=== PATIENT | female | born 2000 | race Caucasian/White ===

== ENCOUNTER 2024-09-15 07:53 | Inpatient (IN) | payer OTHER, SELFPAY ==
[2024-09-15] VITALS (39 sets, daily range): BP systolic 97–139; BP diastolic 52–82; PULSE 62–104; RESP 16–18; TEMP 36.1–37.4; O2SAT 94–99; BMI 26.5
--- OUTSIDE RECORDS SUMMARY | 2024-09-15 07:01 | XMS RPT_ITS | CCD ---
Author Organization [facility] Care Team Providers Care Pipe Fitter Marine Name Role Phone Amparo Carter Unavailable Unavailable Unavailable Amparo Carter MD Primary Care Provider [phone] AMPARO CARTER Attending Unavailable AMPARO CARTER Primary Care Unavailable Amparo Carter MD Primary Care Provider [phone] Renee Escalera Admitting Unavailable Renee Escalera Attending Unavailable Renee Escalera Referring Unavailable Amparo Carter Primary Care Unavailable WILLIAM CHEN Referring Unavailable AMPARO CARTER M Primary Care Unavailable REBEKAH MOON Attending Unavail able RAULAMPARO SALEEM M Primary Care Unavailable ASHLEY KHAN Attending Unavailable AMPARO CARTER M Primary Care Unavailable ASHLEY KHAN Attending Unavailable TERRENCE, HELENA Referring Unavailable RAULAMPARO SALEEM M Primary Care Unavailable ASHLEY KHAN Attending Unavailable AMPARO CARTER M Primary Care Unavailable REBEKAH MOON Referring Unavail able AMPARO CARTER M Primary Care Unavailable RENEE ESCALERA Attending Unavailable AMPARO CARTER Primary Care Unavailable RAULAMPARO SALEEM M Primary Care Unavailable TERRENCE, HELENA Referring Unavailable TERRENCE, HELENA Attending Unavailable RAUL, AMPARO M Primary Care Unavailable WILLIAM CHEN Attending Unavailable AMPARO CARTER M Primary Care Unavailable RENEE ESCALERA Attending Unavailable RAUL, AMPARO M Primary Care Unavailable ASHLEY KHAN Attending Unavailable RAUL, AMPARO M Primary Care Unavailable WILLIAM CHEN Attending Unavailable RAUL, AMPARO M Primary Care Unavailable TERRENCE, HELENA Referring Unavailable RAUL, AMPARO M Primary Care Unavailable RAULAMPARO SALEEM M Primary Care Unavailable WILLIAM CHEN Attending Unavailable JOYA HASSAN Attending Unavailable WILLIAM CHEN Referring Unavailable AMPARO CARTER Primary Care Unavailable REBEKAH MOON Attending Unavail able AMPARO CARTER Primary Care Unavailable Allergies Allergy Classification Reported Allergen(s) Allergy Type Date of Onset Reaction(s) Facility (2 sources) Pollen; Translations: [POLLEN EXTRACTS] Propensity to adverse reactions 3 Itching [facility] Work Phone: (20 sources) beta-Blocking agent; Translations: [BETA-BLOCKERS (BETA-ADRENERGI C BLOCKING AGTS)] Propensity to adverse reactions to drug 5 Other: See Comments [facility] (20 sources) Seasonal allergy; Translations: [SEASONAL ALLERGIES] Allergy to substance 3 Hives [facility] Medications Current Medications Medication Drug Class(es) Dates Sig (Normalized) Sig (Original) aspirin 81 mg delayed release oral tablet (20 sources) Platelet Aggregation Inhibitor, Nonsteroidal Anti-inflammatory Drug Start: 01-21-2024 take 1 tablet by mouth once daily aspirin, enteric coated (ECOTRIN LOW STRENGTH) 81 mg EC tablet Take 1 tablet by mouth once daily. 90 tablet 3 01/21/2024 Active [id number] 0.3 ml EPINEPHrine 1 mg/ml auto-injector (20 sources) alpha-Adrenergic Agonist, beta-Adrenergic Agonist, Catecholamine Start: 03-03-2016 EPINEPHrine 0.3 mg/0.3 mL auto-injector Inject 0.3 mL intramuscularly as needed. 1 Each 3 03/03/2016 Active Ethinyl Estradiol / norgestimate (1 source) Progestin, Estrogen Start: 10-24-2022 take 1 tablet by mouth once daily Eba-Rp-Cccddx 0.18/0.215/0.25 mg-25 mcg tablet Indications: Acne, unspecified acne type TAKE 1 TABLET BY MOUTH EVERY DAY 28 tablet 0 10/24/2022 Active ketotifen 0.25 mg/ml ophthalmic solution (20 sources) Histamine-1 Receptor Inhibitor ketotifen fumarate (ALAWAY) 0.025 % (0.035 %) ophthalmic solution Use 1 Drop in both eyes once daily as needed (Due to seasonal allergies). Active levocetirizine dihydrochloride 5 mg oral tablet (9 sources) Histamine-1 Receptor Antagonist Start: 10-25-2022 take 1 tablet by mouth once daily in the evening levocetirizine (Xyzal) 5 mg tablet Indications: Allergy, subsequent encounter Take 1 tablet (5 mg) by mouth once daily in the evening. 90 tablet 1 10/25/2022 Active Start: 06-26-2012 End: 01-21-2024 take 1 tablet by mouth once daily as needed Levocetirizine 5 mg tablet Indications: Seasonal allergic rhinitis due to pollen Take 1 tablet by mouth once daily as needed. 30 tablet 11 07/14/2016 01/21/2024 Discontinued PNV Combo No.47-Iron-FA #1-DHA (PNV-DHA) 27 mg iron-1 mg -300 mg (4 sources) Start: 08-27-2024 End: 08-27-2025 take 1 capsule by mouth once daily PNV Combo No.47-Iron-FA #1-DHA (PNV-DHA) 27 mg iron-1 mg -300 mg Take 1 capsule by mouth once daily. 30 capsule 11 08/27/2024 08/27/2025 Active Completed/Discontinued Medications Medication Drug Class(es) Dates Sig (Normalized) Sig (Original) [id number] 200 actuat albuterol 0.09 mg/actuat metered dose inhaler (6 sources) beta2-Adrenergic Agonist Start: 10-06-2019 take 2 puff(s) by inhalation every four hours as needed for cough Albuterol Sulfate HFA 108 (90 Base) MCG/ACT Inhalation Aerosol Solution INHALE 2 PUFFS EVERY 4 HOURS NEEDED FOR COUGH AND WHEEZE. Quantity: 1 Refills: 1 Ordered: 08-Oct-2020 Amparo Carter MD Start : 06-Oct-2019 Active Start: 10-06-2019 take 2 puff(s) by in halation every four hours as needed for cough Albuterol Sulfate HFA 108 (90 Base) MCG/ACT Inhalation Aerosol Solution INHALE 2 PUFFS EVERY 4 HOURS NEEDED FOR COUGH AND WHEEZE. Quantity: 1 Refills: 1 Ordered: 08-Oct-2020 Amparo Carter MD Start : 06-Oct-2019 Active mometasone furoate 1 mg/ml topical cream (5 sources) Corticosteroid Start: 11-10-2013 Mometasone Fur oate 0.1 % External Cream APPLY SPARINGLY TO AFFECTED AREAS TWICE DAILY.(AM AND PM). Quantity: 1 Refills: 0 Ordered: 12-Oct-2021 Amparo Carter MD Start : 10-Nov-2013 Active Start: 11-10-2013 Mometasone Fur oate 0.1 % External Cream APPLY SPARINGLY TO AFFECTED AREAS TWICE DAILY.(AM AND PM). Quantity: 1 Refills: 0 Ordered: 08-Oct-2020 Amparo Carter MD Start : 10-Nov-2013 Active montelukast 10 mg oral tablet (7 sources) Leukotriene Receptor Antagonist Start: 08-09-2018 End: 01-21-2024 take 1 tablet by mouth at bedtime Montelukast Sodium 10 MG Oral Tablet TAKE 1 TABLET AT BEDTIME. Quantity: 1 Refills: 3 Ordered: 12-Oct-2021 Amparo Carter MD Start : 09-Aug-2018 Active Norgestim-Eth Estrad Triphasic 0.18/0.215/0.25 MG-25 MCG Oral Tablet (6 sources) Start: 08-24-2015 take 1 tablet by mouth once daily Norgestim-Eth Estrad Triphasic 0.18/0.215/0.25 MG-25 MCG Oral Tablet TAKE 1 TABLET DAILY. Quantity: 3 Refills: 1 Ordered: 12-Oct-2021 Amparo Carter MD Start : 24-Aug-2015 Active Start: 08-24-2015 take 1 tablet by natalie th once daily Norgestim-Eth Estrad Triphasic 0.18/0.215/0.25 MG-25 MCG Oral Tablet TAKE 1 TABLET DAILY. Quantity: 2 Refills: 0 Ordered: 17-Aug-2021 Amparo Carter MD Start : 24-Aug-2015 Active Start: 08-24-2015 take 1 tablet by natalie th once daily Norgestim-Eth Estrad Triphasic 0.18/0.215/0.25 MG-25 MCG Oral Tablet TAKE 1 TABLET DAILY. Quantity: 3 Refills: 0 Ordered: 09-Jun-2021 Amparo Carter MD Start : 24-Aug-2015 Active Start: 08-24-2015 take 1 tablet by natalie th once daily Norgestim-Eth Estrad Triphasic 0.18/0.215/0.25 MG-25 MCG Oral Tablet TAKE 1 TABLET DAILY. Quantity: 3 Refills: 1 Ordered: 08-Oct-2020 Amparo Carter MD Start : 24-Aug-2015 Active Start: 08-24-2015 take 1 tablet by natalie th once daily Norgestim-Eth Estrad Triphasic 0.18/0.215/0.25 MG-25 MCG Oral Tablet TAKE 1 TABLET DAILY. Quantity: 3 Refills: 0 Ordered: 29-Sep-2020 Amparo Carter MD Start : 24-Aug-2015 Active olopatadine 2 mg/ml ophthalmic solution (7 sources) Histamine-1 Receptor Inhibitor Start: 01-08-2017 take 1 drop(s) into the eye(s) once daily Pataday 0.2 % Ophthalmic Solution INSTILL 1 DROP INTO AFFECTED EYE(S) ONCE DAILY DIRECTED. Quantity: 1 Refills: 1 Ordered: 08-Jan-2017 Amparo Carter MD Start : 08-Jan-2017 Active End: 01-21-2024 Olopatadine (PATADAY) 0.2 % drop Indications: Allergic rhinitis due to pollen Use 1 Drop in both eyes as needed. 01/21/2024 Discontinued PNV no.95/ferrous fum/folic ac ( ORAL) (11 sources) End: 08-27-2024 PNV no.95/ferrous fum/folic ac ( ORAL) Take by mouth. 08/27/2024 Discontinued PNV no.95/ferrou s fum/folic ac ( ORAL) Take by mouth. Active predniSONE 20 mg oral tablet (1 source) End: 01-21-2024 predniSONE (DELTASONE) 20 mg tablet Take 20 mg by mouth as needed. 01/21/2024 Discontinued spironolactone 50 mg oral tablet (7 sources) Aldosterone Antagonist Start: 07-17-2019 Spironolactone 50 MG Oral Tablet Quantity: 30 Refills: 0 Ordered: 08-Aug-2019 DO Start : 17-Jul-2019 Active take 1 tablet by mouth once jaison y spironolactone (Aldactone) 100 mg tablet Take 1 tablet (100 mg) by mouth once daily. 0 Active tretinoin 0.25 mg/ml topical cream (4 sources) Retinoid Start: 04-17-2019 Tretinoin 0.025 % External Cream Quantity: 45 Refills: 0 Ordered: 17-Apr-2019 DO Start : 17-Apr-2019 Active triamcinolone acetonide 0.055 mg/actuat metered dose nasal spray (11 sources) Corticosteroid Start: 12-31-2014 End: 06-23-2024 take 2 spray(s) by inhalation once daily triamcinolone acetonide (NASACORT AQ) 55 mcg nasal inhaler Use 2 Sprays in the nose once daily. 1 Inhaler 11 12/31/2014 06/23/2024 Discontinued Problems Active Problems Problem Classification Problem Date Documented Date Episodic/Chronic Allergic reactions (20 sources) Eczema; Translations: [Contact dermatitis and other eczema, unspecified cause] Episodic Asthma (7 sources) Reactive airway disease; Translations: [Asthma, unspecified type, unspecified] Onset: 10-25-2022 10-25-2022 Chronic Immunizations and screening for infectious disease (14 sources) Requires vaccination; Translations: [Need for prophylactic vaccination and inoculation against other viral diseases] 01-21-2024 Episodic Inflammation; infection of eye (except that caused by tuberculosis or sexually transmitteddisease) (7 sources) Allergic conjunctivitis; Translations: [Other chronic allergic conjunctivitis] Onset: 10-25-2022 10-25-2022 Episodic Other complications of (1 source) Variable heart decelerations; Translations: [Maternal care for abnormalities of the heart rate or rhythm, unspecified trimester, not applicable or unspecified] 07-09-2024 Episodic Other connective tissue disease (6 sources) Pain in thumb ; Translations: [Pain in limb] Episodic Other injuries and conditions due to external causes (1 source) Allergic condition; Translations: [Allergy, unspecified, subsequent encounter] 10-25-2022 Episodic Other nutritional; endocrine; and metabolic disorders (6 sources) Delayed milestones; Translations: [Gross Motor Skills Were Delayed] Episodic Other and delivery including normal (20 sources) Normal ; Translations: [Encounter for supervision of normal first , first trimester] Onset: 01-21-2024 01-21-2024 Episodic Other screening for suspected conditions (not mental disorders or infectious disease) (6 sources) Cancer cervix screening status; Translations: [Encounter for screening for malignant neoplasm of cervix] Onset: 06-23-2024 01-21-2024 Episodic Other skin disorders (6 sources) Acne; Translations: [Other acne] Episodic Other upper respiratory disease (20 sources) Allergic rhinitis; Translations: [Allergic rhinitis, cause unspecified] Onset: 02-17-2015 10-25-2022 Chronic Other upper respiratory disease (6 sources) Allergy to dust; Translations: [Allergic rhinitis due to other allergen] Chronic Other upper respiratory disease (6 sources) Allergy to substance; Translations: [Allergic rhinitis due to pollen] Chronic Other upper respiratory disease (6 sources) Allergic rhinitis due to pollen; Translations: [Allergic rhinitis due to pollen] Chronic Other upper respiratory infections (12 sources) Acute pharyngitis; Translations: [Acute pharyngitis] Episodic Residual codes; unclassified (1 source) Gestation period, 6 weeks; Translations: [Less than 8 weeks gestation of ] 01-21-2024 Episodic Residual codes; unclassified (2 sources) Gestation period, 13 weeks; Translations: [13 weeks gestation of ] 03-10-2024 Episodic Residual codes; unclassified (1 source) Gestation period, 17 weeks; Translations: [17 weeks gestation of ] 04-07-2024 Episodic Residual codes; unclassified (2 sources) Gestation period, 21 weeks; Translations: [21 weeks gestation of ] 05-05-2024 Episodic Residual codes; unclassified (1 source) Gestation period, 28 weeks; Translations: [28 weeks gestation of ] 06-23-2024 Episodic Residual codes; unclassified (1 source) Gestation period, 30 weeks; Translations: [30 weeks gestation of ] 07-09-2024 Episodic Residual codes; unclassified (1 source) Gestation period, 32 weeks; Translations: [32 weeks gestation of ] 07-21-2024 Episodic Residual codes; unclassified (1 source) Gestation period, 34 weeks; Translations: [34 weeks gestation of ] 08-04-2024 Episodic Residual codes; unclassified (1 source) Gestation period, 36 weeks; Translations: [36 weeks gestation of ] 08-20-2024 Episodic Residual codes; unclassified (1 source) Gestation period, 37 weeks; Translations: [37 weeks gestation of ] 08-27-2024 Episodic Residual codes; unclassified (1 source) Gestation period, 38 weeks; Translations: [38 weeks gestation of ] 09-03-2024 Episodic Residual codes; unclassified (1 source) Gestation period, 39 weeks; Translations: [39 weeks gestation of ] 09-10-2024 Episodic Residual codes; unclassified (1 source) 39 weeks gestation of ; Translations: [39 weeks gestation of (HCC)] Onset: 09-10-2024 Episodic Residual codes; unclassified (1 source) 38 weeks gestation of ; Translations: [38 weeks gestation of (HCC)] Onset: 09-03-2024 Episodic Residual codes; unclassified (1 source) 37 weeks gestation of ; Translations: [37 weeks gestation of (HCC)] Onset: 08-27-2024 Episodic Residual codes; unclassified (1 source) 36 weeks gestation of ; Translations: [36 weeks gestation of (HCC)] Onset: 08-20-2024 Episodic Residual codes; unclassified (1 source) 34 weeks gestation of ; Translations: [34 weeks gestation of (HCC)] Onset: 08-04-2024 Episodic Residual codes; unclassified (1 source) 32 weeks gestation of ; Translations: [32 weeks gestation of (HCC)] Onset: 07-21-2024 Episodic Residual codes; unclassified (1 source) 30 weeks gestation of ; Translations: [30 weeks gestation of (HCC)] Onset: 07-09-2024 Episodic Unclassified (20 sources) [facility] Education - COMMON Onset: 01-21-2024 01-21-2024 Unclassified (20 sources) Education - [place] Onset: 01-21-2024 01-21-2024 Past or Other Problems Problem Classification Problem Date Documented Da te Episodic/Chronic Other complications of (16 sources) Rubella non-immune; Translations: [Supervision of other high risk pregnancies, unspecified trimester] Onset: 03-11-2024 03-11-2024 Episodic Other injuries and conditions due to external causes (2 sources) Allergy, unspecified, subsequent encounter; Translations: [Allergy, unspecified, subsequent encounter] Onset: 10-25-2022 Episodic Residual codes; unclassified (1 source) 17 weeks gestation of ; Translations: [17 weeks gestation of ] Onset: 05-05-2024 Episodic Residual codes; unclassified (2 sources) Less than 8 weeks gestation of ; Translations: [6 weeks gestation of ] Onset: 01-21-2024 Episodic Unclassified (1 source) Onset: 10-25-2022 10-25-2022 Results Test Name Value Interpretation Reference Range Facil ity URINE OB DIP B/Oon 5 Glucose Ql (U) Negative Neg mg/dL [facility] Protein.monoclonal (U) [Mass/Vol] Negative Neg mg/dL [facility] URINE OB DIP B/Oon 5 Glucose Ql (U) Negative Neg mg/dL [facility] Interpretation and review of laboratory results Normal [facility] Protein.monoclonal (U) [Mass/Vol] Negative Neg mg/dL [facility] URINE OB DIP B/Oon 5 Glucose Ql (U) Negative Neg mg/dL [facility] Interpretation and review of laboratory results Normal [facility] Protein.monoclonal (U) [Mass/Vol] Negative Neg mg/dL [facility] ROUTINE, GROUP B ST REPTOCOCCUS BY PCRon 08-20-2024 ROUTINE, GROUP B STREPTOCOCCUS BY PCR Not detected Normal [facility] Comment on above: Performed By: #### R [id number] #### [facility] CLIA [id number] [address] [place] [address] [place] URINE OB DIP B/Oon 5 Glucose Ql (U) 100 mg/dL Neg [facility] Interpretation and review of laboratory results Normal [facility] Protein.monoclonal (U) [Mass/Vol] Negative Neg mg/dL [facility] 08-05-2024 JOYCE Telephone (OBGYWM) JESÚS CUEVAS ([id number]) 2000 F Date Time Provider Department 08/05/24 WILLIAM CHEN OBBERNARD During your visit today, we recorded the following information about you: Mary Ann Benitez RN 08/05/2024 8:28 AM Signed Breast pump order received from [employer]. To to sign. STEVEN Humphries Tara, RN 08/14/2024 3:16 PM Signed Faxed. Marsha Pugh RN Allergies As of Date: 08/05/2024 Noted Allergy Reaction BETA BLOCKERS (BETA-BLOCKERS (BET*02/03/2015 14 - Other: See Comments Comments: Please avoid beta blockers while patient is on allergy injections SEASONAL ALLERGIES 05/11/2022 4 - Hives Date Reviewed: 08/04/2024 Reviewed by: Antonette Perry MA - Fully Assessed Reason for Visit: Breast Pump [Other] Prescriptions as of 08/14/2024 - PNV no.95/ferrous fum/folic ac ( ORAL) Take by mouth. - aspirin, enteric coated (ECOTRIN LOW STRENGTH) 81 mg EC tablet Take 1 tablet by mouth once daily. - ketotifen fumarate (ALAWAY) 0.025 % (0.035 %) ophthalmic solution Use 1 Drop in both eyes once daily as needed (Due to seasonal allergies). - EPINEPHrine 0.3 mg/0.3 mL auto-injector Inject 0.3 mL intramuscularly as needed. Problem List As Of Date 08/05/2024 Noted Resolved Allergic rhinitis [J30.9] 02/17/2015 Encounter for supervision of normal first pregn*01/21/2024 Rubella non-immune status, antepartum [O09.899,*03/11/2024 Encounter Status:Closed by MARSHA PUGH on 08/14/24 Normal [facility] URINE OB DIP B/Oon Glucose Ql (U) 250 mg/dL Neg [facility] Interpretation and review of laboratory results Normal [facility] Protein.monoclonal (U) [Mass/Vol] Negative Neg mg/dL [facility] CBC W Auto Differential pane l (Bld)on 06-23-2024 Basophils (Bld) [#/Vol] 0.05 10*3/uL Normal <0.11 [facility] Comment on above: Order Comment: Speci men Type: FLUID SPECIMEN Ordering Facility: [facility] Address: [address] [place] [address] Performed By: #### L [id number] #### [facility] CLIA [id number] [address] [place] [address] [place] Basophils/100 WBC (Bld) 0.4 % Normal [facility] Comment on above: Order Comment: Speci men Type: FLUID SPECIMEN Ordering Facility: [facility] Address: [address] [place] [address] Performed By: #### L [id number] #### [facility] CLIA [id number] [address] [place] [address] [place] Differential cell count method Nom (Bld) Auto Normal [facility] Comment on above: Order Comment: Speci men Type: FLUID SPECIMEN Ordering Facility: [facility] Address: [address] [place] [address] Performed By: #### L [id number] #### [facility] CLIA [id number] [address] [place] [address] [place] Eosinophils (Bld) [#/Vol] 0.13 10*3/uL Normal <0.46 [facility] Comment on above: Order Comment: Speci men Type: FLUID SPECIMEN Ordering Facility: [facility] Address: [address] [place] [address] Performed By: #### L [id number] #### [facility] CLIA [id number] [address] [place] [address] [place] Eosinophils/100 WBC (Bld) 1.1 % Normal [facility] Comment on above: Order Comment: Speci men Type: FLUID SPECIMEN Ordering Facility: [facility] Address: [address] [place] [address] Performed By: #### L [id number] #### [facility] CLIA [id number] [address] [place] [address] [place] Erythrocyte distribution width (RBC) [Ratio] 12.3 % Normal 11.5-15.0 [facility] Comment on above: Order Comment: Speci men Type: FLUID SPECIMEN Ordering Facility: [facility] Address: [address] [place] [address] Performed By: #### L [id number] #### [facility] CLIA [id number] [address] [place] [address] [place] Hematocrit (Bld) [Volume fraction] 37.4 % Normal 36.0-46.0 [facility] Comment on above: Order Comment: Speci men Type: FLUID SPECIMEN Ordering Facility: [facility] Address: [address] [place] [address] Performed By: #### L [id number] #### [facility] CLIA [id number] [address] [place] [address] [place] Hemoglobin (Bld) [Mass/Vol] 12.6 g/dL Normal 11.5-15.5 [facility] Comment on above: Order Comment: Speci men Type: FLUID SPECIMEN Ordering Facility: [facility] Address: [address] [place] [address] Performed By: #### L [id number] #### [facility] CLIA [id number] [address] [place] [address] [place] Immature granulocytes (Bld) [#/Vol] 0.14 10*3/uL High <0.10 [facility] Comment on above: Order Comment: Speci men Type: FLUID SPECIMEN Ordering Facility: [facility] Address: [address] [place] [address] Performed By: #### L [id number] #### [facility] CLIA [id number] [address] [place] [address] [place] Immature granulocytes/100 WBC (Bld) 1.2 % Normal [facility] Comment on above: Order Comment: Speci men Type: FLUID SPECIMEN Ordering Facility: [facility] Address: [address] [place] [address] Performed By: #### L [id number] #### [facility] CLIA [id number] [address] [place] [address] [place] Lymphocytes (Bld) [#/Vol] 1.98 10*3/uL Normal 1.00-4.00 [facility] Comment on above: Order Comment: Speci men Type: FLUID SPECIMEN Ordering Facility: [facility] Address: [address] [place] [address] Performed By: #### L [id number] #### [facility] CLIA [id number] [address] [place] [address] [place] Lymphocytes/100 WBC (Bld) 17.0 % Normal [facility] Comment on above: Order Comment: Speci men Type: FLUID SPECIMEN Ordering Facility: [facility] Address: [address] [place] [address] Performed By: #### L [id number] #### [facility] CLIA [id number] [address] [place] [address] [place] MCH (RBC) [Entitic mass] 30.1 pg Normal 26.0-34.0 [facility] Comment on above: Order Comment: Speci men Type: FLUID SPECIMEN Ordering Facility: [facility] Address: [address] [place] [address] Performed By: #### L [id number] #### [facility] CLIA [id number] [address] [place] [address] [place] MCHC (RBC) [Mass/Vol] 33.7 g/dL Normal 30.5-36.0 [facility] Comment on above: Order Comment: Speci men Type: FLUID SPECIMEN Ordering Facility: [facility] Address: [address] [place] [address] Performed By: #### L [id number] #### [facility] CLIA [id number] [address] [place] [address] [place] MCV (RBC) [Entitic vol] 89.5 fL Normal 80.0-100.0 [facility] Comment on above: Order Comment: Speci men Type: FLUID SPECIMEN Ordering Facility: [facility] Address: [address] [place] [address] Performed By: #### L [id number] #### [facility] CLIA [id number] [address] [place] [address] [place] Monocytes (Bld) [#/Vol] 1.42 10*3/uL High <0.87 [facility] Comment on above: Order Comment: Speci men Type: FLUID SPECIMEN Ordering Facility: [facility] Address: [address] [place] [address] Performed By: #### L [id number] #### [facility] CLIA [id number] [address] [place] [address] [place] Monocytes/100 WBC (Bld) 12.2 % Normal [facility] Comment on above: Order Comment: Speci men Type: FLUID SPECIMEN Ordering Facility: [facility] Address: [address] [place] [address] Performed By: #### L [id number] #### [facility] CLIA [id number] [address] [place] [address] [place] Neutrophils (Bld) [#/Vol] 7.96 10*3/uL High 1.45-7.50 [facility] Comment on above: Order Comment: Speci men Type: FLUID SPECIMEN Ordering Facility: [facility] Address: [address] [place] [address] Performed By: #### L [id number] #### [facility] CLIA [id number] [address] [place] [address] [place] Neutrophils/100 WBC (Bld) 68.1 % Normal [facility] Comment on above: Order Comment: Speci men Type: FLUID SPECIMEN Ordering Facility: [facility] Address: [address] [place] [address] Performed By: #### L [id number] #### [facility] CLIA [id number] [address] [place] [address] [place] Nucleated RBC (Bld) [#/Vol] 10*3/uL Normal <0.01 [facility] Comment on above: Order Comment: Speci men Type: FLUID SPECIMEN Ordering Facility: [facility] Address: [address] [place] [address] Performed By: #### L [id number] #### [facility] CLIA [id number] [address] [place] [address] [place] Nucleated RBC/100 WBC (Bld) [Ratio] 0.0 /100 WBC Normal [facility] Comment on above: Order Comment: Speci men Type: FLUID SPECIMEN Ordering Facility: [facility] Address: [address] [place] [address] Performed By: #### L [id number] #### [facility] CLIA [id number] [address] [place] [address] [place] Platelet mean volume (Bld) [Entitic vol] 8.4 fL Low 9.0-12.7 [facility] Comment on above: Order Comment: Speci men Type: FLUID SPECIMEN Ordering Facility: [facility] Address: [address] [place] [address] Performed By: #### L [id number] #### [facility] CLIA [id number] [address] [place] [address] [place] Platelets (Bld) [#/Vol] 308 10*3/uL Normal 150-400 [facility] Comment on above: Order Comment: Speci men Type: FLUID SPECIMEN Ordering Facility: [facility] Address: [address] [place] [address] Performed By: #### L [id number] #### [facility] CLIA [id number] [address] [place] [address] [place] RBC (Bld) [#/Vol] 4.18 10*6/uL Normal 3.90-5.20 [facility] Comment on above: Order Comment: Speci men Type: FLUID SPECIMEN Ordering Facility: [facility] Address: [address] [place] [address] Performed By: #### L [id number] #### [facility] CLIA [id number] [address] [place] [address] [place] WBC (Bld) [#/Vol] 11.68 10*3/uL High 3.70-11.00 [facility] Comment on above: Order Comment: Speci men Type: FLUID SPECIMEN Ordering Facility: [facility] Address: [address] [place] [address] Performed By: #### L [id number] #### [facility] CLIA [id number] [address] [place] [address] [place] GESTATIONAL GLUCOSE SCREEN, 1-HOUR, 50 GRAM, NON-FASTINGon 06-23-2024 Glucose [Mass/Vol] 123 mg/dL Normal 74-134 [facility] Comment on above: Order Comment: Speci men Type: BLOOD SPECIMEN Ordering Facility: [facility] Address: [address] [place] [address] Result Comment: [facility] Congress of Obstetricians and Gynecologists ([place]) guidelines state a gestational diabetes mellitus positive screen is made, in women not previously diagnosed with overt diabetes, when the 1 hr plasma glucose level is equal to or above 140 mg/dL. The [facility] Corporate Director and [facility] [place] recommends a 135 mg/dL cutoff. Performed By: #### R UBIGG #### [facility] CLIA [id number] [address] [place] [address] [place] Reagin and Treponema pallidu m IgG and IgM [Interp]on 06-23-2024 T. pallidum IgG+IgM IA Ql (S) Non-Reactive Normal Nonreactive [facility] Comment on above: Order Comment: Speci men Type: BLOOD SPECIMEN Ordering Facility: [facility] Address: [address] [place] [address] Performed By: #### R UBIGG #### [facility] CLIA [id number] [address] [place] [address] [place] Reagin+T pallidum IgG+IgM Se rPl-Impon 06-23-2024 Reagin and Treponema pallidum IgG and IgM [Interp] Cannot exclude recent Treponemal infection if specimen collected within 7-10 days after appearance of suspect lesions or 2-3 weeks after an exposure. Clinical correlation is required. Normal [facility] Comment on above: Order Comment: Speci men Type: BLOOD SPECIMEN Ordering Facility: [facility] Address: [address] [place] [address] Performed By: #### R UBIGG #### [facility] CLIA [id number] [address] [place] [address] [place] CNPLedy 06-04-2024 JYOCE Telephone (OBGYWM) JESÚS CUEVAS ([id number]) 2000 F Date Time Provider Department 06/04/24 REBEKAH MOON During your visit today, we recorded the following information about you: Desmond Michael MA 06/04/2024 2:49 PM Signed [facility] paperwork completed and placed on providers desk for signature. JOVAN Lara Morgan, MA 06/06/2024 11:06 AM Signed [facility] paperwork completed and faxed back to employer. Patient would like original back, placed in SW chart prep folder for upcoming appointment. Patient notified. Desmond Michael MA Allergies As of Date: 06/04/2024 Noted Allergy Reaction BETA BLOCKERS (BETA-BLOCKERS (BET*02/03/2015 14 - Other: See Comments Comments: Please avoid beta blockers while patient is on allergy injections SEASONAL ALLERGIES 05/11/2022 4 - Hives Date Reviewed: 06/02/2024 Reviewed by: Becki Lara MA - Fully Assessed Reason for Visit: [place] Paperwork [5275] Prescriptions as of 06/06/2024 - PNV no.95/ferrous fum/folic ac ( ORAL) Take by mouth. - aspirin, enteric coated (ECOTRIN LOW STRENGTH) 81 mg EC tablet Take 1 tablet by mouth once daily. - ketotifen fumarate (ALAWAY) 0.025 % (0.035 %) ophthalmic solution Use 1 Drop in both eyes once daily as needed (Due to seasonal allergies). - EPINEPHrine 0.3 mg/0.3 mL auto-injector Inject 0.3 mL intramuscularly as needed. - triamcinolone acetonide (NASACORT AQ) 55 mcg nasal inhaler Use 2 Sprays in the nose once daily. Problem List As Of Date 06/04/2024 Noted Resolved Allergic rhinitis [J30.9] 02/17/2015 Encounter for supervision of normal first pregn*01/21/2024 Rubella non-immune status, antepartum [O09.899,*03/11/2024 Encounter Status:Closed by DESMOND MICHAEL on 06/06/24 Normal [facility] Examination level ultrasound on 05-05-2024 Indication Standard anatomic survey Impression REMOTE READ The patient is referred for a standard anatomic survey. - Single, live, intrauterine . - biometry is consistent with the established gestational age. - No malformations were visualized on a complete standard anatomic survey. - The amniotic fluid volume is normal amount. - The placenta is posterior, fundal. - The Transabdominal cervical length measures 42.3 mm with no evidence of funneling or other dynamic changes. - Not all structural malformations can be detected by ultrasound examination. Recommendations Additional follow-up as clinically indicated. Maternal Assessment Height 168 cm Height (ft) 5 ft Height (in) 6 in Physical Exam Initial weight (lb) 130 lb Initial BMI 20.98 kg/m Maternal assessment other: 1 Para 0 Method Transabdominal ultrasound examination. View: Adequate visualization Henley . Number of fetuses: 1 Dating LMP on: 12/01/2023 GA by LMP 22 w + 2 d [place] by LMP: 09/06/2024 GA by prior assessment 21 w + 1 d [place] by prior assessment: 09/14/2024 Ultrasound examination on: 05/05/2024 GA by U/S based upon: AC, BPD, Femur, HC GA by U/S 21 w + 4 d [place] by U/S: 09/11/2024 Assigned: based on stated [place], selected on 03/10/2024 Assigned GA 21 w + 1 d Assigned [place]: 09/14/2024 General Evaluation Cardiac activity present. FHR 143 bpm. movements: present. Presentation: cephalic Placenta: Placental site: posterior, fundal Umbilical cord: Cord vessels: 3 vessel cord Amniotic fluid: Amount of AF: normal amount. MVP 4.4 cm Growth Overview Exam date GA BPD (mm) HC (mm) AC (mm) FL (mm) HL (mm) EFW (g) 05/05/2024 21w 1d 50.1 50% 193.2 62% 171.1 73% 35.8 73% 34.2 65% 445 74% Biometry Standard BPD 50.1 mm 21w 1d 50% Hadlock OFD 70.2 mm 21w 6d 93% Nicolaides HC 193.2 mm 21w 4d 62% Keysha Cerebellum tr 22.6 mm 21w 0d 62% Hill Nuchal fold 5.0 mm AC 171.1 mm 22w 1d 73% Hadlock Femur 35.8 mm 21w 4d 73% Keysha Humerus 34.2 mm 21w 5d 65% Keysha EFW 445 g 21w 4d 74% Hadlock EFW (lb) 1 lb EFW (oz) 0 oz EFW by: Hadlock (HC-AC-FL) Extended Mechanical Field Engineer 5.4 mm CM 5.4 mm 54% Nicolaides Extremities / Bony Struc FL / HC 0.19 Other Structures FHR 143 bpm Anatomy Cranium: normal Lateral ventricles: normal Choroid plexus: normal Midline falx: normal Cavum septi pellucidi: normal Cerebellum: normal Cisterna magna: normal Head / Neck Vermis: Normal but not required for a standard anatomy exam Neck: Normal but not required for a standard anatomy exam Nuchal fold: Normal but not required for a standard anatomy exam Lips: normal Profile: Normal but not required for a standard anatomy exam Nose: Normal but not required for a standard anatomy exam Face Maxilla: Normal but not required for a standard anatomy exam Mandible: Normal but not required for a standard anatomy exam Orbits: Normal but not required for a standard anatomy exam Lens: Normal but not required for a standard anatomy exam 4-chamber view: normal RVOT view: normal LVOT view: normal 3-vessel view: normal 2-mzpooh-rattmla view: normal Heart / Thorax Situs: situs solitus (normal) Aortic arch view: Normal but not required for a standard anatomy exam SVC: Normal but not required for a standard anatomy exam IVC: Normal but not required for a standard anatomy exam Cardiac axis: normal Rt lung: Normal but not required for a standard anatomy exam Lt lung: Normal but not required for a standard anatomy exam Diaphragm: Normal but not required for a standard anatomy exam Cord insertion: normal Stomach: normal Kidneys: normal Bladder: normal Genitals: normal Abdomen Abdom. wall: normal Cervical spine: normal Thoracic spine: normal Lumbar spine: normal Sacral spine: normal Arms: normal Legs: normal Rt upper arm: normal Rt forearm: normal Rt hand: normal Rt fingers: normal Lt upper arm: normal Lt forearm: normal Lt hand: normal Lt fingers: normal Rt upper leg: normal Rt lower leg: normal Rt foot: normal Lt upper leg: normal Lt lower leg: normal Lt foot: normal sex: male Wants to know sex: yes Maternal Structures Uterus / Cervix Uterus: Visualized Cervix: Visualized Approach: Transabdominal Cervical length 42.3 mm Other: Patient declined transvaginal ultrasound for cervical length. Ovaries / Tubes / Adnexa Rt ovary: Visualized Lt ovary: Visualized Performed By: Jaqueline Angela RDMS, RVT Read By: Candida Davidson M.D. MATERNAL MEDICINE [facility] Radiology Study observation (narrative) [facility] CBC W Auto Differential pane l (Bld)on 03-10-2024 Basophils (Bld) [#/Vol] 0.04 10*3/uL Normal <0.11 [facility] Comment on above: Order Comment: Speci men Type: BLOOD SPECIMEN Ordering Facility: [facility] Address: [address] [place] [address] Performed By: #### R UBIGG #### [facility] CLIA [id number] [address] [place] [address] [place] [address] [place] Basophils/100 WBC (Bld) 0.3 % Normal [facility] Comment on above: Order Comment: Speci men Type: BLOOD SPECIMEN Ordering Facility: [facility] Address: [address] [place] [address] Performed By: #### R UBIGG #### [facility] CLIA [id number] [address] [place] [address] [place] Differential cell count method Nom (Bld) Auto Normal [facility] Comment on above: Order Comment: Speci men Type: BLOOD SPECIMEN Ordering Facility: [facility] Address: [address] [place] [address] Performed By: #### R UBIGG #### [facility] CLIA [id number] [address] [place] [address] [place] Eosinophils (Bld) [#/Vol] 0.11 10*3/uL Normal <0.46 [facility] Comment on above: Order Comment: Speci men Type: BLOOD SPECIMEN Ordering Facility: [facility] Address: [address] [place] [address] Performed By: #### R UBIGG #### [facility] CLIA [id number] [address] [place] [address] [place] Eosinophils/100 WBC (Bld) 0.9 % Normal [facility] Comment on above: Order Comment: Speci men Type: BLOOD SPECIMEN Ordering Facility: [facility] Address: [address] [place] [address] Performed By: #### R UBIGG #### [facility] CLIA [id number] [address] [place] [address] [place] Erythrocyte distribution width (RBC) [Ratio] 12.5 % Normal 11.5-15.0 [facility] Comment on above: Order Comment: Speci men Type: BLOOD SPECIMEN Ordering Facility: [facility] Address: [address] [place] [address] Performed By: #### R UBIGG #### [facility] CLIA [id number] [address] [place] [address] [place] Hematocrit (Bld) [Volume fraction] 39.8 % Normal 36.0-46.0 [facility] Comment on above: Order Comment: Speci men Type: BLOOD SPECIMEN Ordering Facility: [facility] Address: [address] [place] [address] Performed By: #### R UBIGG #### [facility] CLIA [id number] [address] [place] [address] [place] Hemoglobin (Bld) [Mass/Vol] 13.5 g/dL Normal 11.5-15.5 [facility] Comment on above: Order Comment: Speci men Type: BLOOD SPECIMEN Ordering Facility: [facility] Address: [address] [place] [address] Performed By: #### R UBIGG #### [facility] CLIA [id number] [address] [place] [address] [place] Immature granulocytes (Bld) [#/Vol] 0.08 10*3/uL Normal <0.10 [facility] Comment on above: Order Comment: Speci men Type: BLOOD SPECIMEN Ordering Facility: [facility] Address: [address] [place] [address] Performed By: #### R UBIGG #### [facility] CLIA [id number] [address] [place] [address] [place] Immature granulocytes/100 WBC (Bld) 0.6 % Normal [facility] Comment on above: Order Comment: Speci men Type: BLOOD SPECIMEN Ordering Facility: [facility] Address: [address] [place] [address] Performed By: #### R UBIGG #### [facility] CLIA [id number] [address] [place] [address] [place] Lymphocytes (Bld) [#/Vol] 1.14 10*3/uL Normal 1.00-4.00 [facility] Comment on above: Order Comment: Speci men Type: BLOOD SPECIMEN Ordering Facility: [facility] Address: [address] [place] [address] Performed By: #### R UBIGG #### [facility] CLIA [id number] [address] [place] [address] [place] Lymphocytes/100 WBC (Bld) 9.1 % Normal [facility] Comment on above: Order Comment: Speci men Type: BLOOD SPECIMEN Ordering Facility: [facility] Address: [address] [place] [address] Performed By: #### R UBIGG #### [facility] CLIA [id number] [address] [place] [address] [place] MCH (RBC) [Entitic mass] 30.5 pg Normal 26.0-34.0 [facility] Comment on above: Order Comment: Speci men Type: BLOOD SPECIMEN Ordering Facility: [facility] Address: [address] [place] [address] Performed By: #### R UBIGG #### [facility] CLIA [id number] [address] [place] [address] [place] MCHC (RBC) [Mass/Vol] 33.9 g/dL Normal 30.5-36.0 [facility] Comment on above: Order Comment: Speci men Type: BLOOD SPECIMEN Ordering Facility: [facility] Address: [address] [place] [address] Performed By: #### R UBIGG #### [facility] CLIA [id number] [address] [place] [address] [place] MCV (RBC) [Entitic vol] 89.8 fL Normal 80.0-100.0 [facility] Comment on above: Order Comment: Speci men Type: BLOOD SPECIMEN Ordering Facility: [facility] Address: [address] [place] [address] Performed By: #### R UBIGG #### [facility] CLIA [id number] [address] [place] [address] [place] Monocytes (Bld) [#/Vol] 1.62 10*3/uL High <0.87 [facility] Comment on above: Order Comment: Speci men Type: BLOOD SPECIMEN Ordering Facility: [facility] Address: [address] [place] [address] Performed By: #### R UBIGG #### [facility] CLIA [id number] [address] [place] [address] [place] Monocytes/100 WBC (Bld) 12.9 % Normal [facility] Comment on above: Order Comment: Speci men Type: BLOOD SPECIMEN Ordering Facility: [facility] Address: [address] [place] [address] Performed By: #### R UBIGG #### [facility] CLIA [id number] [address] [place] [address] [place] Neutrophils (Bld) [#/Vol] 9.57 10*3/uL High 1.45-7.50 [facility] Comment on above: Order Comment: Speci men Type: BLOOD SPECIMEN Ordering Facility: [facility] Address: [address] [place] [address] Performed By: #### R UBIGG #### [facility] CLIA [id number] [address] [place] [address] [place] Neutrophils/100 WBC (Bld) 76.2 % Normal [facility] Comment on above: Order Comment: Speci men Type: BLOOD SPECIMEN Ordering Facility: [facility] Address: [address] [place] [address] Performed By: #### R UBIGG #### [facility] CLIA [id number] [address] [place] [address] [place] Nucleated RBC (Bld) [#/Vol] 10*3/uL Normal <0.01 [facility] Comment on above: Order Comment: Speci men Type: BLOOD SPECIMEN Ordering Facility: [facility] Address: [address] [place] [address] Performed By: #### R UBIGG #### [facility] CLIA [id number] [address] [place] [address] [place] Nucleated RBC/100 WBC (Bld) [Ratio] 0.0 /100 WBC Normal [facility] Comment on above: Order Comment: Speci men Type: BLOOD SPECIMEN Ordering Facility: [facility] Address: [address] [place] [address] Performed By: #### R UBIGG #### [facility] CLIA [id number] [address] [place] [address] [place] Platelet mean volume (Bld) [Entitic vol] 8.4 fL Low 9.0-12.7 [facility] Comment on above: Order Comment: Speci men Type: BLOOD SPECIMEN Ordering Facility: [facility] Address: [address] [place] [address] Performed By: #### R UBIGG #### [facility] CLIA [id number] [address] [place] [address] [place] Platelets (Bld) [#/Vol] 267 10*3/uL Normal 150-400 [facility] Comment on above: Order Comment: Speci men Type: BLOOD SPECIMEN Ordering Facility: [facility] Address: [address] [place] [address] Performed By: #### R UBIGG #### [facility] CLIA [id number] [address] [place] [address] [place] RBC (Bld) [#/Vol] 4.43 10*6/uL Normal 3.90-5.20 [facility] Comment on above: Order Comment: Speci men Type: BLOOD SPECIMEN Ordering Facility: [facility] Address: [address] [place] [address] Performed By: #### R UBIGG #### [facility] CLIA [id number] [address] [place] [address] [place] WBC (Bld) [#/Vol] 12.56 10*3/uL High 3.70-11.00 [facility] Comment on above: Order Comment: Speci men Type: BLOOD SPECIMEN Ordering Facility: [facility] Address: [address] [place] [address] Performed By: #### R UBIGG #### [facility] CLIA [id number] [address] [place] [address] [place] nuchal translucency me asured by USon 03-10-2024 Indication First trimester anatomic survey Impression REMOTE READ The patient is referred for a first trimester anatomy scan including nuchal translucency measurement as clinically indicated. - Single, live, intrauterine . - Nicodemus rump length measurement is consistent with the established gestational age. - A qualitative screen of the nuchal translucency and other anatomic structures was unremarkable on a complete first trimester anatomic assessment. - Not all structural malformations can be detected by ultrasound examination. Maternal Structures: Right Ovary: Size 30 mm x 21 mm x 19 mm Left Ovary: Size 12 mm x 13 mm x 15 mm Recommendations Return for anatomy ultrasound Maternal Assessment Height 168 cm Height (ft) 5 ft Height (in) 6 in Physical Exam Initial weight (lb) 130 lb Initial BMI 20.98 kg/m Maternal assessment other: 1 Para 0 Method Transabdominal ultrasound examination Henley . Number of fetuses: 1 Dating LMP on: 12/01/2023 GA by LMP 12 w + 2 d LAKSHMI by LMP: 09/06/2024 GA by prior assessment 11 w + 1 d LAKSHMI by prior assessment: 09/14/2024 Ultrasound examination on: 03/10/2024 GA by U/S based upon: CRL GA by U/S 13 w + 4 d LAKSHMI by U/S: 09/11/2024 Assigned: based on stated LAKSHMI, selected on 03/10/2024 Assigned GA 13 w + 1 d Assigned LAKSHMI: 09/14/2024 General Evaluation Cardiac activity present Placenta: posterior Cord vessels: 3 vessel cord Amniotic fluid: normal amount Biometry Standard FHR 142 bpm CRL 75.3 mm 13w 4d 77% [facility] First Trimester Anatomy Calvarium: normal Falx cerebri: normal Choroid plexus: normal Profile: normal Nasal bone: normal Retronasal triangle: normal Maxilla: normal Mandible: normal Nuchal translucency: Unremarkable Situs: normal Cardiac position: normal Cardiac axis: normal 4-chamber view: visualized 4-chamber view with color: normal 5-[id number]-hibwnhv view: normal Abdominal cord insertion: normal Stomach: normal Kidneys: normal Bladder: normal Color doppler of perivesical umbilical arteries: normal Vertebral alignment: normal Arms: normal Hands: normal Legs: normal Feet: normal Maternal Structures Uterus / Cervix Uterus: Visualized Uterus length 118 mm Uterus width 114 mm Uterus height 94 mm Uterus Vol 663.2 cm Ovaries / Tubes / Adnexa Rt ovary: Visualized Rt ovary D1 30 mm Rt ovary D2 21 mm Rt ovary D3 19 mm Rt ovary Vol 6.3 cm Lt ovary: Visualized Lt ovary D1 12 mm Lt ovary D2 13 mm Lt ovary D3 15 mm Lt ovary Vol 1.2 cm Performed By: Jaqueline Angela RDMS, RVT Read By: Candida Davidson M.D. MATERNAL MEDICINE [facility] Radiology Study observation (narrative) [facility] HBV surface Ag Ser Qlon 02-17 HBV surface Ag Ql (S) Negative Normal Negative [facility] Comment on above: Order Comment: Speci men Type: FLUID SPECIMEN Ordering Facility: [facility] Address: [address] [place] [address] Performed By: #### L [id number] #### [facility] CLIA [id number] [address] [place] [address] [place] HCV Ab Ser Qlon 03-10-2024 HCV Ab Ql (S) Negative Normal Negative [facility] Comment on above: Order Comment: Speci men Type: BLOOD SPECIMEN Ordering Facility: [facility] Address: [address] [place] [address] Result Comment: The result suggests no evidence of active infection with Hepatitis C virus. Should recent infection be suspected, repeat testing may be considered 4-6 weeks after this draw. Performed By: #### R UBIGG #### [facility] CLIA [id number] [address] [place] [address] [place] HIV 1+2 Ab IA Qlon 4 HIV 1 and 2 Ab IA.rapid Nom (S/P/Bld) Normal [facility] Comment on above: Order Comment: Speci men Type: FLUID SPECIMEN Ordering Facility: [facility] Address: [address] [place] [address] Result Comment: Test not indicated. Performed By: #### L [id number] #### [facility] CLIA [id number] [address] [place] [address] [place] HIV 1+2 Ab+HIV1 p24 Ag IA Ql Non-Reactive Normal Nonreactive [facility] Comment on above: Order Comment: Speci men Type: FLUID SPECIMEN Ordering Facility: [facility] Address: [address] [place] [address] Performed By: #### L [id number] #### [facility] CLIA [id number] [address] [place] [address] [place] HIV immunoassay testing algorithm interpretation (S/P/Bld) [Interp] Normal [facility] Comment on above: Order Comment: Speci men Type: FLUID SPECIMEN Ordering Facility: [facility] Address: [address] [place] [address] Result Comment: No e vidence of HIV-1 or HIV-2 infection. Should recent infection be suspected, repeat testing may be considered 2-3 weeks after this draw. [place] Rev. Code 3701.243(E): This information has been disclosed to you from confidential records protected from disclosure by state law. ???You shall make no further disclosure of this information without the specific, written, and informed release of the individual to whom it pertains or as otherwise permitted by state law. A general authorization for the release of medical or other information is not sufficient for the purpose of the release of HIV test results or diagnoses. Performed By: #### L [id number] #### [facility] CLIA [id number] [address] [place] [address] [place] HbA1c (Bld)on 03-10-2024 Average glucose Estimated from glycated hemoglobin (Bld) [Mass/Vol] 85 mg/dL Normal [facility] Comment on above: Order Comment: Speci men Type: BLOOD SPECIMEN Ordering Facility: [facility] Address: [address] [place] [address] Result Comment: eAG: (Estimated average glucose) is a calculated value from HgbA1c and is training representative of the average blood glucose level in the last 2-3 month period. Performed By: #### R UBIGG #### [facility] CLIA [id number] [address] [place] [address] [place] HbA1c (Bld) [Mass fraction] 4.6 % Normal 4.3-5.6 [facility] Comment on above: Order Comment: Speci men Type: BLOOD SPECIMEN Ordering Facility: [facility] Address: [address] [place] [address] Result Comment: Amer [place] Diabetes Association guidelines indicate that patients with HgbA1c in the range 5.7-6.4% are at increased risk for development of diabetes, and intervention by lifestyle modification may be beneficial. HgbA1c greater or equal to 6.5% is considered diagnostic of diabetes. Performed By: #### R UBIGG #### [facility] CLIA [id number] [address] [place] [address] [place] [id number] PLUSon 03-10-2024 Cell-free DNA./Cell-free DNA.total Dosage of chromosome-specific cfDNA (cfDNA) [Molar fraction] 20% Normal [facility] Comment on above: Order Comment: Speci men Type: BLOOD SPECIMEN Ordering Facility: [facility] Address: [address] [place] [address] Performed By: #### M [id number] #### [facility] CLIA [id number] [address] [place] [address] Chr 13+18+21+X+Y aneuploidy Dosage of chromosome-specific cfDNA Ql (cfDNA) Negative Normal [facility] Comment on above: Order Comment: Speci men Type: BLOOD SPECIMEN Ordering Facility: [facility] Address: [address] [place] [address] Performed By: #### M AT21 #### [facility] CLIA [id number] [address] [place] [address] Chr 21 trisomy Dosage of chromosome-specific cfDNA Ql (cfDNA) Negative Normal [facility] Comment on above: Order Comment: Speci men Type: BLOOD SPECIMEN Ordering Facility: [facility] Address: [address] [place] [address] Performed By: #### M AT21 #### [facility] CLIA [id number] [address] [place] [address] Chr X and Y aneuploidy risk Sequencing Ql (cfDNA) [Interp] Not detected Normal [facility] Comment on above: Order Comment: Speci rashida Type: BLOOD SPECIMEN Ordering Facility: [facility] Address: [address] [place] [address] Result Comment: Not Detected Not Detected Performed By: #### M AT21 #### [facility] CLIA [id number] [address] [place] [address] Citation Rigo (Reference lab test) Comment Normal [facility] Comment on above: Order Comment: Jay field Type: BLOOD SPECIMEN Ordering Facility: [facility] Address: [address] [place] [address] Result Comment: 1. P catalino BAZAN, et al. Filomena Med. 2012;14(3):296-305. 2. Rossi GRULLON et al. Prenat Diag. 2013;33(6):591-597. 3. Parmjit C, et al. Clin Chem. 2015 Apr;61(4):608-616. 4. Clayton BAZAN, et al. Filomena Med. 2011;13(11):913-920. 5. ACOG/SMFM Practice Bulletin No. 226, Dec 2019. Performed By: #### M AT21 #### [facility] CLIA [id number] [address] [place] [address] Gestational age Estimated from conception date Henley Normal [facility] Comment on above: Order Comment: Speci men Type: BLOOD SPECIMEN Ordering Facility: [facility] Address: [address] [place] [address] Performed By: #### M AT21 #### [facility] CLIA [id number] [address] [place] [address] GESTATIONALAGE AGE > OR = 9W Yes Normal [facility] Comment on above: Order Comment: Speci men Type: BLOOD SPECIMEN Ordering Facility: [facility] Address: [address] [place] [address] Performed By: #### M AT21 #### [facility] CLIA [id number] [address] [place] [address] Laboratory comment Rigo (Report) Comment Normal [facility] Comment on above: Order Comment: Pioi rashida Type: BLOOD SPECIMEN Ordering Facility: [facility] Address: [address] [place] [address] Result Comment: The MaterniT(R) 21 PLUS laboratory-developed test (LDT) analyzes circulating cell-free DNA from a maternal blood sample. This test is used for screening purposes and not diagnostic. Clinical correlation is recommended. Validation data on twin pregnancies is limited and the ability of this test to detect aneuploidy in higher multiple gestations has not yet been validated. Performed By: #### M AT21 #### [facility] CLIA [id number] [address] [place] [address] [employer] division director name Nom (Provider) Comment Normal [facility] Comment on above: Order Comment: Speci men Type: BLOOD SPECIMEN Ordering Facility: [facility] Address: [address] [place] [address] Result Comment: This specimen showed an expected representation of chromosome 21, 18 and 13 material. Clinical correlation is suggested. Comment José Miguel Card MD, PhD, Director, [employer] Performed By: #### M AT21 #### [facility] CLIA [id number] [address] [place] [address] LIMITATIONS OF THE TEST Comment Normal [facility] Comment on above: Order Comment: Speci men Type: BLOOD SPECIMEN Ordering Facility: [facility] Address: [address], [place] [address] Result Comment: Leslie chester the results of these tests are highly reliable, discordant results, including inaccurate sex prediction, may occur due to placental, maternal, or mosaicism or neoplasm; vanishing twin; prior maternal organ transplant; or other causes. These tests are screening tests and not diagnostic; they do not replace the accuracy and precision of diagnosis with CVS or amniocentesis. A patient with a positive test result should be referred for genetic counseling and offered invasive diagnosis for confirmation of test results.[5] The results of this testing, including the benefits and limitations, should be discussed with a qualified healthcare provider. management decisions, including termination of the , should not be based on the results of these tests alone. The healthcare provider is responsible for the use of this information in the management of their patient. Sex chromosomal aneuploidies are not reportable for known multiple gestations. A negative result does not ensure an unaffected nor does it exclude the possibility of other chromosomal abnormalities or defects which are not a part of these tests. An uninformative result may be reported, the causes of which may include, but are not limited to, insufficient sequencing coverage, noise or artifacts in the region, amplification or sequencing bias, or insufficient fraction. These tests are not intended to identify pregnancies at risk for neural tube defects or ventral wall defects. Testing for whole chromosome abnormalities (including sex chromosomes) and for subchromosomal abnormalities could lead to the potential discovery of both and maternal genomic abnormalities that could have major, minor, or no, clinical significance. Evaluating the significance of a positive or a non-reportable result may involve both invasive testing and additional studies on the mother. Such investigations may lead to a diagnosis of maternal chromosomal or subchromosomal abnormalities, which on occasion may be associated with benign or malignant maternal neoplasms. These tests may not accurately identify triploidy, balanced rearrangements, or the precise location of subchromosomal duplications or deletions; these may be detected by diagnosis with CVS or amniocentesis. The ability to report results may be impacted by maternal BMI, maternal weight, maternal systemic lupus erythematosus (SLE) and/or by certain pharmaceutical agents such as low molecular weight heparin (for example: Lovenox(R), Xaparin(R), Clexane(R) and Fragmin(R)). Performed By: #### M [id number] #### [facility] CLIA [id number] [address] [place] [address] Monosomy X risk Dosage of chromosome-specific cfDNA Ql (Plasma cell-free+WBC DNA) [Interp] Not detected Normal [facility] Comment on above: Order Comment: Speci [facility] Type: BLOOD SPECIMEN Ordering Facility: [facility] Address: [address] [place] [address] Performed By: #### M AT21 #### [facility] CLIA [id number] [address] [place] [address] NEGATIVE PREDICTIVE VALUE Note Normal [facility] Comment on above: Order Comment: Speci men Type: BLOOD SPECIMEN Ordering Facility: [facility] Address: [address] [place] [address] Result Comment: The Negative Predictive Value (NPV) for trisomy 21, 18, and 13 is greater than 99%. The NPV for SCA and ESS cannot be calculated as SCA and ESS are only reported when an abnormality is detected. Performed By: #### M AT21 #### [facility] CLIA [id number] [address] [place] [id number] NOTE Comment Normal [facility] Comment on above: Order Comment: Speci [facility] Type: BLOOD SPECIMEN Ordering Facility: [facility] Address: [address] [place] [address] Result Comment: See Notes [employer] is a subsidiary of [employer], using the brand [employer]. This test was developed and its performance characteristics determined by [employer]. It has not been cleared or approved by the Food and Drug Administration. This laboratory is certified under the Clinical Laboratory Improvement Amendments (CLIA) as qualified to perform high complexity clinical laboratory testing and accredited by the [employer] (CAP). If there is future clinical need for adding MaterniT GENOME testing, this specimen will be available until term. [facility] samples will not be retained beyond 60 days. [facility] patients will have to send a new sample for re-sequencing ([facility] Test Code: [id number]). Performed By: #### M AT21 #### [facility] CLIA [id number] [address] [place] [address] PERFORMANCE CHARACTERISTICS Note Normal [facility] Comment on above: Order Comment: Jay field Type: BLOOD SPECIMEN Ordering Facility: [facility] Address: [address], [place] [address] Result Comment: ! Sex ! Accuracy: 99.4% ! ! ! ! Region (associated syndrome) ! Est. Sens# ! Est. Spec ! ! ! ! Trisomy 21 (Down Syndrome) ! 99.1% ! 99.9% ! ! ! ! Trisomy 18 (Miller Syndrome) ! >99.9% ! 99.6% ! ! ! ! Trisomy 13 (Patau Syndrome) ! 91.7% ! 99.7% ! ! ! ! Sex Chromosome Aneuploidies## ! 96.2% ! 99.7% ! ! ! * As reported in ISCA database nstd37 [https://www.ncbi.nlm.nih.gov/dbvar/studies/nstd37/ ] # Estimated Sensitivity. Sensitivity estimated across the observed size distribution of each syndrome [per ISCA database nstd37] and across the range of fractions observed in routine clinical NIPT. Actual sensitivity can also be influenced by other factors such as the size of the event, total sequence counts, amplification bias, or sequence bias. ## Henley gestation only. Performed By: #### M AT21 #### [facility] CLIA [id number] [address] [place] [address] POSITIVE PREDICTIVE VALUE N/A Normal [facility] Comment on above: Order Comment: Jay field Type: BLOOD SPECIMEN Ordering Facility: [facility] Address: [address] [place] [address] Performed By: #### M AT21 #### [facility] CLIA [id number] [address] [place] [address] Reference Lab Test Method Comment Normal [facility] Comment on above: Order Comment: Jay field Type: BLOOD SPECIMEN Ordering Facility: [facility] Address: [address] [place] [address] Result Comment: See Notes Circulating cell-free DNA was purified from the plasma component of maternal blood. The extracted DNA was then converted into a genomic DNA library for aneuploidy analysis of chromosomes 21, 18, and 13 via next generation sequencing.[1] Optional findings based on the test order include sex chromosome aneuploidy (SCA)[2], and enhanced sequencing series (ESS)[3], which will only be reported on as an additional finding when an abnormality is detected. SCA testing includes information on X and Y representation, while ESS testing includes deletions in selected regions (22q, 15q, 11q, 8q, 5p, 4p, 1p) and trisomy of chromosomes 16 and 22. Performed By: #### M AT21 #### [facility] CLIA [id number] [address] [place] [address] Sex Dosage of chromosome-specific cfDNA Nom (cfDNA) Comment Normal [facility] Comment on above: Order Comment: Speci men Type: BLOOD SPECIMEN Ordering Facility: [facility] Address: [address] [place] [address] Result Comment: Cons istent with Male Performed By: #### M AT21 #### [facility] CLIA [id number] [address] [place] [address] Test performance information Rigo (Unsp spec) Comment Normal [facility] Comment on above: Order Comment: Speci men Type: BLOOD SPECIMEN Ordering Facility: [facility] Address: [address] [place] [address] Result Comment: The performance characteristics of the MaterniT(R) 21 PLUS laboratory-developed test (LDT) have been determined in a clinical validation study with women at increased risk for chromosomal aneuploidy.[1-4] Performed By: #### M AT21 #### [facility] CLIA [id number] [address] [place] [address] Trisomy 13 risk Dosage of chromosome-specific cfDNA Ql (cfDNA) [Interp] Negative Normal [facility] Comment on above: Order Comment: Speci men Type: BLOOD SPECIMEN Ordering Facility: [facility] Address: [address] [place] [address] Performed By: #### M AT21 #### [facility] CLIA [id number] [address] [place] [address] Trisomy 18 risk Dosage of chromosome-specific cfDNA Ql (Plasma cell-free+WBC DNA) [Interp] Negative Normal [facility] Comment on above: Order Comment: Speci men Type: BLOOD SPECIMEN Ordering Facility: [facility] Address: [address] [place] [address] Performed By: #### M AT21 #### [facility] CLIA [id number] [address] [place] [address] RUBELLA IGG ANTIBODYon 03-10 RUBELLA IGG AB, QUAL Negative Abnormal Positive [facility] Comment on above: Order Comment: Jay field Type: BLOOD SPECIMEN Ordering Facility: [facility] Address: [address] [place] [address] Result Comment: The result suggests no history of Rubella vaccination or exposure to Rubella virus, however, some individuals with past history of Rubella vaccination may test negative using this test as immunity to Rubella virus wanes over time after vaccination. Please correlate with vaccination history if applicable. Performed By: #### R UBIGG #### [facility] CLIA [id number] [address] [place] [address] [place] Reagin and Treponema pallidu m IgG and IgM [Interp]on 03-10-2024 T. pallidum IgG+IgM IA Ql (S) Non-Reactive Normal Nonreactive [facility] Comment on above: Order Comment: Jay field Type: FLUID SPECIMEN Ordering Facility: [facility] Address: [address] [place] [address] Performed By: #### L [id number] #### [facility] CLIA [id number] [address] [place] [address] [place] Reagin+T pallidum IgG+IgM Se rPl-Impon 03-10-2024 Reagin and Treponema pallidum IgG and IgM [Interp] Cannot exclude recent Treponemal infection if specimen collected within 7-10 days after appearance of suspect lesions or 2-3 weeks after an exposure. Clinical correlation is required. Normal [facility] Comment on above: Order Comment: Jay field Type: FLUID SPECIMEN Ordering Facility: [facility] Address: [address] [place] [address] Performed By: #### L [id number] #### [facility] CLIA [id number] [address] [place] [address] [place] TYPE + SCREEN PRENATALon ABO O Normal [facility] Comment on above: Order Comment: Speci men Type: BLOOD SPECIMEN Ordering Facility: [facility] Address: [address] [place] [address] Performed By: #### T SPN #### [facility] CLIA [id number] [address] [place] [address] [place] Rh Nom (Bld) Positive Normal [facility] Comment on above: Order Comment: Speci men Type: BLOOD SPECIMEN Ordering Facility: [facility] Address: [address] [place] [address] Performed By: #### T SPN #### [facility] CLIA [id number] [address] [place] [address] [place] TYPE AND SCREEN EXPIRATION 03/13/2024 23:59 Normal [facility] Comment on above: Order Comment: Speci men Type: BLOOD SPECIMEN Ordering Facility: [facility] Address: [address] [place] [address] Performed By: #### T SPN #### [facility] CLIA [id number] [address] [place] [address] [place] Bacteria Ur Culton Bacteria identified Cx Nom (U) ORGANISM ID: 1 <10,000 CFU/ml Normal urogenital brisa Normal [facility] Comment on above: Performed By: #### R UBIGG #### [facility] CLIA [id number] [address] [place] [address] [place] C. trachomatis+N. gonorrhoea e DNA HOSSEIN+probe Ql (Unsp spec)on 01-21-2024 C. trachomatis rRNA HOSSEIN+probe Ql (Unsp spec) Negative Normal Negative for Chlamydia trachomatis by amplificaton [facility] Comment on above: Order Comment: Speci men Type: BLOOD SPECIMEN Ordering Facility: [facility] Address: [address] [place] [address] Performed By: #### R UBIGG #### [facility] CLIA [id number] [address] [place] [address] [place] N. gonorrhoeae rRNA HOSSEIN+probe Ql (Unsp spec) Negative Normal Negative for Neisseria gonorrhoeae by amplification [facility] Comment on above: Order Comment: Speci men Type: BLOOD SPECIMEN Ordering Facility: [facility] Address: [address] [place] [address] Performed By: #### R UBIGG #### [facility] CLIA [id number] [address] [place] [address] [place] PAP TESTon 01-21-2024 ADEQUACY Normal [facility] Comment on above: Order Comment: Speci men Type: FLUID SPECIMEN Ordering Facility: [facility] Address: [address] [place] [address] Result Comment: Sati sfactory for interpretation. No endocervical component Performed By: #### L [id number] #### [facility] CLIA [id number] [address] [place] [address] [place] CASE REPORT Normal [facility] Comment on above: Order Comment: Speci men Type: FLUID SPECIMEN Ordering Facility: [facility] Address: [address] [place] [address] Result Comment: Gyne cologic Cytology Report Case: [id number] Authorizing Provider: Helena Ocampo APRN.PIPE FITTER MAINTENANCE Collected: 01/21/2024 03:55 PM Ordering Location: OB/Gynecology Received: 01/21/2024 04:29 PM First Screen: Valeriy, Christina, CT, ASCP Specimen: Pap Test, ThinPrep, Cervix Performed By: #### L [id number] #### [facility] CLIA [id number] [address] [place] [address] [place] CLINICAL HISTORY, CYTOLOGY, PAINTER HELPER SPRAY Routine Exam Normal [facility] Comment on above: Order Comment: Speci men Type: FLUID SPECIMEN Ordering Facility: [facility] Address: [address] [place] [address] Performed By: #### L [id number] #### [facility] CLIA [id number] [address] [place] [address] [place] FINAL PERFORMING LAB Normal [facility] Comment on above: Order Comment: Speci men Type: FLUID SPECIMEN Ordering Facility: [facility] Address: [address] [place] [address] Result Comment: Tech nical component, general freight agent screening performed at [facility], [address] [place], [place] [id number] CLIA# [id number] Diagnostic interpretation performed at [facility], [address] [place], [place] [id number] CLIA# [id number] Plastering Supervisor: Kobi Piña M.D. Performed By: #### L [id number] #### [facility] CLIA [id number] [address] [place] [address] [place] INTERPRETATION, CYTOLOGY, PAINTER HELPER SPRAY Normal [facility] Comment on above: Order Comment: Speci men Type: FLUID SPECIMEN Ordering Facility: [facility] Address: [address] [place] [address] Result Comment: Nega tive for intraepithelial lesion or malignancy. Performed By: #### L [id number] #### [facility] CLIA [id number] [address] [place] [address] [place] LMP 12/01/2023 Normal [facility] Comment on above: Order Comment: Speci men Type: FLUID SPECIMEN Ordering Facility: [facility] Address: [address] [place] [address] Performed By: #### L [id number] #### [facility] CLIA [id number] [address] [place] [address] [place] PAP DISCLAIMER COMMENT The Pap Smear is a screening test for cervical cancer. False negative results occur with all screening tests, emphasizing the need for rescreening at recommended intervals, and clinical correlation. Normal [facility] Comment on above: Order Comment: Speci men Type: FLUID SPECIMEN Ordering Facility: [facility] Address: [address] [place] [address] Performed By: #### L [id number] #### [facility] CLIA [id number] [address] [place] [address] [place] PAP INFORMATION SYSTEMS SECURITY ANALYST COMMENT This specimen has been analyzed by the ThinPrep Imaging System, an automated imaging and review system, which assists the laboratory in evaluating cells on ThinPrep Pap tests. Following automated imaging, selected byers from every slide are reviewed by a general freight agent. Normal [facility] Comment on above: Order Comment: Speci men Type: FLUID SPECIMEN Ordering Facility: [facility] Address: [address] [place] [address] Performed By: #### L [id number] #### [facility] CLIA [id number] [address] [place] [address] [place] POC LABORER P[employer]LET [employer]ARM ULTRASOUNDon 01-21-20 24 Indication Confirmation of intrauterine . Confirmation of cardiac activity Impression CRL indicates discrepancy from clinical dates, LAKSHMI 09/14/24 based on today's ultrasound, cardiac activity is visualized Recommendations Follow up for NT scan if desired Method Transabdominal and transvaginal ultrasound examination. View: Adequate visualization Henley . Number of embryos: 1 Dating LMP on: 12/01/2023 GA by LMP 7 w + 2 d L[place]SHMI by LMP: 09/06/2024 Ultrasound examination on: 01/21/2024 GA by U/S based upon: CRL GA by U/S 6 w + 1 d LAKSHMI by U/S: 09/14/2024 Assigned: based on ultrasound (CRL), selected on 01/21/2024 Assigned GA 6 w + 1 d Assigned LAKSHMI: 09/14/2024 Biometry Standard FHR 122 bpm CRL 4.3 mm 6w 1d 8% Hadlock Assessment Gestational sac: visualized Location: intrauterine Yolk sac: visualized Embryo: visualized CRL 4.3 mm 6w 1d 8% Hadlock Cardiac activity: present FHR 122 bpm General Evaluation Cardiac activity present. FHR 122 bpm Performed By: Helena Ocampo CNP Read By: Helena Ocampo CNP MATERNAL MEDICINE [facility] Radiology Study observation (narrative) [facility] Monet 01-16-2024 CNPN Telephone (OBGYWM) NUSRATJESÚS Jia ([id number]) 2000 F Date Time Provider Department 01/16/24 HELENA OCAMPOWRommel During your visit today, we recorded the following information about you: Julee Barry RN 01/16/2024 10:56 AM Signed Left message for patient to return phone call to complete nurse intake questions for her upcoming appointment. Patient has an appointment with Helena Ocampo for NOB appointment. I can call patient at 2:30 or 3:30 today if she is available or you can try to transfer to Lynn Hightower MA 01/16/2024 3:45 PM Signed Attempted to call patient back immediately back after receiving notification from RN of patient returning our call to go over new ob intake. Had to leave a voicemail message. Lynn Trinidad MA Allergies As of Date: 01/16/2024 Noted Allergy Reaction BETA BLOCKERS (BETA-BLOCKERS (BET*02/03/2015 14 - Other: See Comments Comments: Please avoid beta blockers while patient is on allergy injections Date Reviewed: 01/16/2024 Reviewed by: Theodora Vazquez LPN - Fully Assessed Reason for Visit: Appointment [186] Prescriptions as of 01/21/2024 - ketotifen fumarate (ALAWAY) 0.025 % (0.035 %) ophthalmic solution Use 1 Drop in both eyes once daily as needed (Due to seasonal allergies). - EPINEPHrine 0.3 mg/0.3 mL auto-injector Inject 0.3 mL intramuscularly as needed. - triamcinolone acetonide (NASACORT AQ) 55 mcg nasal inhaler Use 2 Sprays in the nose once daily. Problem List As Of Date 01/16/2024 Noted Resolved Allergic rhinitis [J30.9] 02/17/2015 Encounter Status:Closed by ASHLEY CLARK on 01/21/24 [facility] 19-49 Yearson 10-12-2021 19-49 Years Diagnoses/Problems Health Maintenance/Risks Encounter for preventive health examination (V70.0) (Z00.00) Assessed Allergic rhinitis (477.9) (J30.9) Acne (706.1) (L70.9) Orders Acne Renew: Norgestim-Eth Estrad Triphasic 0.18/0.215/0.25 MG-25 MCG Oral Tablet (Ortho Tri-Cyclen Lo); TAKE 1 TABLET DAILY Rx By: Amparo Carter; Dispense: 84 Days ; #:3 X 28 Tablet Pack; Refill: 1;For: Acne; MIKI = N; Verified Transmission to [facility]33[facility]; Last Updated By: MemberPlanet; 10/12/2021 11:14:26 AM last appt-10/08/20 next appt-10/12/21 last BW-03/23/20 sm 08/17/21 last appt-10/08/20 next appt-10/12/21 last BW-03/23/20 sm 06/09/21 last appt-11/07/2019 next appt-10/08/20 last BW-03/23/2020 [facility] 07/14/20 Allergic rhinitis Renew: Montelukast Sodium 10 MG Oral Tablet; TAKE 1 TABLET AT BEDTIME Rx By: Amparo Carter; Dispense: 90 Days ; #:1 X 90 Tablet Bottle; Refill: 3;For: Allergic rhinitis; MIKI = N; Verified Transmission to [facility]33[facility]; Last Updated By: MemberPlanet; 10/12/2021 11:14:27 AM Eczema Renew: Mometasone Furoate 0.1 % External Cream; APPLY SPARINGLY TO AFFECTED AREAS TWICE DAILY.(AM AND PM) Rx By: Amparo Carter; Dispense: 0 Days ; #:1 X 45 GM Tube; Refill: 0;For: Eczema; MIKI = N; Verified Transmission to [facility]; Last Updated By: MemberPlanet; 10/12/2021 11:14:25 AM Unlinked Stop: Tretinoin 0.025 % External Cream Rx By: YANELY; Dispense: 30 Days ; #:45; Refill: 0; MIKI = N; Record; Last Updated By: Amparo Carter; 10/12/2021 11:07:22 AM Patient Discussion/Summary By signing my name below, I, Jatinder Banuelos, attest that this documentation has been prepared under the direction and in the presence of Dr. Amparo Carter. All medical record entries made by the Scribe were at my direction and personally dictated by me. I have reviewed the chart and agree that the record accurately reflects my personal performance of the history, physical exam, discussion and plan. Provider Impressions Allergy prevention strategies discussed. Flonase recommended for allergies. Refills as noted. Will continue montelukast. Discussed doing antihistamines all year round. Alternate Ursula and levocetirizine. Will schedule PAP with OBGYN. Follow up with me in 6 months. Chief Complaint EP. Here for CPE. History of Present IllnessThe last health maintenance visit was 1 year(s) ago. there are no concerns today. The patient's health since the last visit is described as good. There are no interval changes in the patient's PMH, PSH, and current medications. There are no interval changes in the patient's social and family history. She has regular dental visits. She denies vision problems. She denies hearing loss. Immunizations status: up to date. Lifestyle: She consumes a diverse and healthy diet. She does not have any weight concerns. She exercises regularly. She does not use tobacco. She denies alcohol use. Reproductive health: the patient is premenopausal. she reports normal menses. History: 0. Screening interval recommendation: recommended has notdone yet. Breast cancer screening: cancer screening reviewed and current. 21 year old female presenting for yearly physical. Blood work reviewed and discussed from 10/11/21 CBC, TSH, CMP, lipid panel. Labs unremarkable. Medication list reviewed and updated. On daily antihistamine. She notes her allergies are bothering her a lot. Was previously on montelukast. She thinks this is not really helping. allergies are year round and frustrating allergy shots did not help Sees dermatology. On spironolactone. Has referral for OBGYN. Has not done PAP. No chest pain, SOB, leg edema, no headaches or dizziness. Exercise tolerance good. No fever, chills. No cough or cold symptoms. No GI problems. No genitourinary issues. No skin problems. Review of Systems Constitutional: no chills, no fever and no night sweats. Eyes: itching of the eyes and red eyes, but as noted in HPI, no blurred vision and no eyesight problems. ENT: nasal congestion and rhinorrhea , but as noted in HPI, no earache, no discharge from the ear(s), the ears do not feel full, no hearing loss, no tinnitus, no vertigo, no nasal discharge, no sinus pressure, no hoarseness and no sore throat. Cardiovascular: no chest pain, no intermittent leg claudication, no lower extremity edema, no palpitations and no syncope. Respiratory: no cough, no shortness of breath during exertion, no shortness of breath at rest and no wheezing. Gastrointestinal: no abdominal pain, no blood in stools, no constipation, no diarrhea, no melena, no nausea, no rectal pain and no vomiting. Genitourinary: no dysuria, no change in urinary frequency, no urinary hesitancy, no feelings of urinary urgency and no vaginal discharge. Musculoskeletal: no arthralgias, no back pain and no myalgias. Integumentary: no new skin lesions and no rashes. Neurological: no difficulty walking, (more content not included)... Normal [employer] Tobacco Screening.on 022 Fall risk assessment a) No falls within the last year [facility] Work Phone: Tobacco use status CPHS b) No [facility] Work Phone: CBC AND DIFFERENTIALon 10-11 % AUTOMATED IMMATURE GRAN 0.6 % Normal 0.0 - 0.9 [facility] Comment on above: Result Comment: Radha ture Granulocyte Count (IG) includes promyelocytes, myelocytes and metamyelocytes but does not include bands. Percent differential counts (%) should be interpreted in the context of the absolute cell counts (cells/L). Performed By: #### C BCDF #### [facility] [address] [place] [address] Basophils (Bld) [#/Vol] 0.06 10*3/uL Normal 0.00 - 0.10 [facility] Comment on above: Performed By: #### C BCDF #### [facility] [address] [place] [address] Basophils/100 WBC (Bld) 0.7 % Normal 0.0 - 2.0 [facility] Comment on above: Performed By: #### C BCDF #### [facility] [address] [place] [address] Eosinophils (Bld) [#/Vol] 0.20 10*3/uL Normal 0.00 - 0.70 [facility] Comment on above: Performed By: #### C BCDF #### [facility] [address] [place] [address] Eosinophils/100 WBC (Bld) 2.4 % Normal 0.0 - 6.0 [facility] Comment on above: Performed By: #### C BCDF #### [facility] [address] [place] [address] Erythrocyte distribution width (RBC) [Ratio] 11.7 % Normal 11.5 - 14.5 [facility] Comment on above: Performed By: #### C BCDF #### [facility] [address] [place] [address] Hematocrit (Bld) [Volume fraction] 43.3 % Normal 36.0 - 46.0 [facility] Comment on above: Performed By: #### C BCDF #### [facility] [address] [place] [address] Hemoglobin (Bld) [Mass/Vol] 14.1 g/dL Normal 12.0 - 16.0 [facility] Comment on above: Performed By: #### C BCDF #### [facility] [address] [place] [address] Lymphocytes (Bld) [#/Vol] 2.56 10*3/uL Normal 1.20 - 4.80 [facility] Comment on above: Performed By: #### C BCDF #### [facility] [address] [place] [address] Lymphocytes/100 WBC (Bld) 31.2 % Normal 13.0 - 44.0 [facility] Comment on above: Performed By: #### C BCDF #### [facility] [address] [place] [address] MCHC (RBC) [Mass/Vol] 32.6 g/dL Normal 32.0 - 36.0 [facility] Comment on above: Performed By: #### C BCDF #### [facility] [address] [place] [address] MCV (RBC) [Entitic vol] 93 fL Normal 80 - 100 [facility] Comment on above: Performed By: #### C BCDF #### [facility] [address] [place] [address] Monocytes (Bld) [#/Vol] 0.84 10*3/uL Normal 0.10 - 1.00 [facility] Comment on above: Performed By: #### C BCDF #### [facility] [address] [place] [address] Monocytes/100 WBC (Bld) 10.2 % Normal 2.0 - 10.0 [facility] Comment on above: Performed By: #### C BCDF #### [facility] [address] [place] [address] Neutrophils (Bld) [#/Vol] 4.50 10*3/uL Normal 1.20 - 7.70 [facility] Comment on above: Performed By: #### C BCDF #### [facility] [address] [place] [address] Neutrophils/100 WBC (Bld) 54.9 % Normal 40.0 - 80.0 [facility] Comment on above: Performed By: #### C BCDF #### [facility] [address] [place] [address] NUCLEATED RBC 0.0 /100 WBC Normal 0.0-0.0 [facility] Comment on above: Performed By: #### C BCDF #### [facility] [address] [place] [address] Platelets (Bld) [#/Vol] 348 10*3/uL Normal 150 - 450 [facility] Comment on above: Performed By: #### C BCDF #### [facility] [address] [place] [address] RBC 4.64 x10E12/L Normal 4.00 - 5.20 [facility] Comment on above: Performed By: #### C BCDF #### [facility] [address] [place] [address] WBC (Bld) [#/Vol] 8.2 10*3/uL Normal 4.4 - 11.3 [facility] Comment on above: Performed By: #### C BCDF #### [facility] [address] [place] [address] COMPREHENSIVE PANELon 2021 Albumin [Mass/Vol] 3.9 g/dL Normal 3.4 - 5.0 [facility] Comment on above: Performed By: #### C MP #### [facility] [address] [place] [address] ALP [Catalytic activity/Vol] 48 U/L Normal 33 - 110 [facility] Comment on above: Performed By: #### C MP #### [facility] [address] [place] [address] ALT [Catalytic activity/Vol] 15 U/L Normal 7 - 45 [facility] Comment on above: Result Comment: Mildred ents treated with Sulfasalazine may generate falsely decreased results for ALT. Performed By: #### C MP #### [facility] [address] [place] [address] Anion gap [Moles/Vol] 13 mmol/L Normal 10 - 20 [facility] Comment on above: Performed By: #### C MP #### [facility] [address] [place] [address] AST [Catalytic activity/Vol] 22 U/L Normal 9 - 39 [facility] Comment on above: Performed By: #### C MP #### [facility] [address] [place] [address] Bilirubin [Mass/Vol] 0.3 mg/dL Normal 0.0 - 1.2 [facility] Comment on above: Performed By: #### C MP #### [facility] [address] [place] [address] Calcium [Mass/Vol] 9.4 mg/dL Normal 8.6 - 10.6 [facility] Comment on above: Performed By: #### C MP #### [place] [address] [place] [address] Chloride [Moles/Vol] 106 mmol/L Normal 98 - 107 [facility] Comment on above: Performed By: #### C MP #### [facility] [address] [place] [address] Creatinine [Mass/Vol] 0.78 mg/dL Normal 0.50 - 1.05 [facility] Comment on above: Performed By: #### C MP #### [facility] [address] [place] [address] eGFR FEMALE >90 Normal >90 [facility] Comment on above: Result Comment: CALC ULATIONS OF ESTIMATED GFR ARE PERFORMED USING THE 2020 CKD-EPI STUDY REFIT EQUATION WITHOUT THE RACE VARIABLE FOR THE IDMS-TRACEABLE CREATININE METHODS. https://jasn.asnjournals.org/content//ASN.02166714 88 Performed By: #### C MP #### [facility] [address] [place] [address] Glucose [Mass/Vol] 92 mg/dL Normal 74 - 99 [facility] Comment on above: Performed By: #### C MP #### [facility] [address] [place] [address] HCO3 (Bld) [Moles/Vol] 24 mmol/L Normal 21 - 32 [facility] Comment on above: Performed By: #### C MP #### [facility] [address] [place] [address] Potassium [Moles/Vol] 4.7 mmol/L Normal 3.5 - 5.3 [facility] Comment on above: Performed By: #### C MP #### [facility] [address] [place] [address] Protein [Mass/Vol] 6.9 g/dL Normal 6.4 - 8.2 [facility] Comment on above: Performed By: #### C MP #### [facility] [address] [place] [address] Sodium [Moles/Vol] 138 mmol/L Normal 136 - 145 [facility] Comment on above: Performed By: #### C MP #### [facility] [address] [place] [address] Urea nitrogen [Mass/Vol] 12 mg/dL Normal 6 - 23 [facility] Comment on above: Performed By: #### C MP #### [facility] [address] [place] [address] Complete Blood Count + Diffe eduardo 10-11-2021 Basophils/100 WBC (Bld) 0.7 % 0.0 - 2.0 [facility] Work Phone: Erythrocyte distribution width (RBC) [Ratio] 11.7 % See Below [facility] Work Phone: Comment on above: Reference Range: 11. 5 - 14.5 Hematocrit (Bld) [Volume fraction] 43.3 % See Below [facility] Work Phone: Comment on above: Reference Range: 36. 0 - 46.0 Hemoglobin (Bld) [Mass/Vol] 14.1 g/dL See Below [facility] Work Phone: Comment on above: Reference Range: 12. 0 - 16.0 Lymphocytes/100 WBC (Bld) 31.2 % See Below [facility] Work Phone: Comment on above: Reference Range: 13. 0 - 44.0 MCHC (RBC) [Mass/Vol] 32.6 g/dL See Below [facility] Work Phone: Comment on above: Reference Range: 32. 0 - 36.0 MCV (RBC) [Entitic vol] 93 fL 80 - 100 [facility] Work Phone: Monocytes/100 WBC (Bld) 10.2 % 2.0 - 10.0 [facility] Work Phone: Neutrophils/100 WBC (Bld) 54.9 % See Below [facility] Work Phone: Comment on above: Reference Range: 40. 0 - 80.0 Platelets (Bld) [#/Vol] 348 10*3/uL 150 - 450 [facility] Work Phone: RBC (Bld) [#/Vol] 4.64 {x10E12/L} See Below [facility] Work Phone: Comment on above: Reference Range: 4.0 0 - 5.20 WBC (Bld) [#/Vol] 8.2 10*3/uL 4.4 - 11.3 [facility] Work Phone: Complete Blood Count + Differential 0.06 {x10E9/L} See Below [facility] Work Phone: Comment on above: Reference Range: 0.0 0 - 0.10 Complete Blood Count + Differential 0.20 {x10E9/L} See Below [facility] Work Phone: Comment on above: Reference Range: 0.0 0 - 0.70 Complete Blood Count + Differential 0.84 {x10E9/L} See Below [facility] Work Phone: Comment on above: Reference Range: 0.1 0 - 1.00 Complete Blood Count + Differential 2.56 {x10E9/L} See Below [facility] Work Phone: Comment on above: Reference Range: 1.2 0 - 4.80 Complete Blood Count + Differential 4.50 {x10E9/L} See Below [facility] Work Phone: Comment on above: Reference Range: 1.2 0 - 7.70 Complete Blood Count + Differential 2.4 % 0.0 - 6.0 [facility] Work Phone: Complete Blood Count + Differential 0.6 % 0.0 - 0.9 [facility] Work Phone: Comment on above: Immature Granulocyte Count (IG) includes promyelocytes, myelocytes and metamyelocytes but does not include bands. Percent differential counts (%) should be interpreted in the context of the absolute cell counts (cells/L). Complete Blood Count + Differential 0.0 {/100_WBC} 0.0-0.0 [facility] Work Phone: LIPID PANEL (CORONARY RISK 2 )on 10-11-2021 Cholesterol [Mass/Vol] 144 mg/dL Normal 0 - 199 [facility] Comment on above: Result Comment: . AGE DESIRABLE BORDERLINE HIGH HIGH 0-19 Y 0 - 169 170 - 199 >/= 200 20-24 Y 0 - 189 190 - 224 >/= 225 >24 Y 0 - 199 200 - 239 >/= 240 All ranges are based on fasting samples. Specific therapeutic targets will vary based on patient-specific cardiac risk. . Pediatric guidelines reference:Pediatrics 2011, 128(S5). Adult guidelines reference: NCEP ATPIII Guidelines, SARA 2001, 258:2486-97 . Venipuncture immediately after or during the administration of Metamizole may lead to falsely low results. Testing should be performed immediately prior to Metamizole dosing. Performed By: #### L IPID #### [facility] [id number] [place] [address] Cholesterol in HDL [Mass/Vol] 60.2 mg/dL Normal [facility] Comment on above: Result Comment: . AGE VERY LOW LOW NORMAL HIGH 0-19 Y < 35 < 40 40-45 ---- 20-24 Y ---- < 40 >45 ---- >24 Y ---- < 40 40-60 >60 . Performed By: #### L IPID #### [facility] [id number] [place] [address] Cholesterol in LDL [Mass/Vol] 61 mg/dL Normal 0 - 119 [facility] Comment on above: Result Comment: . NEAR BORD AGE DESIRABLE OPTIMAL HIGH HIGH VERY HIGH 0-19 Y 0 - 109 --- 110-129 >/= 130 ---- 20-24 Y 0 - 119 --- 120-159 >/= 160 ---- >24 Y 0 - 99 100-129 130-159 160-189 >/=190 . Performed By: #### L IPID #### [facility] [id number] [place] [address] Cholesterol in VLDL [Mass/Vol] 22 mg/dL Normal 0 - 40 [facility] Comment on above: Performed By: #### L IPID #### [facility] [id number] [place] [address] Cholesterol.total/C holesterol in HDL [Mass ratio] 2.4 {ratio} Normal [facility] Comment on above: Result Comment: REF VALUES DESIRABLE < 3.4 HIGH RISK > 5.0 Performed By: #### L IPID #### [facility] [id number] [place] [address] NON-HDL CHOLESTEROL 84 mg/dL Normal 0 - 149 [facility] Comment on above: Result Comment: AGE DESIRABLE BORDERLINE HIGH HIGH VERY HIGH 0-19 Y 0 - 119 120 - 144 >/= 145 >/= 160 20-24 Y 0 - 149 150 - 189 >/= 190 ---- >24 Y 30 MG/DL ABOVE LDL CHOLESTEROL GOAL . Performed By: #### L IPID #### [facility] [id number] [place] [address] Triglyceride [Mass/Vol] 112 mg/dL Normal 0 - 149 [facility] Comment on above: Result Comment: . AGE DESIRABLE BORDERLINE HIGH HIGH VERY HIGH 0 D-90 D 19 - 174 ---- ---- ---- 91 D- 9 Y 0 - 74 75 - 99 >/= 100 ---- 10-19 Y 0 - 89 90 - 129 >/= 130 ---- 20-24 Y 0 - 114 115 - 149 >/= 150 ---- >24 Y 0 - 149 150 - 199 200- 499 >/= 500 . Venipuncture immediately after or during the administration of Metamizole may lead to falsely low results. Testing should be performed immediately prior to Metamizole dosing. Performed By: #### L IPID #### [facility] [id number] [place] [address] Laboratory - Chemistry and C hemistry - challengeon 10-11-2021 Albumin BCP dye [Mass/Vol] 3.9 g/dL 3.4 - 5.0 [facility] Work Phone: ALP [Catalytic activity/Vol] 48 U/L 33 - 110 [facility] Work Phone: ALT With P-5'-P [Catalytic activity/Vol] 15 U/L 7 - 45 [facility] Work Phone: Comment on above: Patients treated wit h Sulfasalazine may generate falsely decreased results for ALT. Anion gap [Moles/Vol] 13 mmol/L 10 - 20 [facility] Work Phone: AST With P-5'-P [Catalytic activity/Vol] 22 U/L 9 - 39 [facility] Work Phone: Bilirubin [Mass/Vol] 0.3 mg/dL 0.0 - 1.2 [facility] Work Phone: Calcium [Mass/Vol] 9.4 mg/dL 8.6 - 10.6 [facility] Work Phone: Chloride [Moles/Vol] 106 mmol/L 98 - 107 [facility] Work Phone: CO2 [Moles/Vol] 24 mmol/L 21 - 32 [facility] Work Phone: Creatinine [Mass/Vol] 0.78 mg/dL See Below [facility] Work Phone: Comment on above: Reference Range: 0.5 0 - 1.05 Glucose [Mass/Vol] 92 mg/dL 74 - 99 [facility] Work Phone: Potassium [Moles/Vol] 4.7 mmol/L 3.5 - 5.3 [facility] Work Phone: Protein [Mass/Vol] 6.9 g/dL 6.4 - 8.2 [facility] Work Phone: Sodium [Moles/Vol] 138 mmol/L 136 - 145 [facility] Work Phone: TSH Qn 2.03 m[IU]/L See Below [facility] Work Phone: Comment on above: Reference Range: 0.4 4 - 3.98 TSH testing is performed using different testing methodology at [facility] than at other [facility]. Direct result comparisons should only be made within the same method. Urea nitrogen [Mass/Vol] 12 mg/dL 6 - 23 [facility] Work Phone: Lipid Panelon 10-11-2021 Cholesterol [Mass/Vol] 144 mg/dL 0 - 199 [facility] Work Phone: Comment on above: . AGE DESIRABLE BORD RENATA HIGH HIGH 0-19 Y 0 - 169 170 - 199 >/= 200 20-24 Y 0 - 189 190 - 224 >/= 225 >24 Y 0 - 199 200 - 239 >/= 240 All ranges are based on fasting samples. Specific therapeutic targets will vary based on patient-specific cardiac risk.. Pediatric guidelines reference:Pediatrics 2011, 128(S5). Adult guidelines reference: NCEP ATPIII Guidelines, SARA 2001, 258:2486-97. Venipuncture immediately after or during the administration of Metamizole may lead to falsely low results. Testing should be performed immediately prior to Metamizole dosing. Cholesterol in HDL [Mass/Vol] 60.2 mg/dL [facility] Work Phone: Comment on above: . AGE VERY LOW LOW N ORMAL HIGH 0-19 Y < 35 < 40 40-45 ---- 20- 24 Y ---- < 40 >45 ---- >24 Y ---- < 40 40-60 >60. Cholesterol in LDL [Mass/Vol] 61 mg/dL 0 - 119 [facility] Work Phone: Comment on above: . NEAR BORD AGE BOLA RABLE OPTIMAL HIGH HIGH VERY HIGH 0-19 Y 0 - 109 --- 110-129 >/= 130 ---- 20-24 Y 0 - 119 --- 120-159 >/= 160 ---- >24 Y 0 - 99 100-129 130-159 160-189 >/=190. Cholesterol non HDL [Mass/Vol] 84 mg/dL 0 - 149 [facility] Work Phone: Comment on above: AGE DESIRABLE BORDER LINE HIGH HIGH VERY HIGH 0-19 Y 0 - 119 120 - 144 >/= 145 >/= 160 20-24 Y 0 - 149 150 - 189 >/= 190 ---- >24 Y 30 MG/DL ABOVE LDL CHOLESTEROL GOAL. Cholesterol.total/C holesterol in HDL [Mass ratio] 2.4 {ratio} [facility] Work Phone: Comment on above: REF VALUESDESIRABLE < 3.4HIGH RISK > 5.0 Triglyceride [Mass/Vol] 112 mg/dL 0 - 149 [facility] Work Phone: Comment on above: . AGE DESIRABLE BORD RENATA HIGH HIGH VERY HIGH 0 D-90 D 19 - 174 ---- ---- ----91 D- 9 Y 0 - 74 75 - 99 >/= 100 ---- 10-19 Y 0 - 89 90 - 129 >/= 130 ---- 20-24 Y 0 - 114 115 - 149 >/= 150 ---- >24 Y 0 - 149 150 - 199 200- 499 >/= 500. Venipuncture immediately after or during the administration of Metamizole may lead to falsely low results. Testing should be performed immediately prior to Metamizole dosing. Lipid Panel 22 mg/dL 0 - 40 [facility] Work Phone: No Panel Informationon 10-11 >90 >90 [facility] Work Phone: Comment on above: CALCULATIONS OF ESTELLE MATED GFR ARE PERFORMED USING THE 2020 CKD-EPI STUDY REFIT EQUATION WITHOUT THE RACE VARIABLE FOR THE IDMS-TRACEABLE CREATININE METHODS.https://jasn.asnjournals.org/content//ASN. 2909601454 TSH WITH REFLEX TO FREE T4 I F ABNORMALon 10-11-2021 TSH Qn 2.03 m[IU]/L Normal 0.44 - 3.98 [facility] Comment on above: Result Comment: TSH testing is performed using different testing methodology at [facility] than at other [facility]. Direct result comparisons should only be made within the same method. Performed By: #### T HYDS #### [facility] [id number] [place] [address] Vital Signs Date Time Vital Sign Value Performing Clinician Facility 09-10-2024 09:46-0400 Body mass index (BMI) [Ratio] 26.31 kg/m2 Ashley Khan MD Work Phone: [facility] 09-10-2024 09:46-0400 Body weight 73.94 kg Ashley Khan MD Work Phone: [facility] 09-10-2024 09:46-0400 Diastolic blood pressure 62 mm[Hg] Ashley Khan MD Work Phone: [facility] 09-10-2024 09:46-0400 Systolic blood pressure 118 mm[Hg] Ashley Khan MD Work Phone: [facility] 09-03-2024 10:01-0400 Body mass index (BMI) [Ratio] 26.31 kg/m2 Renee Escalera MD Work Phone: [facility] 09-03-2024 10:01-0400 Body weight 73.94 kg Renee Escalera MD Work Phone: [facility] 09-03-2024 10:01-0400 Diastolic blood pressure 70 mm[Hg] Renee Escalera MD Work Phone: [facility] 09-03-2024 10:01-0400 Systolic blood pressure 112 mm[Hg] Renee Escalera MD Work Phone: [facility] 08-27-2024 10:01-0400 Body mass index (BMI) [Ratio] 26.15 kg/m2 Ashley Khan MD Work Phone: [facility] 08-27-2024 10:01-0400 Body weight 73.48 kg Ashley Khan MD Work Phone: [facility] 08-27-2024 10:01-0400 Diastolic blood pressure 78 mm[Hg] Ashley Khan MD Work Phone: [facility] 08-27-2024 10:01-0400 Systolic blood pressure 114 mm[Hg] Ashley Khan MD Work Phone: [facility] 08-20-2024 10:16-0400 Body mass index (BMI) [Ratio] 25.5 kg/m2 Renee Escalera MD Work Phone: [facility] 08-20-2024 10:16-0400 Body weight 71.67 kg Renee Escalera MD Work Phone: [facility] 08-20-2024 10:16-0400 Diastolic blood pressure 62 mm[Hg] Renee Escalera MD Work Phone: [facility] 08-20-2024 10:16-0400 Systolic blood pressure 100 mm[Hg] Renee Escalera MD Work Phone: [facility] 08-04-2024 15:47-0400 Body mass index (BMI) [Ratio] 25.53 kg/m2 William Chen MD Work Phone: [facility] 08-04-2024 15:47-0400 Body weight 71.76 kg William Chen MD Work Phone: [facility] 08-04-2024 15:47-0400 Diastolic blood pressure 68 mm[Hg] William Chen MD Work Phone: [facility] 08-04-2024 15:47-0400 Systolic blood pressure 102 mm[Hg] William Chen MD Work Phone: [facility] 07-21-2024 15:53-0400 Body mass index (BMI) [Ratio] 24.53 kg/m2 Ashley Khan MD Work Phone: [facility] 07-21-2024 15:53-0400 Body weight 68.95 kg Ashley Khan MD Work Phone: [facility] 07-21-2024 15:53-0400 Diastolic blood pressure 70 mm[Hg] Ashley Khan MD Work Phone: [facility] 07-21-2024 15:53-0400 Systolic blood pressure 108 mm[Hg] Ashley Khan MD Work Phone: [facility] 07-09-2024 09:55-0400 Body mass index (BMI) [Ratio] 24.05 kg/m2 eRbekah Garcia MD Work Phone: [facility] 07-09-2024 09:55-0400 Body weight 67.59 kg Rebekah Garcia MD Work Phone: [facility] 07-09-2024 09:55-0400 Diastolic blood pressure 60 mm[Hg] Rebekah Garcia MD Work Phone: [facility] 07-09-2024 09:55-0400 Systolic blood pressure 94 mm[Hg] Rebekah Garcia MD Work Phone: [facility] 06-23-2024 14:00-0400 Body mass index (BMI) [Ratio] 24.05 kg/m2 William Chen MD Work Phone: [facility] 06-23-2024 14:00-0400 Body weight 67.59 kg William Chen MD Work Phone: [facility] 06-23-2024 14:00-0400 Diastolic blood pressure 60 mm[Hg] William Chen MD Work Phone: [facility] 06-23-2024 14:00-0400 Systolic blood pressure 98 mm[Hg] William Chen MD Work Phone: [facility] 06-02-2024 16:12-0400 Body mass index (BMI) [Ratio] 23.73 kg/m2 Rebekah Garcia MD Work Phone: [facility] 06-02-2024 16:12-0400 Body weight 66.68 kg Rebekah Garcia MD Work Phone: [facility] 06-02-2024 16:12-0400 Diastolic blood pressure 70 mm[Hg] Rebekah Garcia MD Work Phone: [facility] 06-02-2024 16:12-0400 Systolic blood pressure 116 mm[Hg] Rebekah Garcia MD Work Phone: [facility] 05-05-2024 09:39-0500 Body mass index (BMI) [Ratio] 22.92 kg/m2 Joya Plotts BOTTLE GAUGER.CNM Work Phone: [facility] 05-05-2024 09:39-0500 Body weight 64.41 kg Joya Plotts BOTTLE GAUGER.CNM Work Phone: [facility] 05-05-2024 09:39-0500 Diastolic blood pressure 70 mm[Hg] Joya Plotts BOTTLE GAUGER.CNM Work Phone: [facility] 05-05-2024 09:39-0500 Systolic blood pressure 122 mm[Hg] Joya Plotts BOTTLE GAUGER.CNM Work Phone: [facility] 04-07-2024 09:31-0500 Body mass index (BMI) [Ratio] 21.76 kg/m2 William Chen MD Work Phone: [facility] 04-07-2024 09:31-0500 Body weight 61.15 kg William Chen MD Work Phone: [facility] 04-07-2024 09:31-0500 Diastolic blood pressure 60 mm[Hg] William Chen MD Work Phone: [facility] 04-07-2024 09:31-0500 Systolic blood pressure 106 mm[Hg] William Chen MD Work Phone: [facility] 03-10-2024 10:06-0500 Body mass index (BMI) [Ratio] 21.69 kg/m2 Ashley Khan MD Work Phone: [facility] 03-10-2024 10:06-0500 Body weight 60.96 kg Ashley Khan MD Work Phone: [facility] 03-10-2024 10:06-0500 Diastolic blood pressure 70 mm[Hg] Ashley Khan MD Work Phone: [facility] 03-10-2024 10:06-0500 Systolic blood pressure 110 mm[Hg] Ashley Khan MD Work Phone: [facility] 01-21-2024 14:43-0500 Body height 167.6 cm Helena Sunbright BOTTLE GAUGER.[employer]TENA[employer] Work Phone: [facility] 01-21-2024 14:43-0500 Body mass index (BMI) [Ratio] 21.11 kg/m2 Helena Terrence BOTTLE GAUGER.[employer]TER MAINTENANCE Work Phone: [facility] 01-21-2024 14:43-0500 Body weight 59.33 kg Helena Terrence BOTTLE GAUGER.[employer]TER MAINTENANCE Work Phone: [facility] Comment on above: 130.8 lb 01-21-2024 14:43-0500 Diastolic blood pressure 62 mm[Hg] Helena Sunbright BOTTLE GAUGER.[employer]TER MAINTENANCE Work Phone: [facility] 01-21-2024 14:43-0500 Systolic blood pressure 108 mm[Hg] Helena Sunbright BOTTLE GAUGER.[employer]TER MAINTENANCE Work Phone: [facility] 10-25-2022 [id number] Body height 166.4 cm Amparo Carter MD Work Phone: [facility] 10-25-2022 10:18-040 Body mass index (BMI) [Ratio] 21.02 kg/m2 Amparo Carter MD Work Phone: [facility] 10-25-2022 10:18-040 Body temperature 98.29 [degF] Amparo Carter MD Work Phone: [facility] 10-25-2022 10:18-0400 Body weight 58.17 kg Amparo Carter MD Work Phone: [facility] 10-25-2022 10:18-0400 Diastolic blood pressure 72 mm[Hg] Amparo Carter MD Work Phone: [facility] 10-25-2022 10:18-0400 Heart rate 68 /min Amparo Carter MD Work Phone: [facility] 10-25-2022 10:18-0400 Respiratory rate 16 /min Amparo Carter MD Work Phone: [facility] 10-25-2022 10:18-0400 Systolic blood pressure 106 mm[Hg] Amparo Carter MD Work Phone: [facility] 10-12-2021 10:36-0400 Body temperature 98.3 [degF] Amparo Carter Work Phone: [facility] Work Phone: 10-12-2021 10:36-0400 Body weight 58.97 kg Amparo Carter Work Phone: [facility] Work Phone: 10-12-2021 10:36-0400 Diastolic blood pressure 68 mm[Hg] Amparo Carter Work Phone: [facility] Work Phone: 10-12-2021 10:36-0400 Systolic blood pressure 110 mm[Hg] Amparo Carter Work Phone: [facility] Work Phone: 10-08-2020 10:41-0400 Body height 165.1 cm Amparo Carter Work Phone: [facility] Work Phone: 10-08-2020 10:41-0400 Body mass index (BMI) [Ratio] 20.97 kg/m2 Amparo Carter Work Phone: [facility] Work Phone: 10-08-2020 10:41-0400 Body surface area Derived from formula 1.63 m2 Amparo Carter Work Phone: [facility] Work Phone: 10-08-2020 10:41-0400 Body temperature 98.5 [degF] Amparo Carter Work Phone: [facility] Work Phone: 10-08-2020 10:41-0400 Body weight 57.15 kg Amparo Carter Work Phone: [facility] Work Phone: 10-08-2020 10:41-0400 Diastolic blood pressure 60 mm[Hg] Amparo Carter Work Phone: [facility] Work Phone: 10-08-2020 10:41-0400 Heart rate 80 /min Amparo Carter Work Phone: [facility] Work Phone: 10-08-2020 10:41-0400 Respiratory rate 16 /min Amparo Carter Work Phone: [facility] Work Phone: 10-08-2020 10:41-0400 Systolic blood pressure 105 mm[Hg] Amparo Carter Work Phone: [facility] Work Phone: Encounters Encounter Date Encounter Type Care Provider Facility Start: 09-14-2024 ambulatory Renee Galicia y:[facility] Start: 09-10-2024 End: 09-10-2024 Patient encounter procedure Ashley Khan MD Work Phone: OB/Gynecology Comment on above: Encounter for superv ision of normal first in third trimester (HCC) (Primary Dx); 39 weeks gestation of (HCC) Start: 09-10-2024 End: 09-10-2024 ambulatory ASHLEY KHAN Facility:[facility] Start: 09-03-2024 End: 09-03-2024 Patient encounter procedure Renee Escalera MD Work Phone: OB/Gynecology Comment on above: Encounter for superv ision of normal first in third trimester (HCC) (Primary Dx); 38 weeks gestation of (HCC) Start: 09-03-2024 End: 09-03-2024 ambulatory RENEE ESCALERA Facility:[facility] Start: 09-02-2024 End: 09-02-2024 ambulatory Antonetteteodoro Dorantes MA [facility] [address] [place] Start: 09-02-2024 End: 09-02-2024 Patient encounter procedure Antonette Dorantes [facility] Comment on above: Population Health Na vigation Outreach (Ob/peds) Start: 08-27-2024 End: 08-27-2024 ambulatory ASHLEY KHAN Facility:[facility] Start: 08-27-2024 End: 08-27-2024 Patient encounter procedure Ashley Khan MD Work Phone: OB/Gynecology Comment on above: Encounter for superv ision of normal first in third trimester (HCC) (Primary Dx); 37 weeks gestation of (HCC) Start: 08-20-2024 End: 08-20-2024 Patient encounter procedure Renee Escalera MD Work Phone: OB/Gynecology Comment on above: 36 weeks gestation o f (HCC) (Primary Dx); Encounter for supervision of normal first in third trimester (HCC) Start: 08-20-2024 End: 08-20-2024 ambulatory RENEE ESCALERA Facility:[facility] Start: 08-05-2024 End: 08-14-2024 Telephone encounter William Chen MD Work Phone: OB/Gynecology Comment on above: Breast Pump Start: 08-04-2024 End: 08-04-2024 Patient encounter procedure William Chen MD Work Phone: OB/Gynecology Comment on above: Encounter for superv ision of normal first in third trimester (HCC) (Primary Dx); 34 weeks gestation of (HCC) Start: 08-04-2024 End: 08-04-2024 ambulatory WILLIAM CHEN Facility:[facility] Start: 07-21-2024 End: 07-21-2024 Patient encounter procedure Ashley Khan MD Work Phone: OB/Gynecology Comment on above: Encounter for superv ision of normal first in third trimester (HCC) (Primary Dx); 32 weeks gestation of (HCC) Start: 07-21-2024 End: 07-21-2024 ambulatory ASHLEY KHAN Facility:[facility] Start: 07-09-2024 End: 07-09-2024 Patient encounter procedure Rebekah Garcia MD Work Phone: OB/Gynecology Comment on above: Encounter for superv ision of normal first in third trimester (HCC) (Primary Dx); Variable heart rate decelerations, antepartum (HCC); 30 weeks gestation of ([facility]) Start: 07-09-2024 End: 07-09-2024 ambulatory REBEKAH GARCIA Facility:[facility] Start: 06-23-2024 End: 06-23-2024 Patient encounter procedure William Chen MD Work Phone: OB/Gynecology Comment on above: Supervision of other normal , antepartum (HCC) (Primary Dx); Need for vaccination; 28 weeks gestation of ([facility]) Start: 06-23-2024 End: 06-23-2024 ambulatory REBEKAH GARCIA Facility:[facility] Start: 06-04-2024 End: 06-06-2024 Telephone encounter Rebekah Garcia MD Work Phone: OB/Gynecology Comment on above: FMLA Paperwork Start: 06-02-2024 End: 06-02-2024 ambulatory REBEKAH GARCIA Facility:[facility] Start: 06-02-2024 End: 06-02-2024 Patient encounter procedure Rebekah Garcia MD Work Phone: OB/Gynecology Comment on above: Encounter for superv ision of normal first in second trimester (Primary Dx); Screening for diabetes mellitus; Encounter for supervision of normal first in third trimester; Visit for screening Start: 05-06-2024 End: 07-06-2024 Follow-up encounter Renee Escalera MD Work Phone: OB/Gynecology Start: 05-05-2024 End: 05-05-2024 ambulatory JOYA PLOTABHINAV Facility:[facility] Start: 05-05-2024 End: 05-05-2024 Patient encounter procedure Joya Hassan BOTTLE GAUGER.CNM Work Phone: OB/Gynecology Comment on above: Encounter for superv ision of normal first in second trimester (Primary Dx); 21 weeks gestation of ; Encounter for supervision of normal first in first trimester Start: 05-05-2024 End: 05-05-2024 ambulatory WILLIAM CHEN Facility:[facility] Start: 05-05-2024 End: 05-05-2024 Patient encounter procedure [employer] [facility] [employer] [facility] Comment on above: Encounter for anatomic survey (Primary Dx); 21 weeks gestation of Start: 04-07-2024 End: 04-07-2024 ambulatory [facility] Facility:[facility] Start: 04-07-2024 End: 04-07-2024 Patient encounter procedure William Chen MD Work Phone: OB/Gynecology Comment on above: Encounter for superv ision of normal first in second trimester (Primary Dx); 17 weeks gestation of Start: 03-10-2024 End: 03-10-2024 ambulatory [facility] Facility:[facility] Start: 03-10-2024 End: 03-10-2024 Patient encounter procedure Ashley Khan MD Work Phone: OB/Gynecology Comment on above: 13 weeks gestation o f (Primary Dx); Encounter for supervision of normal first in second trimester Encounter for bin tristan screening for malformation using ultrasound (Primary Dx); 13 weeks gestation of Start: 01-21-2024 End: 01-21-2024 Patient encounter procedure Helena Ocampo BOTTLE GAUGER.P[employer]TER MAINTENANCE Work Phone: OB/Gynecology Comment on above: Screening for malign ant neoplasm of cervix (Primary Dx); Encounter for screening for human papillomavirus (HPV); 6 weeks gestation of ; Encounter for supervision of normal first in first trimester Start: 01-21-2024 End: 01-21-2024 ambulatory [facility] OB/Gynecology Comment on above: Care Alvin vizcaino Enrollment Start: 01-21-2024 End: 01-21-2024 E-mail encounter from caregiver [facility] OB/Gynecology Start: 01-16-2024 End: 01-21-2024 Telephone encounter Helena Lopezshola CAMPBELL Work Phone: OB/Gynecology Comment on above: Appointment Start: 10-25-2022 End: 10-25-2022 ambulatory [facility] Start: 10-25-2022 End: 10-25-2022 Encounter for general adult medical examination without abnormal findings [facility] Start: 10-25-2022 End: 10-25-2022 Patient encounter status Amparo Carter MD Work Phone: [facility] Work Phone: Start: 10-25-2022 End: 10-25-2022 Periodic preventive med est patient 18-39 yrs Amparo Carter MD Work Phone: [facility]Peds Comment on above: Routine general medi govind examination at a health care facility (Primary Dx); Allergy, subsequent encounter Start: 10-12-2021 Patient encounter procedure Amparo Carter Work Phone: [facility] Work Phone: Start: 10-12-2021 Periodic preventive med est patient 18-39 yrs Amparo Carter Work Phone: [facility] Work Phone: Start: 08-17-2021 AUDIT Amparo Carter Work Phone: [facility] Work Phone: Start: 06-09-2021 AUDIT Amparo Carter Work Phone: [facility] Work Phone: Start: 10-08-2020 Periodic preventive med est patient 18-39 yrs Amparo Carter Work Phone: [facility] Work Phone: Start: 09-30-2020 AUDIT Amparo Carney Raul Work Phone: [facility] Work Phone: Procedures Date Procedure Procedure Detail Performing Clinician Start: 09-10-2024 Urnls dip stick/tabl et rgnt non-auto w/o micrscp Ashley Khan MD Work Phone: Start: 09-03-2024 Urnls dip stick/tabl et rgnt non-auto w/o micrscp Renee Escalera MD Work Phone: Start: 08-27-2024 Urnls dip stick/tabl et rgnt non-auto w/o micrscp Ashley Khan MD Work Phone: Start: 08-20-2024 Urnls dip stick/tabl et rgnt non-auto w/o micrscp Renee Escalera MD Work Phone: Start: 08-04-2024 Urnls dip stick/tabl et rgnt non-auto w/o micrscp William Chen MD Work Phone: Start: 05-05-2024 Us preg uterus after 1st trimest 03/19 gestation William Chen MD Work Phone: Start: 03-10-2024 Antibody screen WILLIAM BOSS Comment on above: Order Comment: Speci men Type: BLOOD SPECIMEN Ordering Facility: [facility] Address: [address] [place], [place] [address] Performed By: #### T SPN #### [facility] CLIA [id number] [address] [place] [address] [place] Start: 03-10-2024 Us nuchal translucency 1st gestation Helena Ocampo BOTTLE GAUGER.PIPE FITTER MAINTENANCE Work Phone: Start: 01-21-2024 Us uterus l imited 1/> fetuses Helena Ocampo APRN.PIPE FITTER MAINTENANCE Work Phone: Start: 10-11-2021 Lipid 1996 panel - S bijan or Plasma Amparo Carter MD Work Phone: Plan of Treatment Date Care Activity Detail Author Start: 2073 RSV Vaccine (1 - 1-d ose 75+ series) RSV Vaccine (1 - 1-dose 75+ series) [facility] Start: 2048 Zoster Vaccines (1 o f 2) Zoster Vaccines (1 of 2) [facility] Start: 06-23-2034 Urine microalbumin profile DTaP,Tdap,Td Vaccine (9 - Td or Tdap) [facility] Start: 01-20-2027 Screening for malign ant neoplasm of cervix Cervical Cancer Screening [facility] Start: 10-11-2026 Lipid panel Lipid Panel [facility] Start: 11-17-2024 Influenza vaccination Influenz a Vaccine (Season Ended) [facility] Start: 09-17-2024 End: 09-17-2024 Patient encounter procedure 09/17/2024 2:20 PM EDT Routine Office Visit OB/Gynecology [address] [place] [id number] Renee Escalera MD [address] [place] [id number] OB OB/Gynecology Comment on above: OB Start: 09-10-2024 End: 09-10-2024 Patient encounter procedure 09/10/2024 9:50 AM EDT Routine Office Visit OB/Gynecology [address] [place] [id number] Ashley Khan MD [address] [place] [id number] OB OB/Gynecology Comment on above: OB Start: 09-03-2024 End: 09-03-2024 Patient encounter procedure 09/03/2024 10:10 AM EDT Routine Office Visit OB/Gynecology [address] [place] [address] Renee Escalera MD [address] [place] [address] OB OB/Gynecology Comment on above: OB Start: 08-27-2024 End: 08-27-2024 Patient encounter procedure 08/27/2024 9:50 AM EDT Routine Office Visit OB/Gynecology [address] [place] [address] Ashley Khan MD [address] [place] [address] OB OB/Gynecology Comment on above: OB Start: 08-20-2024 End: 08-20-2024 Patient encounter procedure 08/20/2024 10:10 AM EDT Routine Office Visit OB/Gynecology [address] [place] [address] Renee Escalera MD [address] [place] [address] OB OB/Gynecology Comment on above: OB Start: 08-04-2024 End: 08-04-2024 Patient encounter procedure 08/04/2024 3:40 PM EDT Routine Office Visit OB/Gynecology [address] [place] [address] William Chen MD [address] [place] [address] OB OB/Gynecology Comment on above: OB Start: 07-21-2024 End: 07-21-2024 Patient encounter procedure 07/21/2024 3:50 PM EDT Routine Office Visit OB/Gynecology [address] [place] [address] Ashley Khan MD [address] [place] [address] OB OB/Gynecology Comment on above: OB Start: 07-09-2024 End: 07-09-2024 Patient encounter procedure 07/09/2024 9:50 AM EDT Routine Office Visit OB/Gynecology [address] [place] [address] Rebekah Moon MD [address] [place] [address] OB OB/Gynecology Comment on above: OB Start: 06-23-2024 End: 06-23-2024 Patient encounter procedure OB/Gynecology Comment on above: OB OB FMLA paperwork in chart prep folder Start: 06-23-2024 End: 06-23-2024 ambulatory 06/23/2024 1:45 PM EDT Results Only [place] [facility] [address] [place] [address] ONE HOUR [place] [facility] Comment on above: ONE HOUR Start: 06-16-2024 End: 09-15-2024 ANEMIA REFLEX PANEL ANEMIA REFLEX PANEL Lab Routine Encounter for supervision of normal first in third trimester Expected: 06/16/2024, Expires: 09/15/2024 [facility] Comment on above: Expected: 06/16/2024 , Expires: 09/15/2024 Start: 06-16-2024 End: 06-02-2025 GESTATIONAL GLUCOSE SCREEN, 1-HOUR, 50 GRAM, NON-FASTING GESTATIONAL GLUCOSE SCREEN, 1-HOUR, 50 GRAM, NON-FASTING Lab Routine Screening for diabetes mellitus Expected: 06/16/2024, Expires: 06/02/2025 [facility] Work Phone: Comment on above: Expected: 06/16/2024 , Expires: 06/02/2025 Start: 06-16-2024 End: 06-02-2025 SYPHILIS TREPONEMAL W/REFLEX SYPHILIS TREPONEMAL W/REFLEX Lab Routine Encounter for supervision of normal first in third trimester Expected: 06/16/2024, Expires: 06/02/2025 [facility] Comment on above: Expected: 06/16/2024 , Expires: 06/02/2025 Start: 06-02-2024 End: 06-02-2024 Patient encounter procedure 06/02/2024 4:20 PM EDT Routine Office Visit OB/Gynecology [address] [place] [address] Rebekah Moon MD [address] [place] [address] OB Routine OB/Gynecology Comment on above: OB Routine Start: 05-05-2024 End: 05-05-2024 Patient encounter procedure 05/05/2024 9:45 AM EST Routine Office Visit OB/Gynecology [address] [place] [address] Joya Hassan APRN.CN [address] [place] [address] OB OB/Gynecology Comment on above: OB Start: 05-05-2024 End: 05-05-2024 Patient encounter procedure 05/05/2024 8:30 AM EST Routine Office Visit Maternal Medicine [address] [place] [address] ANATOMY / OB Maternal Medicine Comment on above: ANATOMY / OB Start: 04-07-2024 End: 04-07-2025 OBSTETRIC ULTRASOUND WHI OBSTETRIC ULTRASOUND WHI Anc Imaging Routine 17 weeks gestation of Encounter for supervision of normal first in second trimester Expected: 04/07/2024, Expires: 04/07/2025 [facility] Work Phone: Comment on above: Expected: 04/07/2024 , Expires: 04/07/2025 Start: 04-07-2024 End: 04-07-2024 Patient encounter procedure 04/07/2024 9:40 AM EST Routine Office Visit OB/Gynecology [address] [place], [place] [id number] William Chen MD [address] [place] [address] OB OB/Gynecology Comment on above: OB Start: 03-10-2024 End: 03-10-2024 Patient encounter procedure Maternal Medicine Comment on above: Nuchal 2nd OB Start: 02-29-2024 End: 02-29-2024 Patient encounter procedure 02/29/2024 2:20 PM EST Routine Office Visit OB/Gynecology [address] [place] [address] Patricia Hinds MD [address] [place] [address] 2nd OB OB/Gynecology Comment on above: 2nd OB Start: 01-21-2024 End: 04-21-2024 ANEMIA REFLEX PANEL ANEMIA REFLEX PANEL Lab Routine Expected: 01/21/2024, Expires: 04/21/2024 [facility] Work Phone: Comment on above: Expected: 01/21/2024 , Expires: 04/21/2024 Start: 01-21-2024 End: 04-21-2024 Chromosome 21 trisomy [Presence] in Blood or Tissue by Cytogenetics [id number] PLUS Lab Routine 6 weeks gestation of Expected: 01/21/2024, Expires: 04/21/2024 [facility] Comment on above: Expected: 01/21/2024 , Expires: 04/21/2024 Start: 01-21-2024 End: 04-21-2024 Hemoglobin A1c in Blood HEMOGLOBIN A1C Lab Routine Expected: 01/21/2024, Expires: 04/21/2024 [facility] Comment on above: Expected: 01/21/2024 , Expires: 04/21/2024 Start: 01-21-2024 End: 04-21-2024 Hepatitis B virus surface Ag [Presence] in Serum HEPATITIS B SURFACE ANTIGEN Lab Routine Expected: 01/21/2024, Expires: 04/21/2024 [facility] Comment on above: Expected: 01/21/2024 , Expires: 04/21/2024 Start: 01-21-2024 End: 04-21-2024 Hepatitis C virus Ab [Presence] in Serum HEPATITIS C ANTIBODY IA WITH CONFIRMATION Lab Routine Expected: 01/21/2024, Expires: 04/21/2024 [facility] Comment on above: Expected: 01/21/2024 , Expires: 04/21/2024 Start: 01-21-2024 End: 04-21-2024 HIV 1+2 Ab [Presence] in Serum or Plasma by Immunoassay HIV 1/2 COMBO WITH REFLEX TO DIFFERENTIATION Lab Routine Expected: 01/21/2024, Expires: 04/21/2024 [facility] Comment on above: Expected: 01/21/2024 , Expires: 04/21/2024 Start: 01-21-2024 End: 01-20-2025 NUCHAL TRANSLUCENCY WHI NUCHAL TRANSLUCENCY WHI Anc Imaging Routine 6 weeks gestation of Expected: 01/21/2024, Expires: 01/20/2025 [facility] Comment on above: Expected: 01/21/2024 , Expires: 01/20/2025 Start: 01-21-2024 End: 04-21-2024 RUBELLA IGG ANTIBODY RUBELLA IGG ANTIBODY Lab Routine Expected: 01/21/2024, Expires: 04/21/2024 [facility] Comment on above: Expected: 01/21/2024 , Expires: 04/21/2024 Start: 01-21-2024 End: 04-21-2024 SYPHILIS TREPONEMAL W/REFLEX SYPHILIS TREPONEMAL W/REFLEX Lab Routine Expected: 01/21/2024, Expires: 04/21/2024 [facility] Comment on above: Expected: 01/21/2024 , Expires: 04/21/2024 Start: 01-21-2024 End: 04-21-2024 TYPE + SCREEN TYPE + SCREEN Blood Bank Routine Expected: 01/21/2024, Expires: 04/21/2024 [facility] Comment on above: Expected: 01/21/2024 , Expires: 04/21/2024 Start: 11-18-2023 Covid-19 Vaccine () Covid-19 Vaccine () [facility] Start: 11-18-2023 Influenza vaccination Influenza Vacc ine (#1) [facility] Start: 11-17-2022 Influenza vaccination Influenza Vacc ine (#1) [facility] Start: 10-12-2021 PHYSICAL, Provider: Amparo Carter, Status: Pen, Time: 10:30 AM PHYSICAL, Provider: Amparo Carter, Status: Pen, Time: 10:30 AM [facility] Work Phone: Start: 10-08-2020 PHYSICAL, Provider: Amparo Carter, Status: Pen, Time: 10:30 AM PHYSICAL, Provider: Amparo Carter, Status: Pen, Time: 10:30 AM -[facility] Work Phone: Start: 02-10-2020 DTaP/Tdap/Td Vaccine s (2 - Td or Tdap) DTaP/Tdap/Td Vaccines (2 - Td or Tdap) [facility] Start: 02-10-2020 Urine microalbumin profile DTaP,Tdap,Td Vaccine (8 - Td or Tdap) [facility] Start: 06-23-2019 Screening for malign ant neoplasm of cervix [facility] Start: 2016 Anxiety Screening Anxiety Screening [facility] Start: 2016 Depression Screening Depression Scre ening [facility] Start: 2016 Hepatitis C screening Hepatitis C Sc reening [facility] Start: 2016 HIV screening HIV Screening [facility] Start: 2012 Peds To Adult Transition Annual Assessment Peds To Adult Transition Annual Assessment [facility] Start: 01-01-2012 MMR Vaccines (1 of 1 - Standard series) MMR Vaccines (1 of 1 - Standard series) [facility] Start: 01-01-2012 Varicella vaccination Varicell a Vaccines (2 of 2 - 13+ 2-dose series) [facility] Start: 2010 Peds To Adult Transition Initial Discussion Peds To Adult Transition Initial Discussion [facility] Start: 1998 COVID-19 Vaccine (#1) COVID-19 Vacci ne (#1) [facility] Start: 1998 Hepatitis B Vaccines (1 of 3 - 3-dose series) Hepatitis B Vaccines (1 of 3 - 3-dose series) [facility] Start: 1998 HIV screening HIV Screening [facility] Start: 1998 Yearly Adult Physical Yearly Adult P [facility] Bacteria identified in Urine by Culture URINE CULTURE Microbiology Routine 01/21/2024 3:55 PM [facility] Chlamydia trachomatis+Neisseria gonorrhoeae DNA [Presence] in Unspecified specimen by HOSSEIN with probe detection GONORRHEA/CHLAMYDIA NAAT Lab Routine 01/21/2024 3:55 PM [facility] PAP TEST PAP TEST Lab Rou nuvia Screening for malignant neoplasm of cervix Encounter for screening for human papillomavirus (HPV) 01/21/2024 3:55 PM [facility] ROUTINE, GR OUP B STREPTOCOCCUS BY PCR ROUTINE, GROUP B STREPTOCOCCUS BY PCR Microbiology Routine Encounter for supervision of normal first in third trimester (HCC) 08/20/2024 10:42 AM EDT [facility] Work Phone: Immunizations Immunization Date Immunization Notes Care Provider Fa cili 06-23-2024 tetanus toxoid, redu minda diphtheria toxoid, and acellular pertussis vaccine, adsorbed William Chen MD Work Phone: [facility] 01-23-2018 influenza virus vacc ine, unspecified formulation Helena Ocampo APRN.CNP Work Phone: [facility] 02-20-2017 influenza virus vacc ine, unspecified formulation Amparo Carter Work Phone: [facility] Work Phone: Comment on above: Series: 11-24-2015 meningococcal polysaccharide (groups A, C, Y and W-135) diphtheria toxoid conjugate vaccine (MCV4P); Translations: [Menactra Intramuscular Injectable] Amparo Carter Work Phone: [facility] Work Phone: Comment on above: Series: 12-14-2014 influenza, seasonal, injectable; Translations: [Fluzone INJ] Amparo Carter Work Phone: [facility] Work Phone: Comment on above: Series: 06-04-2013 human papilloma viru s vaccine, quadrivalent; Translations: [Gardasil SUSP] Amparo Carter Work Phone: [facility] Work Phone: Comment on above: Series: 02-26-2013 human papilloma viru s vaccine, quadrivalent; Translations: [Gardasil SUSP] Amparo Viverosmel Work Phone: [facility] Work Phone: Comment on above: Series: 10-23-2012 human papilloma viru s vaccine, quadrivalent; Translations: [Gardasil SUSP] Amparo Carter Work Phone: [facility] Work Phone: Comment on above: Series: 12-04-2011 varicella virus vaccine Kair murray Rommel ViverosRaul Work Phone: [facility] Work Phone: Comment on above: Series: 02-09-2010 influenza, live, intranasal, quadrivalent Amparo Viverosmel Work Phone: [facility] Work Phone: Comment on above: Series: 02-09-2010 meningococcal polysaccharide (groups A, C, Y and W-135) diphtheria toxoid conjugate vaccine (MCV4P) Amparo Carney Raul Work Phone: [facility] Work Phone: Comment on above: Series: 02-09-2010 tetanus toxoid, redu minda diphtheria toxoid, and acellular pertussis vaccine, adsorbed Amparo Carney Raul Work Phone: [facility] Work Phone: Comment on above: Series: Payers Date Payer Category Payer Self-pay 2024 Unknown [id number] 2023 Private Health Insurance [id number] 2018 Unknown 2018 Unknown [id number] 1998 Unknown [id number] Unknown [id number] Social History Date Type Detail Facility Start: 10-25-2022 End: 03-10-2024 Never a smoker Never a smoker [facility] Work Phone: Start: 10-25-2022 End: 01-16-2024 Tobacco smoking status NHIS Never smoked tobacco [facility] Work Phone: Start: 10-25-2022 End: 01-16-2024 Tobacco use and exposure Smokeless tobacco non-user [facility] Work Phone: Start: 10-25-2022 Alcohol intake Not Asked [facility] Work Phone: Start: 10-25-2022 End: 03-10-2024 Tobacco use panel [facility] Work Phone: Start: 10-25-2022 Alcohol Comment socially [facility] Work Phone: Start: 2000 Sex Assigned At Not on file [facility] Work Phone: Start: 10-15-2022 End: 10-25-2022 Exposure to SARS-CoV-2 (event) Not sure [facility] Start: 01-16-2024 End: 09-10-2024 Alcoholic beverage intake Ex-drinker (finding) [facility] Start: 01-16-2024 Education 17 [facility] Start: 01-16-2024 Alcohol Comment Stopped drinki ng alcohol when knowledge of [facility] Start: 12-23-2023 [facility] National Score (1-100), lower number is lower risk 45 [facility] NEGATED: Highlighted rowStart: NINF History of tobacco use Passive smoker [facility] Work Phone: Goals Date Patient Goal Desired Activity /State Personal health goal Clinical Notes 10-25-2022 to 09-10-2024 Quick Notes - Ashley Khan MD - 09/10/2024 10:02 AM EDTPrenatal Quick Notes - Ashley Khan MD - 09/10/2024 10:02 AM EDTPatient InstructionsPatient InstructionsPatient Instructions Note Date & Type Note Facility 09-10-2024 Progress note Formatting of t his note might be different from the original. S: Jesús Cuevas is a 24 year old female who presents at 09/14/2024, by Ultrasound for a routine visit. Denies headache, visual changes, chest pain, shortness of breath, vaginal bleeding, leakage of fluid, or dysuria. Feeling well, no complaints. Good movement, No contractions O: See flow sheet Gen: No apparent distress Abd: Gravid, nontender SENSITIVE EXAMINATION CONSENT: The sensitive examination was discussed with the Patient or Patient's Authorized Range Rider. As applicable, any other physician, advance practice provider, medical student, or other health professional student that will be observing or involved in the sensitive examination for educational or training purposes was discussed with the Patient or Authorized Range Rider. The Patient or Authorized Range Rider has agreed to proceed with the sensitive examination. Plan for induction if not delivered by 41 weeks ASSESSMENT/PLAN: 1. Encounter for supervision of normal first in third trimester (HCC) - ICD9: V22.0, ICD10: Z34.03 (primary diagnosis) - URINE OB DIP B/O 2. 39 weeks gestation of (HCC) - ICD9: V22.2, ICD10: Z3A.39 - URINE OB DIP B/O Ashley Khan MD [facility] 09-10-2024 Miscellaneous Notes S: Jesús Cuevas is a 24 year old female who presents at 09/14/2024, by Ultrasound for a routine visit. Denies headache, visual changes, chest pain, shortness of breath, vaginal bleeding, leakage of fluid, or dysuria. Feeling well, no complaints. Good movement, No contractions O: See flow sheet Gen: No apparent distress Abd: Gravid, nontender SENSITIVE EXAMINATION CONSENT: The sensitive examination was discussed with the Patient or Patient's Authorized Range Rider. As applicable, any other physician, advance practice provider, medical student, or other health professional student that will be observing or involved in the sensitive examination for educational or training purposes was discussed with the Patient or Authorized Range Rider. The Patient or Authorized Range Rider has agreed to proceed with the sensitive examination. Plan for induction if not delivered by 41 weeks ASSESSMENT/PLAN: 1. Encounter for supervision of normal first in third trimester (HCC) - ICD9: V22.0, ICD10: Z34.03 (primary diagnosis) - URINE OB DIP B/O 2. 39 weeks gestation of (HCC) - ICD9: V22.2, ICD10: Z3A.39 - URINE OB DIP B/O Ashley Khan MD documented in this encounter [facility] 09-10-2024 Instructions Becki Lara MA - 09/10/2024 9:44 AM EDT SEQUENTIAL SCREENINGS The [facility] offers sequential screenings for women who are interested in screenings for chromosomal abnormalities and certain defects during a . The sequential screen combines ultrasound and blood tests to determine the risk of chromosomal abnormalities, including Down's Syndrome (Trisomy 21) and Trisomy 18, as well as open neural tube defects including spina bifida. Ultrasound examination is performed between 11 weeks and 13 weeks gestational age. Blood tests are drawn after the ultrasound and again later in the between 15 and 21 weeks gestational age. Please let your physician know if you are interested in this testing. It will require an appointment with our alarm installation technician. This is not an ultrasound performed by a physician in our office during a routine visit. SIGNS AND SYMPTOMS OF LABOR 1. Contractions every 10 minutes or more often 2. Clear, pink, or brownish fluid (water) leaking from vagina 3. Feeling that baby is pushing down, pressure 4. Low, dull backache 5. Cramps that feel like a period 6. Cramps with or without diarrhea If you notice any of the above symptoms, contact our office at [phone] and ask to speak with a nurse. After hours, you can call [facility] at [phone] OR call [facility] at [phone] and ask to have the doctor master control engineer paged. If you consider this an emergency, dial 9-1-1 or go to your nearest emergency department. NEED HELP? Are you dealing with a violent or abusive relationship? Are you a victim of rape or sexual assult? Call [facility] ([place]) 24 hour Crisis Hotline: 727.113.7180 or 707-659-9475. MANUAL Your Guide to a Healthy manual is now on-line. Visit [email or web address] to download your free copy documented in this encounter [facility] 09-03-2024 Progress note Formatting of t his note might be different from the original. RR- VB No. LOF No. CTXS No. Movement: present. Other c/o: No. Medication list reviewed. SENSITIVE EXAM: Sensitive exam not performed. Physical Exam See Flow Sheet Abd: soft, nontender, gravid Ext: edema: Trace A/P 38w3d Estimated Date of Delivery: 09/14/24 Assessment & Plan Encounter for supervision of normal first in third trimester (HCC) Orders: URINE OB DIP B/O 38 weeks gestation of (HCC) Orders: URINE OB DIP B/O labor precautions reviewed nia Esaclera M.D. [facility] 09-03-2024 Miscellaneous Notes RR- VB No. LOF No. CTXS No. Movement: present. Other c/o: No. Medication list reviewed. SENSITIVE EXAM: Sensitive exam not performed. Physical Exam See Flow Sheet Abd: soft, nontender, gravid Ext: edema: Trace A/P 38w3d Estimated Date of Delivery: 09/14/24 Assessment & Plan Encounter for supervision of normal first in third trimester (HCC) Orders: URINE OB DIP B/O 38 weeks gestation of (HCC) Orders: URINE OB DIP B/O labor precautions reviewed nia Escalera M.D. documented in this encounter [facility] 09-03-2024 Instructions Gaby Duncan MA - 09/03/2024 10:01 AM EDT SEQUENTIAL SCREENINGS The [facility] offers sequential screenings for women who are interested in screenings for chromosomal abnormalities and certain defects during a . The sequential screen combines ultrasound and blood tests to determine the risk of chromosomal abnormalities, including Down's Syndrome (Trisomy 21) and Trisomy 18, as well as open neural tube defects including spina bifida. Ultrasound examination is performed between 11 weeks and 13 weeks gestational age. Blood tests are drawn after the ultrasound and again later in the between 15 and 21 weeks gestational age. Please let your physician know if you are interested in this testing. It will require an appointment with our alarm installation technician. This is not an ultrasound performed by a physician in our office during a routine visit. SIGNS AND SYMPTOMS OF LABOR 1. Contractions every 10 minutes or more often 2. Clear, pink, or brownish fluid (water) leaking from vagina 3. Feeling that baby is pushing down, pressure 4. Low, dull backache 5. Cramps that feel like a period 6. Cramps with or without diarrhea If you notice any of the above symptoms, contact our office at [phone] and ask to speak with a nurse. After hours, you can call [facility] at [phone] OR call [facility] at [phone] and ask to have the doctor master control engineer paged. If you consider this an emergency, dial 9-5-4 or go to your nearest emergency department. NEED HELP? Are you dealing with a violent or abusive relationship? Are you a victim of rape or sexual assult? Call [facility] ([place]) 24 hour Crisis Hotline: 823.127.2016 or 433-382-0324. MANUAL Your Guide to a Healthy manual is now on-line. 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 Reason for Outreach Medicaid OB/Peds Care Gaps due: N/A Patient Contacted: Spoke to patient/parent/or legal guardian Patient identified by name and : Yes Medicaid OB/Peds actions taken: [place]/History Professor added Navigation Signature: Antonette Ramsey MA September 02, 2024 2:23 PM documented in this encounter [facility] 09-02-2024 Note HNO ID: [id number] Author: ANTONETTE DORANTES MA Service: ? 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 Reason for Outreach Medicaid OB/Peds Care Gaps due: N/A Patient Contacted: Spoke to patient/parent/or legal guardian Patient identified by name and : Yes Medicaid OB/Peds actions taken: [place]/History Professor added Navigation Signature: Antonette Ramsey MA September 02, 2024 2:23 PM [facility] 09-02-2024 Note Patient Outreach (NE TNAV) JESÚS CUEVAS ([id number]) 2000 F Date Time Provider Department 09/02/24 ANTONETTE DORANTES During your visit today, we recorded the following information about you: Antonette Dorantes MA 09/02/2024 2:25 PM Signed POPULATION HEALTH NAVIGATION OUTREACH Action/FYI 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 Reason for Outreach Medicaid OB/Peds Care Gaps due: N/A Patient Contacted: Spoke to patient/parent/or legal guardian Patient identified by name and : Yes Medicaid OB/Peds actions taken: /History Professor added Navigation Signature: Antonette Ramsey MA September 02, 2024 2:23 PM Allergies As of Date: 09/02/2024 Noted Allergy Reaction BETA BLOCKERS (BETA-BLOCKERS (BET*02/03/2015 14 - Other: See Comments Comments: Please avoid beta blockers while patient is on allergy injections SEASONAL ALLERGIES 05/11/2022 4 - Hives Date Reviewed: 08/27/2024 Reviewed by: Ashley Khan MD - Fully Assessed Reason for Visit: Population Health Navigation Outreach [3910] Cmt: Ob/peds Prescriptions as of 09/02/2024 - PNV Combo No.47-Iron-FA #1-DHA (PNV-DHA) 27 mg iron-1 mg -300 mg Take 1 capsule by mouth once daily. - aspirin, enteric coated (ECOTRIN LOW STRENGTH) 81 mg EC tablet Take 1 tablet by mouth once daily. - ketotifen fumarate (ALAWAY) 0.025 % (0.035 %) ophthalmic solution Use 1 Drop in both eyes once daily as needed (Due to seasonal allergies). - EPINEPHrine 0.3 mg/0.3 mL auto-injector Inject 0.3 mL intramuscularly as needed. Problem List As Of Date 09/02/2024 Noted Resolved Allergic rhinitis [J30.9] 02/17/2015 Encounter for supervision of normal first pregn*01/21/2024 Rubella non-immune status, antepartum [O09.899,*03/11/2024 Encounter Status:Closed by ANTONETTE DORANTES on 09/02/24 [facility] 08-27-2024 Progress note Formatting of t his note might be different from the original. S: Jesús Cuevas is a 24 year old female who presents at 09/14/2024, by Ultrasound for a routine visit. Denies headache, visual changes, chest pain, shortness of breath, vaginal bleeding, leakage of fluid, or dysuria. Feeling well, no complaints. Good movement, No contractions O: See flow sheet Gen: No apparent distress Abd: Gravid, nontender Needs Rx for PNV GBS negative ASSESSMENT/PLAN: 1. Encounter for supervision of normal first in third trimester (HCC) - ICD9: V22.0, ICD10: Z34.03 (primary diagnosis) - URINE OB DIP B/O 2. 37 weeks gestation of ([facility]) - ICD9: V22.2, ICD10: Z3A.37 - URINE OB DIP B/O Ashley Khan MD [facility] 08-27-2024 Miscellaneous Notes S: Jesús Cuevas is a 24 year old female who presents at 09/14/2024, by Ultrasound for a routine visit. Denies headache, visual changes, chest pain, shortness of breath, vaginal bleeding, leakage of fluid, or dysuria. Feeling well, no complaints. Good movement, No contractions O: See flow sheet Gen: No apparent distress Abd: Gravid, nontender Needs Rx for PNV GBS negative ASSESSMENT/PLAN: 1. Encounter for supervision of normal first in third trimester ([facility]) - ICD9: V22.0, ICD10: Z34.03 (primary diagnosis) - URINE OB DIP B/O 2. 37 weeks gestation of ([facility]) - ICD9: V22.2, ICD10: Z3A.37 - URINE OB DIP B/O Ashley Khan MD documented in this encounter [facility] 08-27-2024 Instructions Marcos Haji MA - 08/27/2024 9:59 AM EDT SEQUENTIAL SCREENINGS The [facility] offers sequential screenings for women who are interested in screenings for chromosomal abnormalities and certain defects during a . The sequential screen combines ultrasound and blood tests to determine the risk of chromosomal abnormalities, including Down's Syndrome (Trisomy 21) and Trisomy 18, as well as open neural tube defects including spina bifida. Ultrasound examination is performed between 11 weeks and 13 weeks gestational age. Blood tests are drawn after the ultrasound and again later in the between 15 and 21 weeks gestational age. Please let your physician know if you are interested in this testing. It will require an appointment with our alarm installation technician. This is not an ultrasound performed by a physician in our office during a routine visit. SIGNS AND SYMPTOMS OF LABOR 1. Contractions every 10 minutes or more often 2. Clear, pink, or brownish fluid (water) leaking from vagina 3. Feeling that baby is pushing down, pressure 4. Low, dull backache 5. Cramps that feel like a period 6. Cramps with or without diarrhea If you notice any of the above symptoms, contact our office at [phone] and ask to speak with a nurse. After hours, you can call doctors registry at [phone] OR call [facility] at [phone] and ask to have the doctor master control engineer paged. If you consider this an emergency, dial 9-1- or go to your nearest emergency department. NEED HELP? Are you dealing with a violent or abusive relationship? Are you a victim of rape or sexual assult? Call [facility] ([place]) 24 hour Crisis Hotline: 687.297.9990 or 161-314-8775. MANUAL Your Guide to a Healthy manual is now on-line. Visit [email or web address] to download your free copy documented in this encounter [facility] 08-20-2024 Progress note Formatting of t his note might be different from the original. RR- VB No. LOF No. CTXS No. Movement: present. Other c/o: No. Medication list reviewed. SENSITIVE EXAM: Sensitive exam not performed. Physical Exam See Flow Sheet Abd: soft, nontender, gravid Ext: edema: no A/P 36w3d Estimated Date of Delivery: 09/14/24 Assessment & Plan 36 weeks gestation of ([facility]) Orders: URINE OB DIP B/O Encounter for supervision of normal first in third trimester ([facility]) kick counts labor precautions Orders: URINE OB DIP B/O ROUTINE, GROUP B STREPTOCOCCUS BY PCR Renee Escalera M.D. [facility] 08-20-2024 Miscellaneous Notes RR- VB No. LOF No. CTXS No. Movement: present. Other c/o: No. Medication list reviewed. SENSITIVE EXAM: Sensitive exam not performed. Physical Exam See Flow Sheet Abd: soft, nontender, gravid Ext: edema: no A/P 36w3d Estimated Date of Delivery: 09/14/24 Assessment & Plan 36 weeks gestation of ([facility]) Orders: URINE OB DIP B/O Encounter for supervision of normal first in third trimester ([facility]) kick counts labor precautions Orders: URINE OB DIP B/O ROUTINE, GROUP B STREPTOCOCCUS BY PCR Renee Escalera M.D. documented in this encounter [facility] 08-20-2024 Instructions Antonette Perry MA - 08/20/2024 10:14 AM EDT SEQUENTIAL SCREENINGS The [facility] offers sequential screenings for women who are interested in screenings for chromosomal abnormalities and certain defects during a . The sequential screen combines ultrasound and blood tests to determine the risk of chromosomal abnormalities, including Down's Syndrome (Trisomy 21) and Trisomy 18, as well as open neural tube defects including spina bifida. Ultrasound examination is performed between 11 weeks and 13 weeks gestational age. Blood tests are drawn after the ultrasound and again later in the between 15 and 21 weeks gestational age. Please let your physician know if you are interested in this testing. It will require an appointment with our alarm installation technician. This is not an ultrasound performed by a physician in our office during a routine visit. SIGNS AND SYMPTOMS OF LABOR 1. Contractions every 10 minutes or more often 2. Clear, pink, or brownish fluid (water) leaking from vagina 3. Feeling that baby is pushing down, pressure 4. Low, dull backache 5. Cramps that feel like a period 6. Cramps with or without diarrhea If you notice any of the above symptoms, contact our office at [phone] and ask to speak with a nurse. After hours, you can call doctors registry at [phone] OR call [facility] at [phone] and ask to have the doctor master control engineer paged. If you consider this an emergency, dial 9--1 or go to your nearest emergency department. NEED HELP? Are you dealing with a violent or abusive relationship? Are you a victim of rape or sexual assult? Call [facility] ([place]) 24 hour Crisis Hotline: 616.343.8527 or 159-584-2553. MANUAL Your Guide to a Healthy manual is now on-line. Visit [email or web address] to download your free copy documented in this encounter [facility] 08-14-2024 Telephone encounter Note Faxed. Marsha Pugh RN [facility] 08-14-2024 Miscellaneous Notes Faxed. Marsha Pugh RN Breast pump order received from [employer]. To SW to sign. Mary Ann Benitez RN documented in this encounter [facility] 08-05-2024 Telephone encounter Note Breast pump order received from [employer]. To SW to sign. Mary Ann Benitez RN [facility] 08-04-2024 Progress note Formatting of t his note might be different from the original. SW- Pt doing well. No pain, vb, lof. Good FM PE: Gen- NAD, well appearing Abd- Soft, gravid, NT See flowsheet A/p 34 wk gestation - Discussed upcoming expectations - RTO 2 wks William Chen DO [facility] 08-04-2024 Miscellaneous Notes SW- Pt doing well. No pain, vb, lof. Good FM PE: Gen- NAD, well appearing Abd- Soft, gravid, NT See flowsheet A/p 34 wk gestation - Discussed upcoming expectations - RTO 2 wks William Chen DO documented in this encounter [facility] 08-04-2024 Instructions Antonette Perry MA - 08/04/2024 3:43 PM EDT SEQUENTIAL SCREENINGS The [facility] offers sequential screenings for women who are interested in screenings for chromosomal abnormalities and certain defects during a . The sequential screen combines ultrasound and blood tests to determine the risk of chromosomal abnormalities, including Down's Syndrome (Trisomy 21) and Trisomy 18, as well as open neural tube defects including spina bifida. Ultrasound examination is performed between 11 weeks and 13 weeks gestational age. Blood tests are drawn after the ultrasound and again later in the between 15 and 21 weeks gestational age. Please let your physician know if you are interested in this testing. It will require an appointment with our alarm installation technician. This is not an ultrasound performed by a physician in our office during a routine visit. SIGNS AND SYMPTOMS OF LABOR 1. Contractions every 10 minutes or more often 2. Clear, pink, or brownish fluid (water) leaking from vagina 3. Feeling that baby is pushing down, pressure 4. Low, dull backache 5. Cramps that feel like a period 6. Cramps with or without diarrhea If you notice any of the above symptoms, contact our office at [phone] and ask to speak with a nurse. After hours, you can call doctors registry at [phone] OR call [facility] at [phone] and ask to have the doctor master control engineer paged. If you consider this an emergency, dial 9-1-4 or go to your nearest emergency department. NEED HELP? Are you dealing with a violent or abusive relationship? Are you a victim of rape or sexual assult? Call [facility] ([place]) 24 hour Crisis Hotline: 305.309.4846 or 418-800-0480. MANUAL Your Guide to a Healthy manual is now on-line. Visit [email or web address] to download your free copy documented in this encounter [facility] 07-21-2024 Progress note Formatting of t his note might be different from the original. S: Jesús Cuevas is a 24 year old female who presents at 09/14/2024, by Ultrasound for a routine visit. Denies headache, visual changes, chest pain, shortness of breath, vaginal bleeding, leakage of fluid, or dysuria. Feeling well, no complaints. Good movement, No contractions O: See flow sheet Gen: No apparent distress Abd: Gravid, nontender ASSESSMENT/PLAN: 1. Encounter for supervision of normal first in third trimester ([facility]) - ICD9: V22.0, ICD10: Z34.03 (primary diagnosis) PTL labor precautions 2. 32 weeks gestation of (HCC) - ICD9: V22.2, ICD10: Z3A.32 Ashley Khan MD [facility] 07-21-2024 Miscellaneous Notes S: Jesús Cuevas is a 24 year old female who presents at 09/14/2024, by Ultrasound for a routine visit. Denies headache, visual changes, chest pain, shortness of breath, vaginal bleeding, leakage of fluid, or dysuria. Feeling well, no complaints. Good movement, No contractions O: See flow sheet Gen: No apparent distress Abd: Gravid, nontender ASSESSMENT/PLAN: 1. Encounter for supervision of normal first in third trimester ([facility]) - ICD9: V22.0, ICD10: Z34.03 (primary diagnosis) PTL labor precautions 2. 32 weeks gestation of ([facility]) - ICD9: V22.2, ICD10: Z3A.32 Ashley Khan MD documented in this encounter [facility] 07-21-2024 Instructions Gaby Duncan MA - 07/21/2024 3:53 PM EDT SEQUENTIAL SCREENINGS The [facility] offers sequential screenings for women who are interested in screenings for chromosomal abnormalities and certain defects during a . The sequential screen combines ultrasound and blood tests to determine the risk of chromosomal abnormalities, including Down's Syndrome (Trisomy 21) and Trisomy 18, as well as open neural tube defects including spina bifida. Ultrasound examination is performed between 11 weeks and 13 weeks gestational age. Blood tests are drawn after the ultrasound and again later in the between 15 and 21 weeks gestational age. Please let your physician know if you are interested in this testing. It will require an appointment with our alarm installation technician. This is not an ultrasound performed by a physician in our office during a routine visit. SIGNS AND SYMPTOMS OF LABOR 1. Contractions every 10 minutes or more often 2. Clear, pink, or brownish fluid (water) leaking from vagina 3. Feeling that baby is pushing down, pressure 4. Low, dull backache 5. Cramps that feel like a period 6. Cramps with or without diarrhea If you notice any of the above symptoms, contact our office at [phone] and ask to speak with a nurse. After hours, you can call doctors registry at [phone] OR call [facility] at [phone] and ask to have the doctor master control engineer paged. If you consider this an emergency, dial 2-1-5 or go to your nearest emergency department. NEED HELP? Are you dealing with a violent or abusive relationship? Are you a victim of rape or sexual assult? Call [facility] ([place]) 24 hour Crisis Hotline: 341.899.4674 or 390-360-0954. MANUAL Your Guide to a Healthy manual is now on-line. Visit [email or web address] to download your free copy documented in this encounter [facility] 07-09-2024 Note HNO ID: [id number] Author: REBEKAH MOON MD Service: ? Author Type: Physician Type: Progress Notes Filed: 07/09/2024 11:42 Note Text: NST SUMMARY PROVIDER ASSESSMENT AND INTERPRETATION Jesús Cuevas is a 24 year old female, , who is at 30w3d with an LAKSHMI of 09/14/2024, by Ultrasound dating method. Indications for NST: Other: decel on doppler Baseline: 145 Variability: Moderate Accelerations: Present 15 X 15 Decelerations: one variable Contractions: TOCO: None Interpretation: Category I and Reactive SIGNATURE: Rebekah Jett MD [facility] 07-09-2024 History of Presen t illness Narrative NST SUMMARY PROVIDER ASSESSMENT AND INTERPRETATION Jesús Cuevas is a 24 year old female, , who is at 30w3d with an LAKSHMI of 09/14/2024, by Ultrasound dating method. Indications for NST: Other: decel on doppler Baseline: 145 Variability: Moderate Accelerations: Present 15 X 15 Decelerations: one variable Contractions: TOCO: None Interpretation: Category I and Reactive SIGNATURE: Rebekah Jett MD documented in this encounter [facility] 07-09-2024 Progress note Formatting of t his note might be different from the original. DM-Pt doing well. Denies vaginal Bleeding, Leaking fluid, or regular Contractions. Pt reports good movement Physical Exam: Gen: female in no apparent distress Abd: soft, Gravid. Non tender to palpation. See flow sheet @ 30.3 weeks Assessment & Plan Encounter for supervision of normal first in third trimester (HCC) Variable heart rate decelerations, antepartum (HCC) Audible decels on doppler- put on NST- had one variable but tracing to follow was reactive cat 1 30 weeks gestation of ([facility]) Kick counts reviewed Rebekah Jett MD [facility] 07-09-2024 Miscellaneous Notes DM-Pt doing well. Denies vaginal Bleeding, Leaking fluid, or regular Contractions. Pt reports good movement Physical Exam: Gen: female in no apparent distress Abd: soft, Gravid. Non tender to palpation. See flow sheet @ 30.3 weeks Assessment & Plan Encounter for supervision of normal first in third trimester (HCC) Variable heart rate decelerations, antepartum (HCC) Audible decels on doppler- put on NST- had one variable but tracing to follow was reactive cat 1 30 weeks gestation of (HCC) Kick counts reviewed Rebekah Jett MD documented in this encounter [facility] 07-09-2024 Instructions Becki Lara MA - 07/09/2024 9:51 AM EDT SEQUENTIAL SCREENINGS The [facility] offers sequential screenings for women who are interested in screenings for chromosomal abnormalities and certain defects during a . The sequential screen combines ultrasound and blood tests to determine the risk of chromosomal abnormalities, including Down's Syndrome (Trisomy 21) and Trisomy 18, as well as open neural tube defects including spina bifida. Ultrasound examination is performed between 11 weeks and 13 weeks gestational age. Blood tests are drawn after the ultrasound and again later in the between 15 and 21 weeks gestational age. Please let your physician know if you are interested in this testing. It will require an appointment with our alarm installation technician. This is not an ultrasound performed by a physician in our office during a routine visit. SIGNS AND SYMPTOMS OF LABOR 1. Contractions every 10 minutes or more often 2. Clear, pink, or brownish fluid (water) leaking from vagina 3. Feeling that baby is pushing down, pressure 4. Low, dull backache 5. Cramps that feel like a period 6. Cramps with or without diarrhea If you notice any of the above symptoms, contact our office at [phone] and ask to speak with a nurse. After hours, you can call doctors registry at [phone] OR call [facility] at [phone] and ask to have the doctor master control engineer paged. If you consider this an emergency, dial 9-1-1 or go to your nearest emergency department. NEED HELP? Are you dealing with a violent or abusive relationship? Are you a victim of rape or sexual assult? Call [facility] ([place]) 24 hour Crisis Hotline: 909.330.2367 or 586-628-4445. MANUAL Your Guide to a Healthy manual is now on-line. Visit [email or web address] to download your free copy documented in this encounter [facility] 06-23-2024 Progress note Formatting of t his note might be different from the original. SW- Pt doing well. Patient fell out of bed onto left side 3 days ago. No pain, vb, lof. Good FM PE: Gen- NAD, well appearing Abd- Soft, gravid, NT See flowsheet A/p 28 wk gestation - 28 wk labs today - Tdap today - LARC signed - plan sheet given - Discussed classes at [facility] - Discussed peds - RTO 2 wks William Chen DO [facility] 06-23-2024 Miscellaneous Notes SW- Pt doing well. Patient fell out of bed onto left side 3 days ago. No pain, vb, lof. Good FM PE: Gen- NAD, well appearing Abd- Soft, gravid, NT See flowsheet A/p 28 wk gestation - 28 wk labs today - Tdap today - LARC signed - plan sheet given - Discussed classes at [facility] - Discussed peds - RTO 2 wks William Chen DO documented in this encounter [facility] 06-23-2024 Note HNO ID: [id number] Author: ANTONETTE PERRY MA Service: ? Author Type: Music Store Manager Type: Progress Notes Filed: 06/23/2024 16:26 Note Text: Patient identified by name and date of . Jesús Cuevas presents today for a vaccination of Tdap. Patient denies an allergy to latex: yes Patient denies a severe (life-threatening) allergy to a previous dose of Tdap, DTP, DTaP, DT or Td vaccine. Yes Patient denies history of epilepsy or neurological problems: Yes Patient is afebrile and denies being moderately or severely ill: Yes Patient denies history of Guillain-Axis Syndrome (a severe paralytic illness): Yes Tdap Adacel injection was given without incident. See immunizations for details of immunizations administered today. VIS sheet provided: Yes Provider William Chen DO was present in office at time of injection. Antonette Perry MA [facility] 06-23-2024 History of Presen t illness Narrative Patient identified by name and date of . Jesús Cuevas presents today for a vaccination of Tdap. Patient denies an allergy to latex: yes Patient denies a severe (life-threatening) allergy to a previous dose of Tdap, DTP, DTaP, DT or Td vaccine. Yes Patient denies history of epilepsy or neurological problems: Yes Patient is afebrile and denies being moderately or severely ill: Yes Patient denies history of Guillain-Axis Syndrome (a severe paralytic illness): Yes Tdap Adacel injection was given without incident. See immunizations for details of immunizations administered today. VIS sheet provided: Yes Provider William Chen DO was present in office at time of injection. Antonette Perry MA documented in this encounter [facility] 06-23-2024 Instructions Antonette Perry MA - 06/23/2024 1:53 PM EDT SEQUENTIAL SCREENINGS The [facility] offers sequential screenings for women who are interested in screenings for chromosomal abnormalities and certain defects during a . The sequential screen combines ultrasound and blood tests to determine the risk of chromosomal abnormalities, including Down's Syndrome (Trisomy 21) and Trisomy 18, as well as open neural tube defects including spina bifida. Ultrasound examination is performed between 11 weeks and 13 weeks gestational age. Blood tests are drawn after the ultrasound and again later in the between 15 and 21 weeks gestational age. Please let your physician know if you are interested in this testing. It will require an appointment with our alarm installation technician. This is not an ultrasound performed by a physician in our office during a routine visit. SIGNS AND SYMPTOMS OF LABOR 1. Contractions every 10 minutes or more often 2. Clear, pink, or brownish fluid (water) leaking from vagina 3. Feeling that baby is pushing down, pressure 4. Low, dull backache 5. Cramps that feel like a period 6. Cramps with or without diarrhea If you notice any of the above symptoms, contact our office at [phone] and ask to speak with a nurse. After hours, you can call doctors registry at [phone] OR call [facility] at [phone] and ask to have the doctor master control engineer paged. If you consider this an emergency, dial 9-- or go to your nearest emergency department. NEED HELP? Are you dealing with a violent or abusive relationship? Are you a victim of rape or sexual assult? Call [facility] ([place]) 24 hour Crisis Hotline: 344.605.1974 or 238-378-0810. MANUAL Your Guide to a Healthy manual is now on-line. Visit [email or web address] to download your free copy documented in this encounter [facility] 06-06-2024 Telephone encounter Note FMLA paperwork completed and faxed back to employer. Patient would like original back, placed in chart prep folder for upcoming appointment. Patient notified. Desmond Michael MA [facility] 06-06-2024 Miscellaneous Notes FMLA paperwork completed and faxed back to employer. Patient would like original back, placed in chart prep folder for upcoming appointment. Patient notified. Desmond Michael MA FMLA paperwork completed and placed on providers desk for signature. Desmond Michael MA documented in this encounter [facility] 06-04-2024 Telephone encounter Note FMLA paperwork completed and placed on providers desk for signature. Desmond Michael MA [facility] 06-02-2024 Progress note Formatting of t his note might be different from the original. DM-Pt doing well. Denies vaginal Bleeding, Leaking fluid, or regular Contractions. Pt reports good movement Physical Exam: Gen: female in no apparent distress Abd: soft, Gravid. Non tender to palpation. See flow sheet @ 25.1 weeks Assessment & Plan Encounter for supervision of normal first in second trimester Screening for diabetes mellitus Orders: GESTATIONAL GLUCOSE SCREEN, 1-HOUR, 50 GRAM, NON-FASTING; Future Encounter for supervision of normal first in third trimester Orders: SYPHILIS TREPONEMAL W/REFLEX; Future ANEMIA REFLEX PANEL; Future Visit for screening Rebekah Jett MD [facility] 06-02-2024 Miscellaneous Notes DM-Pt doing well. Denies vaginal Bleeding, Leaking fluid, or regular Contractions. Pt reports good movement Physical Exam: Gen: female in no apparent distress Abd: soft, Gravid. Non tender to palpation. See flow sheet @ 25.1 weeks Assessment & Plan Encounter for supervision of normal first in second trimester Screening for diabetes mellitus Orders: GESTATIONAL GLUCOSE SCREEN, 1-HOUR, 50 GRAM, NON-FASTING; Future Encounter for supervision of normal first in third trimester Orders: SYPHILIS TREPONEMAL W/REFLEX; Future ANEMIA REFLEX PANEL; Future Visit for screening Rebekah Jett MD documented in this encounter [facility] 06-02-2024 Becki Garcia MA - 06/02/2024 4:08 PM EDT SEQUENTIAL SCREENINGS The [facility] offers sequential screenings for women who are interested in screenings for chromosomal abnormalities and certain defects during a . The sequential screen combines ultrasound and blood tests to determine the risk of chromosomal abnormalities, including Down's Syndrome (Trisomy 21) and Trisomy 18, as well as open neural tube defects including spina bifida. Ultrasound examination is performed between 11 weeks and 13 weeks gestational age. Blood tests are drawn after the ultrasound and again later in the between 15 and 21 weeks gestational age. Please let your physician know if you are interested in this testing. It will require an appointment with our alarm installation technician. This is not an ultrasound performed by a physician in our office during a routine visit. SIGNS AND SYMPTOMS OF LABOR 1. Contractions every 10 minutes or more often 2. Clear, pink, or brownish fluid (water) leaking from vagina 3. Feeling that baby is pushing down, pressure 4. Low, dull backache 5. Cramps that feel like a period 6. Cramps with or without diarrhea If you notice any of the above symptoms, contact our office at [phone] and ask to speak with a nurse. After hours, you can call doctors registry at [phone] OR call [facility] at [phone] and ask to have the doctor master control engineer paged. If you consider this an emergency, dial 4-7-1 or go to your nearest emergency department. NEED HELP? Are you dealing with a violent or abusive relationship? Are you a victim of rape or sexual assult? Call [facility] ([place]) 24 hour Crisis Hotline: 841.296.8915 or 803-058-2569. MANUAL Your Guide to a Healthy manual is now on-line. Visit [email or web address] to download your free copy documented in this encounter [facility] 05-06-2024 Progress note Formatting of t his note might be different from the original. Anatomy ultrasound reviewed. No abnormalities identified. Follow up as clinically indicated. Please place copy in ob chart. Renee Escalera MD [facility] Work Phone: 05-06-2024 Miscellaneous Notes Anatomy ultrasound reviewed. No abnormalities identified. Follow up as clinically indicated. Please place copy in ob chart. Renee Escalera MD documented in this encounter [facility] 05-05-2024 Progress note Formatting of t his note might be different from the original. S: Jesús Cuevas is a 23 year old female who presents at 21 weeks gestation for a routine visit. Just completed anatomy US. Positive movements. Denies headache, visual changes, chest pain, shortness of breath, vaginal bleeding, leakage of fluid, or dysuria. Feeling well, no complaints. O: See flow sheet Gen: No apparent distress Abd: Gravid, nontender ASSESSMENT/PLAN: 1. Encounter for supervision of normal first in second trimester 2. 21 weeks gestation of -Continue vitamin and ASA daily - RTO 4 weeks or sooner if needed Joya Hassan APRN.CNM [facility] 05-05-2024 Miscellaneous Notes S: Jesús Cuevas is a 23 year old female who presents at 21 weeks gestation for a routine visit. Just completed anatomy US. Positive movements. Denies headache, visual changes, chest pain, shortness of breath, vaginal bleeding, leakage of fluid, or dysuria. Feeling well, no complaints. O: See flow sheet Gen: No apparent distress Abd: Gravid, nontender ASSESSMENT/PLAN: 1. Encounter for supervision of normal first in second trimester 2. 21 weeks gestation of -Continue vitamin and ASA daily - RTO 4 weeks or sooner if needed Joya Hassan APRN.CNM documented in this encounter [facility] 04-07-2024 Progress note Formatting of t his note might be different from the original. SW- No pain, vb, lof. Has a cough. 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 PE: Gen- NAD, well appearing Abd- Soft, NT See flowsheet A/p 17 wk gestation - Discussed symptomatic measures for URI's - Reviewed NOB labs - Declines flu vaccine - Schedule anatomy US - RTO 4 wks William Chen DO [facility] 04-07-2024 Miscellaneous Notes SW- No pain, vb, lof. Has a cough. 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 PE: Gen- NAD, well appearing Abd- Soft, NT See flowsheet A/p 17 wk gestation - Discussed symptomatic measures for URI's - Reviewed NOB labs - Declines flu vaccine - Schedule anatomy US - RTO 4 wks William Chen DO documented in this encounter [facility] 04-07-2024 Instructions Antonette Perry MA - 04/07/2024 9:29 AM EST SEQUENTIAL SCREENINGS The [facility] offers sequential screenings for women who are interested in screenings for chromosomal abnormalities and certain defects during a . The sequential screen combines ultrasound and blood tests to determine the risk of chromosomal abnormalities, including Down's Syndrome (Trisomy 21) and Trisomy 18, as well as open neural tube defects including spina bifida. Ultrasound examination is performed between 11 weeks and 13 weeks gestational age. Blood tests are drawn after the ultrasound and again later in the between 15 and 21 weeks gestational age. Please let your physician know if you are interested in this testing. It will require an appointment with our alarm installation technician. This is not an ultrasound performed by a physician in our office during a routine visit. SIGNS AND SYMPTOMS OF LABOR 1. Contractions every 10 minutes or more often 2. Clear, pink, or brownish fluid (water) leaking from vagina 3. Feeling that baby is pushing down, pressure 4. Low, dull backache 5. Cramps that feel like a period 6. Cramps with or without diarrhea If you notice any of the above symptoms, contact our office at [phone] and ask to speak with a nurse. After hours, you can call doctors registry at [phone] OR call [facility] at [phone] and ask to have the doctor master control engineer paged. If you consider this an emergency, dial 9-8-0 or go to your nearest emergency department. NEED HELP? Are you dealing with a violent or abusive relationship? Are you a victim of rape or sexual assult? Call [facility] ([place]) 24 hour Crisis Hotline: 466.865.5817 or 341-800-7684. MANUAL Your Guide to a Healthy manual is now on-line. Visit [email or web address] to download your free copy documented in this encounter [facility] 03-10-2024 Progress note Formatting of t his note might be different from the original. S: Jesús Cuevas is a 23 year old female who presents at 09/14/2024, by Ultrasound for a routine visit. Denies headache, visual changes, chest pain, shortness of breath, vaginal bleeding, leakage of fluid, or dysuria. Feeling well, no complaints. Nausea has improved Desires NIPT. Getting NOB labs today. O: See flow sheet Gen: No apparent distress ASSESSMENT/PLAN: 1. 13 weeks gestation of - ICD9: V22.2, ICD10: Z3A.13 (primary diagnosis) Labs to be drawn today. NT completed 2. Encounter for supervision of normal first in second trimester - ICD9: V22.0, ICD10: Z34.02 Ashley Khan MD [facility] 03-10-2024 Miscellaneous Notes S: Jesús Cuevas is a 23 year old female who presents at 09/14/2024, by Ultrasound for a routine visit. Denies headache, visual changes, chest pain, shortness of breath, vaginal bleeding, leakage of fluid, or dysuria. Feeling well, no complaints. Nausea has improved Desires NIPT. Getting NOB labs today. O: See flow sheet Gen: No apparent distress ASSESSMENT/PLAN: 1. 13 weeks gestation of - ICD9: V22.2, ICD10: Z3A.13 (primary diagnosis) Labs to be drawn today. NT completed 2. Encounter for supervision of normal first in second trimester - ICD9: V22.0, ICD10: Z34.02 Ashley Khan MD documented in this encounter [facility] 03-10-2024 Instructions Antonette Perry MA - 03/10/2024 9:50 AM EST SEQUENTIAL SCREENINGS The [facility] offers sequential screenings for women who are interested in screenings for chromosomal abnormalities and certain defects during a . The sequential screen combines ultrasound and blood tests to determine the risk of chromosomal abnormalities, including Down's Syndrome (Trisomy 21) and Trisomy 18, as well as open neural tube defects including spina bifida. Ultrasound examination is performed between 11 weeks and 13 weeks gestational age. Blood tests are drawn after the ultrasound and again later in the between 15 and 21 weeks gestational age. Please let your physician know if you are interested in this testing. It will require an appointment with our alarm installation technician. This is not an ultrasound performed by a physician in our office during a routine visit. SIGNS AND SYMPTOMS OF LABOR 1. Contractions every 10 minutes or more often 2. Clear, pink, or brownish fluid (water) leaking from vagina 3. Feeling that baby is pushing down, pressure 4. Low, dull backache 5. Cramps that feel like a period 6. Cramps with or without diarrhea If you notice any of the above symptoms, contact our office at [phone] and ask to speak with a nurse. After hours, you can call doctors registry at [phone] OR call [facility] at [phone] and ask to have the doctor master control engineer paged. If you consider this an emergency, dial 9--1 or go to your nearest emergency department. NEED HELP? Are you dealing with a violent or abusive relationship? Are you a victim of rape or sexual assult? Call [facility] ([place]) 24 hour Crisis Hotline: 360.894.3159 or 456-163-7886. MANUAL Your Guide to a Healthy manual is now on-line. Visit [email or web address] to download your free copy documented in this encounter [facility] 01-21-2024 Instructions Lissy Mcgovern LPN - 01/21/2024 2:42 PM EST Please select the following link to access the [facility] Your Guide to a Healthy . [email or web address] de documented in this encounter [facility] 01-16-2024 Telephone encounter Note Attempted to call patient back immediately back after receiving notification from RN of patient returning our call to go over new ob intake. Had to leave a voicemail message. Lynn Trinidad MA [facility] 01-16-2024 Miscellaneous Notes Attempted to call patient back immediately back after receiving notification from RN of patient returning our call to go over new ob intake. Had to leave a voicemail message. Lynn Trinidad MA Left message for patient to return phone call to complete nurse intake questions for her upcoming appointment. Patient has an appointment with Helena Ocampo for NOB appointment. I can call patient at 2:30 or 3:30 today if she is available or you can try to transfer to [facility] documented in this encounter [facility] 01-16-2024 Note HNO ID: [id number] Author: HELENA OCAMPO APRN.PIPE FITTER MAINTENANCE Service: ? Author Type: Nurse Practitioner Type: Progress Notes Filed: 01/21/2024 15:54 Note Text: Manager Transportation Planning offered: Patient declines. INITIAL OB ASSESSMENT HPI: Jesús is a 23 year old No obstetric history on file. White here to establish Obstetrical Care. No LMP recorded. from OB Dating Form. was planned Complaints: No OB History No obstetric history on file. Previous history: Prior : never History of 4th degree laceration: NA History of shoulder dystocia: No History of Hypertensive disorders including pre-eclampsia or gestational hypertension: No History of gestational diabetes: No Patient's Risk Screening for delivery: Have you had a prior henley between 20w and 36w6d? No How many pregnancies have you had before? 0 Did you have a previous baby with a GBS Infection? No Please select all that apply for any prior : N/A MEDICAL/PSYCHOSOCIAL HISTORY: History of hemorrhage or bleeding concerns: No Thyroid Disease: No History of chronic hypertension: No History of pre-existing diabetes: No No results found for: ABORHD No weight on file for this encounter. Last Pap: History of abnormal pap: No Prior treatment for cervical dysplasia: none. Last HPV: History of STDs: None Partner History of STDs: None Did you have a partner with Herpes? No Tobacco use: No E-Cigarette/Vaping Use: No Caffeine use: Yes, 200 MG by mouth daily prior to but since realizing no caffiene use. Drug use: No Alcohol use: No Multivitamin with Folic acid: No Would refuse blood transfusion if medically necessary: No Social Needs: How often does this describe you? I don't have enough money to pay my bills: Never Within the past 12 months, have you worried that your food would run out before you had money to buy more? Never In the past 12 months, has lack of reliable transportation kept you from going to medical appointments or work, or from getting things needed for daily living? Never In the past 12 months, have you had any concerns about having a place to live, or about the condition or quality of your housing? Never Would you like more information on any of the following (please check all that apply)? Not interested Social History: Do you have any history of depression, anxiety, PTSD, or other mood problems? No Do you have a history of abuse or trauma that may impact your experience? No Are you currently employed? Yes Depression/Anxiety Screening: denies symptoms of depression. OB Depression and Anxiety Screening- This Encounter (since 01/15/2024) None Genetic Screening: Partner present: Yes Patient verbalized knowledge of partner family health history: Yes Do you or your partner have any personal or family history of defects not previously discussed: No Do you have history of a complicated by anomaly, genetic condition, or demise: No Low Dose ASA Screening: Screening for low dose aspirin use for the prevention of pre-eclampsia: High risk factors: None Moderate risk ractors: Nulliparity OB Risk Screening: Completed, no positive findings documented. 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 No past surgical history on file. Current Outpatient Medications Medication Sig Dispense Refill Levocetirizine 5 mg tablet Take 1 tablet by mouth once daily as needed. 30 tablet 11 EPINEPHrine 0.3 mg/0.3 mL auto-injector Inject 0.3 mL intramuscularly as needed. 1 Each 3 triamcinolone acetonide (NASACORT AQ) 55 mcg nasal inhaler Use 2 Sprays in the nose once daily. 1 Inhaler 11 montelukast (SINGULAIR) 10 mg tablet Take 10 mg by mouth daily at bedtime. Olopatadine (PATADAY) 0.2 % drop Use 1 Drop in both eyes as needed. predniSONE (DELTASONE) 20 mg tablet Take 20 mg by mouth as needed. No current facility-administered medications for this visit. Allergies As of Date: 01/21/2024 Allergen Noted Reaction BETA BLOCKERS [BETA-BLOCKERS (BET*02/03/2015 Other: See Comments Fully Assessed 10/25/2016 Does patient have penicillin allergy: No REVIEW OF SYSTEMS: GENERAL: Negative for: Fever or Chills HEENT: Negative for: Headache, Impaired Vision, Ringing in Ears, Nosebleeds NECK: Negative for: Swelling, Pain, Stiffness RESPIRATORY: Negative for: Cough, Shortness of breath, Wheezing GASTROINTESTINAL: Negative for: Heartburn, Constipation, Diarrhea, Blood in stool, Vomiting and Positive for: Nausea MUSCULOSKELETAL: Negative for: Muscle or joint pain, stiffness, Joint swelling NEUROLOGIC/PSYCHIATRIC: Negative for: Weakness, Paralysis, Numbness, Tingling, Tremor, Anxiety, Depression, Memory loss SKIN: Negative for: Rash, Itching GENITOURINARY: Negative (more content not included)... [facility] 01-16-2024 History of Presen t illness Narrative Manager Transportation Planning offered: Patient declines. INITIAL OB ASSESSMENT HPI: Jesús is a 23 year old No obstetric history on file. White here to establish Obstetrical Care. No LMP recorded. from OB Dating Form. was planned Complaints: No OB History No obstetric history on file. Previous history: Prior : never History of 4th degree laceration: NA History of shoulder dystocia: No History of Hypertensive disorders including pre-eclampsia or gestational hypertension: No History of gestational diabetes: No Patient's Risk Screening for delivery: Have you had a prior henley between 20w and 36w6d? No How many pregnancies have you had before? 0 Did you have a previous baby with a GBS Infection? No Please select all that apply for any prior : N/A MEDICAL/PSYCHOSOCIAL HISTORY: History of hemorrhage or bleeding concerns: No Thyroid Disease: No History of chronic hypertension: No History of pre-existing diabetes: No No results found for: ABORHD No weight on file for this encounter. Last Pap: History of abnormal pap: No Prior treatment for cervical dysplasia: none. Last HPV: History of STDs: None Partner History of STDs: None Did you have a partner with Herpes? No Tobacco use: No E-Cigarette/Vaping Use: No Caffeine use: Yes, 200 MG by mouth daily prior to but since realizing no caffiene use. Drug use: No Alcohol use: No Multivitamin with Folic acid: No Would refuse blood transfusion if medically necessary: No Social Needs: How often does this describe you? I don't have enough money to pay my bills: Never Within the past 12 months, have you worried that your food would run out before you had money to buy more? Never In the past 12 months, has lack of reliable transportation kept you from going to medical appointments or work, or from getting things needed for daily living? Never In the past 12 months, have you had any concerns about having a place to live, or about the condition or quality of your housing? Never Would you like more information on any of the following (please check all that apply)? Not interested Social History: Do you have any history of depression, anxiety, PTSD, or other mood problems? No Do you have a history of abuse or trauma that may impact your experience? No Are you currently employed? Yes Depression/Anxiety Screening: denies symptoms of depression. OB Depression and Anxiety Screening- This Encounter (since 01/15/2024) None Genetic Screening: Partner present: Yes Patient verbalized knowledge of partner family health history: Yes Do you or your partner have any personal or family history of defects not previously discussed: No Do you have history of a complicated by anomaly, genetic condition, or demise: No Low Dose ASA Screening: Screening for low dose aspirin use for the prevention of pre-eclampsia: High risk factors: None Moderate risk ractors: Nulliparity OB Risk Screening: Completed, no positive findings documented. 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 No past surgical history on file. Current Outpatient Medications Medication Sig Dispense Refill Levocetirizine 5 mg tablet Take 1 tablet by mouth once daily as needed. 30 tablet 11 EPINEPHrine 0.3 mg/0.3 mL auto-injector Inject 0.3 mL intramuscularly as needed. 1 Each 3 triamcinolone acetonide (NASACORT AQ) 55 mcg nasal inhaler Use 2 Sprays in the nose once daily. 1 Inhaler 11 montelukast (SINGULAIR) 10 mg tablet Take 10 mg by mouth daily at bedtime. Olopatadine (PATADAY) 0.2 % drop Use 1 Drop in both eyes as needed. predniSONE (DELTASONE) 20 mg tablet Take 20 mg by mouth as needed. No current facility-administered medications for this visit. Allergies As of Date: 01/21/2024 Allergen Noted Reaction BETA BLOCKERS [BETA-BLOCKERS (BET*02/03/2015 Other: See Comments Fully Assessed 10/25/2016 Does patient have penicillin allergy: No REVIEW OF SYSTEMS: GENERAL: Negative for: Fever or Chills HEENT: Negative for: Headache, Impaired Vision, Ringing in Ears, Nosebleeds NECK: Negative for: Swelling, Pain, Stiffness RESPIRATORY: Negative for: Cough, Shortness of breath, Wheezing GASTROINTESTINAL: Negative for: Heartburn, Constipation, Diarrhea, Blood in stool, Vomiting and Positive for: Nausea MUSCULOSKELETAL: Negative for: Muscle or joint pain, stiffness, Joint swelling NEUROLOGIC/PSYCHIATRIC: Negative for: Weakness, Paralysis, Numbness, Tingling, Tremor, Anxiety, Depression, Memory loss SKIN: Negative for: Rash, Itching GENITOURINARY: Negative for: vaginal itching, vaginal discharge, hematuria or dysuria SENSITIVE EXAM: The sensitive examination was discussed with the Patient or Patient's Authorized Range Rider. As applicable, any other physician, advance practice provider, medical student, or other health professional student that will be observing or involved in the sensitive examination for educational or training purposes was discussed with the Patient or Authorized Range Rider. The Patient or Authorized Range Rider has agreed to proceed with the sensitive examination. (Sensitive examination includes inspection and/or palpation of the breasts, pelvis, prostate and anorectal regions). PHYSICAL EXAM: There were no vitals taken for this visit. GENERAL: pleasant in no apparent distress DERMATOLOGY: Normal, without lesions, non-icteric, and non-hirsute NECK: Supple, full range of motion, no adenopathy, and thyroid normal CHEST: Normal inspiratory effort BREAST: soft, non-tender, symmetric, no dominant mass, normal nipple-areolar complex, no lymphadenopathy, and no nipple discharge ABDOMEN: soft, non-tender, and no masses NEURO: alert and oriented x3,exam grossly non-focal PELVIS: External genitalia normal without lesions. Perineal body intact. No vaginal or cervical lesions. Cervix closed. No adnexal masses or tenderness. Clinical Pelvimetry: Pelvimetry clinically assessed as adequate Limited OB ultrasound exam: single intrauterine , positive cardiac activity, and POCUS performed. +cardiac activity, CRL NOT consistent with LMP. LAKSHMI now 09/14/24 Helena Ocampo APRN.PIPE FITTER MAINTENANCE ASSESSMENT: 23 year old No obstetric history on file. at Unknown wks gestational age PLAN: 1) Patient oriented to practice. Patient given new OB orientation folder. Discussed nutrition, folic acid supplementation, dietary guidelines, exercise, smoking, alcohol, caffeine, and drug use. Discussed gestational weight gain guidelines. Discussed routine OB labs including STD/HIV. Discussed how to access Your guide to a health and the Psychology Associate. Reviewed midwifery and field marketing associate services that are available. 2) Screening: Hemoglobin A1C: ordered Baby Aspirin: The patient has been counseled about the potential benefits of low dose aspirin in and our recommendation that this be offered to all patients, regardless of whether they meet the high risk criteria specified above. She Accepts Aneuploidy Screening: Discussed aneuploidy screening, nuchal translucency/first trimester early anatomy ultrasound and NIPT. The risks/benefits and limitations of NIPT/aneuploidy screening were reviewed including the potential for false negative and false positive results. The availability of genetic counseling was reviewed. Information on aneuploidy screening was provided. The patient chooses to proceed with First trimester early anatomy ultrasound (12-13w6d) and NIPT (10 weeks) Myriad Carrier Screening: Discussed myriad carrier screening. We discussed the availability of professional-society guided carrier screening and reviewed the conditions screened and limitations of screening. The availability of genetic counseling was reviewed. Information on carrier screening was provided. The patient Declines 3) Patient offered option of Virtual Visits. Patient unsure. May consider in future. 4) 1st Follow up in 4-5 weeks or sooner prn. Helena Ocampo APRN.SHANEL documented in this encounter [facility] 01-16-2024 Telephone encounter Note Left message for patient to return phone call to complete nurse intake questions for her upcoming appointment. Patient has an appointment with Helena Ocampo for NOB appointment. I can call patient at 2:30 or 3:30 today if she is available or you can try to transfer to [facility] 10-25-2022 History of Presen t illness Narrative Subjective Patient ID: Jesús Chan is a 22 y.o. female who presents for Annual Exam (CPE, no pap). HPI Jesús Chan is here for annual check-up. Concerns here for well visit Reported Health good Dental visits reg Vision checks reg Diet healthy Exercise reg Caffeine min Tobacco never Alcohol social Female : Menstrual status / status reg no issues Current issues stopping BC wantedt o know hoe to do that Review of Systems GENERAL - Denies fever, fatigue or chills SKIN - Denies rash, new skin lesions, or change in moles EYES - Denies blurred vision, or change in visual acuity EARS - Denies ear pain, discharge, ringing, or difficulty hearing NOSE - Denies nasal congestion, discharge, or bleeding MOUTH - Denies sore throat, postnasal drip or painful/difficulty swallowing NECK - Denies pain or swelling RESPIRATORY - Denies shortness of breath, cough, wheezing CARDIOVASCULAR - Denies palpitations, chest pain, orthopnea, peripheral edema, syncope or claudication GASTROINTESTINAL - Denies nausea, vomiting, diarrhea, constipation, abdominal pain, melena and or bright red blood GENITOURINARY - Denies dysuria, frequency of urination, urgency, or hesitancy MUSCULOSKELETAL - Denies joint or muscle pain, or back pain NEUROLOGICAL - Denies localized numbness, weakness, or tingling PSYCHIATRIC - Denies depression, anxiety, substance abuse, suicidal or homicidal ideation ENDOCRINE - Denies heat or cold intolerance, weight loss or gain, increasing thirst HEMATO-IMMUNOLOGIC - Denies easy bruising, bleeding, oral ulcerations or recurrent infections Objective BP 106/72 Pulse 68 Temp 36.8 C (98.3 F) Resp 16 Ht 1.664 m (5' 5.5) Wt 58.2 kg (128 lb 4 oz) BMI 21.02 kg/m Physical Exam CONSTITUTIONAL - well nourished, well developed, looks like stated age, in no acute distress, not ill-appearing, and not tired appearing SKIN - normal skin color and pigmentation, normal skin turgor without rash, lesions, or nodules visualized HEAD - no trauma, normocephalic EYES - ENT - TM's intact, no injection, no exudate, nasal passage without discharge and patent NECK - supple without rigidity, no neck mass was observed, no thyromegaly or thyroid nodules CHEST - clear to auscultation, no wheezing, no crackles and no rales, good effort CARDIAC - regular rate and regular rhythm, no skipped beats, no murmur ABDOMEN - no organomegaly, soft, nontender, nondistended, normal bowel sounds, no guarding/rebound/rigidity EXTREMITIES - no edema, no deformities NEUROLOGICAL - PSYCHIATRIC - alert, pleasant and cordial, age-appropriate LYMPHATIC- no cervical lymphadenopathy Assessment/Plan Diagnoses and all orders for this visit: Routine general medical examination at a health care facility Allergy, subsequent encounter - levocetirizine (Xyzal) 5 mg tablet; Take 1 tablet (5 mg) by mouth once daily in the evening. Patient will establish with a PAINTER HELPER SPRAY since she is getting and planning ongoing office control. We had a long discussion about spironolactone and that she cannot be on that if she is getting or trying to get When she is finished with her catheter control after she gets she will stop it Xyzal is refilled I recommended she follow-up with her surveying teacher to look at other options for acne control Reviewed last year's blood work she does not need any this year She will follow-up with me annually Amparo Carter MD documented in this encounter [facility] Work Phone: Evaluation note Diagnosis Routine general medical examination at a health care facility- Primary Allergy, subsequent encounter documented in this encounter [facility] Work Phone: Evaluation note* Diagnosis Screening for malignant neoplasm of cervix- Primary Screening for malignant neoplasm of the cervix Encounter for screening for human papillomavirus (HPV) Special screening examination for human papillomavirus (HPV) 6 weeks gestation of state, incidental Encounter for supervision of normal first in first trimester Supervision of normal first [facility] Diagnosis 13 weeks gestation of - Primary state, incidental Encounter for supervision of normal first in second trimester Supervision of normal first [facility] Diagnosis Encounter for screening for malformation using ultrasound- Primary 13 weeks gestation of state, incidental [facility] Diagnosis Encounter for supervision of normal first in second trimester- Primary Supervision of normal first 17 weeks gestation of state, incidental [facility] Diagnosis Encounter for supervision of normal first in second trimester- Primary Supervision of normal first 21 weeks gestation of state, incidental Encounter for supervision of normal first in first trimester Supervision of normal first [facility] Diagnosis Encounter for anatomic survey- Primary 21 weeks gestation of state, incidental [facility] Diagnosis Encounter for supervision of normal first in second trimester- Primary Supervision of normal first Screening for diabetes mellitus Encounter for supervision of normal first in third trimester Supervision of normal first Visit for screening Unspecified screening [facility] Diagnosis Supervision of other normal , antepartum (HCC)- Primary Need for vaccination Need for prophylactic vaccination and inoculation against unspecified single disease 28 weeks gestation of (HCC) state, incidental [facility] Diagnosis Encounter for supervision of normal first in third trimester (HCC)- Primary Supervision of normal first Variable heart rate decelerations, antepartum (HCC) distress affecting management of mother, antepartum 30 weeks gestation of ([facility]) state, incidental [facility]* Diagnosis Encounter for supervision of normal first in third trimester (HCC)- Primary Supervision of normal first 32 weeks gestation of (HCC) state, incidental [facility]* Diagnosis Encounter for supervision of normal first in third trimester (HCC)- Primary Supervision of normal first 34 weeks gestation of (HCC) state, incidental [facility]* Diagnosis 36 weeks gestation of (HCC)- Primary state, incidental Encounter for supervision of normal first in third trimester (HCC) Supervision of normal first [facility] Diagnosis Encounter for supervision of normal first in third trimester (HCC)- Primary Supervision of normal first 37 weeks gestation of (HCC) state, incidental [facility] Diagnosis Encounter for supervision of normal first in third trimester (HCC)- Primary Supervision of normal first 38 weeks gestation of (HCC) state, incidental [facility] Diagnosis Encounter for supervision of normal first in third trimester (HCC)- Primary Supervision of normal first 39 weeks gestation of (HCC) state, incidental [facility]* The last health maintenance visit was 1 year(s) ago. there are no concerns today. The patient's health since the last visit is described as good. There are no interval changes in the patient's PMH, PSH, and current medications. There are no interval changes in the patient's social and family history. She has regular dental visits. She denies vision problems. She denies hearing loss. Immunizationsstatus: up to date. * Lifestyle: She consumes a diverse and healthy diet. She does not have any weight concerns. She exercises regularly. She does not use tobacco. She denies alcohol use. * Reproductive health: the patient is premenopausal. she reports normal menses. * History: 0. * Screening interval recommendation: discussed starting, she has names of where to schedule. * Breast cancer screening: cancer screening reviewed and current. * Metabolic screening: lipid profile performed 03/23/20. * 20 year old female presenting for yearly physical. * Has skin rash. inner elbow creases * Hx of eczema. * Using mometasone prescription that was very old. * Would like refills on this. * Has red, raw rash on face. by right eye started when used acutane and glasses irritate that spot * Will see dermatology for this. 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 * Doing well. 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 * Montelukast, albuterol, levocetirizine refills needed. * Needs control refills. * Sees dermatology. Dr. Lee. * On spironolactone and tretinoin. * He ordered HFP, lipid panel on 03/23/20, labs unremarkable. * Has not started PAPs. * Would like to see street sweeper. * Has some issues with back pain. * Attributes to bad posture. * Has some dark veins on legs. * Varicose veins starting. Her mom also has this too. [facility] Work Phone: History of Present illness Narrative* The last health maintenance visit was 1 year(s) ago. there are no concerns today. The patient's health since the last visit is described as good. There are no interval changes in the patient's PMH, PSH, and current medications. There are no interval changes in the patient's social and family history. She has regular dental visits. She denies vision problems. She denies hearing loss. Immunizationsstatus: up to date. * Lifestyle: She consumes a diverse and healthy diet. She does not have any weight concerns. She exercises regularly. She does not use tobacco. She denies alcohol use. * Reproductive health: she reports normal menses. * Cervical cancer screening: cancer screening reviewed and current. * Breast cancer screening: cancer screening reviewed and current. * 21 year old female presenting for yearly physical. * Blood work reviewed and discussed from 10/11/21 CBC, TSH, CMP, lipid panel. * Labs unremarkable. * Medication list reviewed and updated. * On daily antihistamine. * She notes her allergies are bothering her a lot. * Was previously on montelukast. She thinks this is not really helping. * Sees dermatology. * On spironolactone. * Has referral for OBGYN. * Has not done PAP. * No chest pain, SOB, leg edema, no headaches or dizziness. * Exercise tolerance good. * No fever, chills. * No cough or cold symptoms. * No GI problems. * No genitourinary issues. * No skin problems. [facility] Work Phone: History of Present illness Narrative* The last health maintenance visit was 1 year(s) ago. there are no concerns today. The patient's health since the last visit is described as good. There are no interval changes in the patient's PMH, PSH, and current medications. There are no interval changes in the patient's social and family history. She has regular dental visits. She denies vision problems. She denies hearing loss. Immunizationsstatus: up to date. * Lifestyle: She consumes a diverse and healthy diet. She does not have any weight concerns. She exercises regularly. She does not use tobacco. She denies alcohol use. * Reproductive health: the patient is premenopausal. she reports normal menses. * History: 0. * Screening interval recommendation: recommended has notdone yet. * Breast cancer screening: cancer screening reviewed and current. * 21 year old female presenting for yearly physical. * Blood work reviewed and discussed from 10/11/21 CBC, TSH, CMP, lipid panel. * Labs unremarkable. * Medication list reviewed and updated. * On daily antihistamine. * She notes her allergies are bothering her a lot. * Was previously on montelukast. She thinks this is not really helping. allergies are year round and frustrating * allergy shots did not help * Sees dermatology. * On spironolactone. * Has referral for OBGYN. * Has not done PAP. * No chest pain, SOB, leg edema, no headaches or dizziness. * Exercise tolerance good. * No fever, chills. * No cough or cold symptoms. * No GI problems. * No genitourinary issues. * No skin problems. [facility] Work Phone: Reason for referral (narrative)* Diagnostic Procedure Only (Routine) - Authorized Specialty Diagnoses / Procedures Referred By Johnathon albrecht Referred To Contact [facility] Diagnoses 6 weeks gestation of Procedures NUCHAL TRANSLUCENCY WHI US NUCHAL TRANSLUCENCY 1ST GESTATION Helena Ocampo APRN.CNP [address] [place] [address] [facility] [address] [place] [address] Referral ID Status Reason Start Date Expiration Date Visits Requested Visits Authorized [id number] Authorized Auto-Generat ed Referral 01/21/2024 01/20/2025 1 1 [facility] Diagnostic Procedure Only (Routine) - Pending Review Specialty Diagnoses / Procedures Referred By Johnathon albrecht Referred To Contact [facility] Diagnoses 17 weeks gestation of Encounter for supervision of normal first in second trimester Procedures OBSTETRIC ULTRASOUND WHI US PREG UTERUS AFTER 1ST TRIMEST GESTATION William Chen MD [address] [place] [address] [facility] [address] [place] [address] Referral ID Status Reason Start Date Expiration Date Visits Requested Visits Authorized [id number] Pending Review Auto-Generat ed Referral 04/07/2024 04/07/2025 1 1 [facility] Family History No Family History Records FoundUnknown Family Member Name Dates Details Sinus problem: Father Status:Active Family history of eczema: Fa ther(V19.4, Z84.0) Status:Active Family history of hyperlipid emia: Mother(V18.19, Z83.438) Status:Active Seasonal allergies: Father Status:Active Unknown Family Member Name Dates Details Sinus problem: Father Status:Active Family history of eczema: Fa ther(V19.4, Z84.0) Status:Active Family history of hyperlipid emia: Mother(V18.19, Z83.438) Status:Active Seasonal allergies: Father Status:Active Unknown Family Member Name Dates Details Sinus problem: Father Status:Active Family history of eczema: Fa ther(V19.4, Z84.0) Status:Active Family history of hyperlipid emia: Mother(V18.19, Z83.438) Status:Active Seasonal allergies: Father Status:Active Unknown Family Member Name Dates Details Sinus problem: Father Status:Active Family history of eczema: Fa ther(V19.4, Z84.0) Status:Active Family history of hyperlipid emia: Mother(V18.19, Z83.438) Status:Active Seasonal allergies: Father Status:Active Unknown Family Member Name Dates Details Sinus problem: Father Status:Active Family history of eczema: Fa ther(V19.4, Z84.0) Status:Active Family history of hyperlipid emia: Mother(V18.19, Z83.438) Status:Active Seasonal allergies: Father Status:Active Chief Complaint Yearly Physical and medication refills , Eczema flare upEP. Here for CPE.EP. Here for CPE. Summary Purpose Advance Directives No Advanced Directives Records FoundNo Advanced Directives Records FoundNo Advanced Directives Records FoundNo Advanced Directives Records FoundNo Advanced Directives Records Found Additional Source Comments INFORMATION SOURCE (unrecogn ized section and content) DATE CREATED AUTHOR 10/15/2021 [employer] DATE CREATED AUTHOR AUTHOR'S ORGANIZ ATION 10/17/2021 [facility] DATE CREATED AUTHOR AUTHOR'S ORGANIZ ATION 07/03/2023 [facility] DATE CREATED AUTHOR AUTHOR'S ORGANIZ ATION 08/20/2024 [facility] DATE CREATED AUTHOR AUTHOR'S ORGANIZ ATION 09/11/2024 [facility] Reason for Visit (unrecogniz ed section and content) Reason Comments Annual Exam CPE, no pap Reason Comments Appointment Reason Comments Initial OB Visit Reason Onset Date Comments Care 03/10/2024 Reason Comments US Specialty Diagnoses / Procedures Referred By Contac t Referred To Contact [facility] Diagnoses 6 weeks gestation of Procedures NUCHAL TRANSLUCENCY WHI US NUCHAL TRANSLUCENCY 1ST GESTATION Helena Ocampo APRN.PIPE [employer]TER MAINTENANCE [address] [place] [address] [address] Referral ID Status Reason Start Date Expiration Date V isits Requested Visits Authorized [id number] Closed Auto-Generate d Referral 01/21/2024 01/20/2025 1 1 Reason Onset Date Comments Care 04/07/2024 Specialty Diagnoses / Procedures Referred By Contac t Referred To Contact [facility] Diagnoses 17 weeks gestation of Encounter for supervision of normal first in second trimester Procedures OBSTETRIC ULTRASOUND WHI US PREG UTERUS AFTER 1ST TRIMEST GESTATION William Chen MD [address] [facility] [place] [address] Phone: tel: fax: [address] [address] Referral ID Status Reason Start Date Expiration Date Visits Requested Visits Authorized [id number] Authorized Auto-Generat ed Referral 04/09/2024 03/18/2025 20 20 Reason Onset Date Comments Care 06/02/2024 Reason Comments FMLA Paperwork Reason Onset Date Comments Care 06/23/2024 Reason Onset Date Comments Care 07/09/2024 Reason Onset Date Comments Care 07/21/2024 Reason Onset Date Comments Care 08/04/2024 Reason Comments Breast Pump Reason Onset Date Comments Care 08/20/2024 Reason Onset Date Comments Care 08/27/2024 Reason Onset Date Comments Population Health Navigation Outreach 09/02/2024 Ob/peds Reason Onset Date Comments Care 09/03/2024 Reason Onset Date Comments Care 09/10/2024 Care Teams (unrecognized sec tion and content) Pipe [employer]itter Marine Relationship Specialty Start Date End Date Amparo Carter MD [address] [facility], [facility] [address] [place] [address] PCP - General 02/23/17 Pipe [employer]itter [employer] Relationship Specialty Start Date End Date Amparo Carter MD [address] [place] [address] PCP - General Internal Medicine 12/03/14 Pipe Fitter [employer] Relationship Specialty Start Date End Date Amparo Carter MD [address] [place] [address] PCP - General Internal Medicine 12/03/14 Pipe Fitter Marine Relationship Specialty Start Date End Date Amparo Carter MD [address] [place] [address] PCP - General Internal Medicine 12/03/14 Pipe Fitter Marine Relationship Specialty Start Date End Date Amparo Carter MD [address] [place] [address] PCP - General Internal Medicine 12/03/14 Pipe Fitter Marine Relationship Specialty Start Date End Date Amparo Carter MD [address] [place] [address] PCP - General Internal Medicine 12/03/14 Pipe Fitter Marine Relationship Specialty Start Date End Date Amparo Carter MD [address] [place] [address] PCP - General Internal Medicine 12/03/14 Pipe Fitter Marine Relationship Specialty Start Date End Date Amparo Carter MD [address] [place] [address] PCP - General Internal Medicine 12/03/14 Pipe Fitter Marine Relationship Specialty Start Date End Date Amparo Carter MD [address] [place] [address] PCP - General Internal Medicine 12/03/14 Pipe Fitter Marine Relationship Specialty Start Date End Date Amparo Carter MD [address] [place] [address] PCP - General Internal Medicine 12/03/14 Pipe Fitter Marine Relationship Specialty Start Date End Date Amparo Carter MD [address] [place] [address] PCP - General Internal Medicine 12/03/14 Pipe Fitter Marine Relationship Specialty Start Date End Date Amparo Carter MD [address] [place] [address] PCP - General Internal Medicine 12/03/14 Pipe Fitter Marine Relationship Specialty Start Date End Date Amparo Carter MD [facility] [place] [address] PCP - General Internal Medicine 12/03/14 Pipe Fitter Marine Relationship Specialty Start Date End Date Amparo Carter MD [facility] [place] [address] PCP - General Internal Medicine 12/03/14 Source Comments (unrecognize d section and content) In the event this informatio n is protected by the Federal Confidentiality of Alcohol and Drug Abuse Patient Records regulations: The Federal rules restrict any use of the information to criminally investigate or prosecute any alcohol or drug abuse patient.[facility] the event this information is protected by the Federal Confidentiality of Alcohol and Drug Abuse Patient Records regulations: The Federal rules restrict any use of the information to criminally investigate or prosecute any alcohol or drug abuse patient.[facility] the event this information is protected by the Federal Confidentiality of Alcohol and Drug Abuse Patient Records regulations: The Federal rules restrict any use of the information to criminally investigate or prosecute any alcohol or drug abuse patient.[facility] the event this information is protected by the Federal Confidentiality of Alcohol and Drug Abuse Patient Records regulations: The Federal rules restrict any use of the information to criminally investigate or prosecute any alcohol or drug abuse patient.[facility] the event this information is protected by the Federal Confidentiality of Alcohol and Drug Abuse Patient Records regulations: The Federal rules restrict any use of the information to criminally investigate or prosecute any alcohol or drug abuse patient.[facility] the event this information is protected by the Federal Confidentiality of Alcohol and Drug Abuse Patient Records regulations: The Federal rules restrict any use of the information to criminally investigate or prosecute any alcohol or drug abuse patient.[facility] the event this information is protected by the Federal Confidentiality of Alcohol and Drug Abuse Patient Records regulations: The Federal rules restrict any use of the information to criminally investigate or prosecute any alcohol or drug abuse patient.[facility] the event this information is protected by the Federal Confidentiality of Alcohol and Drug Abuse Patient Records regulations: The Federal rules restrict any use of the information to criminally investigate or prosecute any alcohol or drug abuse patient.[facility] the event this information is protected by the Federal Confidentiality of Alcohol and Drug Abuse Patient Records regulations: The Federal rules restrict any use of the information to criminally investigate or prosecute any alcohol or drug abuse patient.[facility] SystemIn the event this information is protected by the Federal Confidentiality of Alcohol and Drug Abuse Patient Records regulations: The Federal rules restrict any use of the information to criminally investigate or prosecute any alcohol or drug abuse patient.[facility] SystemIn the event this information is protected by the Federal Confidentiality of Alcohol and Drug Abuse Patient Records regulations: The Federal rules restrict any use of the information to criminally investigate or prosecute any alcohol or drug abuse patient.[facility] SystemIn the event this information is protected by the Federal Confidentiality of Alcohol and Drug Abuse Patient Records regulations: The Federal rules restrict any use of the information to criminally investigate or prosecute any alcohol or drug abuse patient.[facility] SystemIn the event this information is protected by the Federal Confidentiality of Alcohol and Drug Abuse Patient Records regulations: The Federal rules restrict any use of the information to criminally investigate or prosecute any alcohol or drug abuse patient.[facility] SystemIn the event this information is protected by the Federal Confidentiality of Alcohol and Drug Abuse Patient Records regulations: The Federal rules restrict any use of the information to criminally investigate or prosecute any alcohol or drug abuse patient.[facility] SystemIn the event this information is protected by the Federal Confidentiality of Alcohol and Drug Abuse Patient Records regulations: The Federal rules restrict any use of the information to criminally investigate or prosecute any alcohol or drug abuse patient.[facility] SystemIn the event this information is protected by the Federal Confidentiality of Alcohol and Drug Abuse Patient Records regulations: The Federal rules restrict any use of the information to criminally investigate or prosecute any alcohol or drug abuse patient.[facility] SystemIn the event this information is protected by the Federal Confidentiality of Alcohol and Drug Abuse Patient Records regulations: The Federal rules restrict any use of the information to criminally investigate or prosecute any alcohol or drug abuse patient.[facility] SystemIn the event this information is protected by the Federal Confidentiality of Alcohol and Drug Abuse Patient Records regulations: The Federal rules restrict any use of the information to criminally investigate or prosecute any alcohol or drug abuse patient.[facility] SystemIn the event this information is protected by the Federal Confidentiality of Alcohol and Drug Abuse Patient Records regulations: The Federal rules restrict any use of the information to criminally investigate or prosecute any alcohol or drug abuse patient.[facility] SystemIn the event this information is protected by the Federal Confidentiality of Alcohol and Drug Abuse Patient Records regulations: The Federal rules restrict any use of the information to criminally investigate or prosecute any alcohol or drug abuse patient.[facility] SystemIn the event this information is protected by the Federal Confidentiality of Alcohol and Drug Abuse Patient Records regulations: The Federal rules restrict any use of the information to criminally investigate or prosecute any alcohol or drug abuse patient.[facility] FOR RECORDS PERTAINING TO PATIENTS WHO ARE OR HAVE BEEN ENROLLED IN A CHEMICAL DEPENDENCY/SUBSTANCEABUSE PROGRAM, SOME INFORMATION MAY BE OMITTED. This clinical summary was aggregated from multiple sources. Caution should be exercised in using it in the provision of clinical care. This summary normalizes information from multiple sources, and as a consequence, information in this document may materially change the coding, format and clinical context of patient data. In addition, data may be omitted in some cases. CLINICAL DECISIONS SHOULD BE BASED ON THE PRIMARY CLINICAL RECORDS. [facility] [facility]. provides no warranty or guarantee of the accuracy or completeness of information in this document.
--- OUTSIDE RECORDS SUMMARY | 2024-09-15 07:01 | XMS RPT_ITS | CCD ---
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 Role Phone Amparo Carter Unavailable Unavailable Unavailable Amparo Carter MD Primary Care Provider AMPARO CARTER Attending Unavailable AMPARO CARTER Primary Care Unavailable Amparo Carter MD Primary Care Provider Renee Escalera Admitting Unavailable Renee Escalera Attending [...] EXTRACTS] Propensity to adverse reactions 3 Itching [facility] Work Phone: (20 sources) beta-Blocking agent; Translations: [BETA-BLOCKERS (BETA-ADRENERGI C BLOCKING AGTS)] Propensity to adverse reactions to drug 5 Other: See Comments [facility] (20 sources) Seasonal allergy; Translations: [SEASONAL ALLERGIES] Allergy to substance 3 Hives [facility] Medications Current Medications Medication Drug Class(es) Dates Sig (Normalized) Sig (Original) aspirin 81 mg delayed release oral tablet (20 sources) Platelet Aggregation Inhibitor, Nonsteroidal Anti-inflammatory Drug Start: 01-21-2024 take 1 tablet by mouth once daily aspirin, enteric coated (ECOTRIN LOW STRENGTH) 81 mg EC tablet Take 1 tablet by mouth once daily. 90 tablet 3 01/21/2024 Active [id number] 0.3 ml EPINEPHrine 1 mg/ml auto-injector (20 sources) alpha-Adrenergic Agonist, beta-Adrenergic Agonist, Catecholamine Start: 03-03-2016 EPINEPHrine 0.3 mg/0.3 mL auto-injector Inject 0.3 mL intramuscularly as needed. 1 Each 3 03/03/2016 Active Ethinyl Estradiol / norgestimate (1 source) Progestin, Estrogen Start: 10-24-2022 take 1 tablet by mouth once daily Fww-Aa-Isaswz 0.18/0.215/0.25 mg-25 mcg tablet Indications: Acne, unspecified [...] Drug Class(es) Dates Sig (Normalized) Sig (Original) [id number] 200 actuat albuterol 0.09 mg/actuat metered dose [...] 5 Glucose Ql (U) Negative Neg mg/dL [facility] Protein.monoclonal (U) [Mass/Vol] Negative Neg mg/dL [facility] URINE OB DIP B/Oon 5 Glucose Ql (U) Negative Neg mg/dL [facility] Interpretation and review of laboratory results Normal [facility] Protein.monoclonal (U) [Mass/Vol] Negative Neg mg/dL [facility] URINE OB DIP B/Oon 5 Glucose Ql (U) Negative Neg mg/dL [facility] Interpretation and review of laboratory results Normal [facility] Protein.monoclonal (U) [Mass/Vol] Negative Neg mg/dL [facility] ROUTINE, GROUP B ST REPTOCOCCUS BY PCRon 08-20-2024 ROUTINE, GROUP B STREPTOCOCCUS BY PCR Not detected Normal [facility] Comment on above: Performed By: #### R UBIGG #### [facility] CLIA [id number] [address] [place] [address] [place] URINE OB DIP B/Oon 5 Glucose Ql (U) 100 mg/dL Neg [facility] Interpretation and review of laboratory results Normal [facility] Protein.monoclonal (U) [Mass/Vol] Negative Neg mg/dL [facility] 08-05-2024 JOYCE Telephone (OBGYWM) JESÚS CUEVAS ([id number]) 2000 F Date Time Provider Department 08/05/24 WILLIAM CHEN OBBERNARD During your visit today, we recorded the following information about you: Mary Ann Benitez RN 08/05/2024 8:28 AM Signed Breast pump order received from [facility]. To to sign. STEVEN Humphries Tara, RN [...] Status:Closed by MARSHA PUGH on 08/14/24 Normal [facility] URINE OB DIP B/Oon Glucose Ql (U) 250 mg/dL Neg [facility] Interpretation and review of laboratory results Normal [facility] Protein.monoclonal (U) [Mass/Vol] Negative Neg mg/dL [facility] CBC W Auto Differential pane l (Bld)on 06-23-2024 Basophils (Bld) [#/Vol] 0.05 10*3/uL Normal <0.11 [facility] Comment on above: Order Comment: Speci men Type: FLUID SPECIMEN Ordering Facility: [facility] Address: [address] [place] [address] Performed By: #### L [id number] #### [facility] CLIA [id number] [address] [place] [address] [place] Basophils/100 WBC (Bld) 0.4 % Normal [facility] Comment on above: Order Comment: Speci men Type: FLUID SPECIMEN Ordering Facility: [facility] Address: [address] [place] [address] Performed By: #### L [id number] #### [facility] CLIA [id number] [address] [place] [address] [place] Differential cell count method Nom (Bld) Auto Normal [facility] Comment on above: Order Comment: Speci men Type: FLUID SPECIMEN Ordering Facility: [facility] Address: [address] [place] [address] Performed By: #### L [id number] #### [facility] CLIA [id number] [address] [place] [address] [place] Eosinophils (Bld) [#/Vol] 0.13 10*3/uL Normal <0.46 [facility] Comment on above: Order Comment: Speci men Type: FLUID SPECIMEN Ordering Facility: [facility] Address: [address] [place] [address] Performed By: #### L [id number] #### [facility] CLIA [id number] [address] [place] [address] [place] Eosinophils/100 WBC (Bld) 1.1 % Normal [facility] Comment on above: Order Comment: Speci men Type: FLUID SPECIMEN Ordering Facility: [facility] Address: [address] [place] [address] Performed By: #### L [id number] #### [facility] CLIA [id number] [address] [place] [address] [place] Erythrocyte distribution width (RBC) [Ratio] 12.3 % Normal 11.5-15.0 [facility] Comment on above: Order Comment: Speci men Type: FLUID SPECIMEN Ordering Facility: [facility] Address: [address] [place] [address] Performed By: #### L [id number] #### [facility] CLIA [id number] [address] [place] [address] [place] Hematocrit (Bld) [Volume fraction] 37.4 % Normal 36.0-46.0 [facility] Comment on above: Order Comment: Speci men Type: FLUID SPECIMEN Ordering Facility: [facility] Address: [address] [place] [address] Performed By: #### L [id number] #### [facility] CLIA [id number] [address] [place] [address] [place] Hemoglobin (Bld) [Mass/Vol] 12.6 g/dL Normal 11.5-15.5 [facility] Comment on above: Order Comment: Speci men Type: FLUID SPECIMEN Ordering Facility: [facility] Address: [address] [place] [address] Performed By: #### L [id number] #### [facility] CLIA [id number] [address] [place] [address] [place] Immature granulocytes (Bld) [#/Vol] 0.14 10*3/uL High <0.10 [facility] Comment on above: Order Comment: Speci men Type: FLUID SPECIMEN Ordering Facility: [facility] Address: [address] [place] [address] Performed By: #### L [id number] #### [facility] CLIA [id number] [address] [place] [address] [place] Immature granulocytes/100 WBC (Bld) 1.2 % Normal [facility] Comment on above: Order Comment: Speci men Type: FLUID SPECIMEN Ordering Facility: [facility] Address: [address] [place] [address] Performed By: #### L [id number] #### [facility] CLIA [id number] [address] [place] [address] [place] Lymphocytes (Bld) [#/Vol] 1.98 10*3/uL Normal 1.00-4.00 [facility] Comment on above: Order Comment: Speci men Type: FLUID SPECIMEN Ordering Facility: [facility] Address: [address] [place] [address] Performed By: #### L [id number] #### [facility] CLIA [id number] [address] [place] [address] [place] Lymphocytes/100 WBC (Bld) 17.0 % Normal [facility] Comment on above: Order Comment: Speci men Type: FLUID SPECIMEN Ordering Facility: [facility] Address: [address] [place] [address] Performed By: #### L [id number] #### [facility] CLIA [id number] [address] [place] [address] [place] MCH (RBC) [Entitic mass] 30.1 pg Normal 26.0-34.0 [facility] Comment on above: Order Comment: Speci men Type: FLUID SPECIMEN Ordering Facility: [facility] Address: [address] [place] [address] Performed By: #### L [id number] #### [facility] CLIA [id number] [address] [place] [address] [place] MCHC (RBC) [Mass/Vol] 33.7 g/dL Normal 30.5-36.0 [facility] Comment on above: Order Comment: Speci men Type: FLUID SPECIMEN Ordering Facility: [facility] Address: [address] [place] [address] Performed By: #### L [id number] #### [facility] CLIA [id number] [address] [place] [address] [place] MCV (RBC) [Entitic vol] 89.5 fL Normal 80.0-100.0 [facility] Comment on above: Order Comment: Speci men Type: FLUID SPECIMEN Ordering Facility: [facility] Address: [address] [place] [address] Performed By: #### L [id number] #### [facility] CLIA [id number] [address] [place] [address] [place] Monocytes (Bld) [#/Vol] 1.42 10*3/uL High <0.87 [facility] Comment on above: Order Comment: Speci men Type: FLUID SPECIMEN Ordering Facility: [facility] Address: [address] [place] [address] Performed By: #### L [id number] #### [facility] CLIA [id number] [address] [place] [address] [place] Monocytes/100 WBC (Bld) 12.2 % Normal [facility] Comment on above: Order Comment: Speci men Type: FLUID SPECIMEN Ordering Facility: [facility] Address: [address] [place] [address] Performed By: #### L [id number] #### [facility] CLIA [id number] [address] [place] [address] [place] Neutrophils (Bld) [#/Vol] 7.96 10*3/uL High 1.45-7.50 [facility] Comment on above: Order Comment: Speci men Type: FLUID SPECIMEN Ordering Facility: [facility] Address: [address] [place] [address] Performed By: #### L [id number] #### [facility] CLIA [id number] [address] [place] [address] [place] Neutrophils/100 WBC (Bld) 68.1 % Normal [facility] Comment on above: Order Comment: Speci men Type: FLUID SPECIMEN Ordering Facility: [facility] Address: [address] [place] [address] Performed By: #### L [id number] #### [facility] CLIA [id number] [address] [place] [address] [place] Nucleated RBC (Bld) [#/Vol] 10*3/uL Normal <0.01 [facility] Comment on above: Order Comment: Speci men Type: FLUID SPECIMEN Ordering Facility: [facility] Address: [address] [place] [address] Performed By: #### L [id number] #### [facility] CLIA [id number] [address] [place] [address] [place] Nucleated RBC/100 WBC (Bld) [Ratio] 0.0 /100 WBC Normal [facility] Comment on above: Order Comment: Speci men Type: FLUID SPECIMEN Ordering Facility: [facility] Address: [address] [place] [address] Performed By: #### L [id number] #### [facility] CLIA [id number] [address] [place] [address] [place] Platelet mean volume (Bld) [Entitic vol] 8.4 fL Low 9.0-12.7 [facility] Comment on above: Order Comment: Speci men Type: FLUID SPECIMEN Ordering Facility: [facility] Address: [address] [place] [address] Performed By: #### L [id number] #### [facility] CLIA [id number] [address] [place] [address] [place] Platelets (Bld) [#/Vol] 308 10*3/uL Normal 150-400 [facility] Comment on above: Order Comment: Speci men Type: FLUID SPECIMEN Ordering Facility: [facility] Address: [address] [place] [address] Performed By: #### L [id number] #### [facility] CLIA [id number] [address] [place] [address] [place] RBC (Bld) [#/Vol] 4.18 10*6/uL Normal 3.90-5.20 [facility] Comment on above: Order Comment: Speci men Type: FLUID SPECIMEN Ordering Facility: [facility] Address: [address] [place] [address] Performed By: #### L [id number] #### [facility] CLIA [id number] [address] [place] [address] [place] WBC (Bld) [#/Vol] 11.68 10*3/uL High 3.70-11.00 [facility] Comment on above: Order Comment: Speci men Type: FLUID SPECIMEN Ordering Facility: [facility] Address: [address] [place] [address] Performed By: #### L [id number] #### [facility] CLIA [id number] [address] [place] [address] [place] GESTATIONAL GLUCOSE SCREEN, 1-HOUR, 50 GRAM, NON-FASTINGon 06-23-2024 Glucose [Mass/Vol] 123 mg/dL Normal 74-134 [facility] Comment on above: Order Comment: Speci men Type: BLOOD SPECIMEN Ordering Facility: [facility] Address: [address] [place] [address] Result Comment: [facility] Congress of Obstetricians and Gynecologists ([place]/Joel) guidelines state a gestational diabetes mellitus positive screen is made, in women not previously diagnosed with overt diabetes, when the 1 hr plasma glucose level is equal to or above 140 mg/dL. [facility] Flue Gas Analyst and [facility] Trilla recommends a 135 mg/dL cutoff. Performed By: #### R UBIGG #### [facility] CLIA [id number] [address] [place] [address] [place] Reagin and Treponema pallidu m IgG and IgM [Interp]on 06-23-2024 T. pallidum IgG+IgM IA Ql (S) Non-Reactive Normal Nonreactive [facility] Comment on above: Order Comment: Speci men Type: BLOOD SPECIMEN Ordering Facility: [facility] Address: [address] [place] [address] Performed By: #### R UBIGG #### [facility] CLIA [id number] [address] [place] [address] [place] Reagin+T pallidum IgG+IgM Se rPl-Impon 06-23-2024 Reagin and Treponema pallidum IgG and IgM [Interp] Cannot exclude recent Treponemal infection if specimen collected within 7-10 days after appearance of suspect lesions or 2-3 weeks after an exposure. Clinical correlation is required. Normal [facility] Comment on above: Order Comment: Speci men Type: BLOOD SPECIMEN Ordering Facility: [facility] Address: [address] [place] [address] Performed By: #### R UBIGG #### [facility] CLIA [id number] [address] [place] [address] [place] CNPLedy 06-04-2024 JOYCE Telephone (OBGYWM) JESÚS CUEVAS ([id number]) 2000 F Date Time Provider Department 06/04/24 REBEKAH MOON During your visit today, we recorded the following information about you: Desmond Michael MA 06/04/2024 2:49 PM Signed [facility] paperwork completed and placed on providers desk for signature. JOVAN Lara Morgan, MA 06/06/2024 11:06 AM Signed [facility] paperwork completed and faxed back to employer. [...] Fully Assessed Reason for Visit: [place] Paperwork [[id number]] Prescriptions as of 06/06/2024 - PNV no.95/ferrous [...] Status:Closed by DESMOND MICHAEL on 06/06/24 Normal [facility] Examination level ultrasound on 05-05-2024 [...] 0 oz EFW by: Hadlock (HC-AC-FL) Extended Sunglass Clip Attacher 5.4 mm CM 5.4 mm 54% Nicolaides [...] normal LVOT view: normal 3-vessel view: normal 7-dilthe-zsitrfw view: normal Heart / Thorax Situs: situs [...] Read By: Candida Davidson M.D. MATERNAL MEDICINE [facility] Radiology Study observation (narrative) [facility] CBC W Auto Differential pane l (Bld)on 03-10-2024 Basophils (Bld) [#/Vol] 0.04 10*3/uL Normal <0.11 [facility] Comment on above: Order Comment: Speci men Type: BLOOD SPECIMEN Ordering Facility: [facility] Address: [address] [place] [address] Performed By: #### R UBIGG #### [facility] CLIA [id number] [address] [place] [address] [place] [address] [place] Basophils/100 WBC (Bld) 0.3 % Normal [facility] Comment on above: Order Comment: Speci men Type: BLOOD SPECIMEN Ordering Facility: [facility] Address: [address] [place] [address] Performed By: #### R UBIGG #### [facility] CLIA [id number] [address] [place] [address] [place] Differential cell count method Nom (Bld) Auto Normal [facility] Comment on above: Order Comment: Speci men Type: BLOOD SPECIMEN Ordering Facility: [facility] Address: [address] [place] [address] Performed By: #### R UBIGG #### [facility] CLIA [id number] [address] [place] [address] [place] Eosinophils (Bld) [#/Vol] 0.11 10*3/uL Normal <0.46 [facility] Comment on above: Order Comment: Speci men Type: BLOOD SPECIMEN Ordering Facility: [facility] Address: [address] [place] [address] Performed By: #### R UBIGG #### [facility] CLIA [id number] [address] [place] [address] [place] Eosinophils/100 WBC (Bld) 0.9 % Normal [facility] Comment on above: Order Comment: Speci men Type: BLOOD SPECIMEN Ordering Facility: [facility] Address: [address] [place] [address] Performed By: #### R UBIGG #### [facility] CLIA [id number] [address] [place] [address] [place] Erythrocyte distribution width (RBC) [Ratio] 12.5 % Normal 11.5-15.0 [facility] Comment on above: Order Comment: Speci men Type: BLOOD SPECIMEN Ordering Facility: [facility] Address: [address] [place] [address] Performed By: #### R UBIGG #### [facility] CLIA [id number] [address] [place] [address] [place] Hematocrit (Bld) [Volume fraction] 39.8 % Normal 36.0-46.0 [facility] Comment on above: Order Comment: Speci men Type: BLOOD SPECIMEN Ordering Facility: [facility] Address: [address] [place] [address] Performed By: #### R UBIGG #### [facility] CLIA [id number] [address] [place] [address] [place] Hemoglobin (Bld) [Mass/Vol] 13.5 g/dL Normal 11.5-15.5 [facility] Comment on above: Order Comment: Speci men Type: BLOOD SPECIMEN Ordering Facility: [facility] Address: [address] [place] [address] Performed By: #### R UBIGG #### [facility] CLIA [id number] [address] [place] [address] [place] Immature granulocytes (Bld) [#/Vol] 0.08 10*3/uL Normal <0.10 [facility] Comment on above: Order Comment: Speci men Type: BLOOD SPECIMEN Ordering Facility: [facility] Address: [address] [place] [address] Performed By: #### R UBIGG #### [facility] CLIA [id number] [address] [place] [address] [place] Immature granulocytes/100 WBC (Bld) 0.6 % Normal [facility] Comment on above: Order Comment: Speci men Type: BLOOD SPECIMEN Ordering Facility: [facility] Address: [address] [place] [address] Performed By: #### R UBIGG #### [facility] CLIA [id number] [address] [place] [address] [place] Lymphocytes (Bld) [#/Vol] 1.14 10*3/uL Normal 1.00-4.00 [facility] Comment on above: Order Comment: Speci men Type: BLOOD SPECIMEN Ordering Facility: [facility] Address: [address] [place] [address] Performed By: #### R UBIGG #### [facility] CLIA [id number] [address] [place] [address] [place] Lymphocytes/100 WBC (Bld) 9.1 % Normal [facility] Comment on above: Order Comment: Speci men Type: BLOOD SPECIMEN Ordering Facility: [facility] Address: [address] [place] [address] Performed By: #### R UBIGG #### [facility] CLIA [id number] [address] [place] [address] [place] MCH (RBC) [Entitic mass] 30.5 pg Normal 26.0-34.0 [facility] Comment on above: Order Comment: Speci men Type: BLOOD SPECIMEN Ordering Facility: [facility] Address: [address] [place] [address] Performed By: #### R UBIGG #### [facility] CLIA [id number] [address] [place] [address] [place] MCHC (RBC) [Mass/Vol] 33.9 g/dL Normal 30.5-36.0 [facility] Comment on above: Order Comment: Speci men Type: BLOOD SPECIMEN Ordering Facility: [facility] Address: [address] [place] [address] Performed By: #### R UBIGG #### [facility] CLIA [id number] [address] [place] [address] [place] MCV (RBC) [Entitic vol] 89.8 fL Normal 80.0-100.0 [facility] Comment on above: Order Comment: Speci men Type: BLOOD SPECIMEN Ordering Facility: [facility] Address: [address] [place] [address] Performed By: #### R UBIGG #### [facility] CLIA [id number] [address] [place] [address] [place] Monocytes (Bld) [#/Vol] 1.62 10*3/uL High <0.87 [facility] Comment on above: Order Comment: Speci men Type: BLOOD SPECIMEN Ordering Facility: [facility] Address: [address] [place] [address] Performed By: #### R UBIGG #### [facility] CLIA [id number] [address] [place] [address] [place] Monocytes/100 WBC (Bld) 12.9 % Normal [facility] Comment on above: Order Comment: Speci men Type: BLOOD SPECIMEN Ordering Facility: [facility] Address: [address] [place] [address] Performed By: #### R UBIGG #### [facility] CLIA [id number] [address] [place] [address] [place] Neutrophils (Bld) [#/Vol] 9.57 10*3/uL High 1.45-7.50 [facility] Comment on above: Order Comment: Speci men Type: BLOOD SPECIMEN Ordering Facility: [facility] Address: [address] [place] [address] Performed By: #### R UBIGG #### [facility] CLIA [id number] [address] [place] [address] [place] Neutrophils/100 WBC (Bld) 76.2 % Normal [facility] Comment on above: Order Comment: Speci men Type: BLOOD SPECIMEN Ordering Facility: [facility] Address: [address] [place] [address] Performed By: #### R UBIGG #### [facility] CLIA [id number] [address] [place] [address] [place] Nucleated RBC (Bld) [#/Vol] 10*3/uL Normal <0.01 [facility] Comment on above: Order Comment: Speci men Type: BLOOD SPECIMEN Ordering Facility: [facility] Address: [address] [place] [address] Performed By: #### R UBIGG #### [facility] CLIA [id number] [address] [place] [address] [place] Nucleated RBC/100 WBC (Bld) [Ratio] 0.0 /100 WBC Normal [facility] Comment on above: Order Comment: Speci men Type: BLOOD SPECIMEN Ordering Facility: [facility] Address: [address] [place] [address] Performed By: #### R UBIGG #### [facility] CLIA [id number] [address] [place] [address] [place] Platelet mean volume (Bld) [Entitic vol] 8.4 fL Low 9.0-12.7 [facility] Comment on above: Order Comment: Speci men Type: BLOOD SPECIMEN Ordering Facility: [facility] Address: [address] [place] [address] Performed By: #### R UBIGG #### [facility] CLIA [id number] [address] [place] [address] [place] Platelets (Bld) [#/Vol] 267 10*3/uL Normal 150-400 [facility] Comment on above: Order Comment: Speci men Type: BLOOD SPECIMEN Ordering Facility: [facility] Address: [address] [place] [address] Performed By: #### R UBIGG #### [facility] CLIA [id number] [address] [place] [address] [place] RBC (Bld) [#/Vol] 4.43 10*6/uL Normal 3.90-5.20 [facility] Comment on above: Order Comment: Speci men Type: BLOOD SPECIMEN Ordering Facility: [facility] Address: [address] [place] [address] Performed By: #### R UBIGG #### [facility] CLIA [id number] [address] [place] [address] [place] WBC (Bld) [#/Vol] 12.56 10*3/uL High 3.70-11.00 [facility] Comment on above: Order Comment: Speci men Type: BLOOD SPECIMEN Ordering Facility: [facility] Address: [address] [place] [address] Performed By: #### R UBIGG #### [facility] CLIA [id number] [address] [place] [address] [place] nuchal translucency me asured by USon 03-10-2024 Indication First trimester anatomic survey Impression REMOTE READ The patient is referred for a first trimester anatomy scan including nuchal translucency measurement as clinically indicated. - Single, live, intrauterine . - Dugway rump length measurement is consistent with the [...] view: visualized 4-chamber view with color: normal 4-ccrzze-tpwoxzi view: normal Abdominal cord insertion: normal Stomach: [...] Read By: Candida Davidson M.D. MATERNAL MEDICINE [facility] Radiology Study observation (narrative) [facility] HBV surface Ag Ser Qlon 02-17 HBV surface Ag Ql (S) Negative Normal Negative [facility] Comment on above: Order Comment: Speci men Type: FLUID SPECIMEN Ordering Facility: [facility] Address: [address] [place] [address] Performed By: #### L [id number] #### [facility] CLIA [id number] [address] [place] [address] [place] HCV Ab Ser Qlon 03-10-2024 HCV Ab Ql (S) Negative Normal Negative [facility] Comment on above: Order Comment: Speci men Type: BLOOD SPECIMEN Ordering Facility: [facility] Address: [address] [place] [address] Result Comment: The result suggests no evidence of active infection with Hepatitis C virus. Should recent infection be suspected, repeat testing may be considered 4-6 weeks after this draw. Performed By: #### R UBIGG #### [facility] CLIA [id number] [address] [place] [address] [place] HIV 1+2 Ab IA Qlon 4 HIV 1 and 2 Ab IA.rapid Nom (S/P/Bld) Normal [facility] Comment on above: Order Comment: Speci men Type: FLUID SPECIMEN Ordering Facility: [facility] Address: [address] [place] [address] Result Comment: Test not indicated. Performed By: #### L [id number] #### [facility] CLIA [id number] [address] [place] [address] [place] HIV 1+2 Ab+HIV1 p24 Ag IA Ql Non-Reactive Normal Nonreactive [facility] Comment on above: Order Comment: Speci men Type: FLUID SPECIMEN Ordering Facility: [facility] Address: [address] [place] [address] Performed By: #### L [id number] #### [facility] CLIA [id number] [address] [place] [address] [place] HIV immunoassay testing algorithm interpretation (S/P/Bld) [Interp] Normal [facility] Comment on above: Order Comment: Speci men Type: FLUID SPECIMEN Ordering Facility: [facility] Address: [address] [place] [address] Result Comment: No e vidence of HIV-1 or HIV-2 infection. Should recent infection be suspected, repeat testing may be considered 2-3 weeks after this draw. [place] Rev. Code 3701.243(E): This information has been [...] results or diagnoses. Performed By: #### L [id number] #### [facility] CLIA [id number] [address] [place] [address] [place] HbA1c (Bld)on 03-10-2024 Average glucose Estimated from glycated hemoglobin (Bld) [Mass/Vol] 85 mg/dL Normal [facility] Comment on above: Order Comment: Speci men Type: BLOOD SPECIMEN Ordering Facility: [facility] Address: [address] [place] [address] Result Comment: eAG: (Estimated average glucose) is a calculated value from HgbA1c and is retail account representative of the average blood glucose level in the last 2-3 month period. Performed By: #### R UBIGG #### [facility] CLIA [id number] [address] [place] [address] [place] HbA1c (Bld) [Mass fraction] 4.6 % Normal 4.3-5.6 [facility] Comment on above: Order Comment: Speci men Type: BLOOD SPECIMEN Ordering Facility: [facility] Address: [address] [place] [address] Result Comment: Amer [place] Diabetes Association guidelines indicate that patients with HgbA1c in the range 5.7-6.4% are at increased risk for development of diabetes, and intervention by lifestyle modification may be beneficial. HgbA1c greater or equal to 6.5% is considered diagnostic of diabetes. Performed By: #### R UBIGG #### [facility] CLIA [id number] [address] [place] [address] [place] [id number] PLUSon 03-10-2024 Cell-free DNA./Cell-free DNA.total Dosage of chromosome-specific cfDNA (cfDNA) [Molar fraction] 20% Normal [facility] Comment on above: Order Comment: Speci men Type: BLOOD SPECIMEN Ordering Facility: [facility] Address: [address] [place] [address] Performed By: #### M [id number] #### [facility] CLIA [id number] [address] [place] [address] Chr 13+18+21+X+Y aneuploidy Dosage of chromosome-specific cfDNA Ql (cfDNA) Negative Normal [facility] Comment on above: Order Comment: Speci men Type: BLOOD SPECIMEN Ordering Facility: [facility] Address: [address] [place] [address] Performed By: #### M AT21 #### [facility] CLIA [id number] [address] [place] [address] Chr 21 trisomy Dosage of chromosome-specific cfDNA Ql (cfDNA) Negative Normal [facility] Comment on above: Order Comment: Speci men Type: BLOOD SPECIMEN Ordering Facility: [facility] Address: [address] [place] [address] Performed By: #### M AT21 #### [facility] CLIA [id number] [address] [place] [address] Chr X and Y aneuploidy risk Sequencing Ql (cfDNA) [Interp] Not detected Normal [facility] Comment on above: Order Comment: Speci rashida Type: BLOOD SPECIMEN Ordering Facility: [facility] Address: [address] [place] [address] Result Comment: Not Detected Not Detected Performed By: #### M AT21 #### [facility] CLIA [id number] [address] [place] [address] Citation Rigo (Reference lab test) Comment Normal [facility] Comment on above: Order Comment: Jay field Type: BLOOD SPECIMEN Ordering Facility: [facility] Address: [address] [place] [address] Result Comment: 1. P catalino BAZAN, et al. Filomena Med. 2012;14(3):296-305. 2. Rossi GRULLON et al. Prenat Diag. 2013;33(6):591-597. 3. Parmjit C, et al. Clin Chem. 2015 Apr;61(4):608-616. 4. Clayton BAZAN, et al. Filomena Med. 2011;13(11):913-920. 5. ACOG/SMFM Practice Bulletin No. 226, Dec 2019. Performed By: #### M AT21 #### [facility] CLIA [id number] [address] [place] [address] Gestational age Estimated from conception date Henley Normal [facility] Comment on above: Order Comment: Speci men Type: BLOOD SPECIMEN Ordering Facility: [facility] Address: [address] [place] [address] Performed By: #### M AT21 #### [facility] CLIA [id number] [address] [place] [address] GESTATIONALAGE AGE > OR = 9W Yes Normal [facility] Comment on above: Order Comment: Speci men Type: BLOOD SPECIMEN Ordering Facility: [facility] Address: [address] [place] [address] Performed By: #### M AT21 #### [facility] CLIA [id number] [address] [place] [address] Laboratory comment Rigo (Report) Comment Normal [facility] Comment on above: Order Comment: Pioi rashida Type: BLOOD SPECIMEN Ordering Facility: [facility] Address: [address] [place] [address] Result Comment: The MaterniT(R) 21 PLUS laboratory-developed test (LDT) analyzes circulating cell-free DNA from a maternal blood sample. This test is used for screening purposes and not diagnostic. Clinical correlation is recommended. Validation data on twin pregnancies is limited and the ability of this test to detect aneuploidy in higher multiple gestations has not yet been validated. Performed By: #### M AT21 #### [facility] CLIA [id number] [address] [place] [address] ballet company artistic director name Nom (Provider) Comment Normal [facility] Comment on above: Order Comment: Speci men Type: BLOOD SPECIMEN Ordering Facility: [facility] Address: [address] [place] [address] Result Comment: This specimen showed an expected representation of chromosome 21, 18 and 13 material. Clinical correlation is suggested. Comment José Miguel Card MD, PhD, Director, [employer] Performed By: #### M AT21 #### [facility] CLIA [id number] [address] [place] [address] LIMITATIONS OF THE TEST Comment Normal [facility] Comment on above: Order Comment: Speci men Type: BLOOD SPECIMEN Ordering Facility: [facility] Address: [address], [place] [address] Result Comment: Leslie chester the results of [...] Fragmin(R)). Performed By: #### M AT21 #### [facility] CLIA [id number] [address] [place] [address] Monosomy X risk Dosage of chromosome-specific cfDNA Ql (Plasma cell-free+WBC DNA) [Interp] Not detected Normal [facility] Comment on above: Order Comment: Speci [facility] Type: BLOOD SPECIMEN Ordering Facility: [facility] Address: [address] [place] [address] Performed By: #### M AT21 #### [facility] CLIA [id number] [address] [place] [address] NEGATIVE PREDICTIVE VALUE Note Normal [facility] Comment on above: Order Comment: Speci men Type: BLOOD SPECIMEN Ordering Facility: [facility] Address: [address] [place] [address] Result Comment: The Negative Predictive Value (NPV) for trisomy 21, 18, and 13 is greater than 99%. The NPV for SCA and ESS cannot be calculated as SCA and ESS are only reported when an abnormality is detected. Performed By: #### M AT21 #### [facility] CLIA [id number] [address] [place] [id number] NOTE Comment Normal [facility] Comment on above: Order Comment: Speci [facility] Type: BLOOD SPECIMEN Ordering Facility: [facility] Address: [address] [place] [address] Result Comment: See Notes [facility] is a subsidiary of [employer], using the brand [employer]. This test was developed and its performance characteristics determined by [employer]. It has not been cleared or approved by the Food and Drug Administration. This laboratory is certified under the Clinical Laboratory Improvement Amendments (CLIA) as qualified to perform high complexity clinical laboratory testing and accredited by the [employer] (CAP). If there is future clinical need for adding MaterniT GENOME testing, this specimen will be available until term. [facility] samples will not be retained beyond 60 days. [facility] patients will have to send a new sample for re-sequencing ([facility] Test Code: [id number]). Performed By: #### M AT21 #### [facility] CLIA [id number] [address] [place] [address] PERFORMANCE CHARACTERISTICS Note Normal [facility] Comment on above: Order Comment: Jay field Type: BLOOD SPECIMEN Ordering Facility: [facility] Address: [address], [place] [address] Result Comment: ! Sex ! Accuracy: 99.4% [...] only. Performed By: #### M AT21 #### [facility] CLIA [id number] [address] [place] [address] POSITIVE PREDICTIVE VALUE N/A Normal [facility] Comment on above: Order Comment: Jay field Type: BLOOD SPECIMEN Ordering Facility: [facility] Address: [address] [place] [address] Performed By: #### M AT21 #### [facility] CLIA [id number] [address] [place] [address] Reference Lab Test Method Comment Normal [facility] Comment on above: Order Comment: Jay field Type: BLOOD SPECIMEN Ordering Facility: [facility] Address: [address] [place] [address] Result Comment: See Notes Circulating cell-free DNA [...] 22. Performed By: #### M AT21 #### [facility] CLIA [id number] [address] [place] [address] Sex Dosage of chromosome-specific cfDNA Nom (cfDNA) Comment Normal [facility] Comment on above: Order Comment: Speci men Type: BLOOD SPECIMEN Ordering Facility: [facility] Address: [address] [place] [address] Result Comment: Cons istent with Male Performed By: #### M AT21 #### [facility] CLIA [id number] [address] [place] [address] Test performance information Rigo (Unsp spec) Comment Normal [facility] Comment on above: Order Comment: Speci men Type: BLOOD SPECIMEN Ordering Facility: [facility] Address: [address] [place] [address] Result Comment: The performance characteristics of the MaterniT(R) 21 PLUS laboratory-developed test (LDT) have been determined in a clinical validation study with women at increased risk for chromosomal aneuploidy.[1-4] Performed By: #### M AT21 #### [facility] CLIA [id number] [address] [place] [address] Trisomy 13 risk Dosage of chromosome-specific cfDNA Ql (cfDNA) [Interp] Negative Normal [facility] Comment on above: Order Comment: Speci men Type: BLOOD SPECIMEN Ordering Facility: [facility] Address: [address] [place] [address] Performed By: #### M AT21 #### [facility] CLIA [id number] [address] [place] [address] Trisomy 18 risk Dosage of chromosome-specific cfDNA Ql (Plasma cell-free+WBC DNA) [Interp] Negative Normal [facility] Comment on above: Order Comment: Speci men Type: BLOOD SPECIMEN Ordering Facility: [facility] Address: [address] [place] [address] Performed By: #### M AT21 #### [facility] CLIA [id number] [address] [place] [address] RUBELLA IGG ANTIBODYon 03-10 RUBELLA IGG AB, QUAL Negative Abnormal Positive [facility] Comment on above: Order Comment: Jay field Type: BLOOD SPECIMEN Ordering Facility: [facility] Address: [address] [place] [address] Result Comment: The result suggests no history of Rubella vaccination or exposure to Rubella virus, however, some individuals with past history of Rubella vaccination may test negative using this test as immunity to Rubella virus wanes over time after vaccination. Please correlate with vaccination history if applicable. Performed By: #### R UBIGG #### [facility] CLIA [id number] [address] [place] [address] [place] Reagin and Treponema pallidu m IgG and IgM [Interp]on 03-10-2024 T. pallidum IgG+IgM IA Ql (S) Non-Reactive Normal Nonreactive [facility] Comment on above: Order Comment: Jay field Type: FLUID SPECIMEN Ordering Facility: [facility] Address: [address] [place] [address] Performed By: #### L [id number] #### [facility] CLIA [id number] [address] [place] [address] [place] Reagin+T pallidum IgG+IgM Se rPl-Impon 03-10-2024 Reagin and Treponema pallidum IgG and IgM [Interp] Cannot exclude recent Treponemal infection if specimen collected within 7-10 days after appearance of suspect lesions or 2-3 weeks after an exposure. Clinical correlation is required. Normal [facility] Comment on above: Order Comment: Jay field Type: FLUID SPECIMEN Ordering Facility: [facility] Address: [address] [place] [address] Performed By: #### L [id number] #### [facility] CLIA [id number] [address] [place] [address] [place] TYPE + SCREEN PRENATALon ABO O Normal [facility] Comment on above: Order Comment: Speci men Type: BLOOD SPECIMEN Ordering Facility: [facility] Address: [address] [place] [address] Performed By: #### T SPN #### [facility] CLIA [id number] [address] [place] [address] [place] Rh Nom (Bld) Positive Normal [facility] Comment on above: Order Comment: Speci men Type: BLOOD SPECIMEN Ordering Facility: [facility] Address: [address] [place] [address] Performed By: #### T SPN #### [facility] CLIA [id number] [address] [place] [address] [place] TYPE AND SCREEN EXPIRATION 03/13/2024 23:59 Normal [facility] Comment on above: Order Comment: Speci men Type: BLOOD SPECIMEN Ordering Facility: [facility] Address: [address] [place] [address] Performed By: #### T SPN #### [facility] CLIA [id number] [address] [place] [address] [place] Bacteria Ur Culton Bacteria identified Cx Nom (U) ORGANISM ID: 1 <10,000 CFU/ml Normal urogenital brisa Normal [facility] Comment on above: Performed By: #### R UBIGG #### [facility] CLIA [id number] [address] [place] [address] [place] C. trachomatis+N. gonorrhoea e DNA HOSSEIN+probe Ql (Unsp spec)on 01-21-2024 C. trachomatis rRNA HOSSEIN+probe Ql (Unsp spec) Negative Normal Negative for Chlamydia trachomatis by amplificaton [facility] Comment on above: Order Comment: Speci men Type: BLOOD SPECIMEN Ordering Facility: [facility] Address: [address] [place] [address] Performed By: #### R UBIGG #### [facility] CLIA [id number] [address] [place] [address] [place] N. gonorrhoeae rRNA HOSSEIN+probe Ql (Unsp spec) Negative Normal Negative for Neisseria gonorrhoeae by amplification [facility] Comment on above: Order Comment: Speci men Type: BLOOD SPECIMEN Ordering Facility: [facility] Address: [address] [place] [address] Performed By: #### R UBIGG #### [facility] CLIA [id number] [address] [place] [address] [place] PAP TESTon 01-21-2024 ADEQUACY Normal [facility] Comment on above: Order Comment: Speci men Type: FLUID SPECIMEN Ordering Facility: [facility] Address: [address] [place] [address] Result Comment: Sati sfactory for interpretation. No endocervical component Performed By: #### L [id number] #### [facility] CLIA [id number] [address] [place] [address] [place] CASE REPORT Normal [facility] Comment on above: Order Comment: Speci men Type: FLUID SPECIMEN Ordering Facility: [facility] Address: [address] [place] [address] Result Comment: Gyne cologic Cytology Report Case: [id number] Authorizing Provider: Helena Ocampo APRN.FORENSIC CHEMIST Collected: 01/21/2024 03:55 PM Ordering Location: OB/Gynecology Received: 01/21/2024 04:29 PM First Screen: Valeriy, Christina, CT, ASCP Specimen: Pap Test, ThinPrep, Cervix Performed By: #### L [id number] #### [facility] CLIA [id number] [address] [place] [address] [place] CLINICAL HISTORY, CYTOLOGY, STUDENT ASSISTANT Routine Exam Normal [facility] Comment on above: Order Comment: Speci men Type: FLUID SPECIMEN Ordering Facility: [facility] Address: [address] [place] [address] Performed By: #### L [id number] #### [facility] CLIA [id number] [address] [place] [address] [place] FINAL PERFORMING LAB Normal [facility] Comment on above: Order Comment: Speci men Type: FLUID SPECIMEN Ordering Facility: [facility] Address: [address] [place] [address] Result Comment: Tech nical component, clinical informatics spec screening performed at [facility], [address] [place], [place] [id number] CLIA# [id number] Diagnostic interpretation performed at [facility], [address] [place], [place] [id number] CLIA# [id number] Manager Of Regulatory Affairs: Kobi Piña M.D. Performed By: #### L [id number] #### [facility] CLIA [id number] [address] [place] [address] [place] INTERPRETATION, CYTOLOGY, STUDENT ASSISTANT Normal [facility] Comment on above: Order Comment: Speci men Type: FLUID SPECIMEN Ordering Facility: [facility] Address: [address] [place] [address] Result Comment: Nega tive for intraepithelial lesion or malignancy. Performed By: #### L [id number] #### [facility] CLIA [id number] [address] [place] [address] [place] LMP 12/01/2023 Normal [facility] Comment on above: Order Comment: Speci men Type: FLUID SPECIMEN Ordering Facility: [facility] Address: [address] [place] [address] Performed By: #### L [id number] #### [facility] CLIA [id number] [address] [place] [address] [place] PAP DISCLAIMER COMMENT The Pap Smear is a screening test for cervical cancer. False negative results occur with all screening tests, emphasizing the need for rescreening at recommended intervals, and clinical correlation. Normal [facility] Comment on above: Order Comment: Speci men Type: FLUID SPECIMEN Ordering Facility: [facility] Address: [address] [place] [address] Performed By: #### L [id number] #### [facility] CLIA [id number] [address] [place] [address] [place] PAP CUSTOMER MARKETING INTERN COMMENT This specimen has been analyzed by the [facility], an automated imaging and review system, which assists the laboratory in evaluating cells on ThinPrep Pap tests. Following automated imaging, selected byers from every slide are reviewed by a clinical informatics spec. Normal [facility] Comment on above: Order Comment: Speci men Type: FLUID SPECIMEN Ordering Facility: [facility] Address: [address] [place] [address] Performed By: #### L [id number] #### [facility] CLIA [id number] [address] [place] [address] [place] OF [place] P[place] INSECTICIDE MAKER ULTRASOUNDon 01-21-20 24 Indication Confirmation of intrauterine [...] Read By: Helena Ocampo CNP MATERNAL MEDICINE [facility] Radiology Study observation (narrative) [facility] Monet 01-16-2024 CNPN Telephone (OBGYWM) NUSRATJESÚS Jia ([id number]) 2000 F Date Time Provider Department 01/16/24 [...] Encounter Status:Closed by ASHLEY CLARK on 01/21/24 [facility] 19-49 Yearson 10-12-2021 19-49 Years Diagnoses/Problems Health Maintenance/Risks Encounter for preventive health examination (V70.0) (Z00.00) Assessed Allergic rhinitis (477.9) (J30.9) Acne (706.1) (L70.9) Orders Acne Renew: Norgestim-Eth Estrad Triphasic 0.18/0.215/0.25 MG-25 MCG Oral Tablet (Ortho Tri-Cyclen Lo); TAKE 1 TABLET DAILY Rx By: Amparo Carter; Dispense: 84 Days ; #:3 X 28 Tablet Pack; Refill: 1;For: Acne; MIKI = N; Verified Transmission to [facility] #[id number]; Last Updated By: [employer]; 10/12/2021 11:14:26 AM last appt-10/08/20 next appt-10/12/21 last BW-03/23/20 sm 08/17/21 last appt-10/08/20 next appt-10/12/21 last BW-03/23/20 sm 06/09/21 last appt-11/07/2019 next appt-10/08/20 last BW-03/23/2020 [facility] 07/14/20 Allergic rhinitis Renew: Montelukast Sodium 10 MG Oral Tablet; TAKE 1 TABLET AT BEDTIME Rx By: Amparo Carter; Dispense: 90 Days ; #:1 X 90 Tablet Bottle; Refill: 3;For: Allergic rhinitis; MIKI = N; Verified Transmission to [facility] #[id number]; Last Updated By: [employer]; 10/12/2021 11:14:27 AM Eczema Renew: Mometasone Furoate 0.1 % External Cream; APPLY SPARINGLY TO AFFECTED AREAS TWICE DAILY.(AM AND PM) Rx By: Amparo Carter; Dispense: 0 Days ; #:1 X 45 GM Tube; Refill: 0;For: Eczema; MIKI = N; Verified Transmission to [facility] #[id number]; Last Updated By: [employer]; 10/12/2021 11:14:25 AM Unlinked Stop: Tretinoin 0.025 [...] difficulty walking, (more content not included)... Normal [employer] Tobacco Screening.on 022 Fall risk assessment a) No falls within the last year [facility] Work Phone: Tobacco use status CPHS b) No [facility] Work Phone: CBC AND DIFFERENTIALon 10-11 % AUTOMATED IMMATURE GRAN 0.6 % Normal 0.0 - 0.9 [facility] Comment on above: Result Comment: Radha ture Granulocyte Count (IG) includes promyelocytes, myelocytes and metamyelocytes but does not include bands. Percent differential counts (%) should be interpreted in the context of the absolute cell counts (cells/L). Performed By: #### C BCDF #### [facility] [address] [place] [address] Basophils (Bld) [#/Vol] 0.06 10*3/uL Normal 0.00 - 0.10 [facility] Comment on above: Performed By: #### C BCDF #### [facility] [address] [place] [address] Basophils/100 WBC (Bld) 0.7 % Normal 0.0 - 2.0 [facility] Comment on above: Performed By: #### C BCDF #### [facility] [address] [place] [address] Eosinophils (Bld) [#/Vol] 0.20 10*3/uL Normal 0.00 - 0.70 [facility] Comment on above: Performed By: #### C BCDF #### [facility] [address] [place] [address] Eosinophils/100 WBC (Bld) 2.4 % Normal 0.0 - 6.0 [facility] Comment on above: Performed By: #### C BCDF #### [facility] [address] [place] [address] Erythrocyte distribution width (RBC) [Ratio] 11.7 % Normal 11.5 - 14.5 [facility] Comment on above: Performed By: #### C BCDF #### [facility] [address] [place] [address] Hematocrit (Bld) [Volume fraction] 43.3 % Normal 36.0 - 46.0 [facility] Comment on above: Performed By: #### C BCDF #### [facility] [address] [place] [address] Hemoglobin (Bld) [Mass/Vol] 14.1 g/dL Normal 12.0 - 16.0 [facility] Comment on above: Performed By: #### C BCDF #### [facility] [address] [place] [address] Lymphocytes (Bld) [#/Vol] 2.56 10*3/uL Normal 1.20 - 4.80 [facility] Comment on above: Performed By: #### C BCDF #### [facility] [address] [place] [address] Lymphocytes/100 WBC (Bld) 31.2 % Normal 13.0 - 44.0 [facility] Comment on above: Performed By: #### C BCDF #### [facility] [address] [place] [address] MCHC (RBC) [Mass/Vol] 32.6 g/dL Normal 32.0 - 36.0 [facility] Comment on above: Performed By: #### C BCDF #### [facility] [address] [place] [address] MCV (RBC) [Entitic vol] 93 fL Normal 80 - 100 [facility] Comment on above: Performed By: #### C BCDF #### [facility] [address] [place] [address] Monocytes (Bld) [#/Vol] 0.84 10*3/uL Normal 0.10 - 1.00 [facility] Comment on above: Performed By: #### C BCDF #### [facility] [address] [place] [address] Monocytes/100 WBC (Bld) 10.2 % Normal 2.0 - 10.0 [facility] Comment on above: Performed By: #### C BCDF #### [facility] [address] [place] [address] Neutrophils (Bld) [#/Vol] 4.50 10*3/uL Normal 1.20 - 7.70 [facility] Comment on above: Performed By: #### C BCDF #### [facility] [address] [place] [address] Neutrophils/100 WBC (Bld) 54.9 % Normal 40.0 - 80.0 [facility] Comment on above: Performed By: #### C BCDF #### [facility] [address] [place] [address] NUCLEATED RBC 0.0 /100 WBC Normal 0.0-0.0 [facility] Comment on above: Performed By: #### C BCDF #### [facility] [address] [place] [address] Platelets (Bld) [#/Vol] 348 10*3/uL Normal 150 - 450 [facility] Comment on above: Performed By: #### C BCDF #### [facility] [address] [place] [address] RBC 4.64 x10E12/L Normal 4.00 - 5.20 [facility] Comment on above: Performed By: #### C BCDF #### [facility] [address] [place] [address] WBC (Bld) [#/Vol] 8.2 10*3/uL Normal 4.4 - 11.3 [facility] Comment on above: Performed By: #### C BCDF #### [facility] [address] [place] [address] COMPREHENSIVE PANELon 2021 Albumin [Mass/Vol] 3.9 g/dL Normal 3.4 - 5.0 [facility] Comment on above: Performed By: #### C MP #### [facility] [address] [place] [address] ALP [Catalytic activity/Vol] 48 U/L Normal 33 - 110 [facility] Comment on above: Performed By: #### C MP #### [facility] [address] [place] [address] ALT [Catalytic activity/Vol] 15 U/L Normal 7 - 45 [facility] Comment on above: Result Comment: Mildred ents treated with Sulfasalazine may generate falsely decreased results for ALT. Performed By: #### C MP #### [facility] [address] [place] [address] Anion gap [Moles/Vol] 13 mmol/L Normal 10 - 20 [facility] Comment on above: Performed By: #### C MP #### [facility] [address] [place] [address] AST [Catalytic activity/Vol] 22 U/L Normal 9 - 39 [facility] Comment on above: Performed By: #### C MP #### [facility] [address] [place] [address] Bilirubin [Mass/Vol] 0.3 mg/dL Normal 0.0 - 1.2 [facility] Comment on above: Performed By: #### C MP #### [facility] [address] [place] [address] Calcium [Mass/Vol] 9.4 mg/dL Normal 8.6 - 10.6 [facility] Comment on above: Performed By: #### C MP #### [place] [address] [place] [address] Chloride [Moles/Vol] 106 mmol/L Normal 98 - 107 [facility] Comment on above: Performed By: #### C MP #### [facility] [address] [place] [address] Creatinine [Mass/Vol] 0.78 mg/dL Normal 0.50 - 1.05 [facility] Comment on above: Performed By: #### C MP #### [facility] [address] [place] [address] eGFR FEMALE >90 Normal >90 [facility] Comment on above: Result Comment: CALC ULATIONS OF ESTIMATED GFR ARE PERFORMED USING THE 2020 CKD-EPI STUDY REFIT EQUATION WITHOUT THE RACE VARIABLE FOR THE IDMS-TRACEABLE CREATININE METHODS. https://jasn.asnjournals.org/content//ASN.31139765 88 Performed By: #### C MP #### [facility] [address] [place] [address] Glucose [Mass/Vol] 92 mg/dL Normal 74 - 99 [facility] Comment on above: Performed By: #### C MP #### [facility] [address] [place] [address] HCO3 (Bld) [Moles/Vol] 24 mmol/L Normal 21 - 32 [facility] Comment on above: Performed By: #### C MP #### [facility] [address] [place] [address] Potassium [Moles/Vol] 4.7 mmol/L Normal 3.5 - 5.3 [facility] Comment on above: Performed By: #### C MP #### [facility] [address] [place] [address] Protein [Mass/Vol] 6.9 g/dL Normal 6.4 - 8.2 [facility] Comment on above: Performed By: #### C MP #### [facility] [address] [place] [address] Sodium [Moles/Vol] 138 mmol/L Normal 136 - 145 [facility] Comment on above: Performed By: #### C MP #### [facility] [address] [place] [address] Urea nitrogen [Mass/Vol] 12 mg/dL Normal 6 - 23 [facility] Comment on above: Performed By: #### C MP #### [facility] [address] [place] [address] Complete Blood Count + Diffe eduardo 10-11-2021 Basophils/100 WBC (Bld) 0.7 % 0.0 - 2.0 [facility] Work Phone: Erythrocyte distribution width (RBC) [Ratio] 11.7 % See Below [facility] Work Phone: Comment on above: Reference Range: 11. 5 - 14.5 Hematocrit (Bld) [Volume fraction] 43.3 % See Below [facility] Work Phone: Comment on above: Reference Range: 36. 0 - 46.0 Hemoglobin (Bld) [Mass/Vol] 14.1 g/dL See Below [facility] Work Phone: Comment on above: Reference Range: 12. 0 - 16.0 Lymphocytes/100 WBC (Bld) 31.2 % See Below [facility] Work Phone: Comment on above: Reference Range: 13. 0 - 44.0 MCHC (RBC) [Mass/Vol] 32.6 g/dL See Below [facility] Work Phone: Comment on above: Reference Range: 32. 0 - 36.0 MCV (RBC) [Entitic vol] 93 fL 80 - 100 [facility] Work Phone: Monocytes/100 WBC (Bld) [...] + Differential 0.6 % 0.0 - 0.9 [facility] Work Phone: Comment on above: Immature Granulocyte Count (IG) includes promyelocytes, myelocytes and metamyelocytes but does not include bands. Percent differential counts (%) should be interpreted in the context of the absolute cell counts (cells/L). Complete Blood Count + Differential 0.0 {/100_WBC} 0.0-0.0 [facility] Work Phone: LIPID PANEL (CORONARY RISK 2 )on 10-11-2021 Cholesterol [Mass/Vol] 144 mg/dL Normal 0 - 199 [facility] Comment on above: Result Comment: . AGE [...] Performed By: #### L IPID #### [facility] [address] [place] [address] Cholesterol in HDL [Mass/Vol] 60.2 mg/dL Normal [facility] Comment on above: Result Comment: . AGE VERY LOW LOW NORMAL HIGH 0-19 Y < 35 < 40 40-45 ---- 20-24 Y ---- < 40 >45 ---- >24 Y ---- < 40 40-60 >60 . Performed By: #### L IPID #### [facility] [address] [place] [address] Cholesterol in LDL [Mass/Vol] 61 mg/dL Normal 0 - 119 [facility] Comment on above: Result Comment: . NEAR BORD AGE DESIRABLE OPTIMAL HIGH HIGH VERY HIGH 0-19 Y 0 - 109 --- 110-129 >/= 130 ---- 20-24 Y 0 - 119 --- 120-159 >/= 160 ---- >24 Y 0 - 99 100-129 130-159 160-189 >/=190 . Performed By: #### L IPID #### [facility] [address] [place] [address] Cholesterol in VLDL [Mass/Vol] 22 mg/dL Normal 0 - 40 [facility] Comment on above: Performed By: #### L IPID #### [facility] [address] [place] [address] Cholesterol.total/C holesterol in HDL [Mass ratio] 2.4 {ratio} Normal [facility] Comment on above: Result Comment: REF VALUES DESIRABLE < 3.4 HIGH RISK > 5.0 Performed By: #### L IPID #### [facility] [address] [place] [address] NON-HDL CHOLESTEROL 84 mg/dL Normal 0 - 149 [facility] Comment on above: Result Comment: AGE DESIRABLE BORDERLINE HIGH HIGH VERY HIGH 0-19 Y 0 - 119 120 - 144 >/= 145 >/= 160 20-24 Y 0 - 149 150 - 189 >/= 190 ---- >24 Y 30 MG/DL ABOVE LDL CHOLESTEROL GOAL . Performed By: #### L IPID #### [facility] [address] [place] [address] Triglyceride [Mass/Vol] 112 mg/dL Normal 0 - 149 [facility] Comment on above: Result Comment: . AGE [...] dosing. Performed By: #### L IPID #### [facility] [address] [place] [address] Laboratory - Chemistry and C hemistry - challengeon 10-11-2021 Albumin BCP dye [Mass/Vol] 3.9 g/dL 3.4 - 5.0 [facility] Work Phone: ALP [Catalytic activity/Vol] 48 U/L 33 - 110 [facility] Work Phone: ALT With P-5'-P [Catalytic activity/Vol] 15 U/L 7 - 45 [facility] Work Phone: Comment on above: Patients treated wit h Sulfasalazine may generate falsely decreased results for ALT. Anion gap [Moles/Vol] 13 mmol/L 10 - 20 [facility] Work Phone: AST With P-5'-P [Catalytic activity/Vol] 22 U/L 9 - 39 [facility] Work Phone: Bilirubin [Mass/Vol] 0.3 mg/dL 0.0 - 1.2 [facility] Work Phone: Calcium [Mass/Vol] 9.4 mg/dL 8.6 - 10.6 [facility] Work Phone: Chloride [Moles/Vol] 106 mmol/L 98 - 107 [facility] Work Phone: CO2 [Moles/Vol] 24 mmol/L 21 - 32 [facility] Work Phone: Creatinine [Mass/Vol] 0.78 mg/dL See Below [facility] Work Phone: Comment on above: Reference Range: 0.5 0 - 1.05 Glucose [Mass/Vol] 92 mg/dL 74 - 99 [facility] Work Phone: Potassium [Moles/Vol] 4.7 mmol/L 3.5 - 5.3 [facility] Work Phone: Protein [Mass/Vol] 6.9 g/dL 6.4 - 8.2 [facility] Work Phone: Sodium [Moles/Vol] 138 mmol/L 136 - 145 [facility] Work Phone: TSH Qn 2.03 m[IU]/L See Below [facility] Work Phone: Comment on above: Reference Range: 0.4 4 - 3.98 TSH testing is performed using different testing methodology at [facility] than at other [facility]. Direct result comparisons should only be made within the same method. Urea nitrogen [Mass/Vol] 12 mg/dL 6 - 23 [facility] Work Phone: Lipid Panelon 10-11-2021 Cholesterol [Mass/Vol] 144 mg/dL 0 - 199 [facility] Work Phone: Comment on above: . AGE [...] dosing. Cholesterol in HDL [Mass/Vol] 60.2 mg/dL [facility] Work Phone: Comment on above: . AGE VERY LOW LOW N ORMAL HIGH 0-19 Y < 35 < 40 40-45 ---- 20- 24 Y ---- < 40 >45 ---- >24 Y ---- < 40 40-60 >60. Cholesterol in LDL [Mass/Vol] 61 mg/dL 0 - 119 [facility] Work Phone: Comment on above: . NEAR BORD AGE BOLA RABLE OPTIMAL HIGH HIGH VERY HIGH 0-19 Y 0 - 109 --- 110-129 >/= 130 ---- 20-24 Y 0 - 119 --- 120-159 >/= 160 ---- >24 Y 0 - 99 100-129 130-159 160-189 >/=190. Cholesterol non HDL [Mass/Vol] 84 mg/dL 0 - 149 [facility] Work Phone: Comment on above: AGE DESIRABLE BORDER LINE HIGH HIGH VERY HIGH 0-19 Y 0 - 119 120 - 144 >/= 145 >/= 160 20-24 Y 0 - 149 150 - 189 >/= 190 ---- >24 Y 30 MG/DL ABOVE LDL CHOLESTEROL GOAL. Cholesterol.total/C holesterol in HDL [Mass ratio] 2.4 {ratio} [facility] Work Phone: Comment on above: REF VALUESDESIRABLE < 3.4HIGH RISK > 5.0 Triglyceride [Mass/Vol] 112 mg/dL 0 - 149 [facility] Work Phone: Comment on above: . AGE [...] Lipid Panel 22 mg/dL 0 - 40 [facility] Work Phone: No Panel Informationon 10-11 >90 >90 [facility] Work Phone: Comment on above: CALCULATIONS OF ESTELLE MATED GFR ARE PERFORMED USING THE 2020 CKD-EPI STUDY REFIT EQUATION WITHOUT THE RACE VARIABLE FOR THE IDMS-TRACEABLE CREATININE METHODS.https://jasn.asnjournals.org/content//ASN. 7684209315 TSH WITH REFLEX TO FREE T4 I F ABNORMALon 10-11-2021 TSH Qn 2.03 m[IU]/L Normal 0.44 - 3.98 [facility] Comment on above: Result Comment: TSH testing is performed using different testing methodology at [facility] than at other [facility]. Direct result comparisons should only be made within the same method. Performed By: #### T HYDS #### [facility] [address] [place] [address] Vital Signs Date Time Vital Sign Value Performing Clinician Facility 09-10-2024 09:46-0400 Body mass index (BMI) [Ratio] 26.31 kg/m2 Ashley Khan MD Work Phone: [facility] 09-10-2024 09:46-0400 Body weight 73.94 kg Ashley Khan MD Work Phone: [facility] 09-10-2024 09:46-0400 Diastolic blood pressure 62 mm[Hg] Ashley Khan MD Work Phone: [facility] 09-10-2024 09:46-0400 Systolic blood pressure 118 mm[Hg] Ashley Khan MD Work Phone: [facility] 09-03-2024 10:01-0400 Body mass index (BMI) [Ratio] 26.31 kg/m2 Renee Escalera MD Work Phone: [facility] 09-03-2024 10:01-0400 Body weight 73.94 kg Renee Escalera MD Work Phone: [facility] 09-03-2024 10:01-0400 Diastolic blood pressure 70 mm[Hg] Renee Escalera MD Work Phone: [facility] 09-03-2024 10:01-0400 Systolic blood pressure 112 mm[Hg] Renee Escalera MD Work Phone: [facility] 08-27-2024 10:01-0400 Body mass index (BMI) [Ratio] 26.15 kg/m2 Ashley Khan MD Work Phone: [facility] 08-27-2024 10:01-0400 Body weight 73.48 kg Ashley Khan MD Work Phone: [facility] 08-27-2024 10:01-0400 Diastolic blood pressure 78 mm[Hg] Ashley Khan MD Work Phone: [facility] 08-27-2024 10:01-0400 Systolic blood pressure 114 mm[Hg] Ashley Khan MD Work Phone: [facility] 08-20-2024 10:16-0400 Body mass index (BMI) [Ratio] 25.5 kg/m2 Renee Escalera MD Work Phone: [facility] 08-20-2024 10:16-0400 Body weight 71.67 kg Renee Escalera MD Work Phone: [facility] 08-20-2024 10:16-0400 Diastolic blood pressure 62 mm[Hg] Renee Escalera MD Work Phone: [facility] 08-20-2024 10:16-0400 Systolic blood pressure 100 mm[Hg] Renee Escalera MD Work Phone: [facility] 08-04-2024 15:47-0400 Body mass index (BMI) [Ratio] 25.53 kg/m2 William Chen MD Work Phone: [facility] 08-04-2024 15:47-0400 Body weight 71.76 kg William Chen MD Work Phone: [facility] 08-04-2024 15:47-0400 Diastolic blood pressure 68 mm[Hg] William Chen MD Work Phone: [facility] 08-04-2024 15:47-0400 Systolic blood pressure 102 mm[Hg] William Chen MD Work Phone: [facility] 07-21-2024 15:53-0400 Body mass index (BMI) [Ratio] 24.53 kg/m2 Ashley Khan MD Work Phone: [facility] 07-21-2024 15:53-0400 Body weight 68.95 kg Ashley Khan MD Work Phone: [facility] 07-21-2024 15:53-0400 Diastolic blood pressure 70 mm[Hg] Ashley Khan MD Work Phone: [facility] 07-21-2024 15:53-0400 Systolic blood pressure 108 mm[Hg] Ashley Khan MD Work Phone: [facility] 07-09-2024 09:55-0400 Body mass index (BMI) [Ratio] 24.05 kg/m2 Rebekah Garcia MD Work Phone: [facility] 07-09-2024 09:55-0400 Body weight 67.59 kg Rebekah Garcia MD Work Phone: [facility] 07-09-2024 09:55-0400 Diastolic blood pressure 60 mm[Hg] Rebekah Garcia MD Work Phone: [facility] 07-09-2024 09:55-0400 Systolic blood pressure 94 mm[Hg] Rebekah Garcia MD Work Phone: [facility] 06-23-2024 14:00-0400 Body mass index (BMI) [Ratio] 24.05 kg/m2 William Chen MD Work Phone: [facility] 06-23-2024 14:00-0400 Body weight 67.59 kg William Chen MD Work Phone: [facility] 06-23-2024 14:00-0400 Diastolic blood pressure 60 mm[Hg] William Chen MD Work Phone: [facility] 06-23-2024 14:00-0400 Systolic blood pressure 98 mm[Hg] William Chen MD Work Phone: [facility] 06-02-2024 16:12-0400 Body mass index (BMI) [Ratio] 23.73 kg/m2 Rebekah Garcia MD Work Phone: [facility] 06-02-2024 16:12-0400 Body weight 66.68 kg Rebekah Garcia MD Work Phone: [facility] 06-02-2024 16:12-0400 Diastolic blood pressure 70 mm[Hg] Rebekah Garcia MD Work Phone: [facility] 06-02-2024 16:12-0400 Systolic blood pressure 116 mm[Hg] Rebekah Garcia MD Work Phone: [facility] 05-05-2024 09:39-0500 Body mass index (BMI) [Ratio] 22.92 kg/m2 Joya Plotts CABLE MECH[employer]IC.CNM Work Phone: [facility] 05-05-2024 09:39-0500 Body weight 64.41 kg Joya Plotts CABLE MECHANIC.CNM Work Phone: [facility] 05-05-2024 09:39-0500 Diastolic blood pressure 70 mm[Hg] Joya Plotts CABLE MECHANIC.CNM Work Phone: [facility] 05-05-2024 09:39-0500 Systolic blood pressure 122 mm[Hg] Joya Plotts CABLE MECHANIC.CNM Work Phone: [facility] 04-07-2024 09:31-0500 Body mass index (BMI) [Ratio] 21.76 kg/m2 William Chen MD Work Phone: [facility] 04-07-2024 09:31-0500 Body weight 61.15 kg William Chen MD Work Phone: [facility] 04-07-2024 09:31-0500 Diastolic blood pressure 60 mm[Hg] William Chen MD Work Phone: [facility] 04-07-2024 09:31-0500 Systolic blood pressure 106 mm[Hg] William Chen MD Work Phone: [facility] 03-10-2024 10:06-0500 Body mass index (BMI) [Ratio] 21.69 kg/m2 Ashley Khan MD Work Phone: [facility] 03-10-2024 10:06-0500 Body weight 60.96 kg sAhley Khan MD Work Phone: [facility] 03-10-2024 10:06-0500 Diastolic blood pressure 70 mm[Hg] Ashley Khan MD Work Phone: [facility] 03-10-2024 10:06-0500 Systolic blood pressure 110 mm[Hg] Ashley Khan MD Work Phone: [facility] 01-21-2024 14:43-0500 Body height 167.6 cm Helena Hooper CABLE MECHANIC.FORENS[employer] CHEMIST Work Phone: [facility] 01-21-2024 14:43-0500 Body mass index (BMI) [Ratio] 21.11 kg/m2 Helena Terrence CABLE MECHANIC.FORENSIC CHEMIST Work Phone: [facility] 01-21-2024 14:43-0500 Body weight 59.33 kg Helena Terrence CABLE MECHANIC.FORENSIC CHEMIST Work Phone: [facility] Comment on above: 130.8 lb 01-21-2024 14:43-0500 Diastolic blood pressure 62 mm[Hg] Helena Hooper CABLE MECHANIC.FORENSIC CHEMIST Work Phone: [facility] 01-21-2024 14:43-0500 Systolic blood pressure 108 mm[Hg] Helena Hooper CABLE MECHANIC.FORENSIC CHEMIST Work Phone: [facility] 10-25-2022 [id number] Body height 166.4 cm Amparo Carter MD Work Phone: [facility] 10-25-2022 10:18-040 Body mass index (BMI) [Ratio] 21.02 kg/m2 Amparo Carter MD Work Phone: [facility] 10-25-2022 10:18-040 Body temperature 98.29 [degF] Amparo Carter MD Work Phone: [facility] 10-25-2022 10:18-0400 Body weight 58.17 kg Amparo Carter MD Work Phone: [facility] 10-25-2022 10:18-0400 Diastolic blood pressure 72 mm[Hg] Amparo Carter MD Work Phone: [facility] 10-25-2022 10:18-0400 Heart rate 68 /min Amparo Carter MD Work Phone: [facility] 10-25-2022 10:18-0400 Respiratory rate 16 /min Amparo Carter MD Work Phone: [facility] 10-25-2022 10:18-0400 Systolic blood pressure 106 mm[Hg] Amparo Carter MD Work Phone: [facility] 10-12-2021 10:36-0400 Body temperature 98.3 [degF] [...] [Ratio] 20.97 kg/m2 Amparo Carter Work Phone: [facility] Work Phone: 10-08-2020 10:41-0400 Body surface area Derived from formula 1.63 m2 Amparo Carter Work Phone: [facility] Work Phone: 10-08-2020 10:41-0400 Body temperature 98.5 [degF] Ampaor Carter Work Phone: [facility] Work Phone: 10-08-2020 10:41-0400 Body weight 57.15 kg Amparo Carter Work Phone: [facility] Work Phone: 10-08-2020 10:41-0400 Diastolic blood pressure 60 mm[Hg] Amparo Carter Work Phone: [facility] Work Phone: 10-08-2020 10:41-0400 Heart rate 80 /min Amparo Carter Work Phone: [facility] Work Phone: 10-08-2020 10:41-0400 Respiratory rate 16 /min Amparo Carter Work Phone: [facility] Work Phone: 10-08-2020 10:41-0400 Systolic blood pressure 105 mm[Hg] Amparo Carter Work Phone: [facility] Work Phone: Encounters Encounter Date Encounter Type Care Provider Facility Start: 09-14-2024 ambulatory Renee Galicia y:[facility] Start: 09-10-2024 End: 09-10-2024 Patient encounter procedure Ashley Khan MD Work Phone: OB/Gynecology Comment on above: Encounter for superv ision of normal first in third trimester (HCC) (Primary Dx); 39 weeks gestation of (HCC) Start: 09-10-2024 End: 09-10-2024 ambulatory ASHLEY KHAN Facility:[facility] Start: 09-03-2024 End: 09-03-2024 Patient encounter procedure eRnee Escalera MD Work Phone: OB/Gynecology Comment on above: Encounter for superv ision of normal first in third trimester (HCC) (Primary Dx); 38 weeks gestation of (HCC) Start: 09-03-2024 End: 09-03-2024 ambulatory RENEE ESCALERA Facility:[facility] Start: 09-02-2024 End: 09-02-2024 ambulatory Antonetteteodoro Dorantes MA [facility] Start: 09-02-2024 End: 09-02-2024 Patient encounter procedure Antonette Dorantes MA [facility] Comment on above: Population Health Na vigation Outreach (Ob/peds) Start: 08-27-2024 End: 08-27-2024 ambulatory ASHLEY KHAN Facility:[facility] Start: 08-27-2024 End: 08-27-2024 Patient encounter procedure [...] Start: 08-20-2024 End: 08-20-2024 ambulatory RENEE ESCALERA Facility:[facility] Start: 08-05-2024 End: 08-14-2024 Telephone encounter William Chen MD Work Phone: OB/Gynecology Comment on above: Breast Pump Start: 08-04-2024 End: 08-04-2024 Patient encounter procedure William Chen MD Work Phone: OB/Gynecology Comment on above: Encounter for superv ision of normal first in third trimester (HCC) (Primary Dx); 34 weeks gestation of (HCC) Start: 08-04-2024 End: 08-04-2024 ambulatory WILLIAM CHEN Facility:[facility] Start: 07-21-2024 End: 07-21-2024 Patient encounter procedure Ashley Khan MD Work Phone: OB/Gynecology Comment on above: Encounter for superv ision of normal first in third trimester (HCC) (Primary Dx); 32 weeks gestation of (HCC) Start: 07-21-2024 End: 07-21-2024 ambulatory ASHLEY KHAN Facility:[facility] Start: 07-09-2024 End: 07-09-2024 Patient encounter procedure Rebekah Garcia MD Work Phone: OB/Gynecology Comment on above: Encounter for superv ision of normal first in third trimester (HCC) (Primary Dx); Variable heart rate decelerations, antepartum (HCC); 30 weeks gestation of ([facility]) Start: 07-09-2024 End: 07-09-2024 ambulatory REBEKAH GARCIA Facility:[facility] Start: 06-23-2024 End: 06-23-2024 Patient encounter procedure William Chen MD Work Phone: OB/Gynecology Comment on above: Supervision of other normal , antepartum (HCC) (Primary Dx); Need for vaccination; 28 weeks gestation of ([facility]) Start: 06-23-2024 End: 06-23-2024 ambulatory REBEKAH GARCIA Facility:[facility] Start: 06-04-2024 End: 06-06-2024 Telephone encounter Rebekah Garcia MD Work Phone: OB/Gynecology Comment on above: FMLA Paperwork Start: 06-02-2024 End: 06-02-2024 ambulatory REBEKAH GARCIA Facility:[facility] Start: 06-02-2024 End: 06-02-2024 Patient encounter procedure Rebekah Garcia MD Work Phone: OB/Gynecology Comment on above: Encounter for superv ision of normal first in second trimester (Primary Dx); Screening for diabetes mellitus; Encounter for supervision of normal first in third trimester; Visit for screening Start: 05-06-2024 End: 07-06-2024 Follow-up encounter Renee Escalera MD Work Phone: OB/Gynecology Start: 05-05-2024 End: 05-05-2024 ambulatory JOYA PLOTABHINAV Facility:[facility] Start: 05-05-2024 End: 05-05-2024 Patient encounter procedure Joya Hassan CABLE MECHANIC.CNM Work Phone: OB/Gynecology Comment on above: Encounter for superv ision of normal first in second trimester (Primary Dx); 21 weeks gestation of ; Encounter for supervision of normal first in first trimester Start: 05-05-2024 End: 05-05-2024 ambulatory WILLIAM CHEN Facility:[facility] Start: 05-05-2024 End: 05-05-2024 Patient encounter procedure [employer] [facility] Comment on above: Encounter for anatomic survey (Primary Dx); 21 weeks gestation of Start: 04-07-2024 End: 04-07-2024 ambulatory [facility] Facility:[facility] Start: 04-07-2024 End: 04-07-2024 Patient encounter procedure William Chen MD Work Phone: OB/Gynecology Comment on above: Encounter for superv ision of normal first in second trimester (Primary Dx); 17 weeks gestation of Start: 03-10-2024 End: 03-10-2024 ambulatory [facility] Facility:[facility] Start: 03-10-2024 End: 03-10-2024 Patient encounter procedure Ashley Khan MD Work Phone: OB/Gynecology Comment on above: 13 weeks gestation o f (Primary Dx); Encounter for supervision of normal first in second trimester Encounter for bin tristan screening for malformation using ultrasound (Primary Dx); 13 weeks gestation of Start: 01-21-2024 End: 01-21-2024 Patient encounter procedure Helena Ocampo CABLE MECHANIC.FORENSIC CHEMIST Work Phone: OB/Gynecology Comment on above: Screening [...] above: Appointment Start: 10-25-2022 End: 10-25-2022 ambulatory [facility] Start: 10-25-2022 End: 10-25-2022 Encounter for general adult medical examination without abnormal findings [facility] Start: 10-25-2022 End: 10-25-2022 Patient encounter status Amparo Carter MD Work Phone: [facility] Work Phone: Start: 10-25-2022 End: 10-25-2022 Periodic preventive med est patient 18-39 yrs Amparo Carter MD Work Phone: [facility]Peds Comment on above: Routine general medi govind examination at a health care facility (Primary Dx); Allergy, subsequent encounter Start: 10-12-2021 Patient encounter procedure Amparo Carter Work Phone: [facility] Work Phone: Start: 10-12-2021 Periodic preventive med est patient 18-39 yrs Amparo Carter Work Phone: [facility] Work Phone: Start: 08-17-2021 AUDIT Amparo Carter Work Phone: [facility] Work Phone: Start: 06-09-2021 AUDIT Amparo Carter Work Phone: [facility] Work Phone: Start: 10-08-2020 Periodic preventive med est patient 18-39 yrs Amparo Carter Work Phone: [facility] Work Phone: Start: 09-30-2020 AUDIT Amparo Carney Raul Work Phone: [facility] Work Phone: Procedures Date Procedure Procedure Detail [...] Speci men Type: BLOOD SPECIMEN Ordering Facility: [facility] Address: [address] [place] [address] Performed By: #### T SPN #### [facility] CLIA [id number] [address] [place] [address] OF [place] Start: 03-10-2024 Us nuchal translucency 1st gestation Helena Ocampo CABLE MECHANIC.FORENSIC CHEMIST Work Phone: Start: 01-21-2024 Us uterus l imited 1/> fetuses Helena Ocampo APRN.FORENSIC CHEMIST Work Phone: Start: 10-11-2021 Lipid 1996 panel - S bijan or Plasma Amparo Carter MD Work Phone: Plan of Treatment Date Care Activity Detail Author Start: 2073 RSV Vaccine (1 - 1-d ose 75+ series) RSV Vaccine (1 - 1-dose 75+ series) [facility] Start: 2048 Zoster Vaccines (1 o f 2) Zoster Vaccines (1 of 2) [facility] Start: 06-23-2034 Urine microalbumin profile DTaP,Tdap,Td Vaccine (9 - Td or Tdap) [facility] Start: 01-20-2027 Screening for malign ant neoplasm of cervix Cervical Cancer Screening [facility] Start: 10-11-2026 Lipid panel Lipid Panel [facility] Start: 11-17-2024 Influenza vaccination Influenz a Vaccine (Season Ended) [facility] Start: 09-17-2024 End: 09-17-2024 Patient encounter procedure 09/17/2024 2:20 PM EDT Routine Office Visit OB/Gynecology [address] [place] [id number] Renee Escalera MD [address] [place] [id number] OB OB/Gynecology Comment on above: OB Start: 09-10-2024 End: 09-10-2024 Patient encounter procedure 09/10/2024 9:50 AM EDT Routine Office Visit OB/Gynecology [address] [place] [id number] Ashley Khan MD [address] [place] [id number] OB OB/Gynecology Comment on above: OB Start: 09-03-2024 End: 09-03-2024 Patient encounter procedure 09/03/2024 10:10 AM EDT Routine Office Visit OB/Gynecology [address] [place] [address] Renee Escalera MD [address] [place] [address] OB OB/Gynecology Comment on above: OB Start: 08-27-2024 End: 08-27-2024 Patient encounter procedure 08/27/2024 9:50 AM EDT Routine Office Visit OB/Gynecology [address] [place] [address] Ashley hKan MD [address] [place] [address] OB OB/Gynecology Comment on above: OB Start: 08-20-2024 End: 08-20-2024 Patient encounter procedure 08/20/2024 10:10 AM EDT Routine Office Visit OB/Gynecology [address] [place] [address] Renee Escalera MD [address] [place] [place] [address] OB OB/Gynecology Comment on above: OB Start: 08-04-2024 End: 08-04-2024 Patient encounter procedure 08/04/2024 3:40 PM EDT Routine Office Visit OB/Gynecology [address] [place] [address] William Chen MD [address] [place] [address] OB OB/Gynecology Comment on above: OB Start: 07-21-2024 End: 07-21-2024 Patient encounter procedure 07/21/2024 3:50 PM EDT Routine Office Visit OB/Gynecology [address] [place] [address] Ashley Khan MD [address] [place] [address] OB OB/Gynecology Comment on above: OB Start: 07-09-2024 End: 07-09-2024 Patient encounter procedure 07/09/2024 9:50 AM EDT Routine Office Visit OB/Gynecology [address] [place] [address] Rebekah Moon MD [address] [place] [address] OB OB/Gynecology Comment on above: OB Start: 06-23-2024 End: 06-23-2024 Patient encounter procedure OB/Gynecology Comment on above: OB OB FMLA paperwork in chart prep folder Start: 06-23-2024 End: 06-23-2024 ambulatory 06/23/2024 1:45 PM EDT Results Only [place] [facility] [address] [place] [address] ONE HOUR [place] [facility] Comment on above: ONE HOUR Start: 06-16-2024 End: 09-15-2024 ANEMIA REFLEX PANEL ANEMIA REFLEX PANEL Lab Routine Encounter for supervision of normal first in third trimester Expected: 06/16/2024, Expires: 09/15/2024 [facility] Comment on above: Expected: 06/16/2024 , Expires: 09/15/2024 Start: 06-16-2024 End: 06-02-2025 GESTATIONAL GLUCOSE SCREEN, 1-HOUR, 50 GRAM, NON-FASTING GESTATIONAL GLUCOSE SCREEN, 1-HOUR, 50 GRAM, NON-FASTING Lab Routine Screening for diabetes mellitus Expected: 06/16/2024, Expires: 06/02/2025 [facility] Work Phone: Comment on above: Expected: 06/16/2024 , Expires: 06/02/2025 Start: 06-16-2024 End: 06-02-2025 SYPHILIS TREPONEMAL W/REFLEX SYPHILIS TREPONEMAL W/REFLEX Lab Routine Encounter for supervision of normal first in third trimester Expected: 06/16/2024, Expires: 06/02/2025 [facility] Comment on above: Expected: 06/16/2024 , Expires: 06/02/2025 Start: 06-02-2024 End: 06-02-2024 Patient encounter procedure 06/02/2024 4:20 PM EDT Routine Office Visit OB/Gynecology [address] [place] [address] Rebekah Moon MD [address] [place] [address] OB Routine OB/Gynecology Comment on above: OB Routine Start: 05-05-2024 End: 05-05-2024 Patient encounter procedure 05/05/2024 9:45 AM EST Routine Office Visit OB/Gynecology [address] [place] [address] Joya Hassan APRN.CN [address] [place] [address] OB OB/Gynecology Comment on above: OB Start: 05-05-2024 End: 05-05-2024 Patient encounter procedure 05/05/2024 8:30 AM EST Routine Office Visit Maternal Medicine [address] [place] [address] ANATOMY / OB Maternal Medicine Comment on above: ANATOMY / OB Start: 04-07-2024 End: 04-07-2025 OBSTETRIC ULTRASOUND WHI OBSTETRIC ULTRASOUND WHI Anc Imaging Routine 17 weeks gestation of Encounter for supervision of normal first in second trimester Expected: 04/07/2024, Expires: 04/07/2025 [facility] Work Phone: Comment on above: Expected: 04/07/2024 , Expires: 04/07/2025 Start: 04-07-2024 End: 04-07-2024 Patient encounter procedure 04/07/2024 9:40 AM EST Routine Office Visit OB/Gynecology [address] [place], [place] [id number] William Chen MD [address] [place] [address] OB OB/Gynecology Comment on above: OB Start: 03-10-2024 End: 03-10-2024 Patient encounter procedure Maternal Medicine Comment on above: Nuchal 2nd OB Start: 02-29-2024 End: 02-29-2024 Patient encounter procedure 02/29/2024 2:20 PM EST Routine Office Visit OB/Gynecology [address] [place] [address] Patricia Hinds MD [address] [place] [address] 2nd OB OB/Gynecology Comment on above: 2nd OB Start: 01-21-2024 End: 04-21-2024 ANEMIA REFLEX PANEL ANEMIA REFLEX PANEL Lab Routine Expected: 01/21/2024, Expires: 04/21/2024 [facility] Work Phone: Comment on above: Expected: 01/21/2024 , Expires: 04/21/2024 Start: 01-21-2024 End: 04-21-2024 Chromosome 21 trisomy [Presence] in Blood or Tissue by Cytogenetics [id number] PLUS Lab Routine 6 weeks gestation of Expected: 01/21/2024, Expires: 04/21/2024 [facility] Comment on above: Expected: 01/21/2024 , Expires: 04/21/2024 Start: 01-21-2024 End: 04-21-2024 Hemoglobin A1c in Blood HEMOGLOBIN A1C Lab Routine Expected: 01/21/2024, Expires: 04/21/2024 [facility] Comment on above: Expected: 01/21/2024 , Expires: 04/21/2024 Start: 01-21-2024 End: 04-21-2024 Hepatitis B virus surface Ag [Presence] in Serum HEPATITIS B SURFACE ANTIGEN Lab Routine Expected: 01/21/2024, Expires: 04/21/2024 [facility] Comment on above: Expected: 01/21/2024 , Expires: 04/21/2024 Start: 01-21-2024 End: 04-21-2024 Hepatitis C virus Ab [Presence] in Serum HEPATITIS C ANTIBODY IA WITH CONFIRMATION Lab Routine Expected: 01/21/2024, Expires: 04/21/2024 [facility] Comment on above: Expected: 01/21/2024 , Expires: 04/21/2024 Start: 01-21-2024 End: 04-21-2024 HIV 1+2 Ab [Presence] in Serum or Plasma by Immunoassay HIV 1/2 COMBO WITH REFLEX TO DIFFERENTIATION Lab Routine Expected: 01/21/2024, Expires: 04/21/2024 [facility] Comment on above: Expected: 01/21/2024 , Expires: 04/21/2024 Start: 01-21-2024 End: 01-20-2025 NUCHAL TRANSLUCENCY WHI NUCHAL TRANSLUCENCY WHI Anc Imaging Routine 6 weeks gestation of Expected: 01/21/2024, Expires: 01/20/2025 [facility] Comment on above: Expected: 01/21/2024 , Expires: 01/20/2025 Start: 01-21-2024 End: 04-21-2024 RUBELLA IGG ANTIBODY RUBELLA IGG ANTIBODY Lab Routine Expected: 01/21/2024, Expires: 04/21/2024 [facility] Comment on above: Expected: 01/21/2024 , Expires: 04/21/2024 Start: 01-21-2024 End: 04-21-2024 SYPHILIS TREPONEMAL W/REFLEX SYPHILIS TREPONEMAL W/REFLEX Lab Routine Expected: 01/21/2024, Expires: 04/21/2024 [facility] Comment on above: Expected: 01/21/2024 , Expires: 04/21/2024 Start: 01-21-2024 End: 04-21-2024 TYPE + SCREEN TYPE + SCREEN Blood Bank Routine Expected: 01/21/2024, Expires: 04/21/2024 [facility] Comment on above: Expected: 01/21/2024 , Expires: 04/21/2024 Start: 11-18-2023 Covid-19 Vaccine () Covid-19 Vaccine () [facility] Start: 11-18-2023 Influenza vaccination Influenza Vacc ine (#1) [facility] Start: 11-17-2022 Influenza vaccination Influenza Vacc ine (#1) [facility] Start: 10-12-2021 PHYSICAL, Provider: Amparo Carter, Status: Pen, Time: 10:30 AM PHYSICAL, Provider: Amparo Carter, Status: Pen, [facility]: 10:30 [facility]: Start: 10-08-2020 PHYSICAL, Provider: Amparo Carter, Status: Pen, Time: 10:30 AM PHYSICAL, Provider: Amparo Carter, Status: Pen, Time: 10:30 AM [facility] Work Phone: Start: 02-10-2020 DTaP/Tdap/Td Vaccine s (2 - Td or Tdap) DTaP/Tdap/Td Vaccines (2 - Td or Tdap) [facility] Start: 02-10-2020 Urine microalbumin profile DTaP,Tdap,Td Vaccine (8 - Td or Tdap) [facility] Start: 06-23-2019 Screening for malign ant neoplasm of cervix [facility] Start: 2016 Anxiety Screening Anxiety Screening [facility] Start: 2016 Depression Screening Depression Scre ening [facility] Start: 2016 Hepatitis C screening Hepatitis C Sc reening [facility] Start: 2016 HIV screening HIV Screening [facility] Start: 2012 Peds To Adult Transition Annual Assessment Peds To Adult Transition Annual Assessment [facility] Start: 01-01-2012 MMR Vaccines (1 of 1 - Standard series) MMR Vaccines (1 of 1 - Standard series) [facility] Start: 01-01-2012 Varicella vaccination Varicell a Vaccines (2 of 2 - 13+ 2-dose series) [facility] Start: 2010 Peds To Adult Transition Initial Discussion Peds To Adult Transition Initial Discussion [facility] Start: 1998 COVID-19 Vaccine (#1) COVID-19 Vacci ne (#1) [facility] Start: 1998 Hepatitis B Vaccines (1 of 3 - 3-dose series) Hepatitis B Vaccines (1 of 3 - 3-dose series) [facility] Start: 1998 HIV screening HIV Screening [facility] Start: 1998 Yearly Adult Physical Yearly Adult P [facility] Bacteria identified in Urine by Culture URINE CULTURE Microbiology Routine 01/21/2024 3:55 PM [facility] Chlamydia trachomatis+Neisseria gonorrhoeae DNA [Presence] in Unspecified specimen by HOSSEIN with probe detection GONORRHEA/CHLAMYDIA NAAT Lab Routine 01/21/2024 3:55 PM [facility] PAP TEST PAP TEST Lab Rou nuvia Screening for malignant neoplasm of cervix Encounter for screening for human papillomavirus (HPV) 01/21/2024 3:55 PM [facility] ROUTINE, GR OUP B STREPTOCOCCUS BY PCR ROUTINE, GROUP B STREPTOCOCCUS BY PCR Microbiology Routine Encounter for supervision of normal first in third trimester (HCC) 08/20/2024 10:42 AM EDT [facility] Work Phone: Immunizations Immunization Date Immunization Notes Care Provider Fa cili 06-23-2024 tetanus toxoid, redu minda diphtheria toxoid, and acellular pertussis vaccine, adsorbed William Chen MD Work Phone: [facility] 01-23-2018 influenza virus vacc ine, unspecified formulation Helena Ocampo APRN.CNP Work Phone: [facility] 02-20-2017 influenza virus vacc ine, unspecified formulation Amparo Carter Work Phone: [facility] Work Phone: Comment on above: Series: 11-24-2015 meningococcal polysaccharide (groups A, C, Y and W-135) diphtheria toxoid conjugate vaccine (MCV4P); Translations: [Menactra Intramuscular Injectable] Amparo Carter Work Phone: [facility] Work Phone: Comment on above: Series: 12-14-2014 influenza, seasonal, injectable; Translations: [Fluzone INJ] Amparo Carter Work Phone: [facility] Work Phone: Comment on above: Series: 06-04-2013 human papilloma viru s vaccine, quadrivalent; Translations: [Gardasil SUSP] Amparo Carter Work Phone: [facility] Work Phone: Comment on above: Series: 02-26-2013 human papilloma viru s vaccine, quadrivalent; Translations: [Gardasil SUSP] Amparo Viverosmel Work Phone: [facility] Work Phone: Comment on above: Series: 10-23-2012 human papilloma viru s vaccine, quadrivalent; Translations: [Gardasil SUSP] Amparo Carter Work Phone: [facility] Work Phone: Comment on above: Series: 12-04-2011 varicella virus vaccine Kari murray Rommel ViverosRaul Work Phone: [facility] Work Phone: Comment on above: Series: 02-09-2010 influenza, live, intranasal, quadrivalent Amparo Viverosmel Work Phone: [facility] Work Phone: Comment on above: Series: 02-09-2010 meningococcal polysaccharide (groups A, C, Y and W-135) diphtheria toxoid conjugate vaccine (MCV4P) Amparo Carney Raul Work Phone: [facility] Work Phone: Comment on above: Series: 02-09-2010 tetanus toxoid, redu minda diphtheria toxoid, and acellular pertussis vaccine, adsorbed Amparo Carney Raul Work Phone: [facility] Work Phone: Comment on above: Series: Payers Date Payer Category Payer Self-pay 2024 Unknown [id number] 2023 Private Health Insurance [id number] 2018 Unknown 2018 Unknown [id number] 1998 Unknown [id number] Unknown [id number] Social History Date Type Detail Facility Start: 10-25-2022 End: 03-10-2024 Never a smoker Never a smoker [facility] Work Phone: Start: 10-25-2022 End: 01-16-2024 Tobacco smoking status NHIS Never smoked tobacco [facility] Work Phone: Start: 10-25-2022 End: 01-16-2024 Tobacco use and exposure Smokeless tobacco non-user [facility] Work Phone: Start: 10-25-2022 Alcohol intake Not Asked [facility] Work Phone: Start: 10-25-2022 End: 03-10-2024 Tobacco use panel [facility] Work Phone: Start: 10-25-2022 Alcohol Comment socially [facility] Work Phone: Start: 2000 Sex Assigned At Not on file [facility] Work Phone: Start: 10-15-2022 End: 10-25-2022 Exposure to SARS-CoV-2 (event) Not sure [facility] Start: 01-16-2024 End: 09-10-2024 Alcoholic beverage intake Ex-drinker (finding) [facility] Start: 01-16-2024 Education 17 [facility] Start: 01-16-2024 Alcohol Comment Stopped drinki ng alcohol when knowledge of [facility] Start: 12-23-2023 [facility] National Score (1-100), lower number is lower risk 45 [facility] NEGATED: Highlighted rowStart: NINF History of tobacco use Passive smoker [facility] Work Phone: Goals Date Patient Goal [...] discussed with the Patient or Patient's Authorized Metal Punch Press Operator. As applicable, any other physician, advance practice provider, medical student, or other health professional student that will be observing or involved in the sensitive examination for educational or training purposes was discussed with the Patient or Authorized Metal Punch Press Operator. The Patient or Authorized Metal Punch Press Operator has agreed to proceed with the sensitive examination. Plan for induction if not delivered by 41 weeks ASSESSMENT/PLAN: 1. Encounter for supervision of normal first in third trimester (HCC) - ICD9: V22.0, ICD10: Z34.03 (primary diagnosis) - URINE OB DIP B/O 2. 39 weeks gestation of (HCC) - ICD9: V22.2, ICD10: Z3A.39 - URINE OB DIP B/O Ashley Khan MD [facility] 09-10-2024 Miscellaneous Notes S: Jesús Cuevas is [...] discussed with the Patient or Patient's Authorized Metal Punch Press Operator. As applicable, any other physician, advance practice provider, medical student, or other health professional student that will be observing or involved in the sensitive examination for educational or training purposes was discussed with the Patient or Authorized Metal Punch Press Operator. The Patient or Authorized Metal Punch Press Operator has agreed to proceed with the sensitive [...] Ashley Khan MD documented in this encounter [facility] 09-10-2024 Instructions Becki Lara MA - 09/10/2024 9:44 AM EDT SEQUENTIAL SCREENINGS The [facility] offers sequential screenings for women who are [...] It will require an appointment with our train electronic technician. This is not an ultrasound performed [...] the above symptoms, contact our office at [phone] and ask to speak with a nurse. After hours, you can call [facility] at [phone] OR call [facility] at [phone] and ask to have the doctor classification case manager paged. If you consider this an emergency, dial 9-1-1 or go to your nearest emergency department. NEED HELP? Are you dealing with a violent or abusive relationship? Are you a victim of rape or sexual assult? Call [facility] ([place]) 24 hour Crisis Hotline: 986.278.5914 or 848-955-9216. MANUAL Your Guide to a Healthy manual is now on-line. Visit [email or web address] to download your free copy documented in this encounter [facility] 09-03-2024 Progress note Formatting of t his [...] B/O labor precautions reviewed nia Escalera M.D. [facility] 09-03-2024 Miscellaneous Notes RR- VB No. LOF [...] nia Escalera M.D. documented in this encounter [facility] 09-03-2024 Instructions Gaby Duncan MA - 09/03/2024 10:01 AM EDT SEQUENTIAL SCREENINGS The [facility] offers sequential screenings for women who are [...] It will require an appointment with our train electronic technician. This is not an ultrasound performed [...] the above symptoms, contact our office at [phone] and ask to speak with a nurse. After hours, you can call doctors registry at [phone] OR call [facility] at [phone] and ask to have the doctor classification case manager paged. If you consider this an emergency, dial 9-3-2 or go to your nearest emergency department. NEED HELP? Are you dealing with a violent or abusive relationship? Are you a victim of rape or sexual assult? Call [facility] ([place]) 24 hour Crisis Hotline: 201.925.4546 or 590-257-4923. MANUAL Your Guide to a Healthy manual is now on-line. Visit [email or web address] to download your free copy documented in this encounter [facility] 09-02-2024 History of Presen t illness Narrative POPULATION HEALTH NAVIGATION OUTREACH Action/FYI Called and spoke with pt and confirmed mitten sewer. Reason for Outreach Medicaid OB/Peds Care Gaps due: N/A Patient Contacted: Spoke to patient/parent/or legal guardian Patient identified by name and : Yes Medicaid OB/Peds actions taken: [place] added Navigation Signature: Antonette Ramsey MA September 02, 2024 2:23 PM documented in this encounter [facility] 09-02-2024 Note HNO ID: [id number] Author: ANTONETTE DORANTES MA Service: ? Author Type: Housekeeping/Laundry Supervisor Type: Progress Notes Filed: 09/02/2024 14:25 Note Text: POPULATION HEALTH NAVIGATION OUTREACH Action/FYI Called and spoke with pt and confirmed mitten sewer. Reason for Outreach Medicaid OB/Peds Care Gaps due: N/A Patient Contacted: Spoke to patient/parent/or legal guardian Patient identified by name and : Yes Medicaid OB/Peds actions taken: [place] added Navigation Signature: Antonette Ramsey MA September 02, 2024 2:23 PM [facility] 09-02-2024 Note Patient Outreach (NE TNAV) JESÚS CUEVAS ([id number]) 2000 F Date Time Provider Department 09/02/24 ANTONETTE DORANTES During your visit today, we recorded the following information about you: Antonette Dorantes MA 09/02/2024 2:25 PM Signed POPULATION HEALTH NAVIGATION OUTREACH Action/FYI Called and spoke with pt and confirmed mitten sewer. Reason for Outreach Medicaid OB/Peds Care Gaps due: N/A Patient Contacted: Spoke to patient/parent/or legal guardian Patient identified by name and : Yes Medicaid OB/Peds actions taken: /[employer] added Navigation Signature: Antonette Ramsey MA September [...] Encounter Status:Closed by ANTONETTE DORANTES on 09/02/24 [facility] 08-27-2024 Progress note Formatting of [...] DIP B/O 2. 37 weeks gestation of ([facility]) - ICD9: V22.2, ICD10: Z3A.37 - URINE OB DIP B/O Ashley Khan MD [facility] 08-27-2024 Miscellaneous Notes S: Jesús Cuevas is [...] supervision of normal first in third trimester ([facility]) - ICD9: V22.0, ICD10: Z34.03 (primary diagnosis) - URINE OB DIP B/O 2. 37 weeks gestation of ([facility]) - ICD9: V22.2, ICD10: Z3A.37 - URINE OB DIP B/O Ashley Khan MD documented in this encounter [facility] 08-27-2024 Instructions Marcos Haji MA - 08/27/2024 9:59 AM EDT SEQUENTIAL SCREENINGS The [facility] offers sequential screenings for women who are [...] It will require an appointment with our train electronic technician. This is not an ultrasound performed [...] the above symptoms, contact our office at [phone] and ask to speak with a nurse. After hours, you can call doctors registry at [phone] OR call [facility] at [phone] and ask to have the doctor classification case manager paged. If you consider this an emergency, dial 9-1-0 or go to your nearest emergency department. NEED HELP? Are you dealing with a violent or abusive relationship? Are you a victim of rape or sexual assult? Call [facility] ([place]) 24 hour Crisis Hotline: 882.845.1538 or 966-669-1943. MANUAL Your Guide to a Healthy manual is now on-line. Visit [email or web address] to download your free copy documented in this encounter [facility] 08-20-2024 Progress note Formatting of t his note might be different from the original. RR- VB No. LOF No. CTXS No. Movement: present. Other c/o: No. Medication list reviewed. SENSITIVE EXAM: Sensitive exam not performed. Physical Exam See Flow Sheet Abd: soft, nontender, gravid Ext: edema: no A/P 36w3d Estimated Date of Delivery: 09/14/24 Assessment & Plan 36 weeks gestation of ([facility]) Orders: URINE OB DIP B/O Encounter for supervision of normal first in third trimester ([facility]) kick counts labor precautions Orders: URINE OB DIP B/O ROUTINE, GROUP B STREPTOCOCCUS BY PCR Renee Escalera M.D. [facility] 08-20-2024 Miscellaneous Notes RR- VB No. LOF No. CTXS No. Movement: present. Other c/o: No. Medication list reviewed. SENSITIVE EXAM: Sensitive exam not performed. Physical Exam See Flow Sheet Abd: soft, nontender, gravid Ext: edema: no A/P 36w3d Estimated Date of Delivery: 09/14/24 Assessment & Plan 36 weeks gestation of ([facility]) Orders: URINE OB DIP B/O Encounter for supervision of normal first in third trimester ([facility]) kick counts labor precautions Orders: URINE OB DIP B/O ROUTINE, GROUP B STREPTOCOCCUS BY PCR Renee Escalera M.D. documented in this encounter [facility] 08-20-2024 Instructions Antonette Perry MA - 08/20/2024 10:14 AM EDT SEQUENTIAL SCREENINGS The [facility] offers sequential screenings for women who are [...] It will require an appointment with our train electronic technician. This is not an ultrasound performed [...] the above symptoms, contact our office at [phone] and ask to speak with a nurse. After hours, you can call doctors registry at [phone] OR call [facility] at [phone] and ask to have the doctor classification case manager paged. If you consider this an emergency, dial 9--1 or go to your nearest emergency department. NEED HELP? Are you dealing with a violent or abusive relationship? Are you a victim of rape or sexual assult? Call [facility] ([place]) 24 hour Crisis Hotline: 579.603.5130 or 019-518-8698. MANUAL Your Guide to a Healthy manual is now on-line. Visit [email or web address] to download your free copy documented in this encounter [facility] 08-14-2024 Telephone encounter Note Faxed. Marsha Pugh RN [facility] 08-14-2024 Miscellaneous Notes Faxed. Marsha Pugh RN Breast pump order received from [facility]. To SW to sign. Mary Ann Benitez RN documented in this encounter [facility] 08-05-2024 Telephone encounter Note Breast pump order received from [facility]. To SW to sign. Mary Ann Benitez RN [facility] 08-04-2024 Progress note Formatting of t his note might be different from the original. SW- Pt doing well. No pain, vb, lof. Good FM PE: Gen- NAD, well appearing Abd- Soft, gravid, NT See flowsheet A/p 34 wk gestation - Discussed upcoming expectations - RTO 2 wks William Chen DO [facility] 08-04-2024 Miscellaneous Notes SW- Pt doing well. No pain, vb, lof. Good FM PE: Gen- NAD, well appearing Abd- Soft, gravid, NT See flowsheet A/p 34 wk gestation - Discussed upcoming expectations - RTO 2 wks William Chen DO documented in this encounter [facility] 08-04-2024 Instructions Antonette Perry MA - 08/04/2024 3:43 PM EDT SEQUENTIAL SCREENINGS The [facility] offers sequential screenings for women who are [...] It will require an appointment with our train electronic technician. This is not an ultrasound performed [...] the above symptoms, contact our office at [phone] and ask to speak with a nurse. After hours, you can call doctors registry at [phone] OR call [facility] at [phone] and ask to have the doctor classification case manager paged. If you consider this an emergency, dial 9-1-2 or go to your nearest emergency department. NEED HELP? Are you dealing with a violent or abusive relationship? Are you a victim of rape or sexual assult? Call [facility] ([place]) 24 hour Crisis Hotline: 474.727.4798 or 326-450-5425. MANUAL Your Guide to a Healthy manual is now on-line. Visit [email or web address] to download your free copy documented in this encounter [facility] 07-21-2024 Progress note Formatting of t his [...] supervision of normal first in third trimester ([facility]) - ICD9: V22.0, ICD10: Z34.03 (primary diagnosis) PTL labor precautions 2. 32 weeks gestation of (HCC) - ICD9: V22.2, ICD10: Z3A.32 Ashley Khan MD [facility] 07-21-2024 Miscellaneous Notes S: Jesús Cuevas is [...] supervision of normal first in third trimester ([facility]) - ICD9: V22.0, ICD10: Z34.03 (primary diagnosis) PTL labor precautions 2. 32 weeks gestation of ([facility]) - ICD9: V22.2, ICD10: Z3A.32 Ashley Khan MD documented in this encounter [facility] 07-21-2024 Instructions Gaby Duncan MA - 07/21/2024 3:53 PM EDT SEQUENTIAL SCREENINGS The [facility] offers sequential screenings for women who are [...] It will require an appointment with our train electronic technician. This is not an ultrasound performed [...] the above symptoms, contact our office at [phone] and ask to speak with a nurse. After hours, you can call doctors registry at [phone] OR call [facility] at [phone] and ask to have the doctor classification case manager paged. If you consider this an emergency, dial 1-1-3 or go to your nearest emergency department. NEED HELP? Are you dealing with a violent or abusive relationship? Are you a victim of rape or sexual assult? Call [facility] ([place]) 24 hour Crisis Hotline: 895.868.3192 or 689-834-0038. MANUAL Your Guide to a Healthy manual is now on-line. Visit [email or web address] to download your free copy documented in this encounter [facility] 07-09-2024 Note HNO ID: [id number] Author: REBEKAH MOON MD Service: ? Author [...] I and Reactive SIGNATURE: Rebekah Jett MD [facility] 07-09-2024 History of Presen t [...] Rebekah Jett MD documented in this encounter [facility] 07-09-2024 Progress note Formatting of t his [...] reactive cat 1 30 weeks gestation of ([facility]) Kick counts reviewed Rebekah Jett MD [facility] 07-09-2024 Miscellaneous Notes DM-Pt doing well. Denies [...] Rebekah Jett MD documented in this encounter [facility] 07-09-2024 Instructions Becki Lara MA - 07/09/2024 9:51 AM EDT SEQUENTIAL SCREENINGS The [facility] offers sequential screenings for women who are [...] It will require an appointment with our train electronic technician. This is not an ultrasound performed [...] the above symptoms, contact our office at [phone] and ask to speak with a nurse. After hours, you can call doctors registry at [phone] OR call [facility] at [phone] and ask to have the doctor classification case manager paged. If you consider this an emergency, dial 9-1-1 or go to your nearest emergency department. NEED HELP? Are you dealing with a violent or abusive relationship? Are you a victim of rape or sexual assult? Call [facility] ([place]) 24 hour Crisis Hotline: 419.228.7720 or 620-626-9869. MANUAL Your Guide to a Healthy manual is now on-line. Visit [email or web address] to download your free copy documented in this encounter [facility] 06-23-2024 Progress note Formatting of t his [...] plan sheet given - Discussed classes at [facility] [employer] - Discussed peds - RTO 2 wks William Chen DO [facility] 06-23-2024 Miscellaneous Notes SW- Pt doing well. Patient fell out of bed onto left side 3 days ago. No pain, vb, lof. Good FM PE: Gen- NAD, well appearing Abd- Soft, gravid, NT See flowsheet A/p 28 wk gestation - 28 wk labs today - Tdap today - LARC signed - plan sheet given - Discussed classes at [facility] [employer] - Discussed peds - RTO 2 wks William Chen DO documented in this encounter [facility] 06-23-2024 Note HNO ID: [id number] Author: ANTONETTE PERRY MA Service: ? Author Type: Housekeeping/Laundry Supervisor Type: Progress Notes Filed: 06/23/2024 16:26 Note [...] severely ill: Yes Patient denies history of Guillain-Aquilla Syndrome (a severe paralytic illness): Yes Tdap Adacel injection was given without incident. See immunizations for details of immunizations administered today. VIS sheet provided: Yes Provider William Chen DO was present in office at time of injection. Antonette Perry MA [facility] 06-23-2024 History of Presen t [...] severely ill: Yes Patient denies history of Guillain-Aquilla Syndrome (a severe paralytic illness): Yes Tdap Adacel injection was given without incident. See immunizations for details of immunizations administered today. VIS sheet provided: Yes Provider William Chen DO was present in office at time of injection. Antonette Perry MA documented in this encounter [facility] 06-23-2024 Instructions Antonette Perry MA - 06/23/2024 1:53 PM EDT SEQUENTIAL SCREENINGS The [facility] offers sequential screenings for women who are [...] It will require an appointment with our train electronic technician. This is not an ultrasound performed [...] the above symptoms, contact our office at [phone] and ask to speak with a nurse. After hours, you can call doctors registry at [phone] OR call [facility] at [phone] and ask to have the doctor classification case manager paged. If you consider this an emergency, dial 9--5 or go to your nearest emergency department. NEED HELP? Are you dealing with a violent or abusive relationship? Are you a victim of rape or sexual assult? Call [facility] ([place]) 24 hour Crisis Hotline: 804.705.5674 or 070-782-7987. MANUAL Your Guide to a Healthy manual is now on-line. Visit [email or web address] to download your free copy documented in this encounter [facility] 06-06-2024 Telephone encounter Note FMLA paperwork completed and faxed back to employer. Patient would like original back, placed in chart prep folder for upcoming appointment. Patient notified. Desmond Michael MA [facility] 06-06-2024 Miscellaneous Notes FMLA paperwork completed and faxed back to employer. Patient would like original back, placed in chart prep folder for upcoming appointment. Patient notified. Desmond Michael MA FMLA paperwork completed and placed on providers desk for signature. Desmond Michael MA documented in this encounter [facility] 06-04-2024 Telephone encounter Note FMLA paperwork completed and placed on providers desk for signature. Desmond Michael MA [facility] 06-02-2024 Progress note Formatting of t his [...] Future Visit for screening Rebekah Jett MD [facility] 06-02-2024 Miscellaneous Notes DM-Pt doing well. Denies [...] Rebekah Jett MD documented in this encounter [facility] 06-02-2024 Becki Garcia MA - 06/02/2024 4:08 PM EDT SEQUENTIAL SCREENINGS The [facility] offers sequential screenings for women who are [...] It will require an appointment with our train electronic technician. This is not an ultrasound performed [...] the above symptoms, contact our office at [phone] and ask to speak with a nurse. After hours, you can call doctors registry at [phone] OR call [facility] at [phone] and ask to have the doctor classification case manager paged. If you consider this an emergency, dial 6-0-0 or go to your nearest emergency department. NEED HELP? Are you dealing with a violent or abusive relationship? Are you a victim of rape or sexual assult? Call [facility] ([place]) 24 hour Crisis Hotline: 976.232.9833 or 615-781-2293. MANUAL Your Guide to a Healthy manual is now on-line. Visit [email or web address] [email or web address] to download your free copy documented in this encounter [facility] 05-06-2024 Progress note Formatting of t his note might be different from the original. Anatomy ultrasound reviewed. No abnormalities identified. Follow up as clinically indicated. Please place copy in ob chart. Renee Escalera MD [facility] Work Phone: 05-06-2024 Miscellaneous Notes Anatomy ultrasound reviewed. No abnormalities identified. Follow up as clinically indicated. Please place copy in ob chart. Renee Escalera MD documented in this encounter [facility] 05-05-2024 Progress note Formatting of t his [...] or sooner if needed Joya Hassan APRN.CNM [facility] 05-05-2024 Miscellaneous Notes S: Jesús Cuevas is [...] Joya Hassan APRN.CNM documented in this encounter [facility] 04-07-2024 Progress note Formatting of t his note might be different from the original. SW- No pain, vb, lof. Has a cough. 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 PE: Gen- NAD, well appearing Abd- Soft, NT See flowsheet A/p 17 wk gestation - Discussed symptomatic measures for URI's - Reviewed NOB labs - Declines flu vaccine - Schedule anatomy US - RTO 4 wks William Chen DO [facility] 04-07-2024 Miscellaneous Notes SW- No pain, vb, lof. Has a cough. 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 PE: Gen- NAD, well appearing Abd- Soft, NT See flowsheet A/p 17 wk gestation - Discussed symptomatic measures for URI's - Reviewed NOB labs - Declines flu vaccine - Schedule anatomy US - RTO 4 wks William Chen DO documented in this encounter [facility] 04-07-2024 Instructions Antonette Perry MA - 04/07/2024 9:29 AM EST SEQUENTIAL SCREENINGS The [facility] offers sequential screenings for women who are [...] It will require an appointment with our train electronic technician. This is not an ultrasound performed [...] the above symptoms, contact our office at [phone] and ask to speak with a nurse. After hours, you can call doctors registry at [phone] OR call [facility] at [phone] and ask to have the doctor classification case manager paged. If you consider this an emergency, dial 9-2 or go to your nearest emergency department. NEED HELP? Are you dealing with a violent or abusive relationship? Are you a victim of rape or sexual assult? Call [facility] ([place]) 24 hour Crisis Hotline: 174.258.2547 or 259-508-0737. MANUAL Your Guide to a Healthy manual is now on-line. Visit [email or web address] to download your free copy documented in this encounter [facility] 03-10-2024 Progress note Formatting of t his [...] ICD9: V22.0, ICD10: Z34.02 Ashley Khan MD [facility] 03-10-2024 Miscellaneous Notes S: Jesús Cuevas is [...] Ashley Khan MD documented in this encounter [facility] 03-10-2024 Instructions Antonette Perry MA - 03/10/2024 9:50 AM EST SEQUENTIAL SCREENINGS [facility] offers sequential screenings for women who are [...] It will require an appointment with our train electronic technician. This is not an ultrasound performed [...] the above symptoms, contact our office at [phone] and ask to speak with a nurse. After hours, you can call doctors registry at [phone] OR call [facility] at [phone] and ask to have the doctor classification case manager paged. If you consider this an emergency, dial 9--1 or go to your nearest emergency department. NEED HELP? Are you dealing with a violent or abusive relationship? Are you a victim of rape or sexual assult? Call [facility] ([place]) 24 hour Crisis Hotline: 827.262.1809 or 001-821-6611. MANUAL Your Guide to a Healthy manual is now on-line. Visit [email or web address] to download your free copy documented in this encounter [facility] 01-21-2024 Instructions Lissy Mcgovern LPN - 01/21/2024 2:42 PM EST Please select the following link to access the [facility] Your Guide to a Healthy . [email or web address] de documented in this encounter [facility] 01-16-2024 Telephone encounter Note Attempted to call patient back immediately back after receiving notification from RN of patient returning our call to go over new ob intake. Had to leave a voicemail message. Lynn Trinidad MA [facility] 01-16-2024 Miscellaneous Notes Attempted to call patient [...] or you can try to transfer to [facility] documented in this encounter [facility] 01-16-2024 Note HNO ID: [id number] Author: HELENA OCAMPO APRN.FORENSIC CHEMIST Service: ? Author Type: Nurse Practitioner Type: Progress Notes Filed: 01/21/2024 15:54 Note Text: Fisheries Officer offered: Patient declines. 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 [facility] 01-16-2024 History of Presen t illness Narrative Fisheries Officer offered: Patient declines. 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 As applicable, any other physician, advance practice provider, medical student, or other health professional student that will be observing or involved in the sensitive examination for educational or training purposes was discussed with the Patient or Authorized Metal Punch Press Operator. The Patient or Authorized Metal Punch Press Operator has agreed to proceed with the sensitive [...] with LMP. LAKSHMI now 09/14/24 Helena Ocampo APRN.FORENSIC CHEMIST ASSESSMENT: 23 year old No obstetric history on file. at Unknown wks gestational age PLAN: 1) Patient oriented to practice. Patient given new OB orientation folder. Discussed nutrition, folic acid supplementation, dietary guidelines, exercise, smoking, alcohol, caffeine, and drug use. Discussed gestational weight gain guidelines. Discussed routine OB labs including STD/HIV. Discussed how to access Your guide to a health and the Film Composer. Reviewed midwifery and kiln cleaner services that are available. 2) Screening: Hemoglobin [...] Helena Ocampo APRN.SHANEL documented in this encounter [facility] 01-16-2024 Telephone encounter Note Left message for patient to return phone call to complete nurse intake questions for her upcoming appointment. Patient has an appointment with Helena Ocampo for NOB appointment. I can call patient at 2:30 or 3:30 today if she is available or you can try to transfer to [facility] 10-25-2022 History of Presen t illness Narrative [...] the evening. Patient will establish with a STUDENT ASSISTANT since she is getting and planning ongoing office control. We had a long discussion about spironolactone and that she cannot be on that if she is getting or trying to get When she is finished with her catheter control after she gets she will stop it Xyzal is refilled I recommended she follow-up with her auto dealership porter to look at other options for acne control Reviewed last year's blood work she does not need any this year She will follow-up with me annually Amparo Carter MD documented in this encounter [facility] Work Phone: Evaluation note Diagnosis Routine general medical examination at a health care facility- Primary Allergy, subsequent encounter documented in this encounter [facility] Work Phone: Evaluation note* Diagnosis Screening for malignant neoplasm of cervix- Primary Screening for malignant neoplasm of the cervix Encounter for screening for human papillomavirus (HPV) Special screening examination for human papillomavirus (HPV) 6 weeks gestation of state, incidental Encounter for supervision of normal first in first trimester Supervision of normal first [facility] Diagnosis 13 weeks gestation of - Primary state, incidental Encounter for supervision of normal first in second trimester Supervision of normal first [facility] Diagnosis Encounter for screening for malformation using ultrasound- Primary 13 weeks gestation of state, incidental [facility] Diagnosis Encounter for supervision of normal first in second trimester- Primary Supervision of normal first 17 weeks gestation of state, incidental [facility] Diagnosis Encounter for supervision of normal first in second trimester- Primary Supervision of normal first 21 weeks gestation of state, incidental Encounter for supervision of normal first in first trimester Supervision of normal first [facility] Diagnosis Encounter for anatomic survey- Primary 21 weeks gestation of state, incidental [facility] Diagnosis Encounter for supervision of normal first in second trimester- Primary Supervision of normal first Screening for diabetes mellitus Encounter for supervision of normal first in third trimester Supervision of normal first Visit for screening Unspecified screening [facility] Diagnosis Supervision of other normal , antepartum (HCC)- Primary Need for vaccination Need for prophylactic vaccination and inoculation against unspecified single disease 28 weeks gestation of (HCC) state, incidental [facility] Diagnosis Encounter for supervision of normal first in third trimester (HCC)- Primary Supervision of normal first Variable heart rate decelerations, antepartum (HCC) distress affecting management of mother, antepartum 30 weeks gestation of ([facility]) state, incidental [facility] Diagnosis Encounter for supervision of normal first in third trimester (HCC)- Primary Supervision of normal first 32 weeks gestation of (HCC) state, incidental [facility] Diagnosis Encounter for supervision of normal first in third trimester (HCC)- Primary Supervision of normal first 34 weeks gestation of (HCC) state, incidental [facility] Diagnosis 36 weeks gestation of (HCC)- Primary state, incidental Encounter for supervision of normal first in third trimester (HCC) Supervision of normal first [facility] Diagnosis Encounter for supervision of normal first in third trimester (HCC)- Primary Supervision of normal first 37 weeks gestation of (HCC) state, incidental [facility] Diagnosis Encounter for supervision of normal first in third trimester (HCC)- Primary Supervision of normal first 38 weeks gestation of (HCC) state, incidental [facility] Diagnosis Encounter for supervision of normal first in third trimester (HCC)- Primary Supervision of normal first 39 weeks gestation of (HCC) state, incidental [facility] encounter [facility] N[facility]* The last health [...] see dermatology for this. 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 * Doing well. * works at [employer] as well * Medication list reviewed and updated. * Montelukast, albuterol, levocetirizine refills needed. * Needs control refills. * Sees dermatology. Dr. Lee. * On spironolactone and tretinoin. * He ordered HFP, lipid panel on 03/23/20, labs unremarkable. * Has not started PAPs. * Would like to see burlap worker. * Has some issues with back pain. * Attributes to bad posture. * Has some dark veins on legs. * Varicose veins starting. Her mom also has this too. [facility] Work Phone: History of Present [...] No genitourinary issues. * No skin problems. [facility] Work Phone: History of Present [...] No genitourinary issues. * No skin problems. [facility] Work Phone: Reason for referral (narrative)* Diagnostic Procedure Only (Routine) - Authorized Specialty Diagnoses / Procedures Referred By Johnathon albrecht Referred To Contact [facility] Diagnoses 6 weeks gestation of Procedures NUCHAL TRANSLUCENCY WHI US NUCHAL TRANSLUCENCY 1ST GESTATION Helena Ocampo APRN.CNP [address] [place] [address] [facility] [address] [place] [address] Referral ID Status Reason Start Date Expiration Date Visits Requested Visits Authorized [id number] Authorized Auto-Generat ed Referral 01/21/2024 01/20/2025 [facility] Diagnostic Procedure Only (Routine) - Pending Review Specialty Diagnoses / Procedures Referred By Johnathon albrecht Referred To Contact [facility] Diagnoses 17 weeks gestation of Encounter for supervision of normal first in second trimester Procedures OBSTETRIC ULTRASOUND WHI US PREG UTERUS AFTER 1ST TRIMEST GESTATION William Chen MD [address] [place] [address] [facility] [address] [place] [address] Referral ID Status Reason Start Date Expiration Date Visits Requested Visits Authorized [id number] Pending Review Auto-Generat ed Referral 04/07/2024 04/07/2025 1 1 [facility] Family History No Family History Records [...] section and content) DATE CREATED AUTHOR 10/15/2021 [employer] DATE CREATED AUTHOR AUTHOR'S ORGANIZ ATION 10/17/2021 [facility] DATE CREATED AUTHOR AUTHOR'S ORGANIZ ATION 07/03/2023 [facility] DATE CREATED AUTHOR AUTHOR'S ORGANIZ ATION 08/20/2024 [facility] DATE CREATED AUTHOR AUTHOR'S ORGANIZ ATION 09/11/2024 [facility] Reason for Visit (unrecogniz ed section and content) Reason Comments Annual Exam CPE, no pap Reason Comments Appointment Reason Comments Initial OB Visit Reason Onset Date Comments Care 03/10/2024 Reason Comments US Specialty Diagnoses / Procedures Referred By Contac t Referred To Contact [facility] Diagnoses 6 weeks gestation of Procedures NUCHAL TRANSLUCENCY WHI US NUCHAL TRANSLUCENCY 1ST GESTATION Helena Ocampo APRN.FORENSIC CHEMIST [address] [place] [address] [address] Referral ID Status Reason Start Date Expiration Date V isits Requested Visits Authorized [id number] Closed Auto-Generate d Referral 01/21/2024 01/20/2025 1 1 Reason Onset Date Comments Care 04/07/2024 Specialty Diagnoses / Procedures Referred By Contac t Referred To Contact [facility] Diagnoses 17 weeks gestation of Encounter for supervision of normal first in second trimester Procedures OBSTETRIC ULTRASOUND WHI US PREG UTERUS AFTER 1ST TRIMEST GESTATION William Chen MD [address] [facility] [place] [address] Phone: tel: fax: [address] [address] Referral ID Status Reason Start Date Expiration Date Visits Requested Visits Authorized [id number] Authorized Auto-Generat ed Referral 04/09/2024 03/18/2025 20 [...] Care Teams (unrecognized sec tion and content) Brick Unloader Tender Relationship Specialty Start Date End Date Amparo Carter MD [address] [facility], [facility] [address] [place] [address] PCP - General 02/23/17 Brick Unloader Tender Relationship Specialty Start Date End Date Amparo Carter MD [address] [place] [address] PCP - General Internal Medicine 12/03/14 Brick Unloader Tender Relationship Specialty Start Date End Date Amparo Carter MD [address] [place] [address] PCP - General Internal Medicine 12/03/14 Brick Unloader Tender Relationship Specialty Start Date End Date Amparo Carter MD [address] [place] [address] PCP - General Internal Medicine 12/03/14 Brick Unloader Tender Relationship Specialty Start Date End Date Amparo Carter MD [address] [place] [address] PCP - General Internal Medicine 12/03/14 Brick Unloader Tender Relationship Specialty Start Date End Date Amparo Carter MD [address] [place] [address] PCP - General Internal Medicine 12/03/14 Brick Unloader Tender Relationship Specialty Start Date End Date Amparo Carter MD [address] [place] [address] PCP - General Internal Medicine 12/03/14 Brick Unloader Tender Relationship Specialty Start Date End Date Amparo Carter MD [address] [place] [address] PCP - General Internal Medicine 12/03/14 Brick Unloader Tender Relationship Specialty Start Date End Date Amparo Carter MD [address] [place] [address] PCP - General Internal Medicine 12/03/14 Brick Unloader Tender Relationship Specialty Start Date End Date Amparo Carter MD [address] [place] [address] PCP - General Internal Medicine 12/03/14 Brick Unloader Tender Relationship Specialty Start Date End Date Amparo Carter MD [address] [place] [address] PCP - General Internal Medicine 12/03/14 Brick Unloader Tender Relationship Specialty Start Date End Date Amparo Carter MD [address] [place] [address] PCP - General Internal Medicine 12/03/14 Brick Unloader Tender Relationship Specialty Start Date End Date Amparo Carter MD [facility] [place] [address] PCP - General Internal Medicine 12/03/14 Brick Unloader Tender Relationship Specialty Start Date End Date Amparo Carter MD [facility] [place] [address] PCP - General Internal Medicine 12/03/14 Source Comments (unrecognize d section and content) In the event this informatio n is protected by the Federal Confidentiality of Alcohol and Drug Abuse Patient Records regulations: The Federal rules restrict any use of the information to criminally investigate or prosecute any alcohol or drug abuse patient.[facility] Foundation[facility] the event this information is protected by the Federal Confidentiality of Alcohol and Drug Abuse Patient Records regulations: The Federal rules restrict any use of the information to criminally investigate or prosecute any alcohol or drug abuse patient.[facility] FoundationIn the event this information is protected by the Federal Confidentiality of Alcohol and Drug Abuse Patient Records regulations: The Federal rules restrict any use of the information to criminally investigate or prosecute any alcohol or drug abuse patient.[facility] FoundationIn the event this information is protected by the Federal Confidentiality of Alcohol and Drug Abuse Patient Records regulations: The Federal rules restrict any use of the information to criminally investigate or prosecute any alcohol or drug abuse patient.[facility] FoundationIn the event this information is protected by the Federal Confidentiality of Alcohol and Drug Abuse Patient Records regulations: The Federal rules restrict any use of the information to criminally investigate or prosecute any alcohol or drug abuse patient.[facility] FoundationIn the event this information is protected by the Federal Confidentiality of Alcohol and Drug Abuse Patient Records regulations: The Federal rules restrict any use of the information to criminally investigate or prosecute any alcohol or drug abuse patient.[facility] FoundationIn the event this information is protected by the Federal Confidentiality of Alcohol and Drug Abuse Patient Records regulations: The Federal rules restrict any use of the information to criminally investigate or prosecute any alcohol or drug abuse patient.[facility] FoundationIn the event this information is protected by the Federal Confidentiality of Alcohol and Drug Abuse Patient Records regulations: The Federal rules restrict any use of the information to criminally investigate or prosecute any alcohol or drug abuse patient.[facility] FoundationIn the event this information is protected by the Federal Confidentiality of Alcohol and Drug Abuse Patient Records regulations: The Federal rules restrict any use of the information to criminally investigate or prosecute any alcohol or drug abuse patient.[facility] FoundationIn the event this information is protected by the Federal Confidentiality of Alcohol and Drug Abuse Patient Records regulations: The Federal rules restrict any use of the information to criminally investigate or prosecute any alcohol or drug abuse patient.[facility] FoundationIn the event this information is protected by the Federal Confidentiality of Alcohol and Drug Abuse Patient Records regulations: The Federal rules restrict any use of the information to criminally investigate or prosecute any alcohol or drug abuse patient.[facility] FoundationIn the event this information is protected by the Federal Confidentiality of Alcohol and Drug Abuse Patient Records regulations: The Federal rules restrict any use of the information to criminally investigate or prosecute any alcohol or drug abuse patient.[facility] FoundationIn the event this information is protected by the Federal Confidentiality of Alcohol and Drug Abuse Patient Records regulations: The Federal rules restrict any use of the information to criminally investigate or prosecute any alcohol or drug abuse patient.[facility] FoundationIn the event this information is protected by the Federal Confidentiality of Alcohol and Drug Abuse Patient Records regulations: The Federal rules restrict any use of the information to criminally investigate or prosecute any alcohol or drug abuse patient.[facility] FoundationIn the event this information is protected by the Federal Confidentiality of Alcohol and Drug Abuse Patient Records regulations: The Federal rules restrict any use of the information to criminally investigate or prosecute any alcohol or drug abuse patient.[facility] FoundationIn the event this information is protected by the Federal Confidentiality of Alcohol and Drug Abuse Patient Records regulations: The Federal rules restrict any use of the information to criminally investigate or prosecute any alcohol or drug abuse patient.[facility] FoundationIn the event this information is protected by the Federal Confidentiality of Alcohol and Drug Abuse Patient Records regulations: The Federal rules restrict any use of the information to criminally investigate or prosecute any alcohol or drug abuse patient.[facility] FoundationIn the event this information is protected by the Federal Confidentiality of Alcohol and Drug Abuse Patient Records regulations: The Federal rules restrict any use of the information to criminally investigate or prosecute any alcohol or drug abuse patient.[facility] FoundationIn the event this information is protected by the Federal Confidentiality of Alcohol and Drug Abuse Patient Records regulations: The Federal rules restrict any use of the information to criminally investigate or prosecute any alcohol or drug abuse patient.[facility] FoundationIn the event this information is protected by the Federal Confidentiality of Alcohol and Drug Abuse Patient Records regulations: The Federal rules restrict any use of the information to criminally investigate or prosecute any alcohol or drug abuse patient.[facility] FoundationIn the event this information is protected by the Federal Confidentiality of Alcohol and Drug Abuse Patient Records regulations: The Federal rules restrict any use of the information to criminally investigate or prosecute any alcohol or drug abuse patient.[facility] FOR RECORDS PERTAINING TO PATIENTS WHO ARE [...] BE BASED ON THE PRIMARY CLINICAL RECORDS. [facility]. provides no warranty or guarantee of the accuracy or completeness of information in this document.
[2024-09-15 07:49] LABS: ROM Internal Control Test YES-OK TO RESULT pt. (Internal QC)
[2024-09-15 07:52] LABS: ROM Patient Test POSITIVE (Negative); Record Kit Lot#, ROM+ K3358
--- NOTE | 2024-09-15 08:24 | PCM.HP.OB ---
HPI - General General Date of Admission: 09/15/24 HPI Narrative JESÚS SILVERIO, is a 24 F who presents at 40w1d with PROM at 0530am. Irregular contractions. PFSH PFSH Home Medications ?Medication ?Instructions ?Recorded ?Last Taken ?Type aspirin 81 mg capsule 81 mg PO DAILY 09/15/24 Unknown History vit no.95-ferrous 1 tab PO DAILY 09/15/24 Unknown History fumarate 28 mg-folic acid 800 mcg tablet () Allergy/AdvReac Type Severity Reaction Status Date / Time Environmental Allergies: Allergy Other Verified 09/15/24 07:18 Uncoded (seasonal) Social History Smoking Status: Never smoker History Elective abortions Hx Para 0 Spontaneous abortions Hx # Term Pregnancies Ectopic pregnancies Hx # Pregnancies Multiple births # of living children NST FHR Rate Baby A Baseline: 145 Variability:: Moderate Accelerations:: 15 x 15 Decelerations:: None FHR Category:: Category I Uterine Activity:: Every 2-4 minutes, mild ROS Constitutional Constitutional: Reports systems reviewed and no addt'l complaints, except as documented; Denies headache(s) Eyes Eyes: Denies acute decrease in peripheral vision, blurry vision or change in vision ENT HEENT: Reports systems reviewed and no addt'l complaints, except as documented Cardiovascular Cardiovascular: Denies chest pain or dizziness Respiratory/Chest Respiratory/Chest: Denies cough, dyspnea, dyspnea on exertion, shortness of breath at rest or shortness of breath with exertion Gastrointestinal Gastrointestinal: Denies abdominal pain, diarrhea, nausea or vomiting Genitourinary Genitourinary: Denies abdominal discomfort Musculoskeletal Musculoskeletal: Denies limited range of motion Integumentary Integumentary: Reports systems reviewed and no addt'l complaints, except as documented Neurologic Neurologic: Reports systems reviewed and no addt'l complaints, except as documented Psychiatric Psychiatric: Reports systems reviewed and no addt'l complaints, except as documented Endocrine Endocrinology: Reports systems reviewed and no addt'l complaints, except as documented Hematologic/Lymphatic Hematologic/Lymphatic: Reports systems reviewed and no addt'l complaints, except as documented Allergic/Immunologic Allergic/Immunologic: Reports systems reviewed and no addt'l complaints, except as documented Vital Signs Vital Signs Vital Signs: 09/15/24 07:13 09/15/24 07:13 09/15/24 07:14 Temperature Temperature Source Temporal Pulse Rate 77 Respiratory Rate Blood Pressure 130/79 H BP Systolic 130 BP Diastolic 79 09/15/24 07:14 09/15/24 07:14 Temperature 97.2 F L Temperature Source Pulse Rate Respiratory Rate 16 Blood Pressure BP Systolic BP Diastolic Weight Weight: 164 lb 9.6 oz Body Mass Index (BMI) 26.5 Physical Exam Const alert and oriented x3 General Appearance: cooperative Orientation / Consciousness: awake, oriented to person, oriented to place and oriented to time Exam Limitations: no limitations HEENT normocephalic Head and Scalp: normal to inspection, normocephalic and atraumatic Face and Sinus: normal facial exam Eyes General Eye: normal appearance of both eyes Neck full ROM Chest Chest: symmetrical chest wall rise Resp normal respiratory effort and normal air movement Auscultation: clear to auscultation bilaterally Cardio regular rate, regular rhythm, S1 normal heart sound, S2 normal heart sound, no murmurs, no rub, no gallops and no clicks GI normal to inspection, nondistended, normoactive bowel sounds and non-tender appearance of the vagina normal Bladder / Kidney Exam: no CVA tenderness Back/Spine normal ROM Extremity normal to inspection and full ROM Skin no rashes or lesions noted Neuro oriented x3 and moves all extremities Sensorium / Orientation: awake, alert and oriented to person Motor Exam: clonus absent Deep Tendon Reflexes: Rt Patellar (L4): 2+ and Lt Patellar (L4): 2+ Labs Labs Labs: Blood Type O POSITIVE Antibody Screen NEGATIVE Hct 39.5 % (37-47) Hgb 13.0 g/dL (12.0-15.0) Syphilis Total Ab Nonreactive (Nonreactive) GBS negative RPR non reactive Rubella non immune HBsAG negative HepC negative HIV non reactive O positive, antibody negative Assessment & Plan (1) Premature rupture of membranes: (2) 40 weeks gestation of : (3) Allergic rhinitis: COMMENT: Ok to take beta blockers while not on allergy injections. Currently not taking allergy injections during . PLAN: Plan 1) Admit to labor and delivery 2) Routine labs 3) Continuous EFM 4) Pain management upon request 5) Wright for cervical ripening and pitocin 6) Dr. jameson physician and notified of patient status, above assessment, and plan.
[2024-09-15] MEDS: Lactated Ringers 1,000 ML 50 ML IV (08:30)
[2024-09-15] MEDS: 0.9% Normal Saline Single 100 ML IV.SOLN. INTRA-UTER (08:43)
[2024-09-15 08:55] LABS: Hematocrit 39.5 % (37-47); Hemoglobin 13.0 g/dL (12.0-15.0); Immature Granulocytes Count 0.220 X10^3/uL (0.0-0.0); Mean Corp Hgb Conc 32.9 g/dL (32-36); Mean Corpuscular Volume 84.4 fL (81-99); Mean Platelet Vol. 9.3 fl (6.2-12.0); NRBC Flagged by Analyzer 0 % (0-5); Platelet Count 304 K/mm3 (150-450); RBC Distribution Width CV 13.7 % (11.6-14.6); RBC Distribution Width SD 42.0 fl (35.1-43.9); Red Blood Count 4.68 M/mm3 (4.2-5.4); White Blood Count 11.1 K/mm3 (4.4-11.0)
[2024-09-15 09:43] LABS: Syphilis Antibodies Nonreactive (Nonreactive)
[2024-09-15] MEDS: Oxytocin 15 Units/NS 250ml 15 UNITS/250 ML IV.SOLN 2 UNITS IV (10:00)
[2024-09-15] MEDS: Lactated Ringers 1,000 ML 999 ML IV (11:30)
[2024-09-15] MEDS: fentaNYL-bupivacaine (epidural) 100 ML BAG EPIDURAL ×2 (12:11→20:48)
[2024-09-15] MEDS: Lactated Ringers 1,000 ML 200 ML IV ×2 (16:26→21:19)
--- NOTE | 2024-09-15 21:44 | PCM.PN.OB ---
Subjective Subjective Epidural for pain management. Pushing with contractions. Objective Data Objective Data Vital Signs: Vital Signs Temp Pulse Resp BP Pulse Ox 98.1 F 71 16 117/58 L 98 09/15/24 19:18 09/15/24 21:34 09/15/24 19:18 09/15/24 21:04 09/15/24 21:34 Weight: 164 lb 9.6 oz Body Mass Index (BMI) 26.5 Intake & Output: Intake and Output for Last 24 Hours 09/13/24 09/14/24 09/15/24 23:59 23:59 23:59 Intake Total 3006.07 / 3006.07 Output Total 400 / 400 Balance 2606.07 / 2606.07 Lab / Micro Data 09/15/24 08:30 Labs: Laboratory Results - last 24 hr 09/15/24 07:20: Vag Amniotic Fld Detect POSITIVE H 09/15/24 08:30: WBC 11.1 H, RBC 4.68, Hgb 13.0, Hct 39.5, MCV 84.4, MCH 27.8, MCHC 32.9, RDW Std Deviation 42.0, RDW Coeff of Kashif 13.7, Plt Count 304, MPV 9.3, Immature Gran % (Auto) 2.000 H, Neut % (Auto) 64.4, Lymph % (Auto) 19.2, [place] % (Auto) 12.9 H, Eos % (Auto) 1.0, Baso % (Auto) 0.5, Absolute Neuts (auto) 7.1, Absolute Lymphs (auto) 2.12, Nucleated RBC % 0, Syphilis Total Ab Nonreactive, Blood Type O POSITIVE, Antibody Screen NEGATIVE Physical Exam Manual OB Exam: presentation cephalic, dilated 10, effaced 100, station +2 and other ROP NST FHR Rate Baby A Baseline: 135 Variability:: Moderate Accelerations:: 15 x 15 Decelerations:: Variable FHR Category:: Category II Uterine Activity:: Every 2-3 minutes, strong Assessment & Plan (1) 40 weeks gestation of : (2) Premature rupture of membranes: PLAN: Plan 1) Continue with active management 2) Continuous EFM, Category 2 FHT 3) Positional changes 4) Epidural pain management 5) collaborative physician and notified of above assessement plan and patient status
--- NOTE | 2024-09-15 23:52 | PN.OBGYN_ITS ---
Subjective Subjective Epidural effective for pain. Good pushing efforts, at bedside. Coping well. Objective Data Objective Data Vital Signs: Vital Signs Temp Pulse Resp BP Pulse Ox 99.4 F H 62 18 116/53 L 98 09/15/24 22:55 09/15/24 22:56 09/15/24 22:55 09/15/24 22:56 09/15/24 22:55 Weight: 164 lb 9.6 oz Body Mass Index (BMI) 26.5 Intake & Output: Intake and Output for Last 24 Hours 09/13/24 09/14/24 09/15/24 23:59 23:59 23:59 Intake Total 3064.60 / 3064.60 Output Total 400 / 400 Balance 2664.60 / 2664.60 Lab / Micro Data 09/15/24 08:30 Labs: Laboratory Results - last 24 hr 09/15/24 07:20: Vag Amniotic Fld Detect POSITIVE H 09/15/24 08:30: WBC 11.1 H, RBC 4.68, Hgb 13.0, Hct 39.5, MCV 84.4, MCH 27.8, MCHC 32.9, RDW Std Deviation 42.0, RDW Coeff of Kashif 13.7, Plt Count 304, MPV 9.3, Immature Gran % (Auto) 2.000 H, Neut % (Auto) 64.4, Lymph % (Auto) 19.2, M donnie % (Auto) 12.9 H, Eos % (Auto) 1.0, Baso % (Auto) 0.5, Absolute Neuts (auto) 7.1, Absolute Lymphs (auto) 2.12, Nucleated RBC % 0, Syphilis Total Ab Nonreactive, Blood Type O POSITIVE, Antibody Screen NEGATIVE Physical Exam Manual OB Exam: presentation cephalic, dilated 10, effaced 100 and station +3 (caput present. Minimal descent with pushing) NST FHR Rate Baby A Baseline: 145 Variability:: Moderate Accelerations:: 15 x 15 Decelerations:: Variable FHR Category:: Category II Uterine Activity:: every 2-4 minutes Assessment & Plan (1) 40 weeks gestation of : (2) Premature rupture of membranes: PLAN: Plan 1) Making slow progress with pushing efforts, +3 station but minimal movement. Maternal exhaustion. Discussed option for vacuum and agrees with plan. Reviewed risks and benefits and called for delivery. 2) Category 2 FHT
[2024-09-16] VITALS (42 sets, daily range): BP systolic 96–121; BP diastolic 51–79; PULSE 59–107; RESP 14–16; TEMP 36.5–37.8; O2SAT 91–100
--- NOTE | 2024-09-16 00:55 | EX.PCM.OBVAG ---
Assessment & Plan (1) 40 weeks gestation of : (2) Premature rupture of membranes: (3) Vaginal delivery: (4) First degree perineal laceration: (5) Vacuum-assisted vaginal delivery: Vaginal Delivery Maternal Presentation Maternal Presentation: Active Labor Vaginal Delivery Information Procedure Performed: Vacuum Assisted Vaginal Delivery Station at time of placement: +2 Number of vacuum pulls: 4 Number of vacuum pop offs: 2 Surgeon/Practitioner: Teri Chen Date of Procedure: 09/16/24 Pre-Procedure Diagnosis: 40 week gestation, PROM, maternal exhaustion Post-Procedure Diagnosis: As above Type of anesthesia: Epidural Findings Description of procedure: Called by [facility]OE as the patient had been pushing for 3.5 hours with maternal exhaustion. At bedside to evaluate the patient. She was comfortable with epidural and bladder draining with the piedar catheter. The position was confirmed with 100% effacement and +2 station. Discussed r/b/a to a vacuum assisted vaginal delivery, and the patient requested to proceed. The vacuum was placed and the correct placement in front of the posterior fontanelle was confirmed digitally. With the patient's next contraction, the vacuum was inflated and a gentle downward pressure was used to assist to bring the baby's head to a +3 station. The contraction ended and the vacuum was released. The vacuum was reapplied for 3 more contractions to bring the baby's head to a +4 station, and in between each contraction the vacuum was released. Two pop offs were noted with the vacuum. A total of 4 pulls with the vacuum were applied. Eli Siddiqi CNM then completed the vaginal delivery. See vaginal delivery report by Eli Siddiqi CNM.
--- OUTSIDE RECORDS SUMMARY | 2024-09-16 00:56 | XMS RPT_ITS | CCD ---
Author Organization [facility] Care Team Providers Care Manager Corporate Strategy Name Role Phone Amparo Carter Unavailable Unavailable Unavailable Amparo Carter MD Primary Care Provider [phone] AMPARO CARTER Attending Unavailable AMPARO CARTER Primary Care Unavailable Amparo Carter MD Primary Care Provider WILLIAM CHEN Referring Unavailable AMPARO CARTER Primary Care Unavailable REBEKAH MOON Attending Unavail able AMPARO CARTER Primary Care Unavailable ASHLEY KHAN Attending Unavailable AMPARO CARTER Primary Care Unavailable ASHLEY KHAN Attending Unavailable TERRENCE, HELENA Referring Unavailable RAULAMPARO SALEEM M Primary Care Unavailable ASHLEY KHAN Attending Unavailable AMPARO CARTER M Primary Care Unavailable REBEKAH MOON Referring Unavail able AMPARO CARTER M Primary Care Unavailable RENEE ESCALERA Attending Unavailable AMPARO CARTER M Primary Care Unavailable RAULAMPARO SALEEM M Primary Care Unavailable TERRENCE, HELENA Referring Unavailable TERRENCE, HELENA Attending Unavailable AMPARO CARTER M Primary Care Unavailable WILLIAM CHEN Attending Unavailable AMPARO CARTER M Primary Care Unavailable RENEE ESCALERA Attending Unavailable AMPARO CARTER M Primary Care Unavailable ASHLEY KHAN Attending Unavailable AMPARO CARTER M Primary Care Unavailable WILLIAM CHEN Attending Unavailable RAUL, AMPARO M Primary Care Unavailable TERRENCE, HELENA Referring Unavailable RAUL, AMPARO M Primary Care Unavailable RAUL, AMPARO M Primary Care Unavailable WILLIAM CHEN Attending Unavailable JOYA HASSAN Attending Unavailable WILLIAM CHEN Referring Unavailable RAULAMPARO SALEEM M Primary Care Unavailable REBEKAH MOON Attending Unavail able AMPARO CARTER Primary Care Unavailable Amparo Carter Primary Care Unavailable Eli Siddiqi Attending Unavailable Eli Siddiqi Referring Unavailable Eli Siddiqi Admitting Unavailable Allergies Allergy Classification Reported Allergen(s) Allergy Type Date of Onset Reaction(s) Facility (2 sources) Pollen; Translations: [POLLEN EXTRACTS] Propensity to adverse reactions 3 Itching [facility] Work Phone: (20 sources) beta-Blocking agent; Translations: [BETA-BLOCKERS (BETA-ADRENERGIC BLOCKING AGTS)] Propensity to adverse reactions to drug 5 Other: See Comments [facility] (20 sources) Seasonal allergy; Translations: [SEASONAL ALLERGIES] Allergy to substance 3 Hives [facility] (1 source) Environmental Allergies: Uncoded; Translations: [Environmental Allergies: Uncoded] Propensity to adverse reactions (disorder) 5 [facility] Medications Current Medications Medication Drug Class(es) Dates Sig (Normalized) Sig (Original) aspirin 81 mg delayed release oral tablet (20 sources) Platelet Aggregation Inhibitor, Nonsteroidal Anti-inflammatory Drug Start: 01-21-2024 take 1 tablet by mouth once daily aspirin, enteric coated (ECOTRIN LOW STRENGTH) 81 mg EC tablet Take 1 tablet by mouth once daily. 90 tablet 3 01/21/2024 Active [id number] 0.3 ml EPINEPHrine 1 mg/ml auto-injector (20 sources) alpha-Adrenergic Agonist, beta-Adrenergic Agonist, Catecholamine Start: 03-03-2016 EPINEPHrine 0.3 mg/0.3 mL auto-injector Inject 0.3 mL intramuscularly as needed. 1 Each 3 03/03/2016 Active Ethinyl Estradiol / norgestimate (1 source) Progestin, Estrogen Start: 10-24-2022 take 1 tablet by mouth once daily Wts-Bb-Gtxdlj 0.18/0.215/0.25 mg-25 mcg tablet Indications: Acne, unspecified [...] Drug Class(es) Dates Sig (Normalized) Sig (Original) [id number] 200 actuat albuterol 0.09 mg/actuat metered dose [...] Start: 08-24-2015 take 1 tablet by natalie once daily Norgestim-Eth Estrad Triphasic 0.18/0.215/0.25 MG-25 [...] Name Value Interpretation Reference Range Facil ity (ROM) Rupture Of Membraneson 09-15-2024 ROM Positive Abnormal Negative [facility] Comment on above: Result Comment: Amni otic fluid not present indicates No Rupture of Membranes at time of specimen collection. Amniotic fluid present indicates rupture of Membranes. RESULTS CALLED TO DIANNE PETIT 09/15/24 0749 Gabbi Ward. REPORT READ BACK BY SAME . Performed By: #### L 205.1000 #### [facility] [address] [place], [address] CBC W/Diff, Automatedon 08-19 Absolute Lymph 2.12 X10 3/uL Normal 0.83-4.51 [facility] Comment on above: Performed By: #### B TS, L100.0100 #### [facility] [address] [place], [address] Absolute Neut 7.1 X10 3/uL Normal 2.0-7.7 [facility] Comment on above: Performed By: #### B TS, L100.0100 #### [facility] [address] [place], [address] Basophils/100 WBC (Bld) 0.5 % Normal 0-1 [facility] Comment on above: Performed By: #### B TS, L100.0100 #### [facility] [address] [place], [address] Eosinophils/100 WBC (Bld) 1.0 % Normal 0-5 [facility] Comment on above: Performed By: #### B TS, L100.0100 #### [facility] [address] [place], [address] Erythrocyte distribution width (RBC) [Ratio] 13.7 % Normal 11.6-14.6 [facility] Comment on above: Performed By: #### Joanna LA, L100.0100 #### [facility] [address] [place], [address] Hematocrit (Bld) [Volume fraction] 39.5 % Normal 37-47 [facility] Comment on above: Performed By: #### Joanna LA, L100.0100 #### [facility] [address] [place], [address] Hemoglobin (Bld) [Mass/Vol] 13.0 g/dL Normal 12.0-15.0 [facility] Comment on above: Performed By: #### Joanna LA, L100.0100 #### [facility] [address] [place], [address] IG% 2.000 High 0.0-0.9 [facility] Comment on above: Result Comment: IG% - Immature Granulocytes (promyelocytes, myelocytes and metamyelocytes) > 1% indicates that a LEFT SHIFT is Present. Performed By: #### Joanna LA, L100.0100 #### [facility] [address] [place], [address] Lymphocytes/100 WBC (Bld) 19.2 % Normal 19-41 [facility] Comment on above: Performed By: #### Joanna LA, L100.0100 #### [facility] [address] [place], [address] MCH (RBC) [Entitic mass] 27.8 pg Normal 27.0-32.0 [facility] Comment on above: Performed By: #### Joanna LA, L100.0100 #### [facility] [address] [place], [address] MCHC (RBC) [Mass/Vol] 32.9 g/dL Normal 32-36 [facility] Comment on above: Performed By: #### Joanna LA, L100.0100 #### [facility] [address] [place], [address] MCV (RBC) [Entitic vol] 84.4 fL Normal 81-99 [facility] Comment on above: Performed By: #### Joanna LA, L100.0100 #### [facility] [address] [place], [address] Monocytes/100 WBC (Bld) 12.9 % High 0-10 [facility] Comment on above: Performed By: #### Joanna LA, L100.0100 #### [facility] [address] [place], [address] Neutrophils/100 WBC (Bld) 64.4 % Normal 47-70 [facility] Comment on above: Performed By: #### Joanna LA, L100.0100 #### [facility] [address] [place], [address] Nucleated RBC (Bld) [#/Vol] 0 10*3/uL Normal 0-5 [facility] Comment on above: Performed By: #### Joanna LA, L100.0100 #### [facility] [address] [place], [address] Platelet mean volume (Bld) [Entitic vol] 9.3 fL Normal 6.2-12.0 [facility] Comment on above: Performed By: #### Joanna LA, L100.0100 #### [facility] [address] [place], [address] Platelets (Bld) [#/Vol] 304 10*3/uL Normal 150-450 [facility] Comment on above: Performed By: #### Joanna LA, L100.0100 #### [facility] [address] [place], [address] RBC (Bld) [#/Vol] 4.68 10*6/uL Normal 4.2-5.4 [facility] Comment on above: Performed By: #### B TS, L100.0100 #### [facility] [address] [place], [address] RDW SD 42.0 fl Normal 35.1-43.9 [facility] Comment on above: Performed By: #### B TS, L100.0100 #### [facility] [address] [place], [address] WBC (Bld) [#/Vol] 11.1 10*3/uL High 4.4-11.0 [facility] Comment on above: Performed By: #### B TS, L100.0100 #### [facility] [address] [place], [address] H AND P Exam - OB/GYNon 08-19-2024 H&P Exam - [employer] [facility] Medical Records Department [address] [place] [address] H P Exam - [employer] 09/15/24 0824 MR#: [id number] Acct: [id number] Name: JESÚS CUEVAS Rep #: [id number] : 2000 24 From: Eli Siddiqi CNM PCP: Dr. Amparo Carter MD Status:ADM IN Location: [place] [address] HPI - General General Date of Admission: 09/15/24 HPI Narrative JESÚS CUEVAS, is a 24 F who presents at 40w1d with PROM at 0530am. Irregular contractions. PFSH PFSH Home Medications ???Medication ???Instructions ???Recorded ???Last Taken ???Type aspirin 81 mg capsule 81 mg PO DAILY 09/15/24 Unknown Hi story vit no.95-ferrous 1 tab PO DAILY 09/15/24 Unknown Hi story fumarate 28 mg-folic acid 800 mcg tablet () Allergy/AdvReac Type Severity Reaction Status Date / Time Environmental Allergies: Allergy Other Verified 09/15/24 07:18 Uncoded (seasonal) Social History Smoking Status: Never smoker History Elective abortions Hx Para 0 Spontaneous abortions Hx # Term Pregnancies Ectopic pregnancies Hx # Pregnancies Multiple births # of living children NST FHR Rate Baby A Baseline: 145 Variability:: Moderate Accelerations:: 15 x 15 Decelerations:: None FHR Category:: Category I Uterine Activity:: Every 2-4 minutes, mild ROS Constitutional Constitutional: Reports systems reviewed and no addt'l complaints, except as documented; Denies headache(s) Eyes Eyes: Denies acute decrease in peripheral vision, blurry vision or change in vision ENT HEENT: Reports systems reviewed and no addt'l complaints, except as documented Cardiovascular Cardiovascular: Denies chest pain or dizziness Respiratory/Chest Respiratory/Chest: Denies cough, dyspnea, dyspnea on exertion, shortness of breath at rest or shortness of breath with exertion Gastrointestinal Gastrointestinal: Denies abdominal pain, diarrhea, nausea or vomiting Genitourinary Genitourinary: Denies abdominal discomfort Musculoskeletal Musculoskeletal: Denies limited range of motion Integumentary Integumentary: Reports systems reviewed and no addt'l complaints, except as documented Neurologic Neurologic: Reports systems reviewed and no addt'l complaints, except as documented Psychiatric Psychiatric: Reports systems reviewed and no addt'l complaints, except as documented Endocrine Endocrinology: Reports systems reviewed and no addt'l complaints, except as documented Hematologic/Lymphati c Hematologic/Lymphati c: Reports systems reviewed and no addt'l complaints, except as documented Allergic/Immunologic Allergic/Immunologic : Reports systems reviewed and no addt'l complaints, except as documented Vital Signs Vital Signs Vital Signs: 09/15/24 07:13 09/15/24 07:13 09/15/24 07:14 Temperature Temperature Source Temporal Pulse Rate 77 Respiratory Rate Blood Pressure 130/79 H BP Systolic 130 BP Diastolic 79 09/15/24 07:14 09/15/24 07:14 Temperature 97.2 F L Temperature Source Pulse Rate Respiratory Rate 16 Blood Pressure BP Systolic BP Diastolic Weight Weight: 164 lb 9.6 oz Body Mass Index (BMI) 26.5 Physical Exam Const alert and oriented x3 General Appearance: cooperative Orientation / Consciousness: awake, oriented to person, oriented to place and oriented to time Exam Limitations: no limitations HEENT normocephalic Head and Scalp: normal to inspection, normocephalic and atraumatic Face and Sinus: normal facial exam Eyes General Eye: normal appearance of both eyes Neck full ROM Chest Chest: symmetrical chest wall rise Resp normal respiratory effort and normal air movement Auscultation: clear to auscultation bilaterally Cardio regular rate, regular rhythm, S1 normal heart sound, S2 normal heart sound, no murmurs, no rub, no gallops and no clicks GI normal to inspection, nondistended, normoactive bowel sounds and non-tender appearance of the vagina normal Bladder / Kidney Exam: no CVA tenderness Back/Spine normal ROM Extremity normal to inspection and full ROM Skin no rashes or lesions noted Neuro oriented x3 and moves all extremities Sensorium / Orientation: awake, alert and oriented to person Motor Exam: clonus absent Deep Tendon Reflexes: Rt Patellar (L4): 2+ and Lt Patellar (L4): 2+ Labs Labs Labs: Blood Type O POSITIVE Antibody Screen NEGATIVE Hct 39.5 % (37-47) Hgb 13.0 g/dL (12.0-15.0) Syphilis Total Ab Nonreactive (Nonreactive) GBS negative RPR non reactive Rubella non immune HBsAG negative HepC negative HIV non reactive O positive, antibody negative Assessment Plan (1) Premature rupture of membranes: (2) 40 weeks gestati (more content not included)... Normal [facility] Syphilis Antibodieson 2024 Syphilis Abs Non-Reactive Normal Nonreactive [facility] Comment on above: Performed By: #### L 509.8002 #### [facility] [address] [facility] [place], [place], [id number] Type AND Screenon 09-15-2024 Ab SCREEN GEL Negative Normal [facility] Comment on above: Order Comment: Labor Performed By: #### B TS, L100.0100 #### [facility] [address] [place], [place], [address] URINE OB DIP B/Oon 5 Glucose Ql (U) Negative Neg mg/dL [facility] Protein.monoclonal (U) [Mass/Vol] Negative Neg mg/dL [facility] URINE OB DIP B/Oon 5 Glucose Ql (U) Negative Neg mg/dL [facility] Interpretation and review of laboratory results Normal [facility] Protein.monoclonal (U) [Mass/Vol] Negative Neg mg/dL [facility] URINE OB DIP B/Oon 5 Glucose Ql (U) Negative Neg mg/dL [facility] Interpretation and review of laboratory results Normal [facility] Protein.monoclonal (U) [Mass/Vol] Negative Neg mg/dL [facility] ROUTINE, GROUP B ST REPTOCOCCUS BY PCRon 08-20-2024 ROUTINE, GROUP B STREPTOCOCCUS BY PCR Not detected Normal [facility] Comment on above: Performed By: #### R [id number] #### [facility] CLIA [id number] [address] [place] [address] [facility] URINE OB DIP B/Oon 5 Glucose Ql (U) 100 mg/dL Neg [facility] Interpretation and review of laboratory results Normal [facility] Protein.monoclonal (U) [Mass/Vol] Negative Neg mg/dL [facility] CNPNon 08-05-2024 CNPN Telephone (OBGYWM) JESÚS CUEVAS ([id number]) 2000 F Date Time Provider Department 08/05/24 WILLIAM CHEN OBBERNARD During your visit today, we recorded the following information about you: Mary Ann Benitez RN 08/05/2024 8:28 AM Signed Breast pump order received from [facility]. To SW to sign. STEVEN Humphries Tara, RN 08/14/2024 [...] Status:Closed by MARSHA PUGH on 08/14/24 Normal [facility] URINE OB DIP B/Oon 5 Glucose Ql (U) 250 mg/dL Neg [facility] Interpretation and review of laboratory results Normal [facility] Protein.monoclonal (U) [Mass/Vol] Negative Neg mg/dL [facility] CBC W Auto Differential pane l (Bld)on 06-23-2024 Basophils (Bld) [#/Vol] 0.05 10*3/uL Normal <0.11 [facility] Comment on above: Order Comment: Speci men Type: FLUID SPECIMEN Ordering Facility: [facility] Address: [address] [place] [address] Performed By: #### L [id number] #### [facility] CLIA [id number] [address] [place] [address] [place] Basophils/100 WBC (Bld) 0.4 % Normal [facility] Comment on above: Order Comment: Speci men Type: FLUID SPECIMEN Ordering Facility: [facility] Address: [address] [place] [address] Performed By: #### L [id number] #### [facility] CLIA [id number] [address] [place], [place] [id number] [place] Differential cell count method Nom (Bld) Auto Normal [facility] Comment on above: Order Comment: Speci men Type: FLUID SPECIMEN Ordering Facility: [facility] Address: [address] [place] [address] Performed By: #### L [id number] #### [facility] CLIA [id number] [address] [place] [address] [place] Eosinophils (Bld) [#/Vol] 0.13 10*3/uL Normal <0.46 [facility] Comment on above: Order Comment: Speci men Type: FLUID SPECIMEN Ordering Facility: [facility] Address: [address] [place] [address] Performed By: #### L [id number] #### [facility] CLIA [id number] [address] [place] [address] [place] Eosinophils/100 WBC (Bld) 1.1 % Normal [facility] Comment on above: Order Comment: Speci men Type: FLUID SPECIMEN Ordering Facility: [facility] Address: [address] [place] [address] Performed By: #### L [id number] #### [facility] CLIA [id number] [address] [place] [address] [place] Erythrocyte distribution width (RBC) [Ratio] 12.3 % Normal 11.5-15.0 [facility] Comment on above: Order Comment: Speci men Type: FLUID SPECIMEN Ordering Facility: [facility] Address: [address] [place] [address] Performed By: #### L [id number] #### [facility] CLIA [id number] [address] [place] [address] [place] Hematocrit (Bld) [Volume fraction] 37.4 % Normal 36.0-46.0 [facility] Comment on above: Order Comment: Speci men Type: FLUID SPECIMEN Ordering Facility: [facility] Address: [address] [place] [address] Performed By: #### L [id number] #### [facility] CLIA [id number] [address] [place] [address] [place] Hemoglobin (Bld) [Mass/Vol] 12.6 g/dL Normal 11.5-15.5 [facility] Comment on above: Order Comment: Speci men Type: FLUID SPECIMEN Ordering Facility: [facility] Address: [address] [place] [address] Performed By: #### L [id number] #### [facility] CLIA [id number] [address] [place] [address] [place] Immature granulocytes (Bld) [#/Vol] 0.14 10*3/uL High <0.10 [facility] Comment on above: Order Comment: Speci men Type: FLUID SPECIMEN Ordering Facility: [facility] Address: [address] [place] [address] Performed By: #### L [id number] #### [facility] CLIA [id number] [address] [place] [address] [place] Immature granulocytes/100 WBC (Bld) 1.2 % Normal [facility] Comment on above: Order Comment: Speci men Type: FLUID SPECIMEN Ordering Facility: [facility] Address: [address] [place] [address] Performed By: #### L [id number] #### [facility] CLIA [id number] [address] [place] [address] [place] Lymphocytes (Bld) [#/Vol] 1.98 10*3/uL Normal 1.00-4.00 [facility] Comment on above: Order Comment: Speci men Type: FLUID SPECIMEN Ordering Facility: [facility] Address: [address] [place] [address] Performed By: #### L [id number] #### [facility] CLIA [id number] [address] [id number] [address] [place] Lymphocytes/100 WBC (Bld) 17.0 % Normal [facility] Comment on above: Order Comment: Speci men Type: FLUID SPECIMEN Ordering Facility: [facility] Address: [address] [place] [address] Performed By: #### L [id number] #### [facility] CLIA [id number] [address] [place] [address] [place] MCH (RBC) [Entitic mass] 30.1 pg Normal 26.0-34.0 [facility] Comment on above: Order Comment: Speci men Type: FLUID SPECIMEN Ordering Facility: [facility] Address: [address] [place] [address] Performed By: #### L [id number] #### [facility] CLIA [id number] [address] [place] [address] [place] MCHC (RBC) [Mass/Vol] 33.7 g/dL Normal 30.5-36.0 [facility] Comment on above: Order Comment: Speci men Type: FLUID SPECIMEN Ordering Facility: [facility] Address: [address] [place] [address] Performed By: #### L [id number] #### [facility] CLIA [id number] [address] [place] [address] [place] MCV (RBC) [Entitic vol] 89.5 fL Normal 80.0-100.0 [facility] Comment on above: Order Comment: Speci men Type: FLUID SPECIMEN Ordering Facility: [facility] Address: [address] [place] [address] Performed By: #### L [id number] #### [facility] CLIA [id number] [address] [place] [address] [place] Monocytes (Bld) [#/Vol] 1.42 10*3/uL High <0.87 [facility] Comment on above: Order Comment: Speci men Type: FLUID SPECIMEN Ordering Facility: [facility] Address: [address] [place] [address] Performed By: #### L [id number] #### [facility] CLIA [id number] [address] [place] [address] [place] Monocytes/100 WBC (Bld) 12.2 % Normal [facility] Comment on above: Order Comment: Speci men Type: FLUID SPECIMEN Ordering Facility: [facility] Address: [address] [place] [address] Performed By: #### L [id number] #### [facility] CLIA [id number] [address] [place] [address] [place] Neutrophils (Bld) [#/Vol] 7.96 10*3/uL High 1.45-7.50 [facility] Comment on above: Order Comment: Speci men Type: FLUID SPECIMEN Ordering Facility: [facility] Address: [address] [place] [address] Performed By: #### L [id number] #### [facility] CLIA [id number] [address] [place] [address] [place] Neutrophils/100 WBC (Bld) 68.1 % Normal [facility] Comment on above: Order Comment: Speci men Type: FLUID SPECIMEN Ordering Facility: [facility] Address: [address] [place] [address] Performed By: #### L [id number] #### [facility] CLIA [id number] [address] [place] [address] [place] Nucleated RBC (Bld) [#/Vol] 10*3/uL Normal <0.01 [facility] Comment on above: Order Comment: Speci men Type: FLUID SPECIMEN Ordering Facility: [facility] Address: [address] [place] [address] Performed By: #### L [id number] #### [facility] CLIA [id number] [address] [place] [address] [place] Nucleated RBC/100 WBC (Bld) [Ratio] 0.0 /100 WBC Normal [facility] Comment on above: Order Comment: Speci men Type: FLUID SPECIMEN Ordering Facility: [facility] Address: [address] [place] [address] Performed By: #### L [id number] #### [facility] CLIA [id number] [address] [place] [address] [place] Platelet mean volume (Bld) [Entitic vol] 8.4 fL Low 9.0-12.7 [facility] Comment on above: Order Comment: Speci men Type: FLUID SPECIMEN Ordering Facility: [facility] Address: [address] [place] [address] Performed By: #### L [id number] #### [facility] CLIA [id number] [address] [place] [address] [place] Platelets (Bld) [#/Vol] 308 10*3/uL Normal 150-400 [facility] Comment on above: Order Comment: Speci men Type: FLUID SPECIMEN Ordering Facility: [facility] Address: [address] [place] [address] Performed By: #### L [id number] #### [facility] CLIA [id number] [address] [place] [address] [place] RBC (Bld) [#/Vol] 4.18 10*6/uL Normal 3.90-5.20 [facility] Comment on above: Order Comment: Speci men Type: FLUID SPECIMEN Ordering Facility: [facility] Address: [address] [place] [address] Performed By: #### L [id number] #### [facility] CLIA [id number] [address] [place] [address] [place] WBC (Bld) [#/Vol] 11.68 10*3/uL High 3.70-11.00 [facility] Comment on above: Order Comment: Speci men Type: FLUID SPECIMEN Ordering Facility: [facility] Address: [address] [place] [address] Performed By: #### L [id number] #### [facility] IA [id number] [address] [place] [address] [place] GESTATIONAL GLUCOSE SCREEN, 1-HOUR, 50 GRAM, NON-FASTINGon 06-23-2024 Glucose [Mass/Vol] 123 mg/dL Normal 74-134 [facility] Comment on above: Order Comment: Speci men Type: BLOOD SPECIMEN Ordering Facility: [facility] Address: [address] [place] [address] Result Comment: [facility] Congress of Obstetricians and Gynecologists (Destin/Joel) guidelines state a gestational diabetes mellitus positive screen is made, in women not previously diagnosed with overt diabetes, when the 1 hr plasma glucose level is equal to or above 140 mg/dL. The [facility] [employer] [facility] [place] recommends a 135 mg/dL cutoff. Performed By: #### R UBIGG #### [facility] CLIA [id number] [address] [place] [address] [place] Reagin and Treponema pallidu m IgG and IgM [Interp]on 06-23-2024 T. pallidum IgG+IgM IA Ql (S) Non-Reactive Normal Nonreactive [facility] Comment on above: Order Comment: Speci men Type: BLOOD SPECIMEN Ordering Facility: [facility] Address: [address] [place] [address] Performed By: #### R UBIGG #### [facility] CLIA [id number] [address] [place] [address] [place] Reagin+T pallidum IgG+IgM Se rPl-Impon 06-23-2024 Reagin and Treponema pallidum IgG and IgM [Interp] Cannot exclude recent Treponemal infection if specimen collected within 7-10 days after appearance of suspect lesions or 2-3 weeks after an exposure. Clinical correlation is required. Normal [facility] Comment on above: Order Comment: Speci men Type: BLOOD SPECIMEN Ordering Facility: [facility] Address: [address] [place] [address] Performed By: #### R UBIGG #### [facility] CLIA [id number] [address] [place] [address] [place] [address] [place] Monet 06-04-2024 CNPN Telephone (OBGYWM) JESÚS CUEVAS ([id number]) 2000 F Date Time Provider Department 06/04/24 REBEKAH MOON OBGYWRommel During your visit today, we recorded the following information about you: Desmond Michael MA 06/04/2024 2:49 PM Signed [facility] paperwork completed and placed on providers desk for signature. JOVAN Lara Morgan, MA 06/06/2024 11:06 AM Signed [facility] paperwork completed and faxed back to [...] Fully Assessed Reason for Visit: [place] Paperwork [[id number]] Prescriptions as of 06/06/2024 - PNV no.95/ferrous [...] Status:Closed by DESMOND MICHAEL on 06/06/24 Normal [facility] Examination level ultrasound on 05-05-2024 Indication Standard [...] 0 oz EFW by: Hadlock (HC-AC-FL) Extended Document Clerk 5.4 mm CM 5.4 mm 54% Nicolaides [...] normal LVOT view: normal 3-vessel view: normal 9-qdcjfg-gqruuqk view: normal Heart / Thorax Situs: situs [...] Basophils (Bld) [#/Vol] 0.04 10*3/uL Normal <0.11 [facility] Comment on above: Order Comment: Speci men Type: BLOOD SPECIMEN Ordering Facility: [facility] Address: [address] [place] [address] Performed By: #### R UBIGG #### [facility] CLIA [id number] [address] [place] [address] [place] Basophils/100 WBC (Bld) 0.3 % Normal [facility] Comment on above: Order Comment: Speci men Type: BLOOD SPECIMEN Ordering Facility: [facility] Address: [address] [place] [address] Performed By: #### R UBIGG #### [facility] CLIA [id number] [address] [place] [address] [place] Differential cell count method Nom (Bld) Auto Normal [facility] Comment on above: Order Comment: Speci men Type: BLOOD SPECIMEN Ordering Facility: [facility] Address: [address] [place] [address] Performed By: #### R UBIGG #### [facility] CLIA [id number] [address] [place] [address] [place] Eosinophils (Bld) [#/Vol] 0.11 10*3/uL Normal <0.46 [facility] Comment on above: Order Comment: Speci men Type: BLOOD SPECIMEN Ordering Facility: [facility] Address: [address] [place] [address] Performed By: #### R UBIGG #### [facility] CLIA [id number] [address] [place] [address] [place] Eosinophils/100 WBC (Bld) 0.9 % Normal [facility] Comment on above: Order Comment: Speci men Type: BLOOD SPECIMEN Ordering Facility: [facility] Address: [address] [place] [address] Performed By: #### R UBIGG #### [facility] CLIA [id number] [address] [place] [address] [place] Erythrocyte distribution width (RBC) [Ratio] 12.5 % Normal 11.5-15.0 [facility] Comment on above: Order Comment: Speci men Type: BLOOD SPECIMEN Ordering Facility: [facility] Address: [address] [place] [address] Performed By: #### R UBIGG #### [facility] CLIA [id number] [address] [place] [address] [place] Hematocrit (Bld) [Volume fraction] 39.8 % Normal 36.0-46.0 [facility] Comment on above: Order Comment: Speci men Type: BLOOD SPECIMEN Ordering Facility: [facility] Address: [address] [place] [address] Performed By: #### R UBIGG #### [facility] CLIA [id number] [address] [place] [address] [place] Hemoglobin (Bld) [Mass/Vol] 13.5 g/dL Normal 11.5-15.5 [facility] Comment on above: Order Comment: Speci men Type: BLOOD SPECIMEN Ordering Facility: [facility] Address: [address] [place] [address] Performed By: #### R UBIGG #### [facility] CLIA [id number] [address] [place] [address] [place] Immature granulocytes (Bld) [#/Vol] 0.08 10*3/uL Normal <0.10 [facility] Comment on above: Order Comment: Speci men Type: BLOOD SPECIMEN Ordering Facility: [facility] Address: [address] [place] [address] Performed By: #### R UBIGG #### [facility] CLIA [id number] [address] [place] [address] [place] Immature granulocytes/100 WBC (Bld) 0.6 % Normal [facility] Comment on above: Order Comment: Speci men Type: BLOOD SPECIMEN Ordering Facility: [facility] Address: [address] [place] [address] Performed By: #### R UBIGG #### [facility] CLIA [id number] [address] [place] [address] [place] Lymphocytes (Bld) [#/Vol] 1.14 10*3/uL Normal 1.00-4.00 [facility] Comment on above: Order Comment: Speci men Type: BLOOD SPECIMEN Ordering Facility: [facility] Address: [address] [place] [address] Performed By: #### R UBIGG #### [facility] CLIA [id number] [address] [place] [address] [place] Lymphocytes/100 WBC (Bld) 9.1 % Normal [facility] Comment on above: Order Comment: Speci men Type: BLOOD SPECIMEN Ordering Facility: [facility] Address: [address] [place] [address] Performed By: #### R UBIGG #### [facility] CLIA [id number] [address] [place] [address] [place] MCH (RBC) [Entitic mass] 30.5 pg Normal 26.0-34.0 [facility] Comment on above: Order Comment: Speci men Type: BLOOD SPECIMEN Ordering Facility: [facility] Address: [address] [place] [address] Performed By: #### R UBIGG #### [facility] CLIA [id number] [address] [place] [address] [place] MCHC (RBC) [Mass/Vol] 33.9 g/dL Normal 30.5-36.0 [facility] Comment on above: Order Comment: Speci men Type: BLOOD SPECIMEN Ordering Facility: [facility] Address: [address] [place] [address] Performed By: #### R UBIGG #### [facility] CLIA [id number] [address] [place] [address] [place] MCV (RBC) [Entitic vol] 89.8 fL Normal 80.0-100.0 [facility] Comment on above: Order Comment: Speci men Type: BLOOD SPECIMEN Ordering Facility: [facility] Address: [address] [place] [address] Performed By: #### R UBIGG #### [facility] CLIA [id number] [address] [place] [address] [place] Monocytes (Bld) [#/Vol] 1.62 10*3/uL High <0.87 [facility] Comment on above: Order Comment: Speci men Type: BLOOD SPECIMEN Ordering Facility: [facility] Address: [address] [place] [address] Performed By: #### R UBIGG #### [facility] CLIA [id number] [address] [place] [address] [place] Monocytes/100 WBC (Bld) 12.9 % Normal [facility] Comment on above: Order Comment: Speci men Type: BLOOD SPECIMEN Ordering Facility: [facility] Address: [address] [place] [address] Performed By: #### R UBIGG #### [facility] CLIA [id number] [address] [place] [address] [place] Neutrophils (Bld) [#/Vol] 9.57 10*3/uL High 1.45-7.50 [facility] Comment on above: Order Comment: Speci men Type: BLOOD SPECIMEN Ordering Facility: [facility] Address: [address] [place] [address] Performed By: #### R UBIGG #### [facility] CLIA [id number] [address] [place] [address] [place] Neutrophils/100 WBC (Bld) 76.2 % Normal [facility] Comment on above: Order Comment: Speci men Type: BLOOD SPECIMEN Ordering Facility: [facility] Address: [address] [place] [address] Performed By: #### R UBIGG #### [facility] CLIA [id number] [address] [place] [address] [place] Nucleated RBC (Bld) [#/Vol] 10*3/uL Normal <0.01 [facility] Comment on above: Order Comment: Speci men Type: BLOOD SPECIMEN Ordering Facility: [facility] Address: [address] [place] [address] Performed By: #### R UBIGG #### [facility] CLIA [id number] [address] [place] [address] [place] Nucleated RBC/100 WBC (Bld) [Ratio] 0.0 /100 WBC Normal [facility] Comment on above: Order Comment: Speci men Type: BLOOD SPECIMEN Ordering Facility: [facility] Address: [address] [place] [address] Performed By: #### R UBIGG #### [facility] CLIA [id number] [address] [place] [address] [place] Platelet mean volume (Bld) [Entitic vol] 8.4 fL Low 9.0-12.7 [facility] Comment on above: Order Comment: Speci men Type: BLOOD SPECIMEN Ordering Facility: [facility] Address: [address] [place] [address] Performed By: #### R UBIGG #### [facility] CLIA [id number] [address] [place] [address] [place] Platelets (Bld) [#/Vol] 267 10*3/uL Normal 150-400 [facility] Comment on above: Order Comment: Speci men Type: BLOOD SPECIMEN Ordering Facility: [facility] Address: [address] [place] [address] Performed By: #### R UBIGG #### [facility] CLIA [id number] [address] [place] [address] [place] RBC (Bld) [#/Vol] 4.43 10*6/uL Normal 3.90-5.20 [facility] Comment on above: Order Comment: Speci men Type: BLOOD SPECIMEN Ordering Facility: [facility] Address: [address] [place] [address] Performed By: #### R UBIGG #### [facility] CLIA [id number] [address] [place] [address] [place] WBC (Bld) [#/Vol] 12.56 10*3/uL High 3.70-11.00 [facility] Comment on above: Order Comment: Speci men Type: BLOOD SPECIMEN Ordering Facility: [facility] Address: [address] [place] [address] Performed By: #### R UBIGG #### [facility] CLIA [id number] [address] [place] [address] [place] nuchal translucency me asured by on 03-10-2024 Indication First trimester anatomic survey Impression REMOTE READ The patient is referred for a first trimester anatomy scan including nuchal translucency measurement as clinically indicated. - Single, live, intrauterine . - [place] rump length measurement is consistent with the [...] view: visualized 4-chamber view with color: normal 6-thjcvl-kdeghyk view: normal Abdominal cord insertion: normal Stomach: [...] surface Ag Ql (S) Negative Normal Negative [facility] Comment on above: Order Comment: Speci men Type: FLUID SPECIMEN Ordering Facility: [facility] Address: [address] [place] [address] Performed By: #### L [id number] #### [facility] CLIA [id number] [address] [place] [address] [place] HCV Ab Ser Qlon 03-10-2024 HCV Ab Ql (S) Negative Normal Negative [facility] Comment on above: Order Comment: Speci men Type: BLOOD SPECIMEN Ordering Facility: [facility] Address: [address] [place] [address] Result Comment: The result suggests no evidence of active infection with Hepatitis C virus. Should recent infection be suspected, repeat testing may be considered 4-6 weeks after this draw. Performed By: #### R UBIGG #### [facility] CLIA [id number] [address] [place] [address] [place] HIV 1+2 Ab IA Qlon HIV 1 and 2 Ab IA.rapid Nom (S/P/Bld) Normal [facility] Comment on above: Order Comment: Speci men Type: FLUID SPECIMEN Ordering Facility: [facility] Address: [address] [place] [address] Result Comment: Test not indicated. Performed By: #### L [id number] #### [facility] CLIA [id number] [address] [place] [address] [place] HIV 1+2 Ab+HIV1 p24 Ag IA Ql Non-Reactive Normal Nonreactive [facility] Comment on above: Order Comment: Speci men Type: FLUID SPECIMEN Ordering Facility: [facility] Address: [address] [place] [address] Performed By: #### L [id number] #### [facility] CLIA [id number] [address] [place] [address] [place] HIV immunoassay testing algorithm interpretation (S/P/Bld) [Interp] Normal [facility] Comment on above: Order Comment: Speci men Type: FLUID SPECIMEN Ordering Facility: [facility] Address: [address] [place] [address] Result Comment: No e vidence of HIV-1 [...] results or diagnoses. Performed By: #### L [id number] #### [facility] CLIA [id number] [address] [place] [address] [place] HbA1c (Bld)on 03-10-2024 Average glucose Estimated from glycated hemoglobin (Bld) [Mass/Vol] 85 mg/dL Normal [facility] Comment on above: Order Comment: Speci men Type: BLOOD SPECIMEN Ordering Facility: [facility] Address: [address] [place] [address] Result Comment: eAG: (Estimated average glucose) is a calculated value from HgbA1c and is insurance claims representative of the average blood glucose level in the last 2-3 month period. Performed By: #### R UBIGG #### [facility] CLIA [id number] [address] [place] [address] [place] HbA1c (Bld) [Mass fraction] 4.6 % Normal 4.3-5.6 [facility] Comment on above: Order Comment: Speci men Type: BLOOD SPECIMEN Ordering Facility: [facility] Address: [address] [place] [address] Result Comment: Amer [place] Diabetes Association guidelines indicate that patients with HgbA1c in the range 5.7-6.4% are at increased risk for development of diabetes, and intervention by lifestyle modification may be beneficial. HgbA1c greater or equal to 6.5% is considered diagnostic of diabetes. Performed By: #### R UBIGG #### [facility] CLIA [id number] [address] [place] [address] [place] [id number] PLUSon 03-10-2024 Cell-free DNA./Cell-free DNA.total Dosage of chromosome-specific cfDNA (cfDNA) [Molar fraction] 20% Normal [facility] Comment on above: Order Comment: Speci men Type: BLOOD SPECIMEN Ordering Facility: [facility] Address: [address] [place] [address] Performed By: #### M [id number] #### [facility] CLIA [id number] [address] [place] [address] Chr 13+18+21+X+Y aneuploidy Dosage of chromosome-specific cfDNA Ql (cfDNA) Negative Normal [facility] Comment on above: Order Comment: Speci men Type: BLOOD SPECIMEN Ordering Facility: [facility] Address: [address] [place] [address] Performed By: #### M AT21 #### [facility] CLIA [id number] [address] [place] [address] Chr 21 trisomy Dosage of chromosome-specific cfDNA Ql (cfDNA) Negative Normal [facility] Comment on above: Order Comment: Pioi men Type: BLOOD SPECIMEN Ordering Facility: [facility] Address: [address] [place] [address] Performed By: #### M AT21 #### [facility] CLIA [id number] [address] [place] [address] Chr X and Y aneuploidy risk Sequencing Ql (cfDNA) [Interp] Not detected Normal [facility] Comment on above: Order Comment: Speci men Type: BLOOD SPECIMEN Ordering Facility: [facility] Address: [address] [place] [address] Result Comment: Not Detected Not Detected Performed By: #### M AT21 #### [facility] CLIA [id number] [address] [place] [address] Citation Rigo (Reference lab test) Comment Normal [facility] Comment on above: Order Comment: Speci men Type: BLOOD SPECIMEN Ordering Facility: [facility] Address: [address] [place] [address] Result Comment: 1. P catalino BAZAN, et al. Filomena Med. 2012;14(3):296-305. 2. Rossi GRULLON et al. Prenat Diag. 2013;33(6):591-597. 3. Parmjit C, et al. Clin Chem. 2015 Apr;61(4):608-616. 4. Clayton BAZAN, et al. Filomena Med. 2011;13(11):913-920. 5. ACOG/SMFM Practice Bulletin No. 226, Dec 2019. Performed By: #### M AT21 #### [facility] CLIA [id number] [address] [place] [address] Gestational age Estimated from conception date Henley Normal [facility] Comment on above: Order Comment: Speci men Type: BLOOD SPECIMEN Ordering Facility: [facility] Address: [address] [place] [address] Performed By: #### M AT21 #### [facility] CLIA [id number] [address] [place] [address] GESTATIONALAGE AGE > OR = 9W Yes Normal [facility] Comment on above: Order Comment: Speci men Type: BLOOD SPECIMEN Ordering Facility: [facility] Address: [address] [place] [address] Performed By: #### M AT21 #### [facility] CLIA [id number] [address] [place] [address] Laboratory comment Rigo (Report) Comment Normal [facility] Comment on above: Order Comment: Jay field Type: BLOOD SPECIMEN Ordering Facility: [facility] Address: [address] [place] [address] Result Comment: The MaterniT(R) 21 PLUS laboratory-developed test (LDT) analyzes circulating cell-free DNA from a maternal blood sample. This test is used for screening purposes and not diagnostic. Clinical correlation is recommended. Validation data on twin pregnancies is limited and the ability of this test to detect aneuploidy in higher multiple gestations has not yet been validated. Performed By: #### M AT21 #### [facility] CLIA [id number] [address] [place] [address] disaster director name Nom (Provider) Comment Normal [facility] Comment on above: Order Comment: Jay field Type: BLOOD SPECIMEN Ordering Facility: [facility] Address: [address] [place] [address] Result Comment: This specimen showed an expected representation of chromosome 21, 18 and 13 material. Clinical correlation is suggested. Comment José Miguel Card MD, PhD, Director, [employer] Performed By: #### M AT21 #### [facility] CLIA [id number] [address] [place] [address] LIMITATIONS OF THE TEST Comment Normal [facility] Comment on above: Order Comment: Jay field Type: BLOOD SPECIMEN Ordering Facility: [facility] Address: [address] [place] [address] Result Comment: Whil e the results of these tests are highly [...] Fragmin(R)). Performed By: #### M AT21 #### [facility] CLIA [id number] [address] [place] [address] Monosomy X risk Dosage of chromosome-specific cfDNA Ql (Plasma cell-free+WBC DNA) [Interp] Not detected Normal [facility] Comment on above: Order Comment: Speci men Type: BLOOD SPECIMEN Ordering Facility: [facility] Address: [address] [place] [address] Performed By: #### M AT21 #### [facility] CLIA [id number] [address] [place] [address] NEGATIVE PREDICTIVE VALUE Note Normal [facility] Comment on above: Order Comment: Speci men Type: BLOOD SPECIMEN Ordering Facility: [facility] Address: [address] [place] [address] Result Comment: The Negative Predictive Value (NPV) for trisomy 21, 18, and 13 is greater than 99%. The NPV for SCA and ESS cannot be calculated as SCA and ESS are only reported when an abnormality is detected. Performed By: #### M AT21 #### [facility] CLIA [id number] [address] [place] [address] NOTE Comment Normal [facility] Comment on above: Order Comment: [facility] Type: BLOOD SPECIMEN Ordering Facility: [facility] Address: [address] [place] [address] Result Comment: See Notes [employer]. is a subsidiary of [employer], using the brand [employer]. This test was developed and its performance characteristics determined by [employer]. It has not been cleared or approved by the Food and Drug Administration. This laboratory is certified under the Clinical Laboratory Improvement Amendments (CLIA) as qualified to perform high complexity clinical laboratory testing and accredited by the [employer] (CAP). If there is future clinical need for adding MaterniT GENOME testing, this specimen will be available until term. [facility] samples will not be retained beyond 60 days. [facility] patients will have to send a new sample for re-sequencing ([facility] Test Code: [id number]). Performed By: #### M AT21 #### [facility] IA [id number] [address] [place] [address] PERFORMANCE CHARACTERISTICS Note Normal [facility] Comment on above: Order Comment: Speci men Type: BLOOD SPECIMEN Ordering Facility: [facility] Address: [address] [place] [address] Result Comment: ! Sex ! Accuracy: 99.4% [...] ! ! ! * As reported in [facility] database nstd37 [https://www.ncbi.nlm.nih.gov/dbvar/studies/nstd37/ ] # Estimated Sensitivity. [...] only. Performed By: #### M AT21 #### [facility] CLIA [id number] [address] [place] [address] POSITIVE PREDICTIVE VALUE N/A Normal [facility] Comment on above: Order Comment: Speci men Type: BLOOD SPECIMEN Ordering Facility: [facility] Address: [address] [place] [address] Performed By: #### M AT21 #### [facility] CLIA [id number] [address] [place] [id number] Reference Lab Test Method Comment Normal [facility] Comment on above: Order Comment: Speci men Type: BLOOD SPECIMEN Ordering Facility: [facility] Address: [address] [place] [address] Result Comment: See Notes Circulating cell-free DNA [...] 22. Performed By: #### M AT21 #### [facility] CLIA [id number] [address] [place] [address] Sex Dosage of chromosome-specific cfDNA Nom (cfDNA) Comment Normal [facility] Comment on above: Order Comment: Speci men Type: BLOOD SPECIMEN Ordering Facility: [facility] Address: [address] [place] [address] Result Comment: Cons istent with Male Performed By: #### M AT21 #### [facility] CLIA [id number] [address] [place] [address] Test performance information Rigo (Unsp spec) Comment Normal [facility] Comment on above: Order Comment: Jay field Type: BLOOD SPECIMEN Ordering Facility: [facility] Address: [address] [place] [address] Result Comment: The performance characteristics of the MaterniT(R) 21 PLUS laboratory-developed test (LDT) have been determined in a clinical validation study with women at increased risk for chromosomal aneuploidy.[1-4] Performed By: #### M AT21 #### [facility] CLIA [id number] [address] [place] [address] Trisomy 13 risk Dosage of chromosome-specific cfDNA Ql (cfDNA) [Interp] Negative Normal [facility] Comment on above: Order Comment: Jay field Type: BLOOD SPECIMEN Ordering Facility: [facility] Address: [address] [place] [address] Performed By: #### M AT21 #### [facility] CLIA [id number] [address] [place] [address] Trisomy 18 risk Dosage of chromosome-specific cfDNA Ql (Plasma cell-free+WBC DNA) [Interp] Negative Normal [facility] Comment on above: Order Comment: Jay field Type: BLOOD SPECIMEN Ordering Facility: [facility] Address: [address] [place] [address] Performed By: #### M AT21 #### [facility] CLIA [id number] [address] [place] [address] RUBELLA IGG ANTIBODYon 03-10 RUBELLA IGG AB, QUAL Negative Abnormal Positive [facility] Comment on above: Order Comment: Jay field Type: BLOOD SPECIMEN Ordering Facility: [facility] Address: [address] [place] [address] Result Comment: The result suggests no history of Rubella vaccination or exposure to Rubella virus, however, some individuals with past history of Rubella vaccination may test negative using this test as immunity to Rubella virus wanes over time after vaccination. Please correlate with vaccination history if applicable. Performed By: #### R UBIGG #### [facility] CLIA [id number] [address] [place] [address] [place] Reagin and Treponema pallidu m IgG and IgM [Interp]on 03-10-2024 T. pallidum IgG+IgM IA Ql (S) Non-Reactive Normal Nonreactive [facility] Comment on above: Order Comment: Speci men Type: FLUID SPECIMEN Ordering Facility: [facility] Address: [address] [place] [address] Performed By: #### L [id number] #### [facility] CLIA [id number] [address] [place] [address] [place] Reagin+T pallidum IgG+IgM Se rPl-Impon 03-10-2024 Reagin and Treponema pallidum IgG and IgM [Interp] Cannot exclude recent Treponemal infection if specimen collected within 7-10 days after appearance of suspect lesions or 2-3 weeks after an exposure. Clinical correlation is required. Normal [facility] Comment on above: Order Comment: Speci men Type: FLUID SPECIMEN Ordering Facility: [facility] Address: [address] [place] [address] Performed By: #### L [id number] #### [facility] CLIA [id number] [address] [place] [address] [place] TYPE + SCREEN PRENATALon ABO O Normal [facility] Comment on above: Order Comment: Speci men Type: BLOOD SPECIMEN Ordering Facility: [facility] Address: [address] [place] [address] Performed By: #### T SPN #### [facility] CLIA [id number] [address] [place] [address] [place] Rh Nom (Bld) Positive Normal [facility] Comment on above: Order Comment: Speci men Type: BLOOD SPECIMEN Ordering Facility: [facility] Address: [address] [place] [address] Performed By: #### T SPN #### [facility] CLIA [id number] [address] [place] [address] [place] TYPE AND SCREEN EXPIRATION 03/13/2024 23:59 Normal [facility] Comment on above: Order Comment: Speci men Type: BLOOD SPECIMEN Ordering Facility: [facility] Address: [address] [place] [address] Performed By: #### T SPN #### [facility] CLIA [id number] [address] [place] [address] [place] Bacteria Ur Culton Bacteria identified Cx Nom (U) ORGANISM ID: 1 <10,000 CFU/ml Normal urogenital brisa Normal [facility] Comment on above: Performed By: #### R UBIGG #### [facility] CLIA [id number] [address] [place] [address] [place] C. trachomatis+N. gonorrhoea e DNA HOSSEIN+probe Ql (Unsp spec)on 01-21-2024 C. trachomatis rRNA HOSSEIN+probe Ql (Unsp spec) Negative Normal Negative for Chlamydia trachomatis by amplificaton [facility] Comment on above: Order Comment: Speci men Type: BLOOD SPECIMEN Ordering Facility: [facility] Address: [address] [place] [address] Performed By: #### R UBIGG #### [facility] CLIA [id number] [address] [place] [address] [place] N. gonorrhoeae rRNA HOSSEIN+probe Ql (Unsp spec) Negative Normal Negative for Neisseria gonorrhoeae by amplification [facility] Comment on above: Order Comment: Speci men Type: BLOOD SPECIMEN Ordering Facility: [facility] Address: [address] [place] [address] Performed By: #### R UBIGG #### [facility] CLIA [id number] [address] [place] [address] [place] PAP TESTon 01-21-2024 ADEQUACY Normal [facility] Comment on above: Order Comment: Speci men Type: FLUID SPECIMEN Ordering Facility: [facility] Address: [address] [place] [address] Result Comment: Sati sfactory for interpretation. No endocervical component Performed By: #### L [id number] #### [facility] CLIA [id number] [address] [place] [address] [place] CASE REPORT Normal [facility] Comment on above: Order Comment: Speci men Type: FLUID SPECIMEN Ordering Facility: [facility] Address: [address] [place] [address] Result Comment: Gyne cologic Cytology Report Case: [id number] Authorizing Provider: Helena Ocampo APRN.CODING FILE CLERK Collected: 01/21/2024 03:55 PM Ordering Location: OB/Gynecology Received: 01/21/2024 04:29 PM First Screen: Valeriy, Christina, CT, ASCP Specimen: Pap Test, ThinPrep, Cervix Performed By: #### L [id number] #### [facility] CLIA [id number] [address] [place] [address] [place] CLINICAL HISTORY, CYTOLOGY, BREASTFEEDING PEER COUNSELOR Routine Exam Normal [facility] Comment on above: Order Comment: Speci men Type: FLUID SPECIMEN Ordering Facility: [facility] Address: [address] [place] [address] Performed By: #### L [id number] #### [facility] CLIA [id number] [address] [place] [address] [place] FINAL PERFORMING LAB Normal [facility] Comment on above: Order Comment: Speci men Type: FLUID SPECIMEN Ordering Facility: [facility] Address: [address] [place] [address] Result Comment: Tech nical component, exhibit electrician screening performed at [facility], [address] [place] [address] CLIA# [id number] Diagnostic interpretation performed at [facility], [address] [place], [place] [id number] CLIA# [id number] Hand Patcher: Kobi Piña M.D. Performed By: #### L [id number] #### [facility] CLIA [id number] [address] [place] [address] [place] INTERPRETATION, CYTOLOGY, BREASTFEEDING PEER COUNSELOR Normal [facility] Comment on above: Order Comment: Speci men Type: FLUID SPECIMEN Ordering Facility: [facility] Address: [address] [place] [address] Result Comment: Nega tive for intraepithelial lesion or malignancy. Performed By: #### L [id number] #### [facility] CLIA [id number] [address] [place] [address] [place] LMP 12/01/2023 Normal [facility] Comment on above: Order Comment: Speci men Type: FLUID SPECIMEN Ordering Facility: [facility] Address: [address] [place] [address] Performed By: #### L [id number] #### [facility] CLIA [id number] [address] [place] [address] [place] PAP DISCLAIMER COMMENT The Pap Smear is a screening test for cervical cancer. False negative results occur with all screening tests, emphasizing the need for rescreening at recommended intervals, and clinical correlation. Normal [facility] Comment on above: Order Comment: Speci men Type: FLUID SPECIMEN Ordering Facility: [facility] Address: [address] [place] [address] Performed By: #### L [id number] #### [facility] CLIA [id number] [address] [place] [address] [place] PAP TRIMMER HAND COMMENT This specimen has been analyzed by the ThinPrep Imaging System, an automated imaging and review system, which assists the laboratory in evaluating cells on ThinPrep Pap tests. Following automated imaging, selected byers from every slide are reviewed by a exhibit electrician. Normal [facility] Comment on above: Order Comment: Speci men Type: FLUID SPECIMEN Ordering Facility: [facility] Address: [address] [place] [address] Performed By: #### L [id number] #### [facility] CLIA [id number] [facility] [address] [id number] [address] [place] POC LOOM WINDER TENDER ULTRASOUNDon 01-21-20 Indication Confirmation of intrauterine . Confirmation of [...] [facility] 01-16-2024 CNPN Telephone (OBGYWM) JESÚS CUEVAS ([id number]) 2000 F Date Time Provider Department 01/16/24 TERRENCE, HELENA OBGYWM During your visit today, we recorded the [...] Encounter Status:Closed by ASHLEY CLARK on 01/21/24 Normal [facility] 19-49 Yearson 10-12-2021 19-49 Years Diagnoses/Problems [...] Acne; MIKI = N; Verified Transmission to [id number]; Last Updated By: MEDOVENT; 10/12/2021 11:14:26 AM last appt-10/08/20 next appt-10/12/21 last BW-03/23/20 smm 08/17/21 last appt-10/08/20 next appt-10/12/21 last BW-03/23/20 smm 06/09/21 last appt-11/07/2019 next appt-10/08/20 last BW-03/23/2020 m 07/14/20 Allergic rhinitis Renew: Montelukast Sodium 10 MG Oral Tablet; TAKE 1 TABLET AT BEDTIME Rx By: Amparo Carter; Dispense: 90 Days ; #:1 X 90 Tablet Bottle; Refill: 3;For: Allergic rhinitis; MIKI = N; Verified Transmission to [id number]; Last Updated By: MEDOVENT; 10/12/2021 11:14:27 AM Eczema Renew: Mometasone Furoate 0.1 % External Cream; APPLY SPARINGLY TO AFFECTED AREAS TWICE DAILY.(AM AND PM) Rx By: Amparo Carter; Dispense: 0 Days ; #:1 X 45 GM Tube; Refill: 0;For: Eczema; MIKI = N; Verified Transmission to [id number]; Last Updated By: MEDOVENT; 10/12/2021 11:14:25 AM Unlinked Stop: Tretinoin 0.025 [...] All medical record entries made by the Keiryibe were at my direction and personally dictated [...] difficulty walking, (more content not included)... Normal [facility] Screening.on 022 Fall risk assessment a) No falls within the last year -[facility] Work Phone: Tobacco use status CPHS b) No -[facility] Work Phone: CBC AND DIFFERENTIALon 10-11 % AUTOMATED IMMATURE GRAN 0.6 % Normal 0.0 - 0.9 [facility] Comment on above: Result Comment: Radha ture Granulocyte Count (IG) includes promyelocytes, myelocytes and metamyelocytes but does not include bands. Percent differential counts (%) should be interpreted in the context of the absolute cell counts (cells/L). Performed By: #### C BCDF #### [facility] [address] [place] [address] Basophils (Bld) [#/Vol] 0.06 10*3/uL Normal 0.00 - 0.10 [facility] Comment on above: Performed By: #### C BCDF #### [facility] [address] [place] [address] Basophils/100 WBC (Bld) 0.7 % Normal 0.0 - 2.0 [facility] Comment on above: Performed By: #### C BCDF #### [facility] [address] [place] [address] Eosinophils (Bld) [#/Vol] 0.20 10*3/uL Normal 0.00 - 0.70 [facility] Comment on above: Performed By: #### C BCDF #### [facility] [address] [place] [address] Eosinophils/100 WBC (Bld) 2.4 % Normal 0.0 - 6.0 [facility] Comment on above: Performed By: #### C BCDF #### [facility] [address] [place] [address] Erythrocyte distribution width (RBC) [Ratio] 11.7 % Normal 11.5 - 14.5 [facility] Comment on above: Performed By: #### C BCDF #### [facility] [address] [place] [address] Hematocrit (Bld) [Volume fraction] 43.3 % Normal 36.0 - 46.0 [facility] Comment on above: Performed By: #### C BCDF #### [facility] [address] [place] [address] Hemoglobin (Bld) [Mass/Vol] 14.1 g/dL Normal 12.0 - 16.0 [facility] Comment on above: Performed By: #### C BCDF #### [facility] [address] [place] [address] Lymphocytes (Bld) [#/Vol] 2.56 10*3/uL Normal 1.20 - 4.80 [facility] Comment on above: Performed By: #### C BCDF #### [facility] [address] [place] [address] Lymphocytes/100 WBC (Bld) 31.2 % Normal 13.0 - 44.0 [facility] Comment on above: Performed By: #### C BCDF #### [facility] [address] [place] [address] MCHC (RBC) [Mass/Vol] 32.6 g/dL Normal 32.0 - 36.0 [facility] Comment on above: Performed By: #### C BCDF #### [facility] [address] [place] [address] MCV (RBC) [Entitic vol] 93 fL Normal 80 - 100 [facility] Comment on above: Performed By: #### C BCDF #### [facility] [address] [place] [address] Monocytes (Bld) [#/Vol] 0.84 10*3/uL Normal 0.10 - 1.00 [facility] Comment on above: Performed By: #### C BCDF #### [facility] [address] [place] [address] Monocytes/100 WBC (Bld) 10.2 % Normal 2.0 - 10.0 [facility] Comment on above: Performed By: #### C BCDF #### [facility] [address] [place] [address] Neutrophils (Bld) [#/Vol] 4.50 10*3/uL Normal 1.20 - 7.70 [facility] Comment on above: Performed By: #### C BCDF #### [facility] [address] [place] [address] Neutrophils/100 WBC (Bld) 54.9 % Normal 40.0 - 80.0 [facility] Comment on above: Performed By: #### C BCDF #### [facility] [address] [place] [address] NUCLEATED RBC 0.0 /100 WBC Normal 0.0-0.0 [facility] Comment on above: Performed By: #### C BCDF #### [facility] [address] [place] [address] Platelets (Bld) [#/Vol] 348 10*3/uL Normal 150 - 450 [facility] Comment on above: Performed By: #### C BCDF #### [facility] [address] [place] [address] RBC 4.64 x10E12/L Normal 4.00 - 5.20 [facility] Comment on above: Performed By: #### C BCDF #### [facility] [address] [place] [address] WBC (Bld) [#/Vol] 8.2 10*3/uL Normal 4.4 - 11.3 [facility] Comment on above: Performed By: #### C BCDF #### [facility] [address] [place] [address] COMPREHENSIVE PANELon 2021 Albumin [Mass/Vol] 3.9 g/dL Normal 3.4 - 5.0 [facility] Comment on above: Performed By: #### C MP #### [facility] [address] [place] [address] ALP [Catalytic activity/Vol] 48 U/L Normal 33 - 110 [facility] Comment on above: Performed By: #### C MP #### [facility] [address] [place] [address] ALT [Catalytic activity/Vol] 15 U/L Normal 7 - 45 [facility] Comment on above: Result Comment: Mildred ents treated with Sulfasalazine may generate falsely decreased results for ALT. Performed By: #### C MP #### [facility] [address] [place] [address] Anion gap [Moles/Vol] 13 mmol/L Normal 10 - 20 [facility] Comment on above: Performed By: #### C MP #### [facility] [address] [place] [address] AST [Catalytic activity/Vol] 22 U/L Normal 9 - 39 [facility] Comment on above: Performed By: #### C MP #### [facility] [address] [place] [address] Bilirubin [Mass/Vol] 0.3 mg/dL Normal 0.0 - 1.2 [facility] Comment on above: Performed By: #### C MP #### [facility] [address] [place] [address] Calcium [Mass/Vol] 9.4 mg/dL Normal 8.6 - 10.6 [facility] Comment on above: Performed By: #### C MP #### [facility] [address] [place] [address] Chloride [Moles/Vol] 106 mmol/L Normal 98 - 107 [facility] Comment on above: Performed By: #### C MP #### [facility] [address] [place] [address] Creatinine [Mass/Vol] 0.78 mg/dL Normal 0.50 - 1.05 [facility] Comment on above: Performed By: #### C MP #### [facility] [address] [place] [address] eGFR FEMALE >90 Normal >90 [facility] Comment on above: Result Comment: CALC ULATIONS OF ESTIMATED GFR ARE PERFORMED USING THE 2020 CKD-EPI STUDY REFIT EQUATION WITHOUT THE RACE VARIABLE FOR THE IDMS-TRACEABLE CREATININE METHODS. https://jasn.asnjournals.org/content//ASN.41721511 88 Performed By: #### C MP #### [facility] [address] [place] [address] Glucose [Mass/Vol] 92 mg/dL Normal 74 - 99 [facility] Comment on above: Performed By: #### C MP #### [facility] [address] [place] [address] HCO3 (Bld) [Moles/Vol] 24 mmol/L Normal 21 - 32 [facility] Comment on above: Performed By: #### C MP #### [facility] [address] [place] [address] Potassium [Moles/Vol] 4.7 mmol/L Normal 3.5 - 5.3 [facility] Comment on above: Performed By: #### C MP #### [facility] [address] [place] [address] Protein [Mass/Vol] 6.9 g/dL Normal 6.4 - 8.2 [facility] Comment on above: Performed By: #### C MP #### [facility] [facility] [address] [place] [address] Sodium [Moles/Vol] 138 mmol/L Normal 136 - 145 [facility] Comment on above: Performed By: #### C MP #### REPLACED BY [facility] [address] [place] [address] Urea nitrogen [Mass/Vol] 12 mg/dL Normal 6 - 23 [facility] Comment on above: Performed By: #### C MP #### [facility] [address] [place] [address] Complete Blood Count + Diffe eduardo 10-11-2021 Basophils/100 WBC (Bld) 0.7 % 0.0 - 2.0 [facility] Work Phone: Erythrocyte distribution width (RBC) [Ratio] 11.7 % See Below [facility] Work Phone: Comment on above: Reference Range: 11. 5 - 14.5 Hematocrit (Bld) [Volume fraction] 43.3 % See Below [facility] Work Phone: Comment on above: Reference Range: 36. 0 - 46.0 Hemoglobin (Bld) [Mass/Vol] 14.1 g/dL See Below [facility] Work Phone: Comment on above: Reference Range: 12. 0 - 16.0 Lymphocytes/100 WBC (Bld) 31.2 % See Below [facility] Work Phone: Comment on above: Reference Range: 13. 0 - 44.0 MCHC (RBC) [Mass/Vol] 32.6 g/dL See Below [facility] Work Phone: Comment on above: Reference Range: 32. 0 - 36.0 MCV (RBC) [Entitic vol] 93 fL 80 - 100 [facility] Work Phone: Monocytes/100 WBC (Bld) 10.2 % 2.0 - 10.0 [facility] Work Phone: Neutrophils/100 WBC (Bld) 54.9 % See Below [facility] Work Phone: Comment on above: Reference Range: 40. 0 - 80.0 Platelets (Bld) [#/Vol] 348 10*3/uL 150 - 450 [facility] Work Phone: RBC (Bld) [#/Vol] 4.64 {x10E12/L} See Below [facility] Work Phone: Comment on above: Reference Range: 4.0 0 - 5.20 WBC (Bld) [#/Vol] 8.2 10*3/uL 4.4 - 11.3 [facility] Work Phone: Complete Blood Count + Differential 0.06 {x10E9/L} See Below [facility] Work Phone: Comment on above: Reference Range: 0.0 0 - 0.10 Complete Blood Count + Differential 0.20 {x10E9/L} See Below [facility] Work Phone: Comment on above: Reference Range: 0.0 0 - 0.70 Complete Blood Count + Differential 0.84 {x10E9/L} See Below [facility] Work Phone: Comment on above: Reference Range: 0.1 0 - 1.00 Complete Blood Count + Differential 2.56 {x10E9/L} See Below [facility] Work Phone: Comment on above: Reference Range: 1.2 0 - 4.80 Complete Blood Count + Differential 4.50 {x10E9/L} See Below [facility] Work Phone: Comment on above: Reference Range: 1.2 0 - 7.70 Complete Blood Count + Differential 2.4 % 0.0 - 6.0 [facility] Work Phone: Complete Blood Count + Differential 0.6 % 0.0 - 0.9 [facility] Work Phone: Comment on above: Immature Granulocyte Count (IG) includes promyelocytes, myelocytes and metamyelocytes but does not include bands. Percent differential counts (%) should be interpreted in the context of the absolute cell counts (cells/L). Complete Blood Count + Differential 0.0 {/100_WBC} 0.0-0.0 [facility] Work Phone: LIPID PANEL (CORONARY RISK 2 )on 10-11-2021 Cholesterol [Mass/Vol] 144 mg/dL Normal 0 - 199 [facility] Comment on above: Result Comment: . AGE [...] Performed By: #### L IPID #### [facility] [address] [place] [address] Cholesterol in HDL [Mass/Vol] 60.2 mg/dL Normal [facility] Comment on above: Result Comment: . AGE VERY LOW LOW NORMAL HIGH 0-19 Y < 35 < 40 40-45 ---- 20-24 Y ---- < 40 >45 ---- >24 Y ---- < 40 40-60 >60 . Performed By: #### L IPID #### [facility] [address] [place] [address] Cholesterol in LDL [Mass/Vol] 61 mg/dL Normal 0 - 119 [facility] Comment on above: Result Comment: . NEAR BORD AGE DESIRABLE OPTIMAL HIGH HIGH VERY HIGH 0-19 Y 0 - 109 --- 110-129 >/= 130 ---- 20-24 Y 0 - 119 --- 120-159 >/= 160 ---- >24 Y 0 - 99 100-129 130-159 160-189 >/=190 . Performed By: #### L IPID #### [facility] [address] [place] [address] Cholesterol in VLDL [Mass/Vol] 22 mg/dL Normal 0 - 40 [facility] Comment on above: Performed By: #### L IPID #### [facility] [address] [place] [address] Cholesterol.total/C holesterol in HDL [Mass ratio] 2.4 {ratio} Normal [facility] Comment on above: Result Comment: REF VALUES DESIRABLE < 3.4 HIGH RISK > 5.0 Performed By: #### L IPID #### [facility] [address] [place] [address] NON-HDL CHOLESTEROL 84 mg/dL Normal 0 - 149 [facility] Comment on above: Result Comment: AGE DESIRABLE BORDERLINE HIGH HIGH VERY HIGH 0-19 Y 0 - 119 120 - 144 >/= 145 >/= 160 20-24 Y 0 - 149 150 - 189 >/= 190 ---- >24 Y 30 MG/DL ABOVE LDL CHOLESTEROL GOAL . Performed By: #### L IPID #### [facility] [address] [place] [address] Triglyceride [Mass/Vol] 112 mg/dL Normal 0 - 149 [facility] Comment on above: Result Comment: . AGE [...] Performed By: #### L IPID #### [facility] [address] [place] [address] Laboratory - Chemistry and C hemistry - challengeon 10-11-2021 Albumin BCP dye [Mass/Vol] 3.9 g/dL 3.4 - 5.0 [facility] Work Phone: ALP [Catalytic activity/Vol] 48 U/L 33 - 110 [facility] Work Phone: ALT With P-5'-P [Catalytic activity/Vol] 15 U/L 7 - 45 [facility] Work Phone: Comment on above: Patients treated wit h Sulfasalazine may generate falsely decreased results for ALT. Anion gap [Moles/Vol] 13 mmol/L 10 - 20 [facility] Work Phone: AST With P-5'-P [Catalytic activity/Vol] 22 U/L 9 - 39 [facility] Work Phone: Bilirubin [Mass/Vol] 0.3 mg/dL 0.0 - 1.2 [facility] Work Phone: Calcium [Mass/Vol] 9.4 mg/dL 8.6 - 10.6 [facility] Work Phone: Chloride [Moles/Vol] 106 mmol/L 98 - 107 [facility] Work Phone: CO2 [Moles/Vol] 24 mmol/L 21 - 32 [facility] Work Phone: Creatinine [Mass/Vol] 0.78 mg/dL See Below [facility] Work Phone: Comment on above: Reference Range: 0.5 0 - 1.05 Glucose [Mass/Vol] 92 mg/dL 74 - 99 [facility] Work Phone: Potassium [Moles/Vol] 4.7 mmol/L 3.5 - 5.3 [facility] Work Phone: Protein [Mass/Vol] 6.9 g/dL 6.4 - 8.2 [facility] Work Phone: Sodium [Moles/Vol] 138 mmol/L 136 - 145 [facility] Work Phone: TSH Qn 2.03 m[IU]/L See Below [facility] Work Phone: Comment on above: Reference Range: 0.4 4 - 3.98 TSH testing is performed using different testing methodology at [facility] than at other [facility]. Direct result comparisons should only be made within the same method. Urea nitrogen [Mass/Vol] 12 mg/dL 6 - 23 [facility] Work Phone: Lipid Panelon 10-11-2021 Cholesterol [Mass/Vol] 144 mg/dL 0 - 199 [facility] Work Phone: Comment on above: . AGE [...] dosing. Cholesterol in HDL [Mass/Vol] 60.2 mg/dL [facility] Work Phone: Comment on above: . AGE VERY LOW LOW N ORMAL HIGH 0-19 Y < 35 < 40 40-45 ---- 20- 24 Y ---- < 40 >45 ---- >24 Y ---- < 40 40-60 >60. Cholesterol in LDL [Mass/Vol] 61 mg/dL 0 - 119 [facility] Work Phone: Comment on above: . NEAR BORD AGE BOLA RABLE OPTIMAL HIGH HIGH VERY HIGH 0-19 Y 0 - 109 --- 110-129 >/= 130 ---- 20-24 Y 0 - 119 --- 120-159 >/= 160 ---- >24 Y 0 - 99 100-129 130-159 160-189 >/=190. Cholesterol non HDL [Mass/Vol] 84 mg/dL 0 - 149 [facility] Work Phone: Comment on above: AGE DESIRABLE BORDER LINE HIGH HIGH VERY HIGH 0-19 Y 0 - 119 120 - 144 >/= 145 >/= 160 20-24 Y 0 - 149 150 - 189 >/= 190 ---- >24 Y 30 MG/DL ABOVE LDL CHOLESTEROL GOAL. Cholesterol.total/C holesterol in HDL [Mass ratio] 2.4 {ratio} [facility] Work Phone: Comment on above: REF VALUESDESIRABLE < 3.4HIGH RISK > 5.0 Triglyceride [Mass/Vol] 112 mg/dL 0 - 149 [facility] Work Phone: Comment on above: . AGE [...] Lipid Panel 22 mg/dL 0 - 40 [facility] Work Phone: No Panel Informationon 10-11 >90 >90 [facility] Work Phone: Comment on above: CALCULATIONS OF ESTELLE MATED GFR ARE PERFORMED USING THE 2020 CKD-EPI STUDY REFIT EQUATION WITHOUT THE RACE VARIABLE FOR THE IDMS-TRACEABLE CREATININE METHODS.https://jasn.asnjournals.org/content//ASN. 9261793870 TSH WITH REFLEX TO FREE T4 I F ABNORMALon 10-11-2021 TSH Qn 2.03 m[IU]/L Normal 0.44 - 3.98 [facility] Comment on above: Result Comment: TSH testing is performed using different testing methodology at [facility] than at other [facility]. Direct result comparisons should only be made within the same method. Performed By: #### T HYDS #### [facility] [address] [place] [address] Vital Signs Date Time Vital Sign Value [...] 24.05 kg/m2 Rebekah Garcia MD Work Phone: [facility] [...] mass index (BMI) [Ratio] 22.92 kg/m2 Joya Hassan API PRODUCT MANAGER.CNM Work Phone: [facility] 05-05-2024 09:39-0500 Body weight 64.41 kg Joya Hassan API PRODUCT MANAGER.CNM Work Phone: [facility] 05-05-2024 09:39-0500 Diastolic blood pressure 70 mm[Hg] Joya Hassan API PRODUCT MANAGER.CNM Work Phone: [facility] 05-05-2024 09:39-0500 Systolic blood pressure 122 mm[Hg] Joya Hassan API PRODUCT MANAGER.CNM Work Phone: [facility] 04-07-2024 09:31-0500 [...] 01-21-2024 14:43-0500 Body height 167.6 cm Helena Terrence API PRODUCT MANAGER.CODING FILE CLERK Work Phone: [facility] 01-21-2024 14:43-0500 Body mass index (BMI) [Ratio] 21.11 kg/m2 Helena Terrence API PRODUCT MANAGER.CODING FILE CLERK Work Phone: [facility] 01-21-2024 14:43-0500 Body weight 59.33 kg Helena Cassville API PRODUCT MANAGER.CODING FILE CLERK Work Phone: [facility] Comment on above: 130.8 lb 01-21-2024 14:43-0500 Diastolic blood pressure 62 mm[Hg] Helena Cassville API PRODUCT MANAGER.CODING FILE CLERK Work Phone: [facility] 01-21-2024 14:43-0500 Systolic blood pressure 108 mm[Hg] Helena Cassville API PRODUCT MANAGER.CODING FILE CLERK Work Phone: [facility] 10-25-2022 10:18-0400 Body height 166.4 cm Amparo Carter MD Work Phone: [facility] 10-25-2022 10:18-0400 Body mass index (BMI) [Ratio] 21.02 kg/m2 Amparo Carter MD Work Phone: [facility] 10-25-2022 10:18-0400 Body temperature 98.29 [degF] Amparo Carter MD Work Phone: [facility] 10-25-2022 10:18-0400 Body weight 58.17 kg Amparo Carter MD Work Phone: [facility] 10-25-2022 10:18-0400 Diastolic blood pressure 72 mm[Hg] Amparo Carter MD Work Phone: [facility] 10-25-2022 10:18-0400 Heart rate 68 /min Amparo Carter MD Work Phone: [facility] 10-25-2022 10:18-0400 Respiratory rate 16 /min Amparo Carter MD Work Phone: [facility] 10-25-2022 10:18-0400 Systolic blood pressure 106 mm[Hg] Amparo Carter MD Work Phone: [facility] 10-12-2021 10:36-0400 Body temperature 98.3 [degF] Amparo Carter Work Phone: [facility] Work Phone: 10-12-2021 10:36-0400 Body weight 58.97 kg Amparo Carter Work Phone: [facility] Work Phone: 10-12-2021 10:36-0400 Diastolic blood pressure 68 mm[Hg] Amparo Carter Work Phone: [facility] Work Phone: 10-12-2021 10:36-0400 Systolic blood pressure 110 mm[Hg] Amparo Catrer Work Phone: [facility] Work Phone: 10-08-2020 10:41-0400 Body height 165.1 cm Amparo Carter Work Phone: [facility] Work Phone: 10-08-2020 10:41-0400 Body mass index (BMI) [Ratio] 20.97 kg/m2 Amparo Carter Work Phone: [facility] Work Phone: 10-08-2020 10:41-0400 Body surface area Derived from formula 1.63 m2 Amparo Carter Work Phone: [facility] Work Phone: 10-08-2020 10:41-0400 Body temperature 98.5 [degF] Amparo Carter Work Phone: [facility] Work Phone: 10-08-2020 10:41-0400 Body weight 57.15 kg Amparo Carter Work Phone: [facility] Work Phone: 10-08-2020 10:41-0400 Diastolic blood pressure 60 mm[Hg] Amparo Carter Work Phone: [facility] Work Phone: 10-08-2020 10:41-0400 Heart rate 80 /min Amparo Carter Work Phone: [facility] Work Phone: 10-08-2020 10:41-0400 Respiratory rate 16 /min Amparo Carter Work Phone: [facility] Work Phone: 10-08-2020 10:41-0400 Systolic blood pressure 105 mm[Hg] Amparo Carter Work Phone: [facility] Work Phone: Encounters Encounter Date Encounter Type Care Provider Facility Start: 09-15-2024 Evaluation and manag ement of inpatient Amparo Carter Facility:[facility] Start: 09-10-2024 End: 09-10-2024 Patient encounter procedure Ashley Khan MD Work Phone: OB/Gynecology Comment on above: Encounter for superv ision of normal first in third trimester (HCC) (Primary Dx); 39 weeks gestation of (HCC) Start: 09-10-2024 End: 09-10-2024 ambulatory ASHLEY KHAN Facility:[facility] Start: 09-03-2024 End: 09-03-2024 Patient encounter procedure Renee Escalera MD Work Phone: OB/Gynecology Comment on above: Encounter for superv ision of normal first in third trimester (HCC) (Primary Dx); 38 weeks gestation of (HCC) Start: 09-03-2024 End: 09-03-2024 ambulatory RENEE ESCALERA Facility:[facility] Start: 09-02-2024 End: 09-02-2024 amb[address] ALDANA [facility] Start: 09-02-2024 End: 09-02-2024 Patient encounter procedure Antonetteteodoro Johnsonmary ALDANA [facility] Comment on above: Population Health Na vigation Outreach (Ob/peds) Start: 08-27-2024 End: 08-27-2024 ambulatory ASHLEY KHAN Facility:[facility] Start: 08-27-2024 End: 08-27-2024 Patient encounter procedure [...] Start: 08-20-2024 End: 08-20-2024 ambulatory RENEE ESCALERA Facility:[facility] Start: 08-05-2024 End: 08-14-2024 Telephone encounter William Chen MD Work Phone: OB/Gynecology Comment on above: Breast Pump Start: 08-04-2024 End: 08-04-2024 Patient encounter procedure William Chen MD Work Phone: OB/Gynecology Comment on above: Encounter for superv ision of normal first in third trimester (HCC) (Primary Dx); 34 weeks gestation of (HCC) Start: 08-04-2024 End: 08-04-2024 ambulatory WILLIAM CHEN Facility:[facility] Start: 07-21-2024 End: 07-21-2024 Patient encounter procedure Ashley Khan MD Work Phone: OB/Gynecology Comment on above: Encounter for superv ision of normal first in third trimester (HCC) (Primary Dx); 32 weeks gestation of (HCC) Start: 07-21-2024 End: 07-21-2024 ambulatory ASHLEY KHAN Facility:[facility] Start: 07-09-2024 End: 07-09-2024 Patient encounter procedure Rebekah Garcia MD Work Phone: OB/Gynecology Comment on above: Encounter for superv ision of normal first in third trimester (HCC) (Primary Dx); Variable heart rate decelerations, antepartum (HCC); 30 weeks gestation of (HCC) Start: 07-09-2024 End: 07-09-2024 ambulatory REBEKAH GARCIA Facility:[facility] Start: 06-23-2024 End: 06-23-2024 Patient encounter procedure William Chen MD Work Phone: OB/Gynecology Comment on above: Supervision of other normal , antepartum (HCC) (Primary Dx); Need for vaccination; 28 weeks gestation of ([facility]) Start: 06-23-2024 End: 06-23-2024 ambulatory REBEKAH GARCIA Facility:[facility] Start: 06-04-2024 End: 06-06-2024 Telephone encounter Rebekah Garcia MD Work Phone: OB/Gynecology Comment on above: FMLA Paperwork Start: 06-02-2024 End: 06-02-2024 ambulatory REBEKAH GARCIA Facility:[facility] Start: 06-02-2024 End: 06-02-2024 Patient encounter procedure Rebekah Garcia MD Work Phone: OB/Gynecology Comment on above: Encounter for superv ision of normal first in second trimester (Primary Dx); Screening for diabetes mellitus; Encounter for supervision of normal first in third trimester; Visit for screening Start: 05-06-2024 End: 07-06-2024 Follow-up encounter Renee Escalera MD Work Phone: OB/Gynecology Start: 05-05-2024 End: 05-05-2024 ambulatory JOYA HASSAN Facility:[facility] Start: 05-05-2024 End: 05-05-2024 Patient encounter procedure Joya Hassan APRN.CNM Work Phone: OB/Gynecology Comment on above: Encounter for superv ision of normal first in second trimester (Primary Dx); 21 weeks gestation of ; Encounter for supervision of normal first in first trimester Start: 05-05-2024 End: 05-05-2024 ambulatory WILLIAM CHEN Facility:[facility] Start: 05-05-2024 End: 05-05-2024 Patient encounter procedure Whi Tech 1 Manager [employer] [facility] Comment on above: Encounter for anatomic survey (Primary Dx); 21 weeks gestation of Start: 04-07-2024 End: 04-07-2024 ambulatory [facility] Facility:[facility] Start: 04-07-2024 End: 04-07-2024 Patient encounter procedure William Chen MD Work Phone: OB/Gynecology Comment on above: Encounter for superv ision of normal first in second trimester (Primary Dx); 17 weeks gestation of Start: 03-10-2024 End: 03-10-2024 ambulatory [facility] Facility:[facility] Start: 03-10-2024 End: 03-10-2024 Patient encounter procedure Ashley Khan MD Work Phone: OB/Gynecology Comment on above: 13 weeks gestation o f (Primary Dx); Encounter for supervision of normal first in second trimester Encounter for antena azalea screening for malformation using ultrasound (Primary Dx); 13 weeks gestation of Start: 01-21-2024 End: 01-21-2024 Patient encounter procedure Helena Ocampo APRN.CODING FILE CLERK Work Phone: OB/Gynecology Comment on above: Screening for malign ant neoplasm of cervix (Primary Dx); Encounter for screening for human papillomavirus (HPV); 6 weeks gestation of ; Encounter for supervision of normal first in first trimester Start: 01-21-2024 End: 01-21-2024 ambulatory [facility] OB/Gynecology Comment on above: Care Alvin charis Enrollment Start: 01-21-2024 End: 01-21-2024 E-mail encounter from caregiver [facility] OB/Gynecology Start: 01-16-2024 End: 01-21-2024 Telephone encounter Helena Ocampo APRNMargotCODING FILE CLERK Work Phone: OB/Gynecology Comment on above: Appointment Start: 10-25-2022 End: 10-25-2022 ambulatory AMPARO [facility] Start: 10-25-2022 End: 10-25-2022 Encounter for general adult medical examination without abnormal findings [facility] Ambulatory Start: 10-25-2022 End: 10-25-2022 Patient encounter status Amparo Carter MD Work Phone: [facility] Work Phone: Start: 10-25-2022 End: 10-25-2022 Periodic preventive med est patient 18-39 yrs Amparo Carter MD Work Phone: [facility]/Peds Comment on above: Routine general medi govind examination at a health care facility (Primary Dx); Allergy, subsequent encounter Start: 10-12-2021 Patient encounter procedure Amparo Carter Work Phone: [facility] Work Phone: Start: 10-12-2021 Periodic preventive med est patient 18-39 yrs Amparo Carter Work Phone: [facility] Work Phone: Start: 08-17-2021 AUDIT Amparo Carter Work Phone: [facility] Work Phone: Start: 06-09-2021 AUDIT Amparo Carter Work Phone: [facility] Work Phone: Start: 10-08-2020 Periodic preventive med est patient 18-39 yrs Amparo Carter Work Phone: [facility] Work Phone: Start: 09-30-2020 AUDIT Amparo Carter Work Phone: [facility] Work Phone: Procedures Date Procedure Procedure Detail [...] Speci men Type: BLOOD SPECIMEN Ordering Facility: [facility] Address: [address] [place] [address] Performed By: #### T SPN #### [facility] CLIA [id number] [address] [place], [place] [address] [address] [place] Start: 03-10-2024 Us nuchal translucency 1st gestation Helena Terrence API PRODUCT MANAGER.CODING FILE CLERK Work Phone: Start: 01-21-2024 Us uterus l imited 1/> fetuses Helena Cassville API PRODUCT MANAGER.CODING FILE CLERK Work Phone: Start: 10-11-2021 Lipid 1996 panel - S bijan or Plasma Amparo Carter MD Work Phone: Plan of Treatment Date Care Activity Detail Author Start: 2073 RSV Vaccine (1 - 1-d ose 75+ series) RSV Vaccine (1 - 1-dose 75+ series) [facility] Start: 2048 Zoster Vaccines (1 o f 2) Zoster Vaccines (1 of 2) [facility] Start: 06-23-2034 Urine microalbumin profile DTaP,Tdap,Td Vaccine (9 - Td or Tdap) [facility] Start: 01-20-2027 Screening for malign ant neoplasm of cervix Cervical Cancer Screening [facility] Start: 10-11-2026 Lipid panel Lipid Panel [facility] Start: 11-17-2024 Influenza vaccination Influenz a Vaccine (Season Ended) [facility] Start: 09-17-2024 End: 09-17-2024 Patient encounter procedure 09/17/2024 2:20 PM EDT Routine Office Visit OB/Gynecology [address] [place] [address] Renee Escalera MD [address] [place] [address] OB OB/Gynecology Comment on above: OB Start: 09-10-2024 End: 09-10-2024 Patient encounter procedure 09/10/2024 9:50 AM EDT Routine Office Visit OB/Gynecology [address] [place] [address] Ashley Khan MD [address] [place] [address] OB OB/Gynecology Comment on above: OB Start: 09-03-2024 End: 09-03-2024 Patient encounter procedure 09/03/2024 10:10 AM EDT Routine Office Visit OB/Gynecology [address] [place] [address] Renee Escalera MD [address] [place] [address] OB OB/Gynecology Comment on above: OB Start: 08-27-2024 End: 08-27-2024 Patient encounter procedure 08/27/2024 9:50 AM EDT Routine Office Visit OB/Gynecology [address] [place] [address] Ashley Khan MD [address] [place] [address] OB OB/Gynecology Comment on above: OB Start: 08-20-2024 End: 08-20-2024 Patient encounter procedure 08/20/2024 10:10 AM EDT Routine Office Visit OB/Gynecology [address] [place] [address] Renee Escalera MD [address] [place] [address] OB OB/Gynecology Comment on above: OB Start: 08-04-2024 End: 08-04-2024 Patient encounter procedure 08/04/2024 3:40 PM EDT Routine Office Visit OB/Gynecology [address] [place] [address] William Chen MD [address] [place] [address] OB OB/Gynecology Comment on above: OB Start: 07-21-2024 End: 07-21-2024 Patient encounter procedure 07/21/2024 3:50 PM EDT Routine Office Visit OB/Gynecology [address] [place] [address] Ashley Khan MD [address] [place] [address] OB OB/Gynecology Comment on above: OB Start: 07-09-2024 End: 07-09-2024 Patient encounter procedure 07/09/2024 9:50 AM EDT Routine Office Visit OB/Gynecology [address] [place] [address] Rebekah Moon MD [address] [place] [address] OB OB/Gynecology Comment on above: OB Start: 06-23-2024 End: 06-23-2024 Patient encounter procedure OB/Gynecology Comment on above: OB OB FMLA paperwork in chart prep folder Start: 06-23-2024 End: 06-23-2024 ambulatory 06/23/2024 1:45 PM EDT Results Only [place] [facility] Laboratory [address] [place] [address] [facility] Laboratory Comment on above: ONE HOUR [...] for diabetes mellitus Expected: 06/16/2024, Expires: 06/02/2025 [facility] Work Phone: Comment on above: Expected: 06/16/2024 [...] Office Visit OB/Gynecology [address] [place] [address] Rebekah Moon MD [address] [place] [address] OB Routine OB/Gynecology Comment on above: OB Routine Start: 05-05-2024 End: 05-05-2024 Patient encounter procedure 05/05/2024 9:45 AM EST Routine Office Visit OB/Gynecology [address] [place] [address] Joya Hassan APRN.[facility] [address] [place] [address] OB OB/Gynecology Comment on above: OB Start: 05-05-2024 End: 05-05-2024 Patient encounter procedure 05/05/2024 8:30 AM EST Routine Office Visit Maternal Medicine [address] [place] [id number] ANATOMY / OB Maternal Medicine Comment on above: ANATOMY / OB Start: 04-07-2024 End: 04-07-2025 OBSTETRIC ULTRASOUND WHI OBSTETRIC ULTRASOUND WHI Anc Imaging Routine 17 weeks gestation of Encounter for supervision of normal first in second trimester Expected: 04/07/2024, Expires: 04/07/2025 [facility] Work Phone: Comment on above: Expected: 04/07/2024 , Expires: 04/07/2025 Start: 04-07-2024 End: 04-07-2024 Patient encounter procedure 04/07/2024 9:40 AM EST Routine Office Visit OB/Gynecology [address] [place] [address] William Chen MD [address] [place] [address] OB OB/Gynecology Comment on above: OB Start: 03-10-2024 End: 03-10-2024 Patient encounter procedure Maternal Medicine Comment on above: Nuchal 2nd OB Start: 02-29-2024 End: 02-29-2024 Patient encounter procedure 02/29/2024 2:20 PM EST Routine Office Visit OB/Gynecology [address] [place], [place] [id number] Patricia Hinds MD [address] [place] [address] 2nd OB OB/Gynecology Comment on above: 2nd OB Start: 01-21-2024 End: 04-21-2024 ANEMIA REFLEX PANEL ANEMIA REFLEX PANEL Lab Routine Expected: 01/21/2024, Expires: 04/21/2024 [facility] Work Phone: Comment on above: Expected: 01/21/2024 , Expires: 04/21/2024 Start: 01-21-2024 End: 04-21-2024 Chromosome 21 trisomy [Presence] in Blood or Tissue by Cytogenetics [id number] PLUS Lab Routine 6 weeks gestation of [...] , Expires: 04/21/2024 Start: 11-18-2023 Covid-19 Vaccine ( season) Covid-19 Vaccine ( season) [facility] Start: 11-18-2023 Influenza vaccination Influenza Vacc ine (#1) [facility] Start: 11-17-2022 Influenza vaccination Influenza Vacc ine (#1) [facility] Start: 10-12-2021 PHYSICAL, Provider: Amparo Carter, Status: Pen, Time: 10:30 AM PHYSICAL, Provider: Amparo Carter, Status: Pen, Time: 10:30 AM -[facility] Work Phone: Start: 10-08-2020 PHYSICAL, Provider: Amparo Carter, Status: Pen, Time: 10:30 AM PHYSICAL, Provider: Amparo Carter, Status: Pen, Time: 10:30 AM [facility] Work Phone: Start: 02-10-2020 DTaP/Tdap/Td Vaccine s (2 - Td or Tdap) DTaP/Tdap/Td Vaccines (2 - Td or Tdap) [facility] Start: 02-10-2020 Urine microalbumin profile DTaP,Tdap,Td Vaccine (8 - Td or Tdap) [facility] Start: 06-23-2019 Screening for malign ant neoplasm of cervix [facility] Start: 2016 Anxiety Screening Anxiety Screening [facility] Start: 2016 Depression Screening Depression Scre ening [facility] Start: 2016 Hepatitis C screening Hepatitis C Sc reening [facility] Start: 2016 HIV screening HIV Screening [facility] Start: 2012 Peds To Adult Transition Annual Assessment Peds To Adult Transition Annual Assessment [facility] Start: 01-01-2012 MMR Vaccines (1 of 1 - Standard series) MMR Vaccines (1 of 1 - Standard series) [facility] Start: 01-01-2012 Varicella vaccination Varicell a Vaccines (2 of 2 - 13+ 2-dose series) [facility] Start: 2010 Peds To Adult Transition Initial Discussion Peds To Adult Transition Initial Discussion [facility] Start: 1998 COVID-19 Vaccine (#1) COVID-19 Vacci ne (#1) [facility] Start: 1998 Hepatitis B Vaccines (1 of 3 - 3-dose series) Hepatitis B Vaccines (1 of 3 - 3-dose series) [facility] Start: 1998 HIV screening HIV Screening [facility] Start: 1998 Yearly Adult Physical Yearly Adult P hysical [facility] Bacteria identified in Urine by Culture URINE CULTURE Microbiology Routine 01/21/2024 3:55 PM EST [facility] Chlamydia trachomatis+Neisseria gonorrhoeae DNA [Presence] in Unspecified specimen by HOSSEIN with probe detection GONORRHEA/CHLAMYDIA NAAT Lab Routine 01/21/2024 3:55 PM EST [facility] PAP TEST PAP TEST Lab Luis pedersen Screening for malignant neoplasm of cervix Encounter for screening for human papillomavirus (HPV) 01/21/2024 3:55 PM EST [facility] ROUTINE, GR OUP B STREPTOCOCCUS BY PCR ROUTINE, GROUP B STREPTOCOCCUS BY PCR Microbiology Routine Encounter for supervision of normal first in third trimester ([facility]ERLY [facility]) 08/20/2024 10:42 AM EDT [facility] Work Phone: Immunizations Immunization Date Immunization Notes Care Provider [place] 06-23-2024 tetanus toxoid, redu minda diphtheria toxoid, and acellular pertussis vaccine, adsorbed William Chen MD Work Phone: [facility] 01-23-2018 influenza virus vacc ine, unspecified formulation Helena Ocampo APRNMargotCODING FILE CLERK Work Phone: [facility] 02-20-2017 influenza virus vacc ine, unspecified formulation Amparo Carter Work Phone: [facility] Work Phone: Comment on above: Series: 11-24-2015 meningococcal polysaccharide (groups A, C, Y and W-135) diphtheria toxoid conjugate vaccine (MCV4P); Translations: [Menactra Intramuscular Injectable] Amparo Carter Work Phone: [facility] Work Phone: Comment on above: Series: 12-14-2014 influenza, seasonal, injectable; Translations: [Fluzone INJ] Amparo Carter Work Phone: [facility] Work Phone: Comment on above: Series: 06-04-2013 human papilloma viru s vaccine, quadrivalent; Translations: [Gardasil SUSP] Amparo Carter Work Phone: [facility] Work Phone: Comment on above: Series: 02-26-2013 human papilloma viru s vaccine, quadrivalent; Translations: [Gardasil SUSP] Amparo Carter Work Phone: [facility] Work Phone: Comment on above: Series: 08-07-2013 human papilloma viru s vaccine, quadrivalent; Translations: [Gardasil SUSP] Amparo Carter Work Phone: [facility] Work Phone: Comment on above: Series: 12-04-2011 varicella virus vaccine Kari Carter Work Phone: [facility] Work Phone: Comment on above: Series: 02-09-2010 influenza, live, intranasal, quadrivalent Amparo Viverosmel Work Phone: [facility] Work Phone: Comment on above: Series: 02-09-2010 meningococcal polysaccharide (groups A, C, Y and W-135) diphtheria toxoid conjugate vaccine (MCV4P) Amparo Viverosmel Work Phone: [facility] Work Phone: Comment on above: Series: 02-09-2010 tetanus toxoid, redu minda diphtheria toxoid, and acellular pertussis vaccine, adsorbed Amparo Carter Work Phone: [facility] Work Phone: Comment on above: Series: Payers Date Payer Category Payer Self-pay 2024 Unknown [id number] 2023 Private Health Insurance [id number] 2018 Unknown 2018 Unknown [id number] 1998 Unknown [id number] Unknown [id number] Social History Date Type Detail Facility Start: 10-25-2022 End: 03-10-2024 Never a smoker Never a smoker [facility] Work Phone: Start: 10-25-2022 End: 01-16-2024 Tobacco smoking status NHIS Never smoked tobacco [facility] Work Phone: Start: 10-25-2022 End: 01-16-2024 Tobacco use and exposure Smokeless tobacco non-user [facility] Work Phone: Start: 10-25-2022 Alcohol intake Not Asked [facility] Work Phone: Start: 10-25-2022 End: 03-10-2024 Tobacco use panel [facility] Work Phone: Start: 10-25-2022 Alcohol Comment socially [facility] Work Phone: Start: 1998 Sex Assigned At Not on file U [facility] Work Phone: Start: 10-15-2022 End: 10-25-2022 Exposure to SARS-CoV-2 (event) Not sure [facility] Start: 01-16-2024 End: 09-10-2024 Alcoholic beverage intake Ex-drinker (finding) [facility] Start: 01-16-2024 Education 17 [facility] Start: 01-16-2024 Alcohol Comment Stopped drinki ng alcohol when knowledge of [facility] Start: 12-23-2023 [facility] National Score (1-100), lower number is lower risk 45 [facility] NEGATED: Highlighted rowStart: NINF History of tobacco use Passive smoker [facility] Work Phone: Goals Date Patient Goal [...] discussed with the Patient or Patient's Authorized Communications Instructor. As applicable, any other physician, advance practice provider, medical student, or other health professional student that will be observing or involved in the sensitive examination for educational or training purposes was discussed with the Patient or Authorized Communications Instructor. The Patient or Authorized Communications Instructor has agreed to proceed with the sensitive examination. Plan for induction if not delivered by 41 weeks ASSESSMENT/PLAN: 1. Encounter for supervision of normal first in third trimester (FORM[facility]LY [facility]) - ICD9: V22.0, ICD10: Z34.03 (primary diagnosis) - URINE OB DIP B/O 2. 39 weeks gestation of ([facility]LY [facility]) - ICD9: V22.2, ICD10: Z3A.39 - URINE OB DIP B/O Ashley Khan MD [facility] 09-10-2024 Miscellaneous Notes S: Jesús Cuevas is [...] discussed with the Patient or Patient's Authorized Communications Instructor. As applicable, any other physician, advance practice provider, medical student, or other health professional student that will be observing or involved in the sensitive examination for educational or training purposes was discussed with the Patient or Authorized Communications Instructor. The Patient or Authorized Communications Instructor has agreed to proceed with the sensitive examination. Plan for induction if not delivered by 41 weeks ASSESSMENT/PLAN: 1. Encounter for supervision of normal first in third trimester ([facility]) - ICD9: V22.0, ICD10: Z34.03 (primary diagnosis) - URINE OB DIP B/O 2. 39 weeks gestation of ([facility]) - ICD9: V22.2, ICD10: Z3A.39 - URINE OB DIP B/O Ashley Khan MD documented in this encounter [facility] 09-10-2024 Instructions Kelly LarahanJOVAN dias - 09/10/2024 9:44 AM EDT SEQUENTIAL SCREENINGS [...] It will require an appointment with our light rail signal technician. This is not an ultrasound performed [...] the above symptoms, contact our office at [phone] and ask to speak with a nurse. After hours, you can call doctors registry at [phone] OR call [facility] at [phone] and ask to have the doctor healthcare administration intern paged. If you consider this an emergency, dial 9-1-1 or go to your nearest emergency department. NEED HELP? Are you dealing with a violent or abusive relationship? Are you a victim of rape or sexual assult? Call [facility] ([place]) 24 hour Crisis Hotline: 343.410.6893 or 583-904-8958. MANUAL Your Guide to a Healthy manual is now on-line. Visit [email or web address] to download your free copy documented in [...] supervision of normal first in third trimester ([facility]) Orders: URINE OB DIP B/O 38 weeks gestation of ([facility]) Orders: URINE OB DIP B/O labor precautions reviewed nia Escalera M.D. [facility] 09-03-2024 Miscellaneous Notes RR- VB No. LOF No. CTXS No. Movement: present. Other c/o: No. Medication list reviewed. SENSITIVE EXAM: Sensitive exam not performed. Physical Exam See Flow Sheet Abd: soft, nontender, gravid Ext: edema: Trace A/P 38w3d Estimated Date of Delivery: 09/14/24 Assessment & Plan Encounter for supervision of normal first in third trimester ([facility]) Orders: URINE OB DIP B/O 38 weeks gestation of ([facility]) Orders: URINE OB DIP B/O labor precautions [...] It will require an appointment with our light rail signal technician. This is not an ultrasound performed [...] the above symptoms, contact our office at [phone] and ask to speak with a nurse. After hours, you can call doctors registry at [phone] OR call [facility] at [phone] and ask to have the doctor healthcare administration intern paged. If you consider this an emergency, dial 91-4 or go to your nearest emergency department. NEED HELP? Are you dealing with a violent or abusive relationship? Are you a victim of rape or sexual assult? Call [facility] ([place]) 24 hour Crisis Hotline: 337.710.3496 or 913-952-1370. MANUAL Your Guide to a Healthy manual is now on-line. 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 Reason for Outreach Medicaid OB/Peds Care Gaps due: N/A Patient Contacted: Spoke to patient/parent/or legal guardian Patient identified by name and : Yes Medicaid OB/Peds actions taken: [place]/Pathology Supervisor added Navigation Signature: Antonette Ramsey MA September 02, 2024 2:23 PM documented in this encounter [facility] 09-02-2024 Note HNO ID: [id number] Author: ANTONETTE DORANTES MA Service: ? 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 Reason for Outreach Medicaid OB/Peds Care Gaps due: N/A Patient Contacted: Spoke to patient/parent/or legal guardian Patient identified by name and : Yes Medicaid OB/Peds actions taken: /Pathology Supervisor added Navigation Signature: Antonette Ramsey MA September 02, 2024 2:23 PM [facility] 09-02-2024 Note Patient Outreach (NE TNAV) JESÚS CUEVAS ([id number]) 2000 F Date Time Provider Department 09/02/24 ANTONETTE DORANTES During your visit today, we recorded the following information about you: Antonette Dorantes MA 09/02/2024 2:25 PM Signed POPULATION HEALTH NAVIGATION OUTREACH Action/FYI 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 Reason for Outreach Medicaid OB/Peds Care Gaps due: N/A Patient Contacted: Spoke to patient/parent/or legal guardian Patient identified by name and : Yes Medicaid OB/Peds actions taken: /Pathology Supervisor added Navigation Signature: Antonette Ramsey MA September [...] Encounter Status:Closed by ANTONETTE DORANTES on 09/02/24 [facility] 08-27-2024 Progress note Formatting of t his [...] supervision of normal first in third trimester ([facility]) - ICD9: V22.0, ICD10: Z34.03 (primary diagnosis) - URINE OB DIP B/O 2. 37 weeks gestation of ([facility]LY [facility]) - ICD9: V22.2, ICD10: Z3A.37 - [...] supervision of normal first in third trimester ([facility]) - ICD9: V22.0, ICD10: Z34.03 (primary diagnosis) - URINE OB DIP B/O 2. 37 weeks gestation of ([facility]) - ICD9: V22.2, ICD10: Z3A.37 - [...] It will require an appointment with our light rail signal technician. This is not an ultrasound performed [...] the above symptoms, contact our office at [phone] and ask to speak with a nurse. After hours, you can call [employer] registry at [phone] OR call [facility] at [phone] and ask to have the doctor healthcare administration intern paged. If you consider this an emergency, dial or go to your nearest emergency department. NEED HELP? Are you dealing with a violent or abusive relationship? Are you a victim of rape or sexual assult? Call [facility] ([place]) 24 hour Crisis Hotline: 302.919.4831 or 882-687-5746. MANUAL Your Guide to a Healthy manual is now on-line. Visit [email or web address] to download your free copy [...] Assessment & Plan 36 weeks gestation of ([facility]) Orders: URINE OB DIP B/O Encounter for supervision of normal first in third trimester ([facility]) kick counts labor precautions Orders: URINE [...] Assessment & Plan 36 weeks gestation of (HCC) Orders: URINE OB DIP B/O Encounter for supervision of normal first in third trimester ([facility]) kick counts labor precautions Orders: URINE [...] It will require an appointment with our light rail signal technician. This is not an ultrasound performed [...] the above symptoms, contact our office at [phone] and ask to speak with a nurse. After hours, you can call doctors registry at [phone] OR call [facility] at [phone] and ask to have the doctor healthcare administration intern paged. If you consider this an emergency, dial 9-1-1 or go to your nearest emergency department. NEED HELP? Are you dealing with a violent or abusive relationship? Are you a victim of rape or sexual assult? Call [facility] [place] ([facility] 24 hour Crisis Hotline: 284.184.3941 or 220-818-0178. MANUAL Your Guide to a Healthy manual is now on-line. Visit [email or web address] to download your free copy documented in this encounter [facility] 08-14-2024 Telephone encounter Note Faxed. Marsha Pugh RN [facility] 08-14-2024 Miscellaneous Notes Faxed. Marsha Pugh RN Breast pump order received from [employer]. To SW to sign. Mary Ann Benitez RN documented in this encounter [facility] 08-05-2024 Telephone encounter Note Breast pump order received from [employer]. To SW to sign. Mary Ann Benitez [...] in this encounter [facility] 08-04-2024 Antonette Gómez MA - 08/04/2024 3:43 PM EDT SEQUENTIAL [...] It will require an appointment with our light rail signal technician. This is not an ultrasound performed [...] the above symptoms, contact our office at [phone] and ask to speak with a nurse. After hours, you can call doctors registry at [phone] OR call [facility] at [phone] and ask to have the doctor healthcare administration intern paged. If you consider this an emergency, dial 9-1-0 or go to your nearest emergency department. NEED HELP? Are you dealing with a violent or abusive relationship? Are you a victim of rape or sexual assult? Call [facility] ([place]) 24 hour Crisis Hotline: 907.645.9019 or 170-272-6980. MANUAL Your Guide to a Healthy manual is now on-line. Visit [email or web address] to download your free copy [...] supervision of normal first in third trimester ([facility]LY [facility]) - ICD9: V22.0, ICD10: Z34.03 (primary diagnosis) PTL labor precautions 2. 32 weeks gestation of ([facility]) - ICD9: V22.2, ICD10: Z3A.32 Ashley [...] supervision of normal first in third trimester ([facility]) - ICD9: V22.0, ICD10: Z34.03 (primary diagnosis) PTL labor precautions 2. 32 weeks gestation of ([facility]) - ICD9: V22.2, ICD10: Z3A.32 Ashley [...] It will require an appointment with our light rail signal technician. This is not an ultrasound performed [...] the above symptoms, contact our office at [phone] and ask to speak with a nurse. After hours, you can call doctors registry at [phone] OR call [facility] at [phone] and ask to have the doctor healthcare administration intern paged. If you consider this an emergency, dial 9-9 or go to your nearest emergency department. NEED HELP? Are you dealing with a violent or abusive relationship? Are you a victim of rape or sexual assult? Call [facility] ([place]) 24 hour Crisis Hotline: 209.399.8813 or 991-524-5286. MANUAL Your Guide to a Healthy manual is now on-line. Visit [email or web address] to download your free copy documented in this encounter [facility] 07-09-2024 Note HNO ID: [id number] Author: REBEKAH MOON MD Service: ? Author [...] I and Reactive SIGNATURE: Rebekah Jett MD [facility] 07-09-2024 History of Presen t illness Narrative [...] (HCC) Kick counts reviewed Rebekah Jett MD [facility] [...] It will require an appointment with our light rail signal technician. This is not an ultrasound performed [...] the above symptoms, contact our office at [phone] and ask to speak with a nurse. After hours, you can call doctors registry at [phone] OR call [facility] at [phone] and ask to have the doctor healthcare administration intern paged. If you consider this an emergency, dial 9-1-1 or go to your nearest emergency department. NEED HELP? Are you dealing with a violent or abusive relationship? Are you a victim of rape or sexual assult? Call [facility] ([facility] 24 hour Crisis Hotline: 809.671.6522 or 552-307-4779. MANUAL Your Guide to a Healthy manual is now on-line. Visit [email or web address] [email or web address] to download your free copy documented [...] plan sheet given - Discussed classes at [facility] - Discussed peds - RTO 2 [...] plan sheet given - Discussed classes at [facility] - Discussed peds - RTO 2 wks William Chen DO documented in this encounter [facility] 06-23-2024 Note HNO ID: [id number] Author: ANTONETTE PERRY MA Service: ? Author Type: Concert Or Lecture Hall Manager Type: Progress Notes Filed: 06/23/2024 16:26 Note Text: Patient identified by name and date of . Jesúsarun Cuevas presents today for a vaccination of Tdap. Patient denies an allergy to latex: yes Patient denies a severe (life-threatening) allergy to a previous dose of Tdap, DTP, DTaP, DT or Td vaccine. Yes Patient denies history of epilepsy or neurological problems: Yes Patient is afebrile and denies being moderately or severely ill: Yes Patient denies history of Guillain-[place] Syndrome (a severe paralytic illness): Yes Tdap Adacel injection was given without incident. See immunizations for details of immunizations administered today. VIS sheet provided: Yes Provider William Chen DO was present in office at time of injection. Antonette Perry MA [facility] 06-23-2024 History of Presen t illness Narrative [...] severely ill: Yes Patient denies history of Guillain-[place] Syndrome (a severe paralytic illness): Yes Tdap [...] It will require an appointment with our light rail signal technician. This is not an ultrasound performed [...] the above symptoms, contact our office at [phone] and ask to speak with a nurse. After hours, you can call [facility] at [phone] OR call [facility] at [phone] and ask to have the doctor healthcare administration intern paged. If you consider this an emergency, dial 9-1-1 or go to your nearest emergency department. NEED HELP? Are you dealing with a violent or abusive relationship? Are you a victim of rape or sexual assult? Call [facility] ([place]) 24 hour Crisis Hotline: 884.384.9731 or 245-846-6567. MANUAL Your Guide to a Healthy manual is now on-line. Visit [email or web address] to download your free copy [...] in this encounter [facility] 06-02-2024 Instructions Becki Lara MA - 06/02/2024 4:08 PM EDT SEQUENTIAL [...] It will require an appointment with our light rail signal technician. This is not an ultrasound performed [...] the above symptoms, contact our office at [phone] and ask to speak with a nurse. After hours, you can call [facility] at [phone] OR call [facility] at [phone] and ask to have the doctor healthcare administration intern paged. If you consider this an emergency, dial 2-6-0 or go to your nearest emergency department. NEED HELP? Are you dealing with a violent or abusive relationship? Are you a victim of rape or sexual assult? Call [facility] ([place]) 24 hour Crisis Hotline: 154.184.3258 or 422-672-1910. MANUAL Your Guide to a Healthy manual is now on-line. Visit [email or web address] to download your free copy documented [...] vb, lof. Has a cough. 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 PE: Gen- NAD, well appearing Abd- Soft, NT See flowsheet A/p 17 wk gestation - Discussed symptomatic measures for URI's - Reviewed NOB labs - Declines flu vaccine - Schedule anatomy US - RTO 4 wks William Chen DO [facility] 04-07-2024 Miscellaneous Notes SW- No pain, vb, lof. Has a cough. 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 PE: Gen- [...] It will require an appointment with our light rail signal technician. This is not an ultrasound performed [...] the above symptoms, contact our office at [phone] and ask to speak with a nurse. After hours, you can call [facility] at [phone] OR call [facility] at [phone] and ask to have the doctor healthcare administration intern paged. If you consider this an emergency, dial 2 or go to your nearest emergency department. NEED HELP? Are you dealing with a violent or abusive relationship? Are you a victim of rape or sexual assult? Call [facility] ([facility] 24 hour Crisis Hotline: 464.679.8059 or 252-529-5402. MANUAL Your Guide to a Healthy manual is now on-line. Visit [email or web address] to download your free copy [...] It will require an appointment with our light rail signal technician. This is not an ultrasound performed [...] the above symptoms, contact our office at [phone] and ask to speak with a nurse. After hours, you can call [facility] at [phone] OR call [facility] at [phone] and ask to have the doctor healthcare administration intern paged. If you consider this an emergency, dial 9-1-1 or go to your nearest emergency department. NEED HELP? Are you dealing with a violent or abusive relationship? Are you a victim of rape or sexual assult? Call [facility] ([facility] 24 hour Crisis Hotline: 723.166.7688 or 215-519-7517. MANUAL Your Guide to a Healthy manual is now on-line. Visit [email or web address] [email or web address] to download your free copy documented in this encounter [facility] 01-21-2024 Lissy Loza LPN - 01/21/2024 2:42 PM EST Please [...] or you can try to transfer to [facility] documented in this encounter [facility] 01-16-2024 Note HNO ID: [id number] Author: HELENA OCAMPO APRN.CODING FILE CLERK Service: ? Author Type: Nurse Practitioner Type: Progress Notes Filed: 01/21/2024 15:54 Note Text: Senior Embedded Software Engineer offered: Patient declines. 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 [facility] 01-16-2024 History of Presen t illness Narrative Senior Embedded Software Engineer offered: Patient declines. 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 As applicable, any other physician, advance practice provider, medical student, or other health professional student that will be observing or involved in the sensitive examination for educational or training purposes was discussed with the Patient or Authorized Communications Instructor. The Patient or Authorized Communications Instructor has agreed to proceed with the sensitive [...] with LMP. LAKSHMI now 09/14/24 Helena Ocampo APRN.CODING FILE CLERK ASSESSMENT: 23 year old No obstetric history on file. at Unknown wks gestational age PLAN: 1) Patient oriented to practice. Patient given new OB orientation folder. Discussed nutrition, folic acid supplementation, dietary guidelines, exercise, smoking, alcohol, caffeine, and drug use. Discussed gestational weight gain guidelines. Discussed routine OB labs including STD/HIV. Discussed how to access Your guide to a health and the Internal Recruiter. Reviewed midwifery and front end web designer services that are available. 2) Screening: Hemoglobin [...] 4-5 weeks or sooner prn. Helena Ocampo APRN.CNP documented in this encounter [facility] 01-16-2024 Telephone encounter Note Left message for patient to return phone call to complete nurse intake questions for her upcoming appointment. Patient has an appointment with Helena Ocampo for NOB appointment. I can call patient at 2:30 or 3:30 today if she is available or you can try to transfer to [facility] 10-25-2022 History of Presen [...] the evening. Patient will establish with a BREASTFEEDING PEER COUNSELOR since she is getting and planning ongoing office control. We had a long discussion about spironolactone and that she cannot be on that if she is getting or trying to get When she is finished with her catheter control after she gets she will stop it Xyzal is refilled I recommended she follow-up with her aerial advertiser to look at other options for acne control Reviewed last year's blood work she does not need any this year She will follow-up with me annually Amparo Carter MD documented in this encounter [facility] Work Phone: Evaluation note Diagnosis Routine general medical examination at a health care facility- Primary Allergy, subsequent encounter documented in this encounter [facility] Work Phone: Evaluation note* Diagnosis Screening for malignant neoplasm of cervix- Primary Screening for malignant neoplasm of the cervix Encounter for screening for human papillomavirus (HPV) Special screening examination for human papillomavirus (HPV) 6 weeks gestation of state, incidental Encounter for supervision of normal first in first trimester Supervision of normal first [facility] Diagnosis 13 weeks gestation of - Primary state, incidental Encounter for supervision of normal first in second trimester Supervision of normal first [facility] Diagnosis Encounter for screening for malformation using ultrasound- Primary 13 weeks gestation of state, incidental [facility] Diagnosis Encounter for supervision of normal first in second trimester- Primary Supervision of normal first 17 weeks gestation of state, incidental [facility] Diagnosis Encounter for supervision of normal first in second trimester- Primary Supervision of normal first 21 weeks gestation of state, incidental Encounter for supervision of normal first in first trimester Supervision of normal first [facility] Diagnosis Encounter for anatomic survey- Primary 21 weeks gestation of state, incidental [facility] Diagnosis Encounter for supervision of normal first in second trimester- Primary Supervision of normal first Screening for diabetes mellitus Encounter for supervision of normal first in third trimester Supervision of normal first Visit for screening Unspecified screening [facility] Diagnosis Supervision of other normal , antepartum (HCC)- Primary Need for vaccination Need for prophylactic vaccination and inoculation against unspecified single disease 28 weeks gestation of (HCC) state, incidental [facility] Diagnosis Encounter for supervision of normal first in third trimester (HCC)- Primary Supervision of normal first Variable heart rate decelerations, antepartum (HCC) distress affecting management of mother, antepartum 30 weeks gestation of (HCC) state, incidental documented [...] [facility] Diagnosis 36 weeks gestation of (HCC)- Primary state, incidental Encounter for supervision of normal first in third trimester (HCC) Supervision of normal first [facility] [...] (HCC) state, incidental [facility] The last health [...] dermatology for this. 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 * Doing well. * works at [employer] as well * Medication list reviewed and updated. * Montelukast, albuterol, levocetirizine refills needed. * Needs control refills. * Sees dermatology. Dr. Lee. * On spironolactone and tretinoin. * He ordered HFP, lipid panel on 03/23/20, labs unremarkable. * Has not started PAPs. * Would like to see marketing financial analyst. * Has some issues with back pain. * Attributes to bad posture. * Has some dark veins on legs. * Varicose veins starting. Her mom also has this too. [facility] Work Phone: History of Present [...] No genitourinary issues. * No skin problems. [facility] Work Phone: History of Present [...] No genitourinary issues. * No skin problems. [facility] Work Phone: Reason for referral (narrative)* Diagnostic Procedure Only (Routine) - Authorized Specialty Diagnoses / Procedures Referred By Johnathon albrecht [facility] Diagnoses 6 weeks gestation of Procedures NUCHAL TRANSLUCENCY WHI US NUCHAL TRANSLUCENCY 1ST GESTATION Helena Ocampo APRN.CNP [address] [place] [address] [address] Referral ID Status Reason Start Date Expiration Date Visits Requested Visits Authorized [id number] Authorized Auto-Generat ed Referral 01/21/2024 01/20/2025 1 1 [facility] Diagnostic Procedure Only (Routine) - Pending Review Specialty Diagnoses / Procedures Referred By Johnathon albrecht Referred To Contact [facility] Diagnoses 17 weeks gestation of Encounter for supervision of normal first in second trimester Procedures OBSTETRIC ULTRASOUND WHI US PREG UTERUS AFTER 1ST TRIMEST 1 GESTATION William Chen MD [address] [place] [address] [address] Referral ID Status Reason Start Date Expiration Date Visits Requested Visits Authorized [id number] Pending Review Auto-Generat ed Referral 04/07/2024 04/07/2025 1 1 [facility] Family History No Family History Records FoundUnknown [...] section and content) DATE CREATED AUTHOR 10/15/2021 [facility] DATE CREATED AUTHOR AUTHOR'S ORGANIZ ATION 10/17/2021 [facility] DATE CREATED AUTHOR AUTHOR'S ORGANIZ ATION 07/03/[address] [facility] DATE CREATED AUTHOR AUTHOR'S ORGANIZ ATION 09/11/2024 [facility] DATE CREATED AUTHOR AUTHOR'S ORGANIZ ATION 09/15/2024 [facility] Reason for Visit (unrecogniz ed section and content) Reason Comments Annual Exam CPE, no pap Reason Comments Appointment Reason Comments Initial OB Visit Reason Onset Date Comments Care 03/10/2024 Reason Comments US Specialty Diagnoses / Procedures Referred By Johnathon t Referred To Contact [facility] Diagnoses 6 weeks gestation of Procedures NUCHAL TRANSLUCENCY WHI US NUCHAL TRANSLUCENCY 1ST GESTATION Helena Ocampo, LEATHA.CODING FILE CLERK [address] [place] [address] [facility] [address] [place] [id number] Referral ID Status Reason Start Date Expiration Date V isits Requested Visits Authorized [id number] Closed Auto-Generate d Referral 01/21/2024 01/20/2025 1 1 Reason Onset Date Comments Care 04/07/2024 Specialty Diagnoses / Procedures Referred By Johnathon albrecht Referred To Contact [facility] Diagnoses 17 weeks gestation of Encounter for supervision of normal first in second trimester Procedures OBSTETRIC ULTRASOUND WHI US PREG UTERUS AFTER 1ST TRIMEST GESTATION William Chen MD [address] [place] [address] Phone: tel: fax: [facility] [address] [place] [address] Referral ID Status Reason Start Date Expiration Date Visits Requested Visits Authorized [id number] Authorized Auto-Generat ed Referral 04/09/2024 03/18/2025 20 [...] Care Teams (unrecognized sec tion and content) Manager Corporate Strategy Relationship Specialty Start Date End Date Amparo Carter MD [facility] Ananda Villafana [address] [address] PCP - General 02/23/17 Manager Corporate Strategy Relationship Specialty Start Date End Date Amparo Carter MD [facility] ANANDA VILLAFANA [address] [address] PCP - General Internal Medicine 12/03/14 Manager Corporate Strategy Relationship Specialty Start Date End Date [facility]par[facility] [address] [facility] [address] [address] PCP - General Internal Medicine 12/03/14 Manager Corporate Strategy Relationship Specialty Start Date End Date Amparo Carter MD [address] [place] [address] PCP - General Internal Medicine 12/03/14 Manager Corporate Strategy Relationship Specialty Start Date End Date Amparo Carter MD [address] [place] [address] PCP - General Internal Medicine 12/03/14 Manager Corporate Strategy Relationship Specialty Start Date End Date Amparo Carter MD [address] [place] [address] PCP - General Internal Medicine 12/03/14 Manager Corporate Strategy Relationship Specialty Start Date End Date Amparo Carter MD [address] [place] [address] PCP - General Internal Medicine 12/03/14 Manager Corporate Strategy Relationship Specialty Start Date End Date Amparo Carter MD [address] [place] [address] PCP - General Internal Medicine 12/03/14 Manager Corporate Strategy Relationship Specialty Start Date End Date Amparo Carter MD [address] [place] [address] PCP - General Internal Medicine 12/03/14 Manager Corporate Strategy Relationship Specialty Start Date End Date Amparo Carter MD [address] [place] [address] PCP - General Internal Medicine 12/03/14 Manager Corporate Strategy Relationship Specialty Start Date End Date Amparo Carter MD [address] [place] [address] PCP - General Internal Medicine 12/03/14 Manager Corporate Strategy Relationship Specialty Start Date End Date Amparo Carter MD [address] [place] [address] PCP - General Internal Medicine 12/03/14 Manager Corporate Strategy Relationship Specialty Start Date End Date Amparo Carter MD [address] [place] [address] PCP - General Internal Medicine 12/03/14 Manager Corporate Strategy Relationship Specialty Start Date End Date Amparo Carter MD [address] [place] [address] PCP - General Internal Medicine 12/03/14 Source [...] BE BASED ON THE PRIMARY CLINICAL RECORDS. [facility], [facility]. provides no warranty or guarantee of the accuracy or completeness of information in this document.
--- NOTE | 2024-09-16 01:00 | OB.VAGDELI_ITS ---
Assessment & Plan (1) Vaginal delivery: (2) First degree perineal laceration: (3) Lactating mother: Vaginal Delivery Maternal Presentation Maternal Presentation: Active Labor and Spontaneous Rupture of Membranes Vaginal Delivery Information Procedure Performed: Other (Attempted VAVD. after Vacuum attempts) Surgeon/Practitioner: Eli Siddiqi Date of Procedure: 09/16/24 Pre-Procedure Diagnosis: PROM Post-Procedure Diagnosis: VAVD attempted to +4 station after vacuum, first degree perineal laceration Type of anesthesia: Epidural Estimated Blood Loss: 400ml Time of Delivery: 00:43 Findings Description of procedure: Progressed to complete with urge to push. Epidural for pain management. VAVD attempted to +4 station. of viable male infant over first degree perineal laceration by myself. 4 pulls and 2 pop offs by . APGARS 8,9 respectively. Infant head delivered with body forthcoming. Placed on maternal abdomen, strong cry. Mouth and nares suctioned for secretions. Pitocin started for active 3rd stage management. Cord doubly clamped and cut by FOB. Placenta delivered intact via mayers, 3 vessel cord intact. Perineum inspected and revealed first degree perineal laceration. Repaired with 3.0 vicryl rapide with epidural. Fundus firm and hemostasis achieved. EBL 400ml. Vaginal sweep completed by me, sponge and instrument correct. Mom and baby stable, planning to breastfeed. Family bonding well. present for of delivery. 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
[2024-09-16] MEDS: Oxytocin 15 Units/NS 250ml 15 UNITS/250 ML IV.SOLN 83 UNITS IV (01:20)
[2024-09-16] MEDS: MEASLES,MUMPS,RUBELLA VACC/PF 0.5 ML SC (18:08)
[2024-09-17 02:00] VITALS: BP 117/84; PULSE 85; RESP 18; TEMP 36.6; O2SAT 98
--- NOTE | 2024-09-17 08:25 | PCM.PN.OB ---
Subjective Subjective Patient seen at bedside. Denies any pain. Ambulating and voiding without difficulty. Lochia decreasing. with support. Desires to stay another night for support. Objective Data Objective Data Vital Signs: Vital Signs Temp Pulse Resp BP Pulse Ox O2 Del Method 97.8 F 85 18 117/84 H 98 Room Air 09/17/24 02:00 09/17/24 02:00 09/17/24 02:00 09/17/24 02:00 09/17/24 02:00 09/17/24 02:00 Oxygen Delivery Method Room Air Weight: 164 lb 9.6 oz Body Mass Index (BMI) 26.5 Intake & Output: Intake and Output for Last 24 Hours 09/15/24 09/16/24 09/17/24 23:59 23:59 23:59 Intake Total 3064.60 / 3064.60 1214.80 / 1214.80 Output Total 400 / 400 2200 / 2200 Balance 2664.60 / 2664.60 -985.20 / -985.20 Lab / Micro Data Attestation: I reviewed the patient's lab results. 09/15/24 08:30 ROS Eyes Eyes: Denies blurry vision, change in vision or spots in vision ENT HEENT: Denies dizziness or headache(s) Cardiovascular Cardiovascular: Denies abdominal pain, chest pain or dyspnea Respiratory/Chest Respiratory/Chest: Denies cough, dyspnea, shortness of breath at rest or shortness of breath with exertion Gastrointestinal Gastrointestinal: Denies abdominal pain, diarrhea or vomiting Genitourinary Genitourinary: Denies change in urinary stream, difficulty urinating or dysuria Musculoskeletal Musculoskeletal: Reports none Integumentary Integumentary: Denies rash Neurologic Neurologic: Denies dizziness, headache(s), memory loss or weakness Physical Exam Const alert and no apparent distress General Appearance: cooperative and comfortable Exam Limitations: no limitations HEENT normocephalic Eyes General Eye: normal appearance of both eyes Neck full ROM General: normal visual inspection Chest Chest: symmetrical chest wall rise Resp normal respiratory effort and normal air movement Effort and Inspection: symmetric chest movement Auscultation: clear to auscultation bilaterally Cardio regular rate and regular rhythm GI normal to inspection, nondistended, normoactive bowel sounds Back/Spine normal ROM Extremity full ROM and no calf tenderness General Extremity: normal exam except as noted Skin no rashes or lesions noted Neuro oriented x3 Speech: speech normal Psych mental status grossly normal Thought Process: normal thought process Assessment & Plan (1) Vacuum-assisted vaginal delivery: (2) Lactating mother: (3) First degree perineal laceration: PLAN: Plan PPD1 VAVD support Increase ambulation D/C home tomorrow
[2024-09-17 09:16] VITALS: BP 105/70; PULSE 93; RESP 18; TEMP 36.4; O2SAT 99
[2024-09-17] MEDS: Senna/Docusate Sodium 1 Tablet PO (10:17)
[2024-09-17 14:00] VITALS: BP 116/72; PULSE 83; RESP 18; TEMP 36.6; O2SAT 98
[2024-09-17 20:49] VITALS: BP 124/82; PULSE 74; RESP 16; TEMP 36.6; O2SAT 97
[2024-09-18 02:13] VITALS: BP 115/76; PULSE 78; RESP 16; TEMP 36.6; O2SAT 98
--- NOTE | 2024-09-18 07:39 | PCM.DC.SUM ---
Providers Date of Admission: 09/15/24 Primary Care Physician: Dr. Amparo Carter MD Reason For Visit: LABOR Diagnosis Discharge Diagnosis (1) Vacuum-assisted vaginal delivery: Status: Acute Code(s): Z37.9 - Outcome of delivery, unspecified (2) Lactating mother: Status: Acute Code(s): Z39.1 - Encounter for care and examination of lactating mother (3) First degree perineal laceration: Status: Acute Code(s): O70.0 - First degree perineal laceration during delivery Plan PPD2 VAVD support Increase ambulation D/C home with follow up in office Medications at Discharge Home Medications vit no.95-ferrous fumarate 28 mg-folic acid 800 mcg tablet () 1 tab PO DAILY 09/15/24 acetaminophen 500 mg tablet 1,000 mg (2 x 500 mg) PO Q6H PRN PRN Pain 1-10 Or Fever #0 tabs 09/18/24 ibuprofen 600 mg tablet 600 mg PO Q6H PRN PRN Pain Score 1-10 #0 tabs 09/18/24 sennosides 8.6 mg-docusate sodium 50 mg tablet (Stimulant Laxative Plus) 1 - 2 tab PO DAILY PRN PRN Constipation #0 tabs 09/18/24 Hospital Course Operations None Procedures None Summary of Care Provided Minutes Spent on Discharge: 15 Hospital Course: Patient had vaginal delivery. Hospital course was uneventful. Physical Exam Narrative Patient seen at bedside. Denies pain. Ambulating and voiding without difficulty. Lochia decreased. Desires discharge home today. Const alert and oriented x3 General Appearance: Negative for in distress HEENT normocephalic Eyes General Eye: normal appearance of both eyes Neck General: normal visual inspection Chest Chest: symmetrical chest wall rise Resp normal respiratory effort and normal air movement Effort and Inspection: symmetric chest movement; Negative for tachypneic Auscultation: clear to auscultation bilaterally Cardio regular rate and regular rhythm Peripheral Pulses: pulses 2+ throughout GI normal to inspection, nondistended, normoactive bowel sounds Narrative: Ice to perineum OB / External & Speculum: vaginal bleeding and other Lochia decreasing Uterus Palpation: uterus fundus firm (Below U) Extremity normal to inspection, full ROM and normal capillary refill Skin no rashes or lesions noted Neuro oriented x3, CN's II-XII intact bilaterally and gait normal Psych mental status grossly normal, thought process normal and activity/motor behavior normal Weight / BMI Weight Weight: 164 lb 9.6 oz Body Mass Index (BMI) 26.5 ABG / Lab / Microbiology Data 09/15/24 08:30 D/C Instructions Discharge Diet: No restrictions Discharge Activity: Return to Normal Activity, No Restrictions, May Drive, May Shower and May Take a Tub Bath (Warm water only. No bath salts, soaps, bubbles) May resume sexual activity in: 6-8 weeks Weight Bearing Status: Weight bearing as tolerated Call your doctor if you observe: Fever of 101 or Higher, Inability to urinate, Using more than 1 pad per hour, Shortness of breath, Dizziness, Chest pain, Calf discomfort and Uncontrolled pain DC O2, CPAP, BIPAP Needs Home O2 Discharge instructions: No Please Follow Up With: [facility] Ayesha JOSHUA When: 2 weeks in office or virtual Meaningful Use Info Meaningful Use Meaningful Use Diagnoses (Choose all that apply): None applicable Ischemic Stroke Statin Dosing Therapy Reference: STATIN DOSE THERAPY REFERENCE: * Patients > 75 years receive moderate or high dose statin therapy. * Patients 75 years or YOUNGER should receive HIGH intensity statin dose unless contraindicated. You will be required to document reason for non-treatment if statin daily dose does not meet guidelines. HIGH DOSE STATIN THERAPY DAILY Atorvastatin > than or = to 40 mg Rosuvastatin > than or = to 20 mg Amlodipine + Atorvastatin > than or = to 2.5/40 mg Ezetimibe + Simvastatin 10/80 mg Simvastatin 80mg Discharge Plan Admission Admit Date/Time: 09/15/24 07:53 Primary Reason for Your Visit: Labor and Delivery Attending Provider: Eli Siddiqi Primary Care Provider: Amparo Carter Discharge Orders/Prescriptions Prescriptions: New sennosides-docusate sodium [Stimulant Laxative Plus] 8.6-50 mg Tablet 1 - 2 tab PO DAILY PRN PRN (Reason: Constipation) Qty: 0 0RF acetaminophen 500 mg Tablet 1,000 mg PO Q6H PRN PRN (Reason: Pain 1-10 Or Fever) Qty: 0 0RF ibuprofen 600 mg Tablet 600 mg PO Q6H PRN PRN (Reason: Pain Score 1-10) Qty: 0 0RF Continued PNV cmb#95-ferrous fumarate-FA [] 28 mg iron- 800 mcg tablet 1 tab PO DAILY Discontinued aspirin 81 mg capsule 81 mg PO DAILY Referrals / Follow Up: Joya Hassan CNM [Med Staff - [facility]] - Amparo Carter MD [Primary Care Provider] - Disposition Disposition (needs filled in before D/C Order can be placed): Home, Self Care
[2024-09-18 10:00] VITALS: BP 111/67; PULSE 76; RESP 16; TEMP 36.6; O2SAT 99
--- NOTE | 2024-09-24 09:37 | NURSING ---
Here for consult on Sunday09/20/24, follow up phone call questions asked. Denies any pain, states her bleeding is better. Denies any headaches, visual changes, or Baby Blues. See note for feeding assessment, is going well. Denies any questions or concerns at this time.
== END 2024-09-18 13:05 | disposition home or self-care (01) | DRG 807 ==
LOC: WPOUT 08:01 → WP 12:18
PROVIDERS: Obstetrics & Gynecology; Admitting Provider Advanced Practice Midwife; PCP Pediatrics; Visit Provider Advanced Practice Midwife
DX: O42.92 Full-term premature rupture of membranes, unspecified as to length of time between rupture and onset of labor (principal); Z37.0 Single live birth; O70.0 First degree perineal laceration during delivery; O75.81 Maternal exhaustion complicating labor and delivery; Z3A.40 40 weeks gestation of pregnancy; Z79.82 Long term (current) use of aspirin
CPT/HCPCS: 59025; 59050; 84112; 85025; 86780; 86850; 86900; 86901; 99221; G0378; J2405